=== PATIENT | male | born 1945 | race Caucasian/White ===

== ENCOUNTER → 2019-09-24 14:36 | Outpatient (BNVA) | payer MEDICARE, SELFPAY | PROVIDERS: Family Provider Family Medicine; PCP Family Medicine; Visit Provider Nurse Practitioner Family | DX: Z11.59 Encounter for screening for other viral diseases (principal) | CPT/HCPCS: 87635 ==

== ENCOUNTER → 2019-11-18 10:40 | Outpatient (BNVA) | payer OTHER, MEDICARE, SELFPAY | PROVIDERS: Absent Provider Urology; Family Provider Family Medicine; PCP Family Medicine; Visit Provider Urology | DX: N52.9 Male erectile dysfunction, unspecified (principal) | CPT/HCPCS: 81001 ==

== ENCOUNTER 2020-03-08 20:50 | Emergency (ER) | payer OTHER, MEDICARE, SELFPAY ==
[2020-03-08 21:08] VITALS: BP 151/99; PULSE 65; RESP 16; TEMP 36.8; O2SAT 98; BMI 24.6
[2020-03-08 21:08] LABS: Glucose Point of Care 209 mg/dL (70-110)
[2020-03-08 21:16] VITALS: BP 151/99; PULSE 74; RESP 17; O2SAT 95
--- NOTE | 2020-03-08 21:19 | CTR_ITS ---
PROCEDURE INFORMATION: Exam: CT Head Without Contrast Exam date and time: 03/08/2020 9:27 PM Age: 74 years old Clinical indication: Speech disturbance; Slurred speech; Additional info: Symptoms of acute stroke, left side facial droop, slurred speech TECHNIQUE: Imaging protocol: Computed tomography of the head without contrast. Radiation optimization: All CT scans at this facility use at least one of these dose optimization techniques: automated exposure control; mA and/or kV adjustment per patient size (includes targeted exams where dose is matched to clinical indication); or iterative reconstruction. Other technique: STROKE PROTOCOL was implemented. COMPARISON: CT head wo con* [id number] 10/02/2017 1:16 PM RADIATION DOSE METRICS: Total DLP (mGy-cm): 869.25 FINDINGS: Brain: Mild atrophy and mild white matter chronic microvascular changes are noted. No hemorrhage or CT evidence of acute infarction is seen. Cerebral ventricles: A 6 mm slightly dense lesion is again seen in the roof of the 3rd ventricle which is likely a colloid cyst. No hydrocephalus. Bones/joints: Unremarkable. No acute fracture. Paranasal sinuses: Visualized sinuses are unremarkable. No fluid levels. Mastoid air cells: Visualized mastoid air cells are well aerated. Soft tissues: Unremarkable. CT/CT head wo con* [id number] IMPRESSION: No acute intracranial abnormality. 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 ASSESSMENT: ASPECTS (Taylor Stroke Program Early CT Score) is 10. Radiation Dose CTDIVOL = (mGy): DLP = 869.25 (mGy-cm)
--- NOTE | 2020-03-08 21:19 | ECG_ITS ---
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 Measurements Intervals [place] Rate: 66 P: 82 AL: 185 QRS: 24 QRSD: 101 T: 52 QT: 439 QTc: 461 Interpretive Statements SINUS RHYTHM WITH OCCASIONAL VENTRICULAR PREMATURE COMPLEXES WITH OCCASIONAL SUPRAVENTRICULAR PREMATURE COMPLEXES INCOMPLETE RIGHT BUNDLE BRANCH BLOCK [90+ ms QRS DURATION, TERMINAL R IN V1/V2, 40+ ms S IN I/aVL/V4/V5/V6] Compared to ECG 12/13/2014 15:58:56 Ventricular premature complex(es) now present Incomplete right bundle-branch block now present Sinus bradycardia no longer present Electronically Signed On 03-09-2020 18:40:31 CATERING STAFF MEMBER by Cruz Fry M.D. [id number]
--- NOTE | 2020-03-08 21:19 | CTR_ITS ---
PROCEDURE INFORMATION: Exam: CT Angiography Head With Contrast Exam date and time: 03/08/2020 9:27 PM Age: 74 years old Clinical indication: Speech disturbance; Slurred speech; Additional info: Stroke-lie symptoms TECHNIQUE: Imaging protocol: Computed tomography angiography of the head with intravenous contrast. 3D rendering (Not supervised by radiologist): MIP and/or 3D reconstructed images were created by the technologist. Radiation optimization: All CT scans at this facility use at least one of these dose optimization techniques: automated exposure control; mA and/or kV adjustment per patient size (includes targeted exams where dose is matched to clinical indication); or iterative reconstruction. Contrast material: VISI; Contrast volume: 95 ml; Contrast route: INTRAVENOUS (IV); COMPARISON: CT head wo con* [id number] 03/08/2020 9:20 PM RADIATION DOSE METRICS: Total DLP (mGy-cm): 2383.82 FINDINGS: ANTERIOR CIRCULATION: Right internal carotid artery: Mild stenosis of the right carotid siphon is appreciated. Right middle cerebral artery: Unremarkable. No occlusion or significant stenosis. No aneurysm. Right anterior cerebral artery: Unremarkable. No occlusion or significant stenosis. No aneurysm. Left internal carotid artery: Unremarkable. Intracranial segment is patent with no significant stenosis. No aneurysm. Left middle cerebral artery: Unremarkable. No occlusion or significant stenosis. No aneurysm. Left anterior cerebral artery: Unremarkable. No occlusion or significant stenosis. No aneurysm. POSTERIOR CIRCULATION: Right vertebral artery: Unremarkable. No occlusion or significant stenosis. No aneurysm. Left vertebral artery: Unremarkable. No occlusion or significant stenosis. No aneurysm. Basilar artery: Unremarkable. No occlusion or significant stenosis. No aneurysm. Right posterior cerebral artery: Unremarkable. No occlusion or significant stenosis. No aneurysm. Left posterior cerebral artery: Unremarkable. No occlusion or significant stenosis. No aneurysm. IMPRESSION: Mild stenosis of the right carotid siphon. Otherwise, the intracranial arteries are patent. PROCEDURE INFORMATION: Exam: CT Angiography Neck With Contrast Exam date and time: 03/08/2020 9:27 PM Age: 74 years old Clinical indication: Speech disturbance; Slurred speech; Additional info: Stroke-lie symptoms TECHNIQUE: Imaging protocol: Computed tomography angiography of the neck with intravenous contrast. 3D rendering (Not supervised by radiologist): MIP and/or 3D reconstructed images were created by the technologist. Radiation optimization: All CT scans at this facility use at least one of these dose optimization techniques: automated exposure control; mA and/or kV adjustment per patient size (includes targeted exams where dose is matched to clinical indication); or iterative reconstruction. Contrast material: VISI; Contrast volume: 95 ml; Contrast route: INTRAVENOUS (IV); COMPARISON: CT head wo con* [id number] 03/08/2020 9:20 PM RADIATION DOSE METRICS: Total DLP (mGy-cm): 2383.82 FINDINGS: Right common carotid artery: Mild stenosis of the right carotid bulb is noted. Right internal carotid artery: No stenosis of the extracranial segment. No dissection or occlusion. Right external carotid artery: No occlusion or stenosis of the origin. Right vertebral artery: No stenosis. No dissection or occlusion. Left common carotid artery: No stenosis. No dissection or occlusion. Left internal carotid artery: No stenosis of the extracranial segment. No dissection or occlusion. Left external carotid artery: No occlusion or stenosis of the origin. Left vertebral artery: No stenosis. No dissection or occlusion. Bones/joints: No acute fracture. Soft tissues: Normal. No significant soft tissue swelling. CT/CT angio headneck* [id number] IMPRESSION: Mild stenosis of the right carotid bulb. REFERENCES: NASCET CRITERIA. The degree of internal carotid artery stenosis is based on NASCET criteria. Normal is no stenosis. Mild is less than 50% stenosis. Moderate is 50-69% stenosis. Severe is 70% to 99% stenosis. Total occlusion is no detectable patent lumen. Radiation Dose CTDIVOL = (mGy): DLP = 2383.82~2383.82 (mGy-cm)
[2020-03-08 21:31] LABS: Basophils # 0.1 10^3/uL (0.0-0.1); Eosinophils # 0.1 10^3/uL (0.0-0.8); Eosinophils % 1.6 %; Hematocrit 41.9 % (42.0-52.0); Hemoglobin 13.7 g/dL (11.7-16.6); Lymphocytes % 25.4 %; Mean Corpuscular HGB Conc 32.7 g/dL (30.0-36.0); Mean Corpuscular Hemoglobin 31.1 pg (28.0-34.0); Mean Platelet Volume 10.5 fL (7.4-10.4); Monocytes # 0.7 10^3/uL (0.2-0.9); Monocytes % 8.2 %; Neutrophils % 63.5 %; Nucleated Red Blood Cells % 0 %; Platelet Count 148 10^3/cmm (130-400); Red Blood Count 4.41 10^6/uL (4.1-5.3); Red Cell Distribution Width 12.5 % (12.1-15.1); White Blood Count 7.9 10^3/uL (4.0-10.0)
[2020-03-08 21:42] LABS: Partial Thromboplastin Time 30.1 SECONDS (23.9-36.7)
[2020-03-08 21:47] LABS: Alanine Aminotransferase 36 U/L (0-41); Albumin Level 4.1 g/dL (3.5-5.2); Alkaline Phosphatase 114 IU/L (40-130); Anion Gap 15.7 (5-19); Aspartate Amino Transferase 40 U/L (0-40); Blood Urea Nitrogen 31 mg/dL (8-23); Calcium 9.4 mg/dL (8.5-10.5); Carbon Dioxide 27 mmol/L (22-29); Chloride 100 mmol/L (98-107); Globulin 2.8 g/dL (1.3-4.6); Glucose 211 mg/dL (65-115); Osmolality Calculated 301 mOsm/kg (285-295); Potassium 3.7 mmol/L (3.5-5.1); Sodium 139 mmol/L (136-145); Total Bilirubin 0.5 mg/dL (0.15-1.2); Total Protein 6.9 g/dL (6.6-8.7)
--- NOTE | 2020-03-08 22:37 | ED_ITS ---
HPI - Neuro Symptoms/Deficit General: Chief Complaint: Neuro Symptoms/Deficit Stated Complaint: stroke Time Seen by Provider: 03/08/20 21:05 Source: patient and family (son) Mode of arrival: ambulatory Limitations: no limitations History of Present Illness: HPI Narrative: This patient is a pleasant 74-year-old male with no significant past medical history who presents to the em ergency department with complaints of slurred speech, left facial droop and clumsiness. The clumsiness was noted at 4 PM and later his noted a left facial droop. The patient also noted that he is speech became slurred sometime after 4 PM. Symptoms remain the same and he was convinced to come to the emergency department for evaluation as the patient himself did not want to come in here. No prior history of stroke, he did say he had been diagnosed with A. fib once several years ago but that spontaneously resolved and he is not on aspirin or anticoagulation. Onset (ago): hour(s) (5) Time: 21:00 Last Observed Normal: 16:00 Timing confirmed by: family member (son) Location: speech and left face History of same: No Severity: mild Quality: weak Relieving factors: none Exacerbating factors: none Context: sudden onset On Anticoagulants: No Associated symptoms: Deny chest pain, cough, diaphoresis, fevers/chills, headache(s), anorexia, malaise, nausea, seizures, short of breath, syncope, tingling, vertigo, vomiting or weakness Treatments Prior to Arrival: none Review of Systems General: Reports: 10 or more systems reviewed and unremarkable except in HPI and below Const: Denies: malaise or diaphoresis Eyes: Denies: change in vision or blurry vision ENMT: Denies: throat pain, enlarged tonsils, odynophagia, hoarseness, mouth pain or swelling of lips/tongue Card: Denies: chest pain or syncope Resp: Denies: dyspnea, productive cough or non-productive cough GI: Denies: nausea or vomiting : Denies: flank pain, dysuria, urinary frequency, urinary urgency or urinary hesitancy Musc: Denies: neck pain, back pain or extremity swelling Skin/Breast: Denies: rash, pruritus or erythema Neuro: Denies: headache(s) or vertigo Endo: Denies: polyuria, polydipsia or tired all the time PFSH ED PFSH: Medical History Afib Erectile dysfunction Hypertension Thoracic aortic aneurysm Family History Brother Cancer prostate Social History Smoking and tobacco status: former smoker Alcohol intake: current Alcohol intake frequency: few times a month Marital status: Current occupational status: retired NIH stroke score NIHSS: Level Of Consciousness - 1a: 0 Level Of Consciousness Questions - 1b: Both Correct Level Of Consciousness Commands - 1c: Both Correct Best Gaze - 2: Normal Visual Loo - 3: No Visual Loss Facial Palsy - 4: Minor Paralysis Motor Arm Right - 5: No Drift Motor Arm Left - 5: No Drift Mo tor Leg Right - 6: No Drift Motor Leg Left - 6: No Drift Limb Ataxia - 7: Absent Sensory - 8: Normal Best Language - 9: No Aphasia Dysarthia - 10: Mild/Moderate Dysarthia Extinction And Inattention - 11: 0 Score: Total Score: 2 Physical Exam Const: COMMON NORMALS: no acute distress, average body habitus, patient oriented x3, no limitations, healthy appearing, alert and well nourished HENMT: COMMON NORMALS: normocephalic, atraumatic and moist oral mucous membranes HEAD & SCALP: normocephalic and atraumatic Eye: COMMON NORMALS: Equal, round and reactive pupils present, EOMs intact bilaterally, conjunctivae normal and no scleral icterus CONJUNCTIVA: Yes conjunctivae normal PUPIL: Yes Equal, round and reactive pupils present Neck/C-Spine: COMMON NORMALS: no meningeal signs and no JVD Resp: COMMON NORMALS: normal respiratory effort, No retractions, No use of accessory muscles, clear to auscultation bilaterally and percussion normal AUSCULTATION: clear to auscultation bilaterally PERCUSSION: percussion normal Cardio: COMMON NORMALS: no JVD, regular rate, regular rhythm, S1 normal heart sound present, S2 normal heart sound present, No gallops present (Cardio), No clicks present (Cardio), No murmurs present (Cardio), No rub (Cardio) and Peripheral pulses 2+ throughout RATE: regular rate RHYTHM: regular rhythm HEART SOUNDS: S1 normal heart sound present and S2 normal heart sound present PERIPHERAL PULSES: Peripheral pulses 2+ throughout GI: COMMON NORMALS: Normal to inspection, nondistended, normoactive bowel sounds present, Soft to palpation, non-tender, No hepatosplenomegaly present, no masses and no bruits PALPATION: Yes Soft to palpation and Yes No hepatosplenomegaly present Extremity: COMMON NORMALS: normal to inspection, full ROM, capillary refill normal, no calf tenderness and no pedal edema Neuro: COMMON NORMALS: patient oriented x3 SENSORIUM/ORIENTATION: Yes alert MENINGEAL SIGNS: Yes no meningeal signs Skin: COMMON NORMALS: no rashes or lesions noted, no wounds, turgor normal, no jaundice, no petechiae and no mottling GENERAL SKIN EXAM: no rashes or lesions noted and turgor normal Course Reevaluation(s): Reevaluation #1: Discussed his lab and imaging findings with him as well as my examination findings with him. I believe he had his CVA which is mild and likely does not need TPA. In any case he arrived out of the window for TPA. Advised that he stay in the hospital overnight for an echocardiogram and further work-up of his CVA, however the patient insisted on being discharged home. His son was there in the room with him and also agreed with the patient discharging home. The son will stay with him overnight and watch him to make sure he does not deteriorate. I advised them to return for any concerns. He will be started on 81 mg dose of aspirin daily as well as 40 mg of atorvastatin daily. An outpatient echocardiogram will be ordered. He is to follow-up with his primary care provider tomorrow. Patient voiced understanding and is in agreement with the plan. Time: 22:37 Vital Signs: Vital signs: Vital Signs Temperature 98.2 F 03/08/20 21:08 Pulse Rate 57 L 03/08/20 22:52 Respiratory Rate 16 03/08/20 22:52 Blood Pressure 146/87 03/08/20 22:52 Pulse Oximetry 95 03/08/20 22:52 MDM - Neuro Symptoms/Deficit MDM Narrative: Medical decision making narrative: 74-year-old male who presented to the emergency department and has clinical features consistent with a CVA. The patient declined hospital admission, evaluation in the emergency department was unremarkable including a negative head CT and CTA of his head and neck. Since he refused to be admitted to the hospital he is discharged home with a prescription for aspirin and atorvastatin. Patient and his son counseled on signs of decompensation. He is scheduled to obtain an outpatient echocardiogram. He is to follow-up with his primary care provider within 3 days. Medical Records: Attestation: I reviewed the patient's medical records. Lab Data: Attestation: I reviewed the patient's lab results. Labs: Lab Results 03/08/20 03/08/20 03/08/20 Range/Units 21:05 21:07 21:07 WBC 7.9 (4.0-10.0) 10^3/ uL RBC 4.41 (4.1-5.3) 10^6/u L Hgb 13.7 (11.7-16.6) g/dL Hct 41.9 L (42.0-52.0) % MCV 95.0 H (80-94) fL MCH 31.1 (28.0-34.0) pg MCHC 32.7 (30.0-36.0) g/dL RDW 12.5 (12.1-15.1) % Plt Count 148 (130-400) 10^3/c mm MPV 10.5 H (7.4-10.4) fL Neut % (Auto) 63.5 % Lymph % (Auto) 25.4 % [place] % (Auto) 8.2 % Eos % (Auto) 1.6 % Baso % (Auto) 1.0 % Neut # (Auto) 5.00 (1.8-7.7) 10^3/u L Lymph # (Auto) 2.0 (0.8-4.8) 10^3/u L [place] # (Auto) 0.7 (0.2-0.9) 10^3/u L Eos # (Auto) 0.1 (0.0-0.8) 10^3/u L Baso # (Auto) 0.1 (0.0-0.1) 10^3/u L Nucleated RBC % (a uto) 0 % Nucleated RBCs # 0.0 /100WBC PT 13.50 (12.1-14.9) SECO NDS INR 1.00 (0.8-1.2) APTT 30.1 (23.9-36.7) SECO NDS Sodium (136-145) mmol/L Potassium (3.5-5.1) mmol/L Chloride (98-107) mmol/L Carbon Dioxide (22-29) mmol/L Anion Gap (5-19) BUN (8-23) mg/dL Creatinine (0.7-1.2) mg/dL GFR Calculation Glucose (65-115) mg/dL POC Glucose 209 H (70-110) mg/dL Calculated Osmolal ity (285-295) mOsm/k g Calcium (8.5-10.5) mg/dL Total Bilirubin (0.15-1.2) mg/dL AST (0-40) U/L ALT (0-41) U/L Alkaline Phosphata se (40-130) IU/L Total Protein (6.6-8.7) g/dL Albumin (3.5-5.2) g/dL Globulin (1.3-4.6) g/dL Urine Color (Yellow) Urine Appearance (CLEAR) Urine pH (5-7) Ur Specific Gravit y (1.005-1.030) Urine Protein (Negative) Urine Glucose (UA) (Normal) Urine Ketones (Negative) Urine Blood (Negative) Urine Nitrate (Negative) Urine Bilirubin (Negative) Urine Urobilinogen (Negative) mg/dL Ur Leukocyte Sunita ase (Negative) Urine Opiates Scre en (Negative) ng/mL Ur Barbiturates Sc reen (Negative) ng/mL Ur Phencyclidine S crn (Negative) ng/mL Ur Amphetamines Sc reen (Negative) ng/mL U Benzodiazepines Scrn (Negative) ng/mL Urine Cocaine Scre en (Negative) ng/mL U Marijuana (THC) Screen (Negative) ng/mL 03/08/20 03/08/20 03/08/20 Range/Units 21:07 21:58 21:58 WBC (4.0-10.0) 10^3/ uL RBC (4.1-5.3) 10^6/u L Hgb (11.7-16.6) g/dL Hct (42.0-52.0) % MCV (80-94) fL MCH (28.0-34.0) pg MCHC (30.0-36.0) g/dL RDW (12.1-15.1) % Plt Count (130-400) 10^3/c mm MPV (7.4-10.4) fL Neut % (Auto) % Lymph % (Auto) % [place] % (Auto) % Eos % (Auto) % Baso % (Auto) % Neut # (Auto) (1.8-7.7) 10^3/u L Lymph # (Auto) (0.8-4.8) 10^3/u L [place] # (Auto) (0.2-0.9) 10^3/u L Eos # (Auto) (0.0-0.8) 10^3/u L Baso # (Auto) (0.0-0.1) 10^3/u L Nucleated RBC % (a uto) % Nucleated RBCs # /100WBC PT (12.1-14.9) SECO NDS INR (0.8-1.2) APTT (23.9-36.7) SECO NDS Sodium 139 (136-145) mmol/L Potassium 3.7 (3.5-5.1) mmol/L Chloride 100 (98-107) mmol/L Carbon Dioxide 27 (22-29) mmol/L Anion Gap 15.7 (5-19) BUN 31 H (8-23) mg/dL Creatinine 1.3 H (0.7-1.2) mg/dL GFR Calculation Not Reportable Glucose 211 H (65-115) mg/dL POC Glucose (70-110) mg/dL Calculated Osmolal ity 301 H (285-295) mOsm/k g Calcium 9.4 (8.5-10.5) mg/dL Total Bilirubin 0.5 (0.15-1.2) mg/dL AST 40 (0-40) U/L ALT 36 (0-41) U/L Alkaline Phosphata se 114 (40-130) IU/L Total Protein 6.9 (6.6-8.7) g/dL Albumin 4.1 (3.5-5.2) g/dL Globulin 2.8 (1.3-4.6) g/dL Urine Color Yellow (Yellow) Urine Appearance Clear (CLEAR) Urine pH 5 (5-7) Ur Specific Gravit y 1.025 (1.005-1.030) Urine Protein Neg (Negative) Urine Glucose (UA) Norm (Normal) Urine Ketones Negative (Negative) Urine Blood Neg (Negative) Urine Nitrate Negative (Negative) Urine Bilirubin Neg (Negative) Urine Urobilinogen Norm (Negative) mg/dL Ur Leukocyte Sunita ase Negative (Negative) Urine Opiates Scre en Negative (Negative) ng/mL Ur Barbiturates Sc reen Negative (Negative) ng/mL Ur Phencyclidine S crn Negative (Negative) ng/mL Ur Amphetamines Sc reen Negative (Negative) ng/mL U Benzodiazepines Scrn Negative (Negative) ng/mL Urine Cocaine Scre en Negative (Negative) ng/mL U Marijuana (THC) Screen Positive H (Negative) ng/mL Imaging Data^: CT Head: Attestation: I personally reviewed and interpreted this imaging study as follows: Radiologist's impression: [address] [address] [address] Scan Report Signed Patient: Les Bowling #: [id number] : 5Acct#:[id number] Age/Sex: 74 / MADM Date: 03/08/20 Loc: ERRoom/Bed: Attending Dr: Ordering Provider/Ordering MD: Laisha Dorado MD, [facility] [place] Date of Service: 03/08/20 Procedure(s): CT head wo con* [id number] Accession Number(s): [id number] Report Number: [id number] PROCEDURE INFORMATION: Exam: CT Head Without Contrast Exam date and time: 03/08/2020 9:27 PM Age: 74 years old Clinical indication: Speech disturbance; Slurred speech; Additional info: Symptoms of acute stroke, left side facial droop, slurred speech TECHNIQUE: Imaging protocol: Computed tomography of the head without contrast. Radiation optimization: All CT scans at this facility use at least one of these dose optimization techniques: automated exposure control; mA and/or kV adjustment per patient size (includes targeted exams where dose is matched to clinical indication); or iterative reconstruction. Other technique: STROKE PROTOCOL was implemented. COMPARISON: CT head wo con* [id number] 10/02/2017 1:16 PM RADIATION DOSE METRICS: Total DLP (mGy-cm): 869.25 FINDINGS: Brain: Mild atrophy and mild white matter chronic microvascular changes are noted. No hemorrhage or CT evidence of acute infarction is seen. Cerebral ventricles: A 6 mm slightly dense lesion is again seen in the roof of the 3rd ventricle which is likely a colloid cyst. No hydrocephalus. Bones/joints: Unremarkable. No acute fracture. Paranasal sinuses: Visualized sinuses are unremarkable. No fluid levels. Mastoid air cells: Visualized mastoid air cells are well aerated. Soft tissues: Unremarkable. CT/CT head wo con* [id number] IMPRESSION: No acute intracranial abnormality. 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 ASSESSMENT: ASPECTS (Taylor Stroke Program Early CT Score) is 10. Radiation Dose CTDIVOL = (mGy): DLP = 869.25 (mGy-cm) Dictated By:Teo Domingo MD Signed By:Teo Domingo MDSigned Date/Time:03/08/202142 DD/ [address]: Attestation: I personally reviewed and interpreted this imaging study as follows: Radiologist's impression: [place] [address] CT Scan Report Signed Patient: Les Bowling #: [id number] : 5Acct#:[id number] Age/Sex: 74 / MADM Date: 03/08/20 Loc: ERRoom/Bed: Attending Dr: Ordering Provider/Ordering MD: Laisha Dorado MD, [facility] [place] Date of Service: 03/08/20 Procedure(s): CT angio headneck* [id number] Accession Number(s): [id number] Report Number: [id number] PROCEDURE INFORMATION: Exam: CT Angiography Head With Contrast Exam date and time: 03/08/2020 9:27 PM Age: 74 years old Clinical indication: Speech disturbance; Slurred speech; Additional info: Stroke-lie symptoms TECHNIQUE: Imaging protocol: Computed tomography angiography of the head with intravenous contrast. 3D rendering (Not supervised by radiologist): MIP and/or 3D reconstructed images were created by the technologist. Radiation optimization: All CT scans at this facility use at least one of these dose optimization techniques: automated exposure control; mA and/or kV adjustment per patient size (includes targeted exams where dose is matched to clinical indication); or iterative reconstruction. Contrast material: VISI; Contrast volume: 95 ml; Contrast route: INTRAVENOUS (IV); COMPARISON: CT head wo con* [id number] 03/08/2020 9:20 PM RADIATION DOSE METRICS: Total DLP (mGy-cm): 2383.82 FINDINGS: ANTERIOR CIRCULATION: Right internal carotid artery: Mild stenosis of the right carotid siphon is appreciated. Right middle cerebral artery: Unremarkable. No occlusion or significant stenosis. No aneurysm. Right anterior cerebral artery: Unremarkable. No occlusion or significant stenosis. No aneurysm. Left internal carotid artery: Unremarkable. Intracranial segment is patent with no significant stenosis. No aneurysm. Left middle cerebral artery: Unremarkable. No occlusion or significant stenosis. No aneurysm. Left anterior cerebral artery: Unremarkable. No occlusion or significant stenosis. No aneurysm. POSTERIOR CIRCULATION: Right vertebral artery: Unremarkable. No occlusion or significant stenosis. No aneurysm. Left vertebral artery: Unremarkable. No occlusion or significant stenosis. No aneurysm. Basilar artery: Unremarkable. No occlusion or significant stenosis. No aneurysm. Right posterior cerebral artery: Unremarkable. No occlusion or significant stenosis. No aneurysm. Left posterior cerebral artery: Unremarkable. No occlusion or significant stenosis. No aneurysm. IMPRESSION: Mild stenosis of the right carotid siphon. Otherwise, the intracranial arteries are patent. PROCEDURE INFORMATION: Exam: CT Angiography Neck With Contrast Exam date and time: 03/08/2020 9:27 PM Age: 74 years old Clinical indication: Speech disturbance; Slurred speech; Additional info: Stroke-lie symptoms TECHNIQUE: Imaging protocol: Computed tomography angiography of the neck with intravenous contrast. 3D rendering (Not supervised by radiologist): MIP and/or 3D reconstructed images were created by the technologist. Radiation optimization: All CT scans at this facility use at least one of these dose optimization techniques: automated exposure control; mA and/or kV adjustment per patient size (includes targeted exams where dose is matched to clinical indication); or iterative reconstruction. Contrast material: VISI; Contrast volume: 95 ml; Contrast route: INTRAVENOUS (IV); COMPARISON: CT head wo con* [id number] 03/08/2020 9:20 PM RADIATION DOSE METRICS: Total DLP (mGy-cm): 2383.82 FINDINGS: Right common carotid artery: Mild stenosis of the right carotid bulb is noted. Right internal carotid artery: No stenosis of the extracranial segment. No dissection or occlusion. Right external carotid artery: No occlusion or stenosis of the origin. Right vertebral artery: No stenosis. No dissection or occlusion. Left common carotid artery: No stenosis. No dissection or occlusion. Left internal carotid artery: No stenosis of the extracranial segment. No dissection or occlusion. Left external carotid artery: No occlusion or stenosis of the origin. Left vertebral artery: No stenosis. No dissection or occlusion. Bones/joints: No acute fracture. Soft tissues: Normal. No significant soft tissue swelling. CT/CT angio headneck* [id number] IMPRESSION: Mild stenosis of the right carotid bulb. REFERENCES: NASCET CRITERIA. The degree of internal carotid artery stenosis is based on NASCET criteria. Normal is no stenosis. Mild is less than 50% stenosis. Moderate is 50-69% stenosis. Severe is 70% to 99% stenosis. Total occlusion is no detectable patent lumen. Radiation Dose CTDIVOL = (mGy): DLP = 2383.82~2383.82 (mGy-cm) Dictated By:Teo Domingo MD Signed By:Teo Domingo MDSigned Date/Time:03/08/202150 DD/ 49 EKG Data^: EKG 1: Attestation: I personally reviewed and interpreted this EKG as follows: EKG interpretation date: 03/08/20 EKG interpretation time: 21:58 Prior EKG tracings: not available for review Interpretation: Sinus rhythm and occasional PVCs. Heart rate 66 bpm. Incomplete right bundle branch block. No ST changes. Discharge Plan Discharge Patient Disposition: Home Clinical Impression: Cerebrovascular accident Qualifiers: CVA mechanism: unspecified Qualified Code(s): I63.9 - Cerebral infarction, unspecified Condition: Stable Prescriptions: New aspirin 81 mg tablet,delayed release (DR/EC) 81 mg PO DAILY Qty: 30 RF: 0 Lipitor 40 mg tablet 40 mg PO DAILY Qty: 30 RF: 0 Continued 5-hydroxytryptophan (5-HTP) 100 mg capsule 100 mg PO DAILY RF: 0 5G Male PO RF: 0 sildenafil 100 mg tablet 100 mg PO DAILY PRN (Reason: sexual activity) Qty: 20 RF: 12 Discharge Orders: Discharge ED (Routine); Ordered 03/08/20 Ordered By: Laisha Dorado Referrals: Calderon Harrell MD [Primary Care Provider] - 1-3 days Discharge Diet: Usual diet Discharge Activity: Increase activity as tolerated Patient Instructions: Right Hemispheric Stroke (GEN), Self Care Measures After a Stroke (ED) Activity Restrictions/Additional Instructions: Return for any new or worsening symptoms. Follow-up with your primary care provider within [address] We did a CT scan of your head as well as a CT scan of the arteries to your neck and your head and there was no significant abnormalities. Your other tests were essentially unremarkable. I am starting you on 2 medications, 1 is a baby aspirin that you take every day and the second 1 is a cholesterol reducing medication that he also take every day, preferably at night. It is important that you get an outpatient ultrasound of your heart which I have ordered, you will be contacted by case management to schedule the outpatient ultrasound of your heart. Ensure that your son stays with you overnight tonight and check on you every few hours to make sure that nothing has changed. Like I said if you have any new symptoms or your symptoms get worse please return for evaluation. Coding Level of Care Code ED Podiatric Assistant for Lisa Lilly
[2020-03-08 22:52] VITALS: BP 146/87; PULSE 57; RESP 16; O2SAT 95
[2020-03-08 23:14] LABS: Add Urine Microscopic? NO
[2020-03-08 23:16] LABS: Bilirubin Urine Neg (Negative); Blood Urine Neg (Negative); Glucose Urine UA Norm (Normal); Ketones Urine Negative (Negative); Leukocyte Esterase Urine Negative (Negative); Nitrate Urine Negative (Negative); Protein Urine Neg (Negative); Specific Gravity, Urine 1.025 (1.005-1.030); Urine Appearance Clear (CLEAR); Urine Color Yellow (Yellow); Urobilinogen Urine Norm (Negative); pH Urine 5 (5-7)
[2020-03-08 23:24] LABS: Amphetamines Screen Urine Negative (Negative); Barbiturates Screen Urine Negative (Negative); Benzodiazepines Screen Urine Negative (Negative); Cocaine Screen Urine Negative (Negative); Opiate Screen Urine Negative (Negative); PCP Screen Urine Negative (Negative); THC Screen Urine Positive (Negative)
--- NOTE | 2020-03-09 14:42 | DCPLANNER ---
site operations manager had message to schedule a follow up appointment for patient for an outpatient echo. Patient has [employer] insurance, case reviewer can not schedule an outpatient test. site operations manager called heart care, spoke with Steff, a follow up appointment is scheduled for Tuesday, March 10, 2020 at 3:[address] Braden. site operations manager called patient and informed patient of the scheduled appointment.
--- NOTE | 2020-04-03 15:05 | DCPLANNER ---
Patient had a follow up appointment scheduled for 03.10.20 with heart care - appointment was cancelled.
== END 2020-03-08 22:53 | disposition home or self-care (01) ==
PROVIDERS: Emergency Provider Family Medicine; PCP Family Medicine
DX: I48.91 Unspecified atrial fibrillation (principal); I10 Essential (primary) hypertension; Z87.891 Personal history of nicotine dependence; Z79.899 Other long term (current) drug therapy
CPT/HCPCS: 12345; 36416; 70450; 70496; 70498; 80053; 80306; 81003; 82962; 85025; 85610; 85730; 93005; 99282; 99284; Q9967

== ENCOUNTER 2020-04-03 12:06 | Outpatient (CLI) | payer OTHER, MEDICARE, SELFPAY ==
--- NOTE | 2020-04-03 15:45 | USCV_ITS ---
Will Bowling Age: 74 Gender: M : 1945 Exam Date: 04/03/2020 12:21 Ordering Phys: Codey Vaca M.D ([email or web address]) Technologist: Edwige Mcclendon Exam Location: [facility] [place] Indication: AFIB BP: 154 / 90 HR: 135 Rhythm: Sinus Technical Quality: Adequate MEASUREMENTS (Male / Female) Normal Values 2D ECHO LV Diastolic Diameter PLAX 4.3 cm 4.2 - 5.9 / 3.9 - 5.3 cm LV Systolic Diameter PLAX 3.3 cm IVS Diastolic Thickness 1.4 cm 0.6 - 1.0 / 0.6 - 0.9 cm IVS Systolic Thickness 1.8 cm LVPW Diastolic Thickness 1.4 cm 0.6 - 1.0 / 0.6 - 0.9 cm LVPW Systolic Thickness 1.6 cm RV Chamber Size 3.5 cm LVOT Diameter 2.0 cm LV Ejection Fraction 2D Teich 47.4 % LV Ejection Fraction MOD 2C 43.4 % LV Ejection Fraction 2C AL 45.4 % LA Diameter 3.7 cm LA Width 3.9 cm LA Height 5.3 cm RA Width 5.0 cm RA Height 5.8 cm Aorta at Sinotubular Diameter 3.4 cm M-MODE LV Diastolic Diameter MM 4.7 cm 4.2 - 5.9 / 3.9 - 5.3 cm LV Systolic Diameter MM 3.7 cm LV Ejection Fraction MM Teich 44.3 % IVS Diastolic Thickness MM 1.5 cm 0.6 - 1.0 / 0.6 - 0.9 cm IVS Systolic Thickness MM 2.2 cm LVPW Diastolic Thickness MM 1.8 cm 0.6 - 1.0 / 0.6 - 0.9 cm LVPW Systolic Thickness MM 2.3 cm Aortic Annulus Diameter 3.5 cm LA Ao Ratio MM 0.9 MV E Point Septal Separation 0.3 cm DOPPLER AV Peak Velocity 89.0 cm/s LVOT Peak Velocity 65.0 cm/s AV Area Cont Eq vti 2.0 cm squared AV Area Cont Eq pk 2.3 cm squared MV Area PHT 9.6 cm squared Mitral E to A Ratio 1.5 MV E' Velocity 41.5 cm/s Mitral E to MV E' Ratio 6.0 Mitral E to LV E' Lateral Ratio 6.1 Mitral E to LV E' Septal Ratio 5.8 TR Peak Velocity 249.3 cm/s TR Peak Gradient 24.9 mmHg TV Peak E Velocity 82.0 cm/s Right Atrial Pressure 3.0 mmHg Pulmonary Artery Systolic Pressu 27.9 mmHg PV Peak Velocity 60.3 cm/s RV Acceleration Time 0.1 s RV Ejection Time 0.3 s RV AcT/ET 0.3 FINDINGS Left Ventricle Normal left ventricular size. LV systolic function is mildly reduced with EF of 40-45%. Mild global hypokinesis is seen. Diastolic function is indeterminate because of atrial fibrillation. Right Ventricle The right ventricle is normal in size and function. Right Atrium The right atrium is mildly dilated Left Atrium The left atrium is mildly dilated Mitral Valve Structurally normal mitral valve without significant stenosis or prolapse. There is mild mitral regurgitation. Aortic Valve Structurally normal aortic valve without significant sclerosis or stenosis. There is no aortic regurgitation. Tricuspid Valve Structurally normal tricuspid valve without significant stenosis. Trace tricuspid regurgitation. RVSP is 25-30mmHg Pulmonic Valve Structurally normal pulmonic valve without significant stenosis. There is no pulmonic regurgitation. Pericardium Normal pericardium without effusion. Aorta Normal ascending aorta dimension. CONCLUSIONS LV systolic function is mildly reduced with EF of 40-45% Diastolic function is indeterminate because of atrial fibrillation Biatrial enlargement Mild mitral regurgitation No pulmonary hypertension No comparison studies are available Codey Vaca MD (Electronically Signed) Final Date: 08 April 2020 10:54 S
== END 2020-04-03 12:07 | disposition home or self-care (01) ==
PROVIDERS: PCP Family Medicine; Visit Provider Internal Medicine
DX: I48.91 Unspecified atrial fibrillation (principal); I51.7 Cardiomegaly; I34.0 Nonrheumatic mitral (valve) insufficiency
CPT/HCPCS: 93306

== ENCOUNTER → 2020-06-16 08:52 | Outpatient (BNVA) | payer OTHER, SELFPAY | PROVIDERS: PCP Family Medicine; Visit Provider Urology | DX: N52.9 Male erectile dysfunction, unspecified (principal) | CPT/HCPCS: 81003 ==

== ENCOUNTER → 2021-06-22 13:27 | Outpatient (BNVA) | payer OTHER, SELFPAY | PROVIDERS: PCP Family Medicine; Visit Provider Internal Medicine Cardiovascular Disease | DX: I71.2 Thoracic aortic aneurysm, without rupture (principal); I10 Essential (primary) hypertension; I48.91 Unspecified atrial fibrillation; I65.29 Occlusion and stenosis of unspecified carotid artery | CPT/HCPCS: 99213 ==

== ENCOUNTER → 2022-01-05 14:01 | Outpatient (BNVA) | payer OTHER, SELFPAY | PROVIDERS: PCP Family Medicine; Visit Provider Internal Medicine | DX: I65.29 Occlusion and stenosis of unspecified carotid artery (principal); I10 Essential (primary) hypertension; I48.91 Unspecified atrial fibrillation; I71.20 Thoracic aortic aneurysm, without rupture, unspecified; Z86.73 Personal history of transient ischemic attack (TIA), and cerebral infarction without residual deficits | CPT/HCPCS: 99214 ==

== ENCOUNTER 2023-06-24 18:44 | Observation (INO) | payer OTHER, SELFPAY ==
[2023-06-24] VITALS (12 sets, daily range): BP systolic 128–193; BP diastolic 85–133; PULSE 60–110; RESP 13–30; TEMP 36.7–37.2; O2SAT 85–98; BMI 24.6
--- NOTE | 2023-06-24 18:53 | ECG_ITS ---
[facility] Test Date: 2023-06-24 Pat Name: Will Bowling Department: Room: Gender: Male [employer]: : 1945 Requested By: Cameron Morales Order Number: [id number] Yvrose MD: Codey Vaca M.D. Measurements Intervals [place] Rate: 73 P: 75 CO: 178 QRS: 20 QRSD: 102 T: 64 QT: 399 QTc: 442 Interpretive Statements SINUS RHYTHM WITH FREQUENT SUPRAVENTRICULAR PREMATURE COMPLEXES INCOMPLETE RIGHT BUNDLE BRANCH BLOCK [90+ ms QRS DURATION, TERMINAL R IN V1/V2, 40+ ms S IN I/aVL/V4/V5/V6] Compared to ECG 03/08/2020 21:57:44 Ventricular premature complex(es) no longer present Electronically Signed On 06-25-2023 12:03:50 CDT by Codey Vaca M.D. [id number]
--- NOTE | 2023-06-24 18:53 | CTR_ITS ---
PROCEDURE INFORMATION: Exam: CTA Head With Contrast, Arteriography Exam date and time: 06/24/2023 7:00 PM Age: 77 years old Clinical indication: Stroke-like symptoms; Altered mental status/memory loss; Left facial droop; Additional info: Disorientation TECHNIQUE: Imaging protocol: Computed tomographic angiography of the head with contrast. Exam focused on the arteries. 3D rendering (Not supervised by radiologist): MIP and/or 3D reconstructed images were created by the technologist. Radiation optimization: All CT scans at this facility use at least one of these dose optimization techniques: automated exposure control; mA and/or kV adjustment per patient size (includes targeted exams where dose is matched to clinical indication); or iterative reconstruction. Contrast material: OMNI 350; Contrast volume: 100 ml; Contrast route: INTRAVENOUS (IV); COMPARISON: CT head thrombolytic [id number] 06/24/2023 6:58 PM RADIATION DOSE METRICS: Total DLP (mGy-cm): 501.27 FINDINGS: ANTERIOR CIRCULATION: Right internal carotid artery: Intracranial segment is patent. Calcified and noncalcified plaques of the right petrous/cavernous segment of the right ICA with fnvb-px-xdvyzkjz stenosis. No aneurysm. Right middle cerebral artery: No occlusion or significant stenosis. No aneurysm. Right anterior cerebral artery: No occlusion or significant stenosis. No aneurysm. Left internal carotid artery: Intracranial segment is patent with no significant stenosis. No aneurysm. Left middle cerebral artery: No occlusion or significant stenosis. No aneurysm. Left anterior cerebral artery: No occlusion or significant stenosis. No aneurysm. POSTERIOR CIRCULATION: Right vertebral artery: No occlusion or significant stenosis. No aneurysm. Left vertebral artery: No occlusion or significant stenosis. No aneurysm. Basilar artery: No occlusion or significant stenosis. No aneurysm. Right posterior cerebral artery: No occlusion or significant stenosis. No aneurysm. Left posterior cerebral artery: No occlusion or significant stenosis. No aneurysm. Brain: No definite mass, mass effect, or midline shift. Cerebral ventricles: No ventriculomegaly. Bones/joints: Unremarkable. No acute fracture. Soft tissues: Unremarkable. PROCEDURE INFORMATION: Exam: CTA Neck With Contrast Exam date and time: 06/24/2023 7:00 PM Age: 77 years old Clinical indication: Stroke-like symptoms; Altered mental status/memory loss; Left facial droop; Additional info: Disorientation TECHNIQUE: Imaging protocol: Computed tomographic angiography of the neck with contrast. Exam focused on the cervical segments of the vasculature. 3D rendering (Not supervised by radiologist): MIP and/or 3D reconstructed images were created by the technologist. Radiation optimization: All CT scans at this facility use at least one of these dose optimization techniques: automated exposure control; mA and/or kV adjustment per patient size (includes targeted exams where dose is matched to clinical indication); or iterative reconstruction. Contrast material: OMNI 350; Contrast volume: 100 ml; Contrast route: INTRAVENOUS (IV); COMPARISON: CT angio headne* [id number] 03/08/2020 9:24 PM RADIATION DOSE METRICS: Total DLP (mGy-cm): 501.27 FINDINGS: Right common carotid artery: No stenosis. No dissection or occlusion. Right internal carotid artery: No stenosis of the extracranial segment. No dissection or occlusion. Right external carotid artery: No occlusion or stenosis of the origin. Left common carotid artery: No stenosis. No dissection or occlusion. Left internal carotid artery: No stenosis of the extracranial segment. No dissection or occlusion. Left external carotid artery: No occlusion or stenosis of the origin. Right vertebral artery: No stenosis. No dissection or occlusion. Left vertebral artery: No stenosis. No dissection or occlusion. Soft tissues: Normal. No significant soft tissue swelling. Bones/joints: No acute fracture. CT/CT angio [facility]* [id number] IMPRESSION: 1. No large vessel occlusion. 2. Calcified and noncalcified plaques of the right intracranial segment of the right ICA with wygl-cb-gjmibmyb stenosis. IMPRESSION: No stenosis or occlusion. REFERENCES: NASCET CRITERIA. The degree of stenosis in the cervical segment of the internal carotid artery is based on NASCET criteria. Normal is no stenosis. Mild is less than 50% stenosis. Moderate is 50-69% stenosis. Severe is 70% to 99% stenosis. Total occlusion is no detectable patent lumen.
--- NOTE | 2023-06-24 18:53 | CTR_ITS ---
PROCEDURE INFORMATION: Exam: CT Head Without Contrast Exam date and time: 06/24/2023 6:58 PM Age: 77 years old Clinical indication: Stroke-like symptoms; Altered mental status/memory loss; Left facial droop; Additional info: Sudden onset of confusion with left facial droop. Lkwt of 1700 hrs. TECHNIQUE: Imaging protocol: Computed tomography of the head without contrast. Radiation optimization: All CT scans at this facility use at least one of these dose optimization techniques: automated exposure control; mA and/or kV adjustment per patient size (includes targeted exams where dose is matched to clinical indication); or iterative reconstruction. Other technique: STROKE PROTOCOL was implemented. COMPARISON: CT angio headneck* [id number] 03/08/2020 9:24 PM RADIATION DOSE METRICS: Total DLP (mGy-cm): 1067.58 FINDINGS: Brain: No acute hemorrhage, mass effect or herniation. Bilateral ill-defined periventricular hypodensities consistent with moderate chronic microvascular white matter ischemic changes. Cerebral ventricles: Age-related diffuse cortical atrophic changes with compensatory ventricular dilatation. Paranasal sinuses: Visualized sinuses are unremarkable. No fluid levels. Mastoid air cells: Visualized mastoid air cells are well aerated. Bones: Unremarkable. No acute fracture. Soft tissues: Unremarkable. CT/CT head thrombolytic [id number] IMPRESSION: 1. No acute intracranial abnormality. 2. No acute hemorrhage. ASSESSMENT: ASPECTS ([place] Stroke Program Early CT Score) is 10.
[2023-06-24 19:04] LABS: Basophils # 0.1 10^3/uL (0.0-0.1); Basophils % 0.6 %; Eosinophils # 0.1 10^3/uL (0.0-0.8); Hematocrit 43.7 % (37-53); Lymphocytes # 1.3 10^3/uL (0.8-4.8); Lymphocytes % 15.3 %; Mean Corpuscular HGB Conc 33.2 g/dL (30-55); Mean Corpuscular Hemoglobin 31.9 pg (27-33); Mean Platelet Volume 10.2 fL (7.4-10.4); Monocytes # 0.5 10^3/uL (0.2-0.9); Monocytes % 5.8 %; Neutrophils # 6.62 10^3/uL (1.8-7.7); Nucleated Red Blood Cells % 0 %; Platelet Count 145 10^3/cmm (157-399); Red Blood Count 4.55 10^6/uL (3.85-5.65); Red Cell Distribution Width 12.8 % (12.1-15.1); White Blood Count 8.61 10^3/uL (3.29-11.43)
[2023-06-24] MEDS: iohexol 350 mg/mL 500 mL Btl (per mL) IV (19:06)
[2023-06-24 19:15] LABS: INR 0.99 (0.8-1.2)
[2023-06-24 19:16] LABS: Partial Thromboplastin Time 27.9 SECONDS (23.9-36.7)
[2023-06-24 19:18] LABS: Alanine Aminotransferase 40 U/L (0-41); Albumin Level 4.4 g/dL (3.5-5.2); Alkaline Phosphatase 107 U/L (40-130); Anion Gap 15.5 (5-19); Aspartate Amino Transferase 44 U/L (0-40); Blood Urea Nitrogen 29 mg/dL (8-23); Calcium 8.9 mg/dL (8.5-10.5); Carbon Dioxide 27 mmol/L (22-29); Chloride 107 mmol/L (98-107); Creatinine Clr Calc Pharmacy 52.1833; Globulin 3.1 g/dL (1.3-4.6); Glucose 119 mg/dL (65-115); Osmolality Calculated 307 mOsm/kg (285-295); Potassium 4.5 mmol/L (3.5-5.1); Sodium 145 mmol/L (136-145); Total Bilirubin 0.5 mg/dL (0.15-1.2); Total Protein 7.5 g/dL (6.6-8.7)
[2023-06-24] MEDS: sodium chloride 0.9% 1,000 ML 999 ML IV ×2 (19:22→21:02)
[2023-06-24 19:29] LABS: Creatine Phosphokinase 122 U/L (39-308)
[2023-06-24 19:36] LABS: Add Urine Microscopic? NO; Charge for UA Resulting for Rev
--- NOTE | 2023-06-24 19:37 | P.CONIM_ITS ---
Providers/Reason For Consult 2 Consulting Physician/Specialty*: Chauncey Irwin MD neurology and epilepsy Reason for Consult*: Code stroke emergency department room #11 Primary Care Provider: Calderon Harrell MD History of Present Illness History of Present Illness Will Bowling is a 77 year old male who is a with a history of atrial fibrillation on no anticoagulation secondary to patient refusal, thoracic aortic aneurysm, cerebral stroke 2 years ago manifested as difficulty speaking, hypertension on no antihypertensive medications, and hypothyroidism. The patient was at home and was witnessed by his son to experienced acute onset of profuse sweating associated with difficulty speaking around 5 PM on 06/24/2023. Patient was brought to the [facility] emergency room code stroke initiated at 6:52 PM on 06/24/2023. Noncontrast head CT was obtained and reported to be negative for acute findings. NIH score =1 (secondary to dysarthria). CT angiogram of the head and neck revealed Calcified and noncalcified plaques of the right intracranial segment of the right ICA with nmiz-gq-dlujewlf stenosis. No large vessel occlusion. CBC and comprehensive metabolic panel revealed serum glucose of 119. Mildly elevated SGOT of 44. The other labs were unrevealing. Drug screen results pending. Urinalysis results pending. 2D echocardiogram 04/15/2020 revealed decreased ejection fraction of 40 to 45% with reports of atrial fibrillation. 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 Since the patient is NIH score =1 and patient has reported history of thoracic aortic aneurysm, patient was not a candidate for thrombolytics and no thrombolytics were administered. Drug allergies: None Current medications: Garlic Gingko [place] 500 mg p.o. daily Mother worth Past medical history: CVA 2 years ago manifested as difficulty Atrial fibrillation Thoracic aortic aneurysm Hypertension Hypothyroid Right internal carotid artery stenosis reported mild to moderate in degree reported on CT angiogram of head and neck 06/24/2023 Habits: The patient admits to occasional alcohol use. He denies other drug use. Family history: Negative for strokes Review of Systems 2 General: Reports: 10 or more systems reviewed and unremarkable except in HPI and below Medications/Allergies Home Medications Medication Instructions Recorded Confirmed Last Taken Type hawthorn 500 mg capsule (hawthorn mg PO DAILY 06/16/20 01/05/22 Unknown History gibbons) garlic PO 01/05/22 01/05/22 Unknown History gingko PO 01/05/22 Unknown History mother worth PO 01/05/22 Unknown History Allergies Allergy/AdvReac Type Severity Reaction Status Date / Time No Known Allergies Allergy Verified 01/05/22 15:05 Current Medications Generic Name Dose Route Start Last Admin Trade Name Freq PRN Reason Stop Dose Admin Sodium Chloride 1,000 mls @ 999 mls/hr 06/24/23 19:15 06/24/23 19:22 Sodium Chloride 0.9% IV 06/24/23 21:15 999 mls/hr .Q1H1M SANA Administration PFSH Acute 2 PFSH: Medical History Afib Erectile dysfunction Hypertension Thoracic aortic aneurysm Family History Brother Cancer prostate Mother , IN HER 90'S No problems noted. Father No problems noted. Social History Smoking and tobacco/nicotine status: never used tobacco/nicotine Alcohol intake: current Alcohol intake frequency: few times a month Substance/Drug Use: never Marital status: Current occupational status: retired Vitals/I&O/Wt Last Vital Signs Temp 98.1 F 06/24/23 18:50 Pulse 93 06/24/23 19:30 Resp 18 06/24/23 19:30 BP 193/106 06/24/23 19:30 Weight last 48 hrs Weight 167 lb Physical Exam 2 Narrative: NIH score =1 (secondary to dysarthria) Blood pressure 204/129 with repeat blood pressure 193/106, heart rate 93 respirations 18 temperature 98.1 ?F The patient is alert and oriented x 3. Speech fluent. Head normocephalic. Neck supple. Cranial nerves II through XII intact. Pupils equal round and reactive to light and accommodation. Extraocular movements intact. Pupils 3 to 4 mm bilaterally. There were no nystagmus. Visual doran full via confrontation. Motor examination 5/5 bilaterally. There was no drift. There was no ataxia in the upper or lower extremities on dkserx-yyup-uomdwd or oxqa-tmxg-deew maneuver. Sensory examination was intact to touch. There was no extinction on double sensory stimulation. Plantar responses flexor bilaterally. There was no clonus. Throat clear. Lungs clear. Heart history of atrial fibrillation. Extremities were negative for cyanosis or edema. Data 06/24/23 18:54 06/24/23 18:54 A&P Assessment and plan (1) Stroke determined by clinical assessment: Impression: 1. Stroke manifested as dysarthria 06/24/2023 beginning at 5 PM on 06/24/2023. Since the patient NIH score =1 secondary to dysarthria, patient was not a candidate for thrombolytics and no thrombolytics were administered. Patient also reports history of thoracic aortic aneurysm diagnosed at the [facility]. 2. Atrial fibrillation, patient refused to start anticoagulation 3. Hypertension, patient on no antihypertensive medication 4. Thoracic aortic aneurysm 5. Hypothyroidism 6. History of CVA 2 years ago manifested as speech difficulty Plan: 1. Recommend CT angiogram of the chest to evaluate thoracic aneurysm 2. Recommend treatment of hypertension 3. Recommend starting patient on lipid-lowering agent per NIH stroke protocol 4. Recommend cardiac evaluation regarding history of atrial fibrillation 5. Recommend starting aspirin 325 mg p.o. every morning with food first dose now 6. Neurochecks per NIH stroke protocol 7. Recommend observation admission to cardiac telemetry floor since patient has history of atrial fibrillation 8. Recommend repeat 2D echocardiogram 9. Give patient stroke booklet/pamphlet Consult Attestations 2 Medical Necessity Statement: Patient evaluated by neurology for code stroke emergency department room #11/acute care Coding Level of Care Code 90573 Diagnoses Stroke determined by clinical assessment I63.9
--- NOTE | 2023-06-24 19:42 | XRR_ITS ---
PROCEDURE INFORMATION: Exam: XR Chest Exam date and time: 06/24/2023 7:43 PM Age: 77 years old Clinical indication: Other: Stroke alert; Patient HX: Patient arrived for possible stroke. History of thoracic aortic aneurysm. ; Additional info: AMS TECHNIQUE: Imaging protocol: Radiologic exam of the chest. Views: 1 view. COMPARISON: CT angio headneck* [id number] 06/24/2023 7:00 PM FINDINGS: Lungs: Curvilinear bilateral opacities which can be seen with emphysematous lung changes. Pleural spaces: Unremarkable. No pleural effusion. No pneumothorax. Heart/Mediastinum: Unremarkable. No cardiomegaly. Bones/joints: Unremarkable. XR/XR chest 1V portable [id number] IMPRESSION: 1. No acute findings. 2. Emphysematous lung changes.
[2023-06-24 19:47] LABS: Bilirubin Urine Neg (Negative); Blood Urine Neg (Negative); Glucose Urine UA Norm (Normal); Ketones Urine 1+ (Negative); Leukocyte Esterase Urine Negative (Negative); Nitrate Urine Negative (Negative); Protein Urine Neg (Negative); Specific Gravity, Urine 1.005 (1.005-1.030); Urine Appearance Clear (CLEAR); Urine Color Yellow (Yellow); Urobilinogen Urine Neg (Negative); pH Urine 7 (5-7)
[2023-06-24 19:49] LABS: Amphetamines Screen Urine Negative (Negative); Barbiturates Screen Urine Negative (Negative); Benzodiazepines Screen Urine Negative (Negative); Cocaine Screen Urine Negative (Negative); Opiate Screen Urine Negative (Negative); PCP Screen Urine Negative (Negative); THC Screen Urine Positive (Negative)
--- NOTE | 2023-06-24 19:58 | ED_ITS ---
HPI - Neuro Symptoms/Deficit 2 General: Chief Complaint: Neuro Symptoms/Deficit Stated Complaint: Stroke Symptoms Time Seen by Provider: 06/24/23 18:48 History of Present Illness: 77-year-old male who came in the house a round 5 PM. According to his son, at that time he seemed disoriented, and could not talk. Facial droop was noted. He was able to walk. His son notes that this happened a couple of years ago with similar symptoms although they did not seem to severe at the time. Symptoms are improved currently, but son notes his speech is still not like his normal speech. He has a history of atrial fibrillation, hypertension. Both are untreated. He does not take anticoagulants. He prefers to take herbal supplements. He also evidently has a history of thoracic aortic aneurysm. He is not complaining of chest pain. Associated symptoms: Deny chest pain, headache(s) or nausea Review of Systems 2 Const: Denies: fever(s) ENMT: Denies: throat pain Card: Denies: chest pain Resp: Denies: dyspnea GI: Denies: abdominal pain or nausea Neuro: Denies: headache(s), numbness in extremities or difficulty walking PFSH ED 2 PFSH: Medical History Thoracic aortic aneurysm Hypertension Afib Erectile dysfunction Surgical History H/O left knee surgery History of cataract surgery Family History Brother Cancer prostate Mother , IN HER 90'S No problems noted. Father No problems noted. Social History Smoking and tobacco/nicotine status: never used tobacco/nicotine Alcohol intake: current Alcohol intake frequency: few times a month Substance/Drug Use: never Marital status: Current occupational status: retired NIH stroke score 2 NIHSS: Level Of Consciousness - 1a: 0 Level Of Consciousness Questions - 1b: Both Correct Level Of Consciousness Commands - 1c: Both Correct Best Gaze - 2: Normal Visual Loo - 3: No Visual Loss Facial Palsy - 4: N ormal Motor Arm Right - 5: No Drift Motor Arm Left - 5: No Drift Motor Leg Right - 6: No Drift Motor Leg Left - 6: No Drift Limb Ataxia - 7: A bsent Sensory - 8: Normal Best Language - 9: No Aphasia Dysarthia - 10: Mild/Moderate Dysarthia Extinction And Inattention - 11: 0 Score: Total Score: 1 Physical Exam 2 Const: COMMON NORMALS: no acute distress GENERAL APPEARANCE: cooperative; not ill appearing and not frail appearing HENMT: COMMON NORMALS: normocephalic, atraumatic and Normal external nose present HEAD & SCALP: normocephalic and atraumatic FACE & SINUS: normal facial exam and face symmetric NOSE: Normal external nose present Eye: COMMON NORMALS: Equal, round and reactive pupils present and EOMs intact bilaterally PUPIL: Yes Equal, round and reactive pupils present Neck/C-Spine: GENERAL: Yes trachea midline Chest: CHEST: Yes Symmetrical chest wall rise Resp: COMMON NORMALS: normal respiratory effort, No retractions, No use of accessory muscles and clear to auscultation bilaterally AUSCULTATION: clear to auscultation bilaterally Cardio: COMMON NORMALS: regular rate RATE: regular rate RHYTHM: abnormal rhythm irregularly irregular GI: COMMON NORMALS: Normal to inspection, nondistended, normoactive bowel sounds present Extremity: COMMON NORMALS: no pedal edema Neuro: TI COMA SCALE: document GCS findings [place] coma scale eye opening: Spontaneous [place] coma scale verbal response: Orientated [place] coma scale motor response: Obey commands Ti coma scale total score: 15 S ENSORY EXAM: Yes extremities (intact) Psych: COMMON NORMALS: speech normal SPEECH: Yes normal speech Skin: COMMON NORMALS: no rashes or lesions noted GENERAL SKIN EXAM: no rashes or lesions noted Course 2 Vital Signs: Vital signs: Vital Signs Temperature 97.4 F L 06/25/23 11:00 Pulse Rate 80 06/25/23 14:00 Respiratory Rate 10 L 06/25/23 11:00 Blood Pressure 163/101 06/25/23 11:00 Pulse Oximetry 93 06/25/23 11:00 Oxygen Delivery Me thod Room Air 06/25/23 11:00 MDM - Neuro Symptoms/Deficit Medical Decision Making Patient was mildly disoriented on arrival. This seems to have improved/resolved. He may have some mild dysarthria. This is his only localizing stroke finding. Stroke alert was called on the patient's arrival, and neurology came to consult. He interviewed the patient in person and agrees with mild dysarthria being his only point on an NIH scale. He does not recommend tPA. The patient's blood pressure has been significantly elevated, up to over 200 systolic. Currently 176/112. Heart rate is in the 90s. Neurology recommends observation, echocardiogram given his history, and potentially CTA of his chest given his history of thoracic aneurysm. I also recommend at least an aspirin, full-strength, and statin. Laboratory is not terribly remarkable. CT of the head is negative for hemorrhage. CTA of the head and neck is negative for high-grade stenosis or occlusion Lab Data 06/25/23 04:14 06/25/23 04:[address] 06/24/23 18:53 IMPRESSION: 1. No acute intracranial abnormality. 2. No acute hemorrhage. ASSESSMENT: ASPECTS ([place] Stroke Program Early CT Score) is 10. Head/Neck CTA 06/24/23 18:53 IMPRESSION: 1. No large vessel occlusion. 2. Calcified and noncalcified plaques of the right intracranial segment of the right ICA with owxp-ir-ikkczpnr stenosis. IMPRESSION: No stenosis or occlusion. REFERENCES: NASCET CRITERIA. The degree of stenosis in the cervical segment of the internal carotid artery is based on NASCET criteria. Normal is no stenosis. Mild is less than 50% stenosis. Moderate is 50-69% stenosis. Severe is 70% to 99% stenosis. Total occlusion is no detectable patent lumen. Chest X-Ray 06/24/23 19:42 IMPRESSION: 1. No acute findings. 2. Emphysematous lung changes. Laboratory Results WBC 8.61 10^3/uL (3.29-11.43) 06/24/23 18:54 RBC 4.55 10^6/uL (3.85-5.65) 06/24/23 18:54 Hgb 14.50 g/dL (11.27-16.99) 06/24/23 18:54 Hct 43.7 % (37-53) 06/24/23 18:54 MCV 96.0 fl (82-101) 06/24/23 18:54 MCH 31.9 pg (27-33) 06/24/23 18:54 MCHC 33.2 g/dL (30-55) 06/24/23 18:54 RDW 12.8 % (12.1-15.1) 06/24/23 18:54 Plt Count 145 10^3/cmm (157-399) L 06/24/23 18:54 MPV 10.2 fL (7.4-10.4) 06/24/23 18:54 Neut % (Auto) 77.0 % 06/24/23 18:54 Lymph % (Auto) 15.3 % 06/24/23 18:54 [place] % (Auto) 5.8 % 06/24/23 18:54 Eos % (Auto) 1.0 % 06/24/23 18:54 Baso % (Auto) 0.6 % 06/24/23 18:54 Neut # (Auto) 6.62 10^3/uL (1.8-7.7) 06/24/23 18:54 Lymph # (Auto) 1.3 10^3/uL (0.8-4.8) 06/24/23 18:54 [place] # (Auto) 0.5 10^3/uL (0.2-0.9) 06/24/23 18:54 Eos # (Auto) 0.1 10^3/uL (0.0-0.8) 06/24/23 18:54 Baso # (Auto) 0.1 10^3/uL (0.0-0.1) 06/24/23 18:54 Nucleated RBC % (auto) 0 % 06/24/23 18:54 Nucleated RBCs # 0.0 /100WBC 06/24/23 18:54 PT 13.40 SECONDS (12.1-14.9) 06/24/23 18:54 INR 0.99 (0.8-1.2) 06/24/23 18:54 APTT 27.9 SECONDS (23.9-36.7) 06/24/23 18:54 Sodium 145 mmol/L (136-145) 06/24/23 18:54 Potassium 4.5 mmol/L (3.5-5.1) 06/24/23 18:54 Chloride 107 mmol/L (98-107) 06/24/23 18:54 Carbon Dioxide 27 mmol/L (22-29) 06/24/23 18:54 Anion Gap 15.5 (5-19) 06/24/23 18:54 BUN 29 mg/dL (8-23) H 06/24/23 18:54 Creatinine 1.2 mg/dL (0.7-1.2) 06/24/23 18:54 GFR Calculation Not Reportable 06/24/23 18:54 Glucose 119 mg/dL (65-115) H 06/24/23 18:54 Calculated Osmolality 307 mOsm/kg (285-295) H 06/24/23 18:54 Calcium 8.9 mg/dL (8.5-10.5) 06/24/23 18:54 Magnesium 2.3 mg/dL (1.7-2.3) 06/24/23 18:53 Total Bilirubin 0.5 mg/dL (0.15-1.2) 06/24/23 18:54 AST 44 U/L (0-40) H 06/24/23 18:54 ALT 40 U/L (0-41) 06/24/23 18:54 Alkaline Phosphatase 107 U/L (40-130) 06/24/23 18:54 Creatine Kinase 122 U/L (39-308) 06/24/23 18:54 Total Protein 7.5 g/dL (6.6-8.7) 06/24/23 18:54 Albumin 4.4 g/dL (3.5-5.2) 06/24/23 18:54 Globulin 3.1 g/dL (1.3-4.6) 06/24/23 18:54 TSH 6.39 uIU/mL (0.27-4.20) H 06/24/23 18:53 Urine Color Yellow (Yellow) 06/24/23 18:54 Urine Appearance Clear (CLEAR) 06/24/23 18:54 Urine pH 7 (5-7) 06/24/23 18:54 Ur Specific [place] 1.005 (1.005-1.030) 06/24/23 18:54 Urine Protein Neg (Negative) 06/24/23 18:54 Urine Glucose (UA) Norm (Normal) 06/24/23 18:54 Urine Ketones 1+ (Negative) H 06/24/23 18:54 Urine Blood Neg (Negative) 06/24/23 18:54 Urine Nitrate Negative (Negative) 06/24/23 18:54 Urine Bilirubin Neg (Negative) 06/24/23 18:54 Urine Urobilinogen Neg mg/dL (Negative) 06/24/23 18:54 Ur Leukocyte Esterase Negative (Negative) 06/24/23 18:54 Urine Opiates Screen Negative ng/mL (Negative) 06/24/23 18:54 Ur Barbiturates Screen Negative ng/mL (Negative) 06/24/23 18:54 Ur Phencyclidine Scrn Negative ng/mL (Negative) 06/24/23 18:54 Ur Amphetamines Screen Negative ng/mL (Negative) 06/24/23 18:54 U Benzodiazepines Scrn Negative ng/mL (Negative) 06/24/23 18:54 Urine Cocaine Screen Negative ng/mL (Negative) 06/24/23 18:54 U Marijuana (THC) Screen Positive ng/mL (Negative) H 06/24/23 18:54 Hepatitis A IgM Ab Non-reactive (Nonreactive) 06/24/23 18:54 Hep Bs Antigen Non-reactive (Nonreactive) 06/24/23 18:54 Hep B Core IgM Ab Non-reactive (Nonreactive) 06/24/23 18:54 Hepatitis C Antibody Non-reactive (Nonreactive) 06/24/23 18:54 All radiology interpretation(s) finalized by discharge Discharge Plan Discharge Patient Disposition: Admitted As Inpatient Admit Provider: Umair Salazar Clinical Impression: Stroke determined by clinical assessment Condition: Fair Coding Level of Care Code ED Route Sales Delivery Drivers Supervisor for Lisa Lilly
--- NOTE | 2023-06-24 21:14 | P.HP_ITS ---
Providers/Chief Complaint 2 Admitting Physician: Umair Salazar MD Primary Care Provider: Calderon Harrell MD Chief Complaint: Stroke Symptoms History of Present Illness Will Bowling is a 77 year old male presenting to the emergency department with complaints of difficulty with word finding, and a little bit of numbness in his right face and difficulty with his right hand as far as coordination. Son noticed this around 5 PM, when checking on father. Exact last well-known I could not determine. He denies any headache. He is not seeing any blood in his stool is not having black and tarry stools. He had an episode of a TIA in the past and has a history of A-fib. He had been refusing to take anticoagulants in the past, but is now amenable to this. He denies any chest pain, or shortness of breath. He recently got put on some T3 hormone, and was recently increased from 15 to 30 mg. This may be a Herbold. He was also placed on some testosterone gel. Review of Systems 2 General: Reports: 10 or more systems reviewed and unremarkable except in HPI and below Const: Denies: fever(s) or chills Card: Denies: chest pain Resp: Denies: dyspnea GI: Denies: abdominal pain, nausea, vomiting, hematochezia or melena Medications/Allergies Home Medications Medication Instructions Recorded Confirmed Last Taken Type hawthorn 500 mg capsule (hawthorn mg PO DAILY 06/16/20 01/05/22 Unknown History gibbons) garlic PO 01/05/22 01/05/22 Unknown History gingko PO 01/05/22 Unknown History mother worth PO 01/05/22 Unknown History Allergies Allergy/AdvReac Type Severity Reaction Status Date / Time No Known Allergies Allergy Verified 06/24/23 21:07 PFSH Acute 2 PFSH: Medical History Thoracic aortic aneurysm Hypertension Afib Erectile dysfunction Surgical History H/O left knee surgery History of cataract surgery Family History Brother Cancer prostate Mother , IN HER 90'S No problems noted. Father No problems noted. Social History Smoking and tobacco/nicotine status: never used tobacco/nicotine Alcohol intake: current Alcohol intake frequency: few times a month Substance/Drug Use: never Marital status: Current occupational status: retired Vitals/I&O/Wt Last Vital Signs Temp 98.1 F 06/24/23 18:50 Pulse 97 06/24/23 21:00 Resp 13 06/24/23 21:00 BP 176/133 06/24/23 21:00 Pulse Ox 85 L 06/24/23 19:45 06/24/23 06/24/23 06/24/23 06:59 14:59 22:59 Intake Total 1000 / 1000 Balance 1000 / 1000 Weight last 48 hrs Weight 75.75 kg Physical Exam 2 Narrative: General exam is a white male, with some word finding difficulty, in no apparent distress. HEENT: Atraumatic normocephalic. Cataract surgery/lens surgery noted Oropharynx clear Neck is supple no lymphadenopathy thyromegaly Cardiovascular irregular, irregular with accelerated rate Lungs clear to auscultation bilaterally Abdomen is soft nontender with positive bowel sounds. No obvious organomegaly exams deferred Extremities no sinus clubbing edema, cap refill brisk Skin no rash Neuro: Some word finding difficulty. Some clumsiness right hand. Subjective numbness right cheek but no obvious facial drooping Skin multiple AK's noted over face Data 06/24/23 18:54 06/24/23 18:54 Other Labs: PT and PTT are normal LFTs are normal with exception of AST of 44 Urinalysis negative Urine drug screen positive for marijuana TSH I have ordered Chest x-ray by my read no infiltrate Head neck CTA demonstrates no large vessel occlusion. Mild to moderate stenosis right ICA EKG which I reviewed demonstrates sinus rhythm, borderline left axis deviation, frequent premature beats. Incomplete right bundle. While I was in the room, telemetry strips were very consistent with A-fib with RVR with a rate of around 110. He has a prior history of A-fib, which she is seeing cardiology for which he had refused anticoagulation in the past. A&P Assessment and plan (1) CVA (cerebral vascular accident): Permissive hypertension up to 220/120 Hydration Initiate aspirin 81 mg daily Secondary to A-fib initiate Lovenox 40 mg subcu x 1, and transition to Eliquis 5 mg twice daily tomorrow Therapy consultations Neurologic checks Initiate statin CTA is already been completed Appreciate neurology consult Check echocardiogram (2) Afib: Initiate metoprolol 12.5 mg twice daily for rate control. Increase slowly, not lowering blood pressure significantly in this next 24 hours Initiate Eliquis 5 mg twice daily starting tomorrow, 1 injection of Lovenox tonight Echocardiogram Hold T3 recently initiated. Check TSH Check magnesium on blood in lab (3) Carotid stenosis: Aspirin and statin as above (4) Thoracic aortic aneurysm: He has no complaints related to this currently. Consider outpatient CTA (5) Hypertension: See findings under permissive hypertension under stroke (6) Hyperglycemia: Check hemoglobin A1c in the morning, along with lipid profile Plan Other medical problems as outlined in past medical history Full code Lovenox/Eliquis will suffice for DVT prophylaxis Attestations 2 Medical Necessity Statement*: Will need less than 2 midnight stay for evaluation and treatment of CVA Diagnoses CVA (cerebral vascular accident) I63.9 Afib I48.91 Carotid stenosis I65.29 Thoracic aortic aneurysm I71.2 Hypertension I10 Hyperglycemia R73.9 Time Spent (min) 54
--- NOTE | 2023-06-24 22:05 | ECG_ITS ---
[facility] Test Date: 2023-06-24 Pat Name: Will Bowling Department: Room: 112 Gender: Male Cotton Tier: : 1945 Requested By: Umair Barrios Order Number: [id number] Yvrose MD: Rad Zimmer M.D. Measurements Intervals Brave Rate: 95 P: 0 NE: 0 QRS: 17 QRSD: 93 T: 62 QT: 381 QTc: 481 Interpretive Statements ATRIAL FIBRILLATION NONSPECIFIC ST & T-WAVE ABNORMALITY ABNORMAL RHYTHM ECG Compared to ECG 06/24/2023 18:48:50 T-wave abnormality now present Sinus rhythm no longer present Incomplete right bundle-branch block no longer present Electronically Signed On 07-08-2023 12:42:35 CDT by Rad Zimmer M.D. [id number]
[2023-06-24 22:21] LABS: Magnesium 2.3 mg/dL (1.7-2.3); Thyroid Stimulating Hormone 6.39 uIU/mL (0.27-4.20)
[2023-06-24] MEDS: enoxaparin 40 mg/0.4 mL Syringe SUBCUT (22:44)
[2023-06-24] MEDS: aspirin 81 mg EC Tablet PO (22:45)
[2023-06-24] MEDS: metoprolol tartrate 25 mg Tablet 12.5 MG PO (22:45)
[2023-06-24] MEDS: metoprolol tartrate 1 mg/1 mL SDV 5 mL 2.5 MG IVP (22:48)
[2023-06-24] MEDS: atorvastatin 40 mg Tablet PO (22:49)
[2023-06-24] MEDS: sodium chloride 0.9% 1,000 ML 75 ML IV (22:49)
[2023-06-25] VITALS (9 sets, daily range): BP systolic 113–171; BP diastolic 75–118; PULSE 68–94; RESP 10–25; TEMP 36.3–36.7; O2SAT 93–97
[2023-06-25 00:36] LABS: Hepatitis A Antibody IgM Non-Reactive (Nonreactive); Hepatitis B Core IgM Non-Reactive (Nonreactive); Hepatitis B Surface Antigen Non-Reactive (Nonreactive); Hepatitis C Virus Antibody Non-Reactive (Nonreactive)
[2023-06-25 04:37] LABS: Basophils # 0.1 10^3/uL (0.0-0.1); Basophils % 0.7 %; Eosinophils % 0.3 %; Hematocrit 45.1 % (37-53); Lymphocytes # 1.2 10^3/uL (0.8-4.8); Lymphocytes % 12.2 %; Mean Corpuscular HGB Conc 33.5 g/dL (30-55); Mean Corpuscular Hemoglobin 31.6 pg (27-33); Mean Corpuscular Volume 94.4 fl (82-101); Mean Platelet Volume 10.1 fL (7.4-10.4); Monocytes # 0.7 10^3/uL (0.2-0.9); Monocytes % 7.1 %; Neutrophils % 79.4 %; Nucleated Red Blood Cells % 0 %; Platelet Count 153 10^3/cmm (157-399); Red Blood Count 4.78 10^6/uL (3.85-5.65); Red Cell Distribution Width 12.6 % (12.1-15.1); White Blood Count 10.08 10^3/uL (3.29-11.43)
[2023-06-25 04:57] LABS: Chol HDL Ratio 2.71 mg/dL (1.0-5.00); Cholesterol 206 mg/dL (0-200); HDL Cholesterol 76 mg/dL (60-100); LDL Cholesterol Calculated 121 mg/dL (50-129); LDL HDL Ratio 1.59 RATIO (0.00-3.22); Triglycerides 47 mg/dL (0-150)
[2023-06-25 05:01] LABS: Alanine Aminotransferase 38 U/L (0-41); Albumin Level 4.2 g/dL (3.5-5.2); Alkaline Phosphatase 100 U/L (40-130); Anion Gap 16.7 (5-19); Aspartate Amino Transferase 40 U/L (0-40); Blood Urea Nitrogen 19 mg/dL (8-23); Calcium 8.2 mg/dL (8.5-10.5); Carbon Dioxide 24 mmol/L (22-29); Chloride 105 mmol/L (98-107); Creatinine Clr Calc Pharmacy 68.1717; Estmated Average Glucose 105; Globulin 2.9 g/dL (1.3-4.6); Glucose 117 mg/dL (65-115); Hemoglobin A1C 5.3 % (4.0-6.0); Osmolality Calculated 297 mOsm/kg (285-295); Potassium 3.7 mmol/L (3.5-5.1); Sodium 142 mmol/L (136-145); Total Protein 7.1 g/dL (6.6-8.7)
[2023-06-25 06:28] LABS: Glucose Point of Care 108 mg/dL (70-110)
--- NOTE | 2023-06-25 10:14 | PC.PHAR ---
pts family is going to get med list of all 30 supplements the pt takes
[2023-06-25] MEDS: metoprolol tartrate 25 mg Tablet 12.5 MG PO ×2 (10:16→21:09)
[2023-06-25] MEDS: aspirin 81 mg EC Tablet PO (10:16)
[2023-06-25] MEDS: apixaban 5 mg Tablet PO ×2 (10:16→21:10)
[2023-06-25] MEDS: sodium chloride 0.9% 1,000 ML 75 ML IV (11:36)
--- NOTE | 2023-06-25 11:42 | P.PN_ITS ---
Subjective 2 Subjective: speech still somewhat garbled no other neuro deficits son at bedside echo pending pt agreeable to taking AC Vitals/I&O/Wt Last Vital Signs Temp 97.6 F 06/25/23 07:27 Pulse 94 06/25/23 07:27 Resp 25 H 06/25/23 07:27 BP 171/118 06/25/23 07:27 Pulse Ox 97 06/25/23 07:27 O2 Del Method Room Air 06/25/23 07:27 06/24/23 06/25/23 06/25/23 22:59 06:59 14:59 Intake Total 1000 / 1000 1318.75 / 1318.75 Output Total 1450 / 1450 Balance 1000 / 1000 -1450 / -450 1318.75 / 1318.75 Weight last 48 hrs Weight 72.076 kg Weight 74.389 kg Weight 75.75 kg Physical Exam 2 Narrative: General exam is a white male, with some word finding difficulty, mildly garbled speech, in no apparent distress. HEENT: Atraumatic normocephalic. Cataract surgery/lens surgery noted Cardiovascular irregular, irregular with accelerated rate Lungs clear to auscultation bilaterally Abdomen is soft nontender with positive bowel sounds. Extremities no edema, cap refill brisk Skin no rash Neuro: Some word finding difficulty. Some clumsiness right hand. Subjective numbness right cheek but no obvious facial drooping Skin multiple AK's noted over face Data 06/25/23 04:14 06/25/23 04:14 A&P Assessment and plan (1) CVA (cerebral vascular accident): Permissive hypertension up to 220/120 Hydration Initiate aspirin 81 mg daily Secondary to A-fib initiate Lovenox 40 mg subcu x 1, and transition to Eliquis 5 mg twice daily tomorrow Therapy consultations Neurologic checks Initiate statin CTA is already been completed Appreciate neurology consult Check echocardiogram (2) Afib: Initiate metoprolol 12.5 mg twice daily for rate control. Increase slowly, not lowering blood pressure significantly in this next 24 hours Initiate Eliquis 5 mg twice daily starting tomorrow, 1 injection of Lovenox tonight Echocardiogram Hold T3 recently initiated. Check TSH Check magnesium on blood in lab (3) Carotid stenosis: Aspirin and statin as above (4) Thoracic aortic aneurysm: He has no complaints related to this currently. Consider outpatient CTA (5) Hypertension: See findings under permissive hypertension under stroke start on amlodipine 5 mg daily starting tonight (6) Hyperglycemia: Check hemoglobin A1c in the morning, along with lipid profile Plan Other medical problems as outlined in past medical history Full code Lovecorneliusx/Joyamichelle will suffice for DVT prophylaxis Attestations 2 Medical Necessity Statement*: stroke workup Diagnoses CVA (cerebral vascular accident) I63.9 Afib I48.91 Carotid stenosis I65.29 Thoracic aortic aneurysm I71.2 Hypertension I10 Hyperglycemia R73.9
--- NOTE | 2023-06-25 11:45 | CTR_ITS ---
PROCEDURE INFORMATION: Exam: CTA Chest With Contrast Exam date and time: 06/25/2023 4:34 PM Age: 77 years old Clinical indication: Abnormal findings; Abnormal radiologic exam of lung or chest; Additional info: Thoracic aortic aneurysm TECHNIQUE: Imaging protocol: Computed tomographic angiography of the chest with contrast. Exam focused on the arteries. 3D rendering (Not supervised by radiologist): MIP and/or 3D reconstructed images were created by the technologist. Radiation optimization: All CT scans at this facility use at least one of these dose optimization techniques: automated exposure control; mA and/or kV adjustment per patient size (includes targeted exams where dose is matched to clinical indication); or iterative reconstruction. Contrast material: [id number]; Contrast volume: 100 ml; Contrast route: INTRAVENOUS (IV); COMPARISON: CR (CHEST, ) 06/24/2023 7:43 PM RADIATION DOSE METRICS: Total DLP (mGy-cm): 795.3 FINDINGS: Pulmonary arteries: Mild dilatation of the pulmonary arteries, suggestive of pulmonary hypertension. Aorta: Aortic arch calcifications. Ascending aortic aneurysm measuring 4.6 cm. Lungs: Unremarkable. No consolidation. No masses. Pleural spaces: Unremarkable. No pneumothorax. No pleural effusion. Heart: Unremarkable. No cardiomegaly. No pericardial effusion. Coronary arteries: Mild coronary calcifications. Lymph nodes: Unremarkable. No enlarged lymph nodes. Stomach and bowel: Diverticulosis of colon. Bones/joints: Mild curvature of the thoracic spine convex the right. Mild multilevel degenerative thoracic spine with anterior osteophytes. Moderate compression deformity of the L2 vertebral body. Mild chronic compression deformities of T8, T9 and T10 vertebral bodies. Soft tissues: Unremarkable. CT/CT angio chest [id number] IMPRESSION: 1. Clear lungs. 2. No pulmonary embolism. 3. Ascending aortic aneurysm but no rupture.
[2023-06-25 12:04] LABS: Glucose Point of Care 148 mg/dL (70-110)
--- NOTE | 2023-06-25 13:00 | PC.PHAR ---
pt states he takes care of his own medications-pt states the only prescription he takes is thyroid certified art therapist daily-pt states he takes alot of otc items medications entered are from the papers he brought in of otc meds and what he states he takes
[2023-06-25] MEDS: iohexol 350 mg/mL 500 mL Btl (per mL) IV (16:36)
[2023-06-25 17:06] LABS: Glucose Point of Care 88 mg/dL (70-110)
--- NOTE | 2023-06-25 17:06 | PC.OT ---
OT evaluation completed. OT services not indicated at this time.
[2023-06-25] MEDS: atorvastatin 40 mg Tablet PO (21:10)
[2023-06-25] MEDS: amlodipine 5 mg Tablet PO (21:10)
--- NOTE | 2023-06-25 21:58 | USCV_ITS ---
Will Bowling Age: 77 Gender: M : 1945 Exam Date: 06/25/2023 13:07 Ordering Phys: Umair Salazar MD Technologist: [place] [facility] [place]: chf BP: 163 / 101 HR: 109 Rhythm: Sinus Technical Quality: Adequate MEASUREMENTS (Male / Female) Normal Values 2D ECHO LV Diastolic Diameter PLAX 4.3 cm 4.2 - 5.9 / 3.9 - 5.3 cm IVS Diastolic Thickness 1.1 cm 0.6 - 1.0 / 0.6 - 0.9 cm IVS Systolic Thickness 1.5 cm LVPW Diastolic Thickness 1.3 cm 0.6 - 1.0 / 0.6 - 0.9 cm LVPW Systolic Thickness 1.4 cm LVOT Diameter 2.0 cm LV Ejection Fraction 2D Teich 34.1 % LV Ejection Fraction MOD 2C 50.9 % LV Ejection Fraction 2C AL 51.0 % LA Diameter 4.4 cm RA Systolic Volume 4C AL 103.2 ml RA Systolic Volume 4C MOD 101.5 ml LA Sys Volume AL 65.3 cm cubed LA Sys Volume Index AL 34.7 cm cubed/m squared Aorta at Sinotubular Diameter 3.4 cm IVC Diameter 2.6 cm M-MODE LA Ao Ratio MM 1.4 AV Cusp Separation MM 2.2 cm DOPPLER AV Peak Velocity 82.0 cm/s LVOT Peak Velocity 55.0 cm/s AV Area Cont Eq vti 3.0 cm squared AV Area Cont Eq pk 2.2 cm squared MV Peak Velocity 83.0 cm/s TV Peak Velocity 266.0 cm/s TR Peak Velocity 269.0 cm/s TR Peak Gradient 28.9 mmHg TV Peak E Velocity 71.0 cm/s Right Atrial Pressure 3.0 mmHg Pulmonary Artery Systolic Pressu 31.9 mmHg FINDINGS Left Ventricle Left ventricle is normal in size. LV systolic function is mildly reduced with EF of 40-45%. Mild global hypokinesis Right Ventricle Normal in size and function. Right Atrium Dilated Left Atrium Dilated Mitral Valve Structurally normal mitral valve. Trace mitral regurgitation. Aortic Valve Structurally normal aortic valve. No significant stenosis. Mild aortic regurgitation Tricuspid Valve Mild tricuspid regurgitation. Pulmonary artery systolic pressure is normal. Pulmonic Valve Mild pulmonic regurgitation. Pericardium Normal Aorta Normal in size IVC Appears to be normal CONCLUSIONS LV systolic function is mildly reduced with EF of 40-45%. Biatrial dilation. Trace mitral regurgitation. Mild aortic regurgitation. Mild tricuspid regurgitation Mild pulmonic regurgitation. Compared to prior echocardiogram from 2020, patient now has mild aortic regurgitation. Codey Vaca MD (Electronically Signed) Final Date: 26 Jun 2023 10:25 S
[2023-06-26 03:00] VITALS: BP 128/83; PULSE 77; RESP 16; TEMP 36.6
[2023-06-26 08:04] VITALS: BP 144/101; PULSE 80; RESP 22; TEMP 36.6
[2023-06-26] MEDS: apixaban 5 mg Tablet PO (08:41)
[2023-06-26] MEDS: amlodipine 5 mg Tablet PO (08:41)
[2023-06-26] MEDS: aspirin 81 mg EC Tablet PO (08:41)
[2023-06-26] MEDS: metoprolol tartrate 25 mg Tablet 12.5 MG PO (08:41)
--- NOTE | 2023-06-26 09:21 | PC.CHAP ---
Pastoral Care Encounter/Spiritual Assessment Type of Contact [] Declined azure developer visit [] Patient/Family/Request visit [] Outpatient visit [] Follow-up visit [] Physician referral [] Code/Alert [x] Routine visit [] Staff referral [] Actively dying [] Patient sleeping [] Family support [] [] Out of room [] Palliative care [] [x] Receiving care in room [] Pre-surgical visit [] Trauma [] Long length of stay [] ICU visit [] Other: Relational/Emotional Strength [] Patient feels connected with others/family/visitors/staff [] Distress [] Loneliness/isolation [] Abandonment Spirituality of Patient [] Person of Ashley [] Attends Lutheran of their Ashley [] Believes in Prayer [] Reads Bible or Yarsani materials [] There are Spiritual issues to be addressed Spiral Tube Winder Helper Interventions [x] Prayer [] Active listening [] Non-anxious presence [] Spiritual/emotional support [] Crisis/trauma care [] Spiritual counseling [] Bereavement support [] Provided bereavement packet [] Provided Bible/devotional materials [] Provided toy/stuffed animal, coloring book to patient or family member [] Provided Communion [] Anointing/[place] [] Salvation [] Completed spiritual assessment [] Other: Impact on Illness or Injury [] Angry [] Fearful [] Anxious [] Often cries [] Exhaustion [] Unable to work [] Unable to attend roman catholic [] Unable to walk/stand [] Unable to read [] Unable to drive [] Unable to eat/drink [] Unable to sleep [] Unable to be with family [] Patient intubated [] Other: Summary Time spent with patient
--- NOTE | 2023-06-26 10:53 | PM.DCS ---
Discharge Providers Date of Admission: 06/24/23 21:11 Date of Discharge: June 26, 2023 Attending Provider at Admission: Umair Salazar MD Attending Provider at Discharge: Matthew Spencer MD Primary Care Provider: Calderon Harrell MD Diagnoses at Discharge Discharge Diagnosis (1) CVA (cerebral vascular accident): Status: Acute (2) Afib: Status: Acute (3) Carotid stenosis: Status: Acute (4) Thoracic aortic aneurysm: Status: Acute (5) Hypertension: Status: Acute (6) Hyperglycemia: Status: Acute Reason for Visit Reason for Visit: Stroke Symptoms Hospital Course Hospital Course magdi Bowling is a 77 year old male who is a with a history of atrial fibrillation on no anticoagulation secondary to patient refusal, thoracic aortic aneurysm, cerebral stroke 2 years ago manifested as difficulty speaking, hypertension on no antihypertensive medications, and hypothyroidism. The patient was at home and was witnessed by his son to experienced acute onset of profuse sweating associated with difficulty speaking around 5 PM on 06/24/2023. Patient was brought to the [facility] emergency room code stroke initiated at 6:52 PM on 06/24/2023. Noncontrast head CT was obtained and reported to be negative for acute findings. NIH score =1 (secondary to dysarthria). CT angiogram of the head and neck revealed Calcified and noncalcified plaques of the right intracranial segment of the right ICA with [id number] stenosis. No large vessel occlusion. CBC and comprehensive metabolic panel revealed serum glucose of 119. Mildly elevated SGOT of 44. The other labs were unrevealing. Drug screen results pending. Urinalysis results pending. 2D echocardiogram 04/15/2020 revealed decreased ejection fraction of 40 to 45% with reports of atrial fibrillation. 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 Since the patient is NIH score =1 and patient has reported history of thoracic aortic aneurysm, patient was not a candidate for thrombolytics and no thrombolytics were administered. Patient did well, did not require any assistance to ambulate, did not require assisted placement, at the time of discharge we will refer him to vascular surgery for 4.6 cm ascending aortic aneurysm repair, patient is agreeable for anticoagulating agent, he will get aspirin along Eliquis as per neurorecommendations. I have asked patient to follow-up with vascular surgery and decide on intervention time because he will need to hold anticoagulating agents before his procedure. He is hemodynamically stable, He will need better blood pressure and heart rate control, ideally heart rate should stay below 80 and blood pressure 130/80 mmHg He would allow permissive hypertension after stroke at the time of discharge we will add and evidence of regimen Patient will not be able to get MRI head because he has a metal sharpnel in his head Physical Exam Narrative: Nonfocal neuroexam GCS 15 Pleasant and cooperative Able to ambulate on his own Hemodynamically stable Currently on room air Discharge Data Studies Completed and Pending Completed Studies During Hospitalization Category Date Time Status CT angio chest 27119 Urgent Cat Scan 06/25/23 11:[address] angio headneck* [id number] Stat Cat Scan 06/24/23 18:[address] head thrombolytic [id number] Stat Cat Scan 06/24/23 18:53 Completed XR chest 1V portable [id number] Stat Exams 06/24/23 19:42 Completed CV. echo complete* [id number] Routine Ultrasound 06/25/23 21:58 Completed Radiology Impressions Head CT 06/24/23 18:53 IMPRESSION: 1. No acute intracranial abnormality. 2. No acute hemorrhage. ASSESSMENT: ASPECTS ([place] Stroke Program Early CT Score) is 10. Head/Neck CTA 06/24/23 18:53 IMPRESSION: 1. No large vessel occlusion. 2. Calcified and noncalcified plaques of the right intracranial segment of the right ICA with [id number] stenosis. IMPRESSION: No stenosis or occlusion. REFERENCES: NASCET CRITERIA. The degree of stenosis in the cervical segment of the internal carotid artery is based on NASCET criteria. Normal is no stenosis. Mild is less than 50% stenosis. Moderate is 50-69% stenosis. Severe is 70% to 99% stenosis. Total occlusion is no detectable patent lumen. Chest X-Ray 06/24/23 19:42 IMPRESSION: 1. No acute findings. 2. Emphysematous lung changes. Chest CTA 06/25/23 11:45 IMPRESSION: 1. Clear lungs. 2. No pulmonary embolism. 3. Ascending aortic aneurysm but no rupture. Laboratory Results WBC 10.08 10^3/uL (3.29-11.43) 06/25/23 04:14 RBC 4.78 10^6/uL (3.85-5.65) 06/25/23 04:14 Hgb 15.10 g/dL (11.27-16.99) 06/25/23 04:14 Hct 45.1 % (37-53) 06/25/23 04:14 MCV 94.4 fl (82-101) 06/25/23 04:14 MCH 31.6 pg (27-33) 06/25/23 04:14 MCHC 33.5 g/dL (30-55) 06/25/23 04:14 RDW 12.6 % (12.1-15.1) 06/25/23 04:14 Plt Count 153 10^3/cmm (157-399) L 06/25/23 04:14 MPV 10.1 fL (7.4-10.4) 06/25/23 04:14 Neut % (Auto) 79.4 % 06/25/23 04:14 Lymph % (Auto) 12.2 % 06/25/23 04:14 [place] % (Auto) 7.1 % 06/25/23 04:14 Eos % (Auto) 0.3 % 06/25/23 04:14 Baso % (Auto) 0.7 % 06/25/23 04:14 Neut # (Auto) 8.00 10^3/uL (1.8-7.7) H 06/25/23 04:14 Lymph # (Auto) 1.2 10^3/uL (0.8-4.8) 06/25/23 04:14 [place] # (Auto) 0.7 10^3/uL (0.2-0.9) 06/25/23 04:14 Eos # (Auto) 0.0 10^3/uL (0.0-0.8) 06/25/23 04:14 Baso # (Auto) 0.1 10^3/uL (0.0-0.1) 06/25/23 04:14 Nucleated RBC % (auto) 0 % 06/25/23 04:14 Nucleated RBCs # 0.0 /100WBC 06/25/23 04:14 PT 13.40 SECONDS (12.1-14.9) 06/24/23 18:54 INR 0.99 (0.8-1.2) 06/24/23 18:54 APTT 27.9 SECONDS (23.9-36.7) 06/24/23 18:54 Sodium 142 mmol/L (136-145) 06/25/23 04:14 Potassium 3.7 mmol/L (3.5-5.1) 06/25/23 04:14 Chloride 105 mmol/L (98-107) 06/25/23 04:14 Carbon Dioxide 24 mmol/L (22-29) 06/25/23 04:14 Anion Gap 16.7 (5-19) 06/25/23 04:14 BUN 19 mg/dL (8-23) 06/25/23 04:14 Creatinine 0.9 mg/dL (0.7-1.2) 06/25/23 04:14 GFR Calculation Not Reportable 06/25/23 04:14 Glucose 117 mg/dL (65-115) H 06/25/23 04:14 POC Glucose 148 mg/dL (70-110) H 06/25/23 11:45 Estimat Average Glucose 105 06/25/23 04:14 Hemoglobin A1c 5.3 % (4.0-6.0) 06/25/23 04:14 Calculated Osmolality 297 mOsm/kg (285-295) H 06/25/23 04:14 Calcium 8.2 mg/dL (8.5-10.5) L 06/25/23 04:14 Magnesium 2.3 mg/dL (1.7-2.3) 06/24/23 18:53 Total Bilirubin 1.0 mg/dL (0.15-1.2) 06/25/23 04:14 AST 40 U/L (0-40) 06/25/23 04:14 ALT 38 U/L (0-41) 06/25/23 04:14 Alkaline Phosphatase 100 U/L (40-130) 06/25/23 04:14 Creatine Kinase 122 U/L (39-308) 06/24/23 18:54 Total Protein 7.1 g/dL (6.6-8.7) 06/25/23 04:14 Albumin 4.2 g/dL (3.5-5.2) 06/25/23 04:14 Globulin 2.9 g/dL (1.3-4.6) 06/25/23 04:14 Triglycerides 47 mg/dL (0-150) 06/25/23 04:14 Cholesterol 206 mg/dL (0-200) H 06/25/23 04:14 LDL Cholesterol, Calc 121 mg/dL (50-129) 06/25/23 04:14 HDL Cholesterol 76 mg/dL (60-100) 06/25/23 04:14 LDL/HDL Ratio 1.59 RATIO (0.00-3.22) 06/25/23 04:14 Cholesterol/HDL Ratio 2.71 mg/dL (1.0-5.00) 06/25/23 04:14 TSH 6.39 uIU/mL (0.27-4.20) H 06/24/23 18:53 Urine Color Yellow (Yellow) 06/24/23 18:54 Urine Appearance Clear (CLEAR) 06/24/23 18:54 Urine pH 7 (5-7) 06/24/23 18:54 Ur Specific [place] 1.005 (1.005-1.030) 06/24/23 18:54 Urine Protein Neg (Negative) 06/24/23 18:54 Urine Glucose (UA) Norm (Normal) 06/24/23 18:54 Urine Ketones 1+ (Negative) H 06/24/23 18:54 Urine Blood Neg (Negative) 06/24/23 18:54 Urine Nitrate Negative (Negative) 06/24/23 18:54 Urine Bilirubin Neg (Negative) 06/24/23 18:54 Urine Urobilinogen Neg mg/dL (Negative) 06/24/23 18:54 Ur Leukocyte Esterase Negative (Negative) 06/24/23 18:54 Urine Opiates Screen Negative ng/mL (Negative) 06/24/23 18:54 Ur Barbiturates Screen Negative ng/mL (Negative) 06/24/23 18:54 Ur Phencyclidine Scrn Negative ng/mL (Negative) 06/24/23 18:54 Ur Amphetamines Screen Negative ng/mL (Negative) 06/24/23 18:54 U Benzodiazepines Scrn Negative ng/mL (Negative) 06/24/23 18:54 Urine Cocaine Screen Negative ng/mL (Negative) 06/24/23 18:54 U Marijuana (THC) Screen Positive ng/mL (Negative) H 06/24/23 18:54 Hepatitis A IgM Ab Non-reactive (Nonreactive) 06/24/23 18:54 Hep Bs Antigen Non-reactive (Nonreactive) 06/24/23 18:54 Hep B Core IgM Ab Non-reactive (Nonreactive) 06/24/23 18:54 Hepatitis C Antibody Non-reactive (Nonreactive) 06/24/23 18:54 Vitals Last Vital Signs Temp 97.9 F 06/26/23 08:04 Pulse 80 06/26/23 08:04 Resp 22 H 06/26/23 08:04 BP 144/101 06/26/23 08:04 Pulse Ox 96 06/25/23 23:00 O2 Del Method Room Air 06/26/23 08:04 Discharge Plan Discharge Patient Disposition: Home Condition: Fair Prescriptions: New metoprolol tartrate 25 mg Tablet 50 mg PO BID@0900,2100 Qty: 60 0RF aspirin 81 mg Tablet,Delayed Release (Dr/Ec) 81 mg PO DAILY Qty: 90 0RF Eliquis 5 mg Tablet 5 mg PO BID@0900,2100 Qty: 120 1RF atorvastatin 40 mg Tablet 40 mg PO BEDTIME Qty: 90 0RF amlodipine 5 mg Tablet 5 mg PO DAILY Qty: 60 0RF lisinopril 10 mg tablet 10 mg PO DAILY Qty: 60 0RF 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 30 mg PO DAILY vitamin E 670 mg (1,000 unit) Capsule 1 cap PO DAILY Vitamin C 1,000 mg Tablet 3,000 mg PO DAILY zinc acetate 50 mg (zinc) Capsule 50 mg PO DAILY Fish Oil Concentrate 1,000 mg Capsule 3,000 mg PO DAILY melatonin 3 mg Tablet 3 mg PO BEDTIME folic acid 1 mg Tablet 1 mg PO DAILY CoQ-10 100 mg Capsule 100 mg PO DAILY Vitamin D3 125 mcg (5,000 unit) Tablet 125 mcg PO DAILY resveratrol 100 mg Capsule 100 mg PO DAILY turmeric 400 mg Capsule 400 mg PO DAILY alpha lipoic acid 600 mg Tablet 600 mg PO DAILY Visionmd 1 cap PO DAILY Discontinued [place]ettle [place] 425 mg Capsule 850 mg PO DAILY garlic 500 mg Capsule 500 mg PO DAILY astaxanthin 4 mg Capsule 4 mg PO DAILY magnesium hydroxide 1,200 mg Tablet,Chewable 1,200 mg PO DAILY fenugreek seed 610 mg Capsule 1,220 mg PO DAILY ashwagandha extract 120 mg Capsule 240 mg PO DAILY Cayenne Pepper 1 cap PO DAILY Ginkgo Extract Liquid 40 drp PO DAILY [place] Liquid 2.5 ml PO DAILY L-Glutathione 1 cap PO DAILY Methyl-Guard Plus 3 2 cap PO DAILY Motherwort Liquid 40 drp PO DAILY Discharge Orders: Discharge Order (Routine); Ordered 06/26/23 Ordered By: Matthew Spencer Referrals: Calderon Harrell MD [Primary Care Provider] - 06/30/23 10:15 am Johny Alcazar MD [Referring] - 1 week (Aortic aneurysm, 4.6 cm) Discharge Diet: Cardiac Discharge Activity: Increase activity as tolerated Patient Instructions: Opioid Safety Discharge Attestations Time Spent in Discharge Care*: greater than 30 min Quality Metrics Clinical Quality Measures [ Cerebrovascular Accident { Contraindication to Antithrombotic: None; antithrombotic prescribed; Contraindication to Anticoagulation: None; anticoagulation prescribed; Contraindication to Statin: None; Statin prescribed; Contraindication to antithrombotic day 2: Medical contraindication; Contraindication to tPA: Treatment not indicated; Reason stroke education not provided: Stroke education provided to patient; Rehab services assessed: Physical therapy, Occupational therapy, Speech therapy;}] Coding Level of Care Code Acute Code for g Fwd Diagnoses CVA (cerebral vascular accident) I63.9 Afib I48.91 Carotid stenosis I65.29 Thoracic aortic aneurysm I71.2 Hypertension I10 Hyperglycemia R73.9
[2023-06-26] MEDS: lisinopril 10 mg Tablet PO (11:59)
[2023-06-26] MEDS: metoprolol tartrate 25 mg Tablet PO (11:59)
[2023-06-26 12:00] VITALS: BP 145/102; PULSE 84; RESP 17; O2SAT 96
--- NOTE | 2023-06-26 12:24 | PC.NURSE ---
pharmacy called per pt, that his Rx sent were denied. Called [facility] pharmacy to verify, and Talked Keving the pharmacist. Informed him the pt's [employer] insurance card and free 30 day trial coupon of his eliquis. he said, the rest of the meds can get a discount from their end except the eliquis. pt informed about this process.
[2023-06-26 13:55] VITALS: BP 139/100
[2023-06-26 14:00] VITALS: PULSE 89
--- NOTE | 2023-06-26 15:05 | PC.NURSE ---
spoke with provider about patient blood pressure after medication administration instructions to DC at this time patient informed and instructed to get dressed
[2023-06-26 15:06] VITALS: BP 135/98; PULSE 63; RESP 20; O2SAT 98
--- NOTE | 2023-06-26 15:31 | PC.NURSE ---
Discharge Note Patient discharged to home via private accompanied by family. Discharge instructions reviewed with patient and cash posting representative. Mobile pharmacy medications and/or prescriptions provided. Belongings/home medications returned. patient alert oriented expressed understanding of all instructions family at bedside for Dc instructions
== END 2023-06-26 15:29 | disposition home or self-care (01) ==
LOC: ER 19:12 → CSU 21:12
PROVIDERS: Internal Medicine; Admitting Provider Internal Medicine; Emergency Provider Emergency Medicine; PCP Family Medicine; Visit Provider Internal Medicine
DX: I63.9 Cerebral infarction, unspecified (principal); I48.91 Unspecified atrial fibrillation; I65.29 Occlusion and stenosis of unspecified carotid artery; I10 Essential (primary) hypertension; I71.20 Thoracic aortic aneurysm, without rupture, unspecified; R73.9 Hyperglycemia, unspecified; Z91.148 Patient's other noncompliance with medication regimen for other reason; R29.701 NIHSS score 1
CPT/HCPCS: 36415; 36416; 70450; 70496; 70498; 71045; 71275; 80053; 80061; 80074; 80306; 81003; 82550; 82962; 83036; 83735; 84443; 85025; 85610; 85730; 92523; 92610; 93005; 93306; 96361; 96372; 96374; 97165; 99285; G0378; J1650; J3490; J7030; Q9967

== ENCOUNTER → 2023-07-20 09:21 | Outpatient (BNVA) | payer MEDICARE, SELFPAY | PROVIDERS: PCP Family Medicine; Visit Provider Nurse Practitioner Family | DX: D48.5 Neoplasm of uncertain behavior of skin (principal); D57.00 Hb-SS disease with crisis, unspecified; S60.022A Contusion of left index finger without damage to nail, initial encounter; X58.XXXA Exposure to other specified factors, initial encounter; L82.1 Other seborrheic keratosis; D22.5 Melanocytic nevi of trunk | CPT/HCPCS: 11102; 17000; 99203 ==

== ENCOUNTER → 2023-08-23 13:20 | Outpatient (BNVA) | payer MEDICARE, SELFPAY | PROVIDERS: PCP Family Medicine; Visit Provider Dermatology | DX: D03.4 Melanoma in situ of scalp and neck (principal); C44.519 Basal cell carcinoma of skin of other part of trunk | CPT/HCPCS: 11624; 12044; 17262 ==

== ENCOUNTER 2023-09-10 20:35 | Emergency (ER) | payer MEDICARE, SELFPAY ==
[2023-09-10 20:53] VITALS: BP 148/92; PULSE 92; RESP 17; TEMP 36.7; O2SAT 96; BMI 23.6
--- NOTE | 2023-09-10 21:41 | W.ED.EXTPRO ---
HPI - Extremity Problem General: Chief complaint: Extremity Problem,Nontraumatic Stated complaint: sudden lump on left leg beging to hurt Time Seen by Provider: 09/10/23 20:49 History of Present Illness: 77-year-old male patient comes in today with complaints of swelling to the left leg. Patient been working outside and then came in for dinner and then noticed that he had some swelling and tenderness to the left medial lower leg. Patient had been on Eliquis up until about 10 days ago. Patient is concerned for bleeding and a blood clot. Review of Systems General: Reports: 10 or more systems reviewed and unremarkable except in HPI and below PFSH ED PFSH: Medical History Thoracic aortic aneurysm Hypertension Afib Erectile dysfunction Surgical History H/O left knee surgery History of cataract surgery Family History Brother Cancer prostate Mother , IN HER 90'S No problems noted. Father No problems noted. Social History Smoking and tobacco/nicotine status: never used tobacco/nicotine Alcohol intake: current Alcohol intake frequency: few times a month Substance/Drug Use: never Marital status: Current occupational status: retired Physical Exam Const: COMMON NORMALS: alert HENMT: COMMON NORMALS: normocephalic HEAD & SCALP: normocephalic Neck/C-Spine: COMMON NORMALS: full ROM Resp: COMMON NORMALS: normal respiratory effort Cardio: COMMON NORMALS: regular rate and regular rhythm RATE: regular rate RHYTHM: regular rhythm GI: COMMON NORMALS: Soft to palpation and non-tender PALPATION: Yes Soft to palpation Extremity: LEFT LOWER EXTREMITY: Yes lower leg (Hematoma medial proximal lower leg) Left lower leg: Yes inspection, Yes palpation and Yes neurovascular exam Neuro: SENSORIUM/ORIENTATION: Yes alert Skin: COMMON NORMALS: turgor normal GENERAL SKIN EXAM: turgor normal Course Vital Signs: Vital signs: Vital Signs Temperature 98.1 F 09/10/23 20:53 Pulse Rate 92 09/10/23 20:53 Respiratory Rate 17 09/10/23 20:53 Blood Pressure 148/92 09/10/23 20:53 Pulse Oximetry 96 09/10/23 20:53 Oxygen Delivery Me thod Room Air 09/10/23 20:53 MDM - Extremity (Nontraumatic) Medical Decision Making Patient presents with swelling to the left lower leg. On exam patient has medial swelling without any signs of redness or infection. It appears the patient has a large hematoma that is approximately 3 cm and elevated about 1 cm. Differential diagnosis includes superficial thrombophlebitis, hematoma, venous malformation, abscess. The patient most likely had a varicosity that ruptured causing a hematoma. Patient was placed in the last 6 Band-Aids to help compress. Recommended elevation and ice packs. Patient reports understanding of care plan and need for follow-up or return to the ER. 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 mg tablet 30 mg PO DAILY vitamin E 670 mg (1,000 unit) Capsule 1 cap PO DAILY Vitamin C 1,000 mg Tablet 3,000 mg PO DAILY zinc acetate 50 mg (zinc) Capsule 50 mg PO DAILY omega-3 fatty acids 1,000 mg Capsule 3,000 mg PO DAILY melatonin 3 mg Tablet 3 mg PO BEDTIME folic acid 1 mg Tablet 1 mg PO DAILY CoQ-10 100 mg Capsule 100 mg PO DAILY Vitamin D3 125 mcg (5,000 unit) Tablet 125 mcg PO DAILY resveratrol 100 mg Capsule 100 mg PO DAILY turmeric 400 mg Capsule 400 mg PO DAILY alpha lipoic acid 600 mg Tablet 600 mg PO DAILY Visionmd 1 cap PO DAILY atorvastatin 40 mg Tablet 40 mg PO BEDTIME Qty: 90 0RF aspirin 81 mg Tablet,Delayed Release (Dr/Ec) 81 mg PO DAILY Qty: 90 0RF metoprolol tartrate 25 mg Tablet 50 mg PO BID@0900,2100 Qty: 60 0RF Eliquis 5 mg Tablet 5 mg PO BID@0900,2100 Qty: 120 1RF lisinopril 10 mg tablet 10 mg PO DAILY Qty: 60 0RF amlodipine 5 mg Tablet 5 mg PO DAILY Qty: 60 0RF Discharge Orders: Discharge ED (Routine); Ordered 09/10/23 Ordered By: Tevin Bill Referrals: Calderon Harrell MD [Primary Care Provider] - Patient Instructions: Hematoma (ED) Activity Restrictions/Additional Instructions: Wear elastic bandage to the area of the hematoma for the next 5 days. Wrap it to keep it tight but not too tight to cut off the circulation to the lower part of the leg. Ice and elevate the leg is much as possible otherwise. Monitor the leg for increasing redness and swelling to the lower part of the leg distally such as the foot and ankles. Follow-up for this abnormal and increasing swelling. Thank you for choosing [facility] for your healthcare needs today. Please realize that you were seen in the emergency department and that we are providing you with an emergency medical screening exam and this may not be a complete and all exclusive of all testing and/or medical workup we may need to determine your element or severity of your illness. It is very important that you follow-up as instructed with your primary care provider or specialist for the additional evaluation and to discuss your medical treatment plan. You may return to the emergency department should you have concerns or if your condition changes or worsens in any way. 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
[2023-09-10 21:59] VITALS: BP 141/97; PULSE 89; RESP 16; TEMP 36.7; O2SAT 97
== END 2023-09-10 22:00 | disposition home or self-care (01) ==
PROVIDERS: Emergency Provider Nurse Practitioner Family; PCP Family Medicine
DX: S80.12XA Contusion of left lower leg, initial encounter (principal); I10 Essential (primary) hypertension; Z79.82 Long term (current) use of aspirin; Z79.01 Long term (current) use of anticoagulants; X58.XXXA Exposure to other specified factors, initial encounter
CPT/HCPCS: 99282

== ENCOUNTER 2023-12-22 12:32 | Emergency (ER) | payer MEDICARE, SELFPAY ==
[2023-12-22 12:46] VITALS: BP 160/98; PULSE 65; RESP 17; TEMP 35.9; O2SAT 100; BMI 23.6
--- NOTE | 2023-12-22 13:24 | XR_ITS ---
WS: [id number] Portable AP upright chest, 12/22/2023 Clinical Data: chest pain Comparison: Portable chest, 06/24/2023 Findings: No nodules, masses or effusions are seen. The heart is normal. The pulmonary vascularity is not increased. No pneumonia or pneumothorax is seen. The aortic arch and descending thoracic aorta s how calcification and tortuosity. There is a dextroscoliosis of the thoracic spine. XR/XR chest 1V portable [id number] Impression: Atherosclerosis.
--- NOTE | 2023-12-22 13:24 | ECG_ITS ---
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 Measurements Intervals [place] Rate: 63 P: 0 MT: 0 QRS: 42 QRSD: 139 T: 71 QT: 444 QTc: 456 Interpretive Statements ATRIAL FLUTTER INTRAVENTRICULAR CONDUCTION DELAY Compared to ECG 06/24/2023 22:14:58 Intraventricular conduction delay now present Electronically Signed On 12-23-2023 13:45:33 CDT by Rad Zimmer M.D. [email or web address]
--- NOTE | 2023-12-22 13:34 | PC.PHAR ---
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
[2023-12-22 13:37] LABS: Basophils # 0.1 10^3/uL (0.0-0.1); Basophils % 1.3 %; Eosinophils # 0.3 10^3/uL (0.0-0.8); Eosinophils % 5.6 %; Hematocrit 39.5 % (37-53); Lymphocytes # 1.3 10^3/uL (0.8-4.8); Lymphocytes % 27.3 %; Mean Corpuscular HGB Conc 32.4 g/dL (30-55); Mean Corpuscular Hemoglobin 31.4 pg (27-33); Mean Corpuscular Volume 97.1 fl (82-101); Mean Platelet Volume 10.1 fL (7.4-10.4); Monocytes # 0.4 10^3/uL (0.2-0.9); Monocytes % 9.2 %; Neutrophils # 2.62 10^3/uL (1.8-7.7); Neutrophils % 56.4 %; Nucleated Red Blood Cells % 0 %; Platelet Count 145 10^3/cmm (157-399); Red Blood Count 4.07 10^6/uL (3.85-5.65); Red Cell Distribution Width 12.9 % (12.1-15.1); White Blood Count 4.65 10^3/uL (3.29-11.43)
[2023-12-22 13:50] LABS: Troponin(5th) Baseline 18 ng/L (0-15)
[2023-12-22 13:59] VITALS: BP 145/90; PULSE 47; RESP 15; O2SAT 96
[2023-12-22] MEDS: nitroglycerin 0.4 mg sublingual Tablet SUBLINGUAL (14:06)
--- NOTE | 2023-12-22 14:09 | ED_ITS ---
HPI - Chest Pain 2 General: Chief Complaint: Chest Pain Stated Complaint: chest pain Time Seen by Provider: 12/22/23 13:12 History of Present Illness: This patient is a 78-year-old white male who presents to the emergency department with chest pain. He states he woke up with the pain at 7:30 AM this morning. Describes it as a very mild constant pain. He cannot really specify more than that. He is not having any associated shortness of breath, nausea or vomiting. No diaphoresis. He did take his anticoagulant medications including Eliquis and aspirin this morning. He is also on lisinopril and metoprolol. He does have a history of atrial fibrillation and a thoracic aortic aneurysm. He has also had a CVA and hypertension. Related Data Home Medications Medication Instructions Recorded Confirmed alpha lipoic acid 600 mg tablet 600 mg PO DAILY 06/25/23 12/22/23 ascorbic acid (vitamin C) 1,000 mg 3,000 mg PO DAILY 06/25/23 12/22/23 tablet (Vitamin C) cholecalciferol (vitamin D3) 125 125 mcg PO DAILY 06/25/23 12/22/23 mcg (5,000 unit) tablet (Vitamin D3) coenzyme Q10 100 mg capsule 100 mg PO DAILY 06/25/23 12/22/23 (CoQ-10) folic acid 1 mg tablet 1 mg PO DAILY 06/25/23 12/22/23 melatonin 3 mg tablet 3 mg PO BEDTIME 06/25/23 12/22/23 omega-3 fatty acids 1,000 mg 3,000 mg PO DAILY 06/25/23 12/22/23 capsule resveratrol 100 mg capsule 100 mg PO DAILY 06/25/23 12/22/23 thyroid (pork) 30 mg tablet (L[employer]NER 30 mg PO DAILY 06/25/23 12/22/23 Thyroid) turmeric 400 mg capsule 400 mg PO DAILY 06/25/23 12/22/23 vitamin E 670 mg (1,000 unit) 1 cap PO DAILY 06/25/23 12/22/23 capsule zinc acetate 50 mg (zinc) capsule 50 mg PO DAILY 06/25/23 12/22/23 Previous Rx's Medication Instructions Recorded aspirin 81 mg tablet,delayed 81 mg PO DAILY #90 tabs 06/26/23 release atorvastatin 40 mg tablet 40 mg PO BEDTIME #90 tabs 05/06/24 lisinopril 10 mg tablet 10 mg PO DAILY #60 tabs 06/26/23 metoprolol tartrate 25 mg tablet 50 mg (2 x 25 mg) PO BID@0900,2100 06/26/23 #60 tabs nitroglycerin 0.4 mg sublingual 0.4 mg sublingual Q5M PRN chest 12/22/23 tablet pain #30 tabs Allergies Allergy/AdvReac Type Severity Reaction Status Date / Time No Known Allergies Allergy Verified 10/06/23 09:12 Review of Systems 2 General: Reports: 10 or more systems reviewed and unremarkable except in HPI and below Card: Reports: chest pain PFSH ED 2 PFSH: Medical History CVA (cerebral vascular accident) Stroke determined by clinical assessment Carotid stenosis Thoracic aortic aneurysm Hypertension Afib Erectile dysfunction Surgical History H/O left knee surgery History of cataract surgery Family History Brother Cancer prostate Mother , IN HER 90'S No problems noted. Father No problems noted. Social History Smoking and tobacco/nicotine status: former use of tobacco/nicotine Alcohol intake: current Alcohol intake frequency: few times a month Substance/Drug Use: never Marital status: Current occupational status: retired Physical Exam 2 Const: COMMON NORMALS: no acute distress, patient oriented x3 and no limitations GENERAL APPEARANCE: cooperative and comfortable HENMT: COMMON NORMALS: normocephalic, atraumatic, Normal nasal mucous membranes and turbinates present, moist oral mucous membranes and oropharynx normal HEAD & SCALP: normal to inspection, normocephalic and atraumatic F CORTEZ & SINUS: normal facial exam NOSE: Normal nasal mucous membranes and turbinates present Eye: COMMON NORMALS: Equal, round and reactive pupils present, EOMs intact bilaterally and conjunctivae normal GENERAL EYE: appearance normal, both eyes and all related structures CONJUNCTIVA: Yes conjunctivae normal PUPIL: Yes Equal, round and reactive pupils present Neck/C-Spine: COMMON NORMALS: supple Chest: COMMONS NORMALS: normal inspection of the chest Resp: COMMON NORMALS: normal respiratory effort and clear to auscultation bilaterally AUSCULTATION: clear to auscultation bilaterally Cardio: RATE: bradycardic RHYTHM: abnormal rhythm irregularly irregular GI: COMMON NORMALS: Normal to inspection, nondistended, normoactive bowel sounds present, Soft to palpation and non-tender AUSCULTATION: Yes normoactive bowel sounds PALPATION: Yes Soft to palpation : COMMON NORMALS: Yes no CVA tenderness BLADDER/KIDNEY EXAM: Yes no CVA tenderness Back/Pelvis: COMMON NORMALS: no CVA tenderness and thoracic and lumbar spine normal to inspection Extremity: COMMON NORMALS: normal to inspection Neuro: COMMON NORMALS: patient oriented x3 and CN's II-XII intact bilaterally Psych: COMMON NORMALS: mental status grossly normal, Normal thought process present and cooperative THOUGHT PROCESS: Normal thought process present Skin: COMMON NORMALS: no rashes or lesions noted, turgor normal and no jaundice GENERAL SKIN EXAM: no rashes or lesions noted and turgor normal Course 2 Vital Signs: Vital signs: Vital Signs Temperature 96.6 F L 12/22/23 12:46 Pulse Rate 46 L 12/22/23 16:26 Respiratory Rate 13 12/22/23 16:26 Blood Pressure 153/84 12/22/23 16:26 Pulse Oximetry 100 12/22/23 16:26 Oxygen Delivery Me thod Room Air 12/22/23 16:26 MDM - Chest Pain Medical Decision Making Patient was given 1 sublingual nitroglycerin tablet but he does not think that made any difference. He states the pain just eventually resolved on its own throughout his ER stay. CBC was normal. BMP normal. BNP was 1587. Troponin was 18 with a 2-hour level of 15. His EKG showed atrial flutter with a ventricular rate in the 50s. His chest x-ray was normal. His heart rate did drop down into the upper 30s and 40s occasionally during his ER stay. He is asymptomatic now. I recommended he cut his metoprolol dose in half. Recommended he follow-up with his primary care physician and/or lubrication worker next week for recheck. I did prescribe nitroglycerin to be used as needed. If he has further episodes of chest pain which do not resolve with nitroglycerin I recommended he return to the emergency department immediately. Lab Data 12/22/23 13:10 12/22/23 13:10 Radiology Impressions Chest X-Ray 12/22/23 13: Impression: Atherosclerosis. Laboratory Results WBC 4.65 10^3/uL (3.29-11.43) 12/22/23 13:10 RBC 4.07 10^6/uL (3.85-5.65) 12/22/23 13:10 Hgb 12.80 g/dL (11.27-16.99) 12/22/23 13:10 Hct 39.5 % (37-53) 12/22/23 13:10 MCV 97.1 fl (82-101) 12/22/23 13:10 MCH 31.4 pg (27-33) 12/22/23 13:10 MCHC 32.4 g/dL (30-55) 12/22/23 13:10 RDW 12.9 % (12.1-15.1) 12/22/23 13:10 Plt Count 145 10^3/cmm (157-399) L 12/22/23 13:10 MPV 10.1 fL (7.4-10.4) 12/22/23 13:10 Neut % (Auto) 56.4 % 12/22/23 13:10 Lymph % (Auto) 27.3 % 12/22/23 13:10 [place] % (Auto) 9.2 % 12/22/23 13:10 Eos % (Auto) 5.6 % 12/22/23 13:10 Baso % (Auto) 1.3 % 12/22/23 13:10 Neut # (Auto) 2.62 10^3/uL (1.8-7.7) 12/22/23 13:10 Lymph # (Auto) 1.3 10^3/uL (0.8-4.8) 12/22/23 13:10 [place] # (Auto) 0.4 10^3/uL (0.2-0.9) 12/22/23 13:10 Eos # (Auto) 0.3 10^3/uL (0.0-0.8) 12/22/23 13:10 Baso # (Auto) 0.1 10^3/uL (0.0-0.1) 12/22/23 13:10 Nucleated RBC % (auto) 0 % 12/22/23 13:10 Nucleated RBCs # 0.0 /100WBC 12/22/23 13:10 Sodium 141 mmol/L (136-145) 12/22/23 13:10 Potassium 4.1 mmol/L (3.5-5.1) 12/22/23 13:10 Chloride 103 mmol/L (98-107) 12/22/23 13:10 Carbon Dioxide 28 mmol/L (22-29) 12/22/23 13:10 Anion Gap 14.1 (5-19) 12/22/23 13:10 BUN 21 mg/dL (8-23) 12/22/23 13:10 Creatinine 1.1 mg/dL (0.7-1.2) 12/22/23 13:10 GFR Calculation Not Reportable 12/22/23 13:10 Glucose 91 mg/dL (65-115) 12/22/23 13:10 Calculated Osmolality 295 mOsm/kg (285-295) 12/22/23 13:10 Calcium 8.7 mg/dL (8.5-10.5) 12/22/23 13:10 Troponin T Baseline 18 ng/L (0-15) H 12/22/23 13:10 Troponin T 120 Minute 15.14 ng/L (0-15) H 12/22/23 15:37 Delta Troponin T -2.86 ABS# (0-10) L 12/22/23 15:37 NT-Pro-B Natriuret Pep 1587 pg/mL (0-450) H 12/22/23 13:10 All radiology interpretation(s) finalized by discharge Discharge Plan Discharge Patient Disposition: Home Clinical Impression: Bradycardia Chest pain Qualifiers: Chest pain type: unspecified Qualified Code(s): R07.9 - Chest pain, unspecified Condition: Stable Prescriptions: New nitroglycerin 0.4 mg tablet, sublingual 0.4 mg sublingual Q5M PRN (Reason: chest pain) Qty: 30 0RF Rx Instructions: do not exceed 3 doses per episode No Action thyroid (pork) [L[employer]NER Thyroid] 30 mg tablet 30 mg PO DAILY vitamin E 670 mg (1,000 unit) Capsule 1 cap PO DAILY ascorbic acid (vitamin C) [Vitamin C] 1,000 mg Tablet 3,000 mg PO DAILY zinc acetate 50 mg (zinc) Capsule 50 mg PO DAILY omega-3 fatty acids 1,000 mg Capsule 3,000 mg PO DAILY melatonin 3 mg Tablet 3 mg PO BEDTIME folic acid 1 mg Tablet 1 mg PO DAILY coenzyme Q10 [CoQ-10] 100 mg Capsule 100 mg PO DAILY cholecalciferol (vitamin D3) [Vitamin D3] 125 mcg (5,000 unit) Tablet 125 mcg PO DAILY resveratrol 100 mg Capsule 100 mg PO DAILY turmeric 400 mg Capsule 400 mg PO DAILY alpha lipoic acid 600 mg Tablet 600 mg PO DAILY atorvastatin 40 mg Tablet 40 mg PO BEDTIME Qty: 90 0RF aspirin 81 mg Tablet,Delayed Release (Dr/Ec) 81 mg PO DAILY Qty: 90 0RF metoprolol tartrate 25 mg Tablet 50 mg PO BID@0900,2100 Qty: 60 0RF lisinopril 10 mg tablet 10 mg PO DAILY Qty: 60 0RF Discharge Orders: Discharge ED (Routine); Ordered 12/22/23 Ordered By: Jose M Sommer Referrals: Calderon Harrell MD [Primary Care Provider] - Activity Restrictions/Additional Instructions: If you are taking the metoprolol cut your dose in half. Follow-up with your primary care provider next week for recheck. Use nitroglycerin as needed for chest pain. If the pain does not resolve return to the emergency department immediately. 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
[2023-12-22 14:19] LABS: Anion Gap 14.1 (5-19); Blood Urea Nitrogen 21 mg/dL (8-23); Calcium 8.7 mg/dL (8.5-10.5); Carbon Dioxide 28 mmol/L (22-29); Chloride 103 mmol/L (98-107); Creatinine Clr Calc Pharmacy 55.0309; Glucose 91 mg/dL (65-115); NT Pro B Type Natriuretic Pept 1587 pg/mL (0-450); Osmolality Calculated 295 mOsm/kg (285-295); Potassium 4.1 mmol/L (3.5-5.1); Sodium 141 mmol/L (136-145)
--- NOTE | 2023-12-22 14:33 | PC.PHAR ---
I cant get ahold of patients home health aid from [facility], called several times and left multiple messages, i called [facility] which is his pharmacy listed they were able to confirm all meds, however eliquis 5mg and atorvastatin 40mg both were filled last on 06/26/23 for 30 days, so i took them off his profile as i cannot confirm that they are current
[2023-12-22 15:14] VITALS: BP 151/87; PULSE 46; RESP 15; O2SAT 100
--- NOTE | 2023-12-22 15:40 | ECG_ITS ---
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 Measurements Intervals [place] Rate: 43 P: 97 WI: 164 QRS: 39 QRSD: 126 T: 49 QT: 507 QTc: 429 Interpretive Statements Atrial flutter with slow ventricular rate POSSIBLE RIGHT VENTRICULAR CONDUCTION DELAY Compared to ECG 12/22/2023 12:31:55 Ventricular rate is slow Electronically Signed On 12-23-2023 13:51:13 CDT by Rad Zimmer M.D. [email or web address]
[2023-12-22 16:26] VITALS: BP 153/84; PULSE 46; RESP 13; O2SAT 100
[2023-12-22 16:39] LABS: Troponin 5 2HR 15.14 ng/L (0-15)
[2023-12-22 16:40] LABS: Troponin 5 2HR Delta -2.86 ABS# (0-10)
[2023-12-22 17:22] VITALS: BP 172/102; PULSE 63; RESP 15; O2SAT 100
== END 2023-12-22 17:26 | disposition home or self-care (01) ==
PROVIDERS: Emergency Provider Emergency Medicine; PCP Family Medicine
DX: R00.1 Bradycardia, unspecified (principal); R07.9 Chest pain, unspecified; Z79.82 Long term (current) use of aspirin; Z87.891 Personal history of nicotine dependence; I10 Essential (primary) hypertension
CPT/HCPCS: 36415; 71045; 80048; 83880; 84484; 85025; 93005; 99285

== ENCOUNTER 2024-01-05 12:00 | Outpatient (CLI) | payer MEDICARE, SELFPAY ==
--- NOTE | 2024-01-05 12:58 | CTR_ITS ---
PROCEDURE INFORMATION: Exam: CTA Chest With Contrast Exam date and time: 01/05/2024 1:35 PM Age: 78 years old Clinical indication: Condition or disease; Other: Aneurysm of ascending aorta TECHNIQUE: Imaging protocol: Computed tomographic angiography of the chest with contrast. Exam focused on the arteries. 3D rendering (Not supervised by radiologist): MIP and/or 3D reconstructed images were created by the technologist. Radiation optimization: All CT scans at this facility use at least one of these dose optimization techniques: automated exposure control; mA and/or kV adjustment per patient size (includes targeted exams where dose is matched to clinical indication); or iterative reconstruction. Contrast material: OMNI 350; Contrast volume: 100 ml; Contrast route: INTRAVENOUS (IV); COMPARISON: CT angio chest [id number] 06/25/2023 4:34 PM RADIATION DOSE METRICS: Total DLP (mGy-cm): 564.33 FINDINGS: Pulmonary arteries: Normal. No pulmonary emboli. Aorta: stable 4.4 cm aneurysm of the ascending thoracic aorta. No evidence of dissection or leakage. Mild atherosclerotic calcifications of the thoracic aorta. Lungs: Unremarkable. No consolidation. No masses. Pleural spaces: Unremarkable. No pneumothorax. No pleural effusion. Heart: Unremarkable. No cardiomegaly. No pericardial effusion. Lymph nodes: Unremarkable. No enlarged lymph nodes. Bones/joints: Unremarkable. No acute fracture. Soft tissues: Unremarkable. CT/CT angio chest [id number] IMPRESSION: Stable ascending thoracic aortic aneurysm.
--- NOTE | 2024-01-05 12:58 | USCV_ITS ---
Will Bowling Age: 78 Gender: M : 1945 Exam Date: 01/05/2024 13:20 Ordering Phys: Calderon Harrell MD Technologist: KATRINA Exam Location: [facility] [place] Indication: a fib BP: 144 / 90 HR: 104 Rhythm: Atrial fibrillation Technical Quality: Adequate MEASUREMENTS (Male / Female) Normal Values 2D ECHO LV Diastolic Diameter PLAX 4.1 cm 4.2 - 5.9 / 3.9 - 5.3 cm IVS Diastolic Thickness 1.0 cm 0.6 - 1.0 / 0.6 - 0.9 cm IVS Systolic Thickness 1.5 cm LVPW Diastolic Thickness 1.9 cm 0.6 - 1.0 / 0.6 - 0.9 cm LVPW Systolic Thickness 2.0 cm LVOT Diameter 2.0 cm LV Ejection Fraction 2D Teich 59.4 % LV Ejection Fraction MOD 4C 48.7 % LV Ejection Fraction MOD 2C 52.2 % LV Ejection Fraction 2C AL 51.4 % LA Diameter 4.0 cm RA Systolic Volume 4C AL 55.4 ml RA Systolic Volume 4C MOD 54.2 ml LA Sys Volume AL 55.5 cm cubed LA Sys Volume Index AL 29.5 cm cubed/m squared Aorta at Sinotubular Diameter 3.2 cm IVC Diameter 1.6 cm M-MODE LA Ao Ratio MM 1.0 AV Cusp Separation MM 1.6 cm DOPPLER AV Peak Velocity 244.7 cm/s LVOT Peak Velocity 78.0 cm/s AV Area Cont Eq vti 2.3 cm squared AV Area Cont Eq pk 1.0 cm squared MV Peak Velocity 84.0 cm/s MV Area PHT 2.9 cm squared Mitral E to A Ratio 69.0 TR Peak Velocity 214.0 cm/s TR Peak Gradient 18.3 mmHg TR Mean Velocity 183.0 cm/s TR Mean Gradient 14.2 mmHg TR Velocity Time Integral 62.7 cm TV Peak E Velocity 48.0 cm/s Right Atrial Pressure 3.0 mmHg Pulmonary Artery Systolic Pressu 21.3 mmHg PV Peak Velocity 101.0 cm/s RV Ejection Time 0.3 s FINDINGS Left Ventricle Left ventricle is normal in size. LV systolic function is mildly reduced with EF of 45-50%. Mild global hypokinesis. Grade 1 diastolic dysfunction. Right Ventricle Mildly hypokinetic Right Atrium Dilated Left Atrium Normal in size Mitral Valve Structurally normal mitral valve. Mild mitral regurgitation. Aortic Valve Structurally normal aortic valve. No significant stenosis. Mild aortic regurgitation. Tricuspid Valve Mild tricuspid regurgitation. Pulmonary artery systolic pressure is normal Pulmonic Valve Mild pulmonic regurgitation. Pericardium Normal Aorta Normal in size IVC Appears to be normal CONCLUSIONS LV systolic function is mildly reduced with EF of 45-50% Grade 1 diastolic dysfunction Mildly hypokinetic RV Mild mitral regurgitation Mild aortic regurgitation Mild tricuspid regurgitation Mild pulmonic regurgitation Compared to prior echocardiogram from 06/2023, no significant changes are seen Codey Vaca MD (Electronically Signed) Final Date: 14 January 2024 12:55 S
[2024-01-05] MEDS: iohexol 350 mg/mL 500 mL Btl (per mL) IV (13:48)
== END 2024-01-05 12:54 | disposition home or self-care (01) ==
PROVIDERS: PCP Family Medicine; Visit Provider Family Medicine
DX: I71.21 Aneurysm of the ascending aorta, without rupture (principal); I50.30 Unspecified diastolic (congestive) heart failure
CPT/HCPCS: 71275; 93306

== ENCOUNTER → 2024-01-08 08:35 | Outpatient (BNVA) | payer MEDICARE, SELFPAY | PROVIDERS: PCP Family Medicine; Visit Provider Nurse Practitioner Family | DX: L91.0 Hypertrophic scar (principal); D18.01 Hemangioma of skin and subcutaneous tissue; Z86.006 Personal history of melanoma in-situ; Z85.828 Personal history of other malignant neoplasm of skin; D48.5 Neoplasm of uncertain behavior of skin; L57.0 Actinic keratosis | CPT/HCPCS: 11102; 17000; 99213 ==

== ENCOUNTER → 2024-05-07 13:10 | Outpatient (BNVA) | payer MEDICARE, SELFPAY | PROVIDERS: PCP Family Medicine; Visit Provider Nurse Practitioner Family | DX: L57.0 Actinic keratosis (principal); X32.XXXA Exposure to sunlight, initial encounter; D18.01 Hemangioma of skin and subcutaneous tissue; Z86.006 Personal history of melanoma in-situ; Z08 Encounter for follow-up examination after completed treatment for malignant neoplasm; Z85.828 Personal history of other malignant neoplasm of skin; D48.5 Neoplasm of uncertain behavior of skin | CPT/HCPCS: 11102; 17000; 99214 ==

== ENCOUNTER 2024-08-03 21:46 | Inpatient (IN) | payer MEDICARE, SELFPAY ==
--- NOTE | 2024-08-03 21:55 | CTR_ITS ---
PROCEDURE INFORMATION: Exam: CT Head Without Contrast Exam date and time: 08/03/2024 9:56 PM Age: 78 years old Clinical indication: Stroke-like symptoms; Left facial droop; Lt upper extremity and lt lower extremity weakness; Additional info: Symptoms of acute stroke TECHNIQUE: Imaging protocol: Computed tomography of the head without contrast. Radiation optimization: All CT scans at this facility use at least one of these dose optimization techniques: automated exposure control; mA and/or kV adjustment per patient size (includes targeted exams where dose is matched to clinical indication); or iterative reconstruction. Other technique: STROKE PROTOCOL was implemented. COMPARISON: CT angio headneck* [id number] 06/24/2023 7:00 PM, head CT without IV contrast dated 06/24/2023. RADIATION DOSE METRICS: Total DLP (mGy-cm): 1069.08 FINDINGS: Brain: New subacute 1.7 cm ischemic infarct in the left insular cortex. Chronic microvascular ischemic changes in bilateral periventricular white matter. There is no evidence of acute intracranial hemorrhage, acute intra-axial or extra-axial fluid collection, mass effect, or midline shift. Cerebral ventricles: No ventriculomegaly. Paranasal sinuses: Partially visualized sinuses are unremarkable. No fluid levels. Mastoid air cells: Visualized mastoid air cells are well aerated. Orbital cavities: Previous bilateral cataract surgery. Bones: Unremarkable. No acute fracture. Soft tissues: Stable old round 3 mm foreign metallic body in the left temporal fossa soft tissues (extracranial). Vasculature: Atherosclerotic calcifications in the intracranial segments of bilateral internal carotid arteries. CT/CT head thrombolytic [id number] IMPRESSION: 1. New subacute 1.7 cm ischemic infarct in the left insular cortex. 2. Chronic microvascular ischemic changes in bilateral periventricular white matter. 3. No acute intracranial hemorrhage. 4. Stable old round 3 mm foreign metallic body in the left temporal fossa soft tissues (extracranial). ASSESSMENT: ASPECTS ([place] Stroke Program Early CT Score) is 9.
--- NOTE | 2024-08-03 21:58 | CTR_ITS ---
PROCEDURE INFORMATION: Exam: CTA Head With Contrast, Arteriography Exam date and time: 08/03/2024 10:05 PM Age: 78 years old Clinical indication: Stroke-like symptoms; Left facial droop; Lt upper extremity and lt lower extremity weakness TECHNIQUE: Imaging protocol: Computed tomographic angiography of the head with contrast. Exam focused on the arteries. 3D rendering (Not supervised by radiologist): MIP and/or 3D reconstructed images were created by the technologist. Radiation optimization: All CT scans at this facility use at least one of these dose optimization techniques: automated exposure control; mA and/or kV adjustment per patient size (includes targeted exams where dose is matched to clinical indication); or iterative reconstruction. Contrast material: OMNI 350; Contrast volume: 100 ml; Contrast route: INTRAVENOUS (IV); COMPARISON: CT angio headneck* [id number] 06/24/2023 7:00 PM RADIATION DOSE METRICS: Total DLP (mGy-cm): 460.3 FINDINGS: ANTERIOR CIRCULATION: Right internal carotid artery: Intracranial segment is patent with no significant stenosis. No aneurysm. Right middle cerebral artery: No occlusion or significant stenosis. No aneurysm. Right anterior cerebral artery: No occlusion or significant stenosis. No aneurysm. Left internal carotid artery: Intracranial segment is patent with no significant stenosis. No aneurysm. Left middle cerebral artery: No occlusion or significant stenosis. No aneurysm. Left anterior cerebral artery: No occlusion or significant stenosis. No aneurysm. POSTERIOR CIRCULATION: Right vertebral artery: No occlusion or significant stenosis. No aneurysm. Left vertebral artery: No occlusion or significant stenosis. No aneurysm. Basilar artery: No occlusion or significant stenosis. No aneurysm. Right posterior cerebral artery: No occlusion or significant stenosis. No aneurysm. Left posterior cerebral artery: No occlusion or significant stenosis. No aneurysm. Brain: New subacute 1.7 cm ischemic infarct in the left insular cortex. Chronic microvascular ischemic changes in bilateral periventricular white matter. There is no evidence of acute intracranial hemorrhage, acute intra-axial or extra-axial fluid collection, mass effect, or midline shift. Intracranial venous sinuses are patent. Cerebral ventricles: No ventriculomegaly. Orbital cavities: Previous bilateral cataract surgery. Bones/joints: Unremarkable. No acute fracture. Soft tissues: Stable old round 3 mm foreign metallic body in the left temporal fossa soft tissues (extracranial). PROCEDURE INFORMATION: Exam: CTA Neck With Contrast Exam date and time: 08/03/2024 10:05 PM Age: 78 years old Clinical indication: Stroke-like symptoms; Left facial droop; Lt upper extremity and lt lower extremity weakness TECHNIQUE: Imaging protocol: Computed tomographic angiography of the neck with contrast. Exam focused on the cervical segments of the vasculature. 3D rendering (Not supervised by radiologist): MIP and/or 3D reconstructed images were created by the technologist. Radiation optimization: All CT scans at this facility use at least one of these dose optimization techniques: automated exposure control; mA and/or kV adjustment per patient size (includes targeted exams where dose is matched to clinical indication); or iterative reconstruction. Contrast material: OMNI 350; Contrast volume: 100 ml; Contrast route: INTRAVENOUS (IV); COMPARISON: CT angio headneck* [id number] 06/24/2023 7:00 PM RADIATION DOSE METRICS: Total DLP (mGy-cm): 460.3 FINDINGS: Right common carotid artery: No stenosis. No dissection or occlusion. Right internal carotid artery: No stenosis of the extracranial segment. No dissection or occlusion. Right external carotid artery: No occlusion or stenosis of the origin. Left common carotid artery: No stenosis. No dissection or occlusion. Left internal carotid artery: No stenosis of the extracranial segment. No dissection or occlusion. Left external carotid artery: No occlusion or stenosis of the origin. Right vertebral artery: No stenosis. No dissection or occlusion. Left vertebral artery: No stenosis. No dissection or occlusion. Soft tissues: Normal. No significant soft tissue swelling. Bones/joints: No acute cervical spine fracture. Multilevel degenerative changes in the cervical spine, resulting in multilevel foraminal stenosis. Lungs: A 4 mm benign calcified granuloma in the left lung upper lobe. Mild centrilobular emphysema. CT/CT angio headneck* [id number] IMPRESSION: 1. New subacute 1.7 cm ischemic infarct in the left insular cortex. 2. Chronic microvascular ischemic changes in bilateral periventricular white matter. 3. No acute intracranial hemorrhage. 4. Stable old round 3 mm foreign metallic body in the left temporal fossa soft tissues (extracranial). 5. No major intracranial artery aneurysm, stenosis or occlusion. 6. Intracranial venous sinuses are patent. IMPRESSION: 1. No major neck artery laceration, dissection, stenosis, aneurysm, pseudoaneurysm or occlusion. 2. Mild centrilobular emphysema. The presence of pulmonary emphysema on CT is an independent risk for lung cancer. In the absence of a history or active diagnosis of lung cancer, it is recommended that this patient with emphysema be evaluated for enrollment in a low dose CT lung cancer screening program. REFERENCES: NASCET CRITERIA. The degree of stenosis in the cervical segment of the internal carotid artery is based on NASCET criteria. Normal is no stenosis. Mild is less than 50% stenosis. Moderate is 50-69% stenosis. Severe is 70% to 99% stenosis. Total occlusion is no detectable patent lumen.
[2024-08-03] MEDS: iohexol 350 mg/mL 500 mL Btl (per mL) IV (22:12)
--- NOTE | 2024-08-03 22:17 | ECG_ITS ---
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 Measurements Intervals Delta Rate: 98 P: 0 CA: 0 QRS: 30 QRSD: 106 T: 62 QT: 293 QTc: 374 Interpretive Statements ATRIAL FIBRILLATION WITH ABERRANT CONDUCTION OR VENTRICULAR PREMATURE COMPLEXES INCOMPLETE RIGHT BUNDLE BRANCH BLOCK [90+ ms QRS DURATION, TERMINAL R IN V1/V2, 40+ ms S IN I/aVL/V4/V5/V6] NONSPECIFIC ST & T-WAVE ABNORMALITY ABNORMAL RHYTHM ECG Compared to ECG 12/22/2023 15:40:06 Ventricular premature complex(es) now present Aberrant conduction of supraventricular beat(s) now present Incomplete right bundle-branch block now present T-wave abnormality now present Atrial flutter no longer present Electronically Signed On 08-04-2024 21:36:20 CDT by Cruz Fry M.D. [email or web address]
--- NOTE | 2024-08-03 22:19 | W.ED.NEUROSD ---
HPI - Neuro Symptoms/Deficit General: Chief Complaint: Neuro Symptoms/Deficit Stated Complaint: Possible Stroke Time Seen by Provider: 08/03/24 21:53 History of Present Illness: 78-year-old male patient with a history of atrial fibrillation. He evidently had an episode of stroke versus TIA last year. He presents with a last known well time of roughly 8 PM, when his son saw him out working in the yard. His son went on a walk, and found him around 9-9 20. He had fallen in the yard. He had urinated himself. He had left-sided facial droop, with left arm weakness according to his son. His son had to lift him up, and take him in the house. His son notes that his mental status was significantly altered at the time. Some symptoms have improved. He is still confused. He is more alert. His left-sided weakness seems to have resolved. His left-sided facial weakness is not. He is not having trouble speaking. He has no vision deficit. Related Data Home Medications ?Medication ?Instructions ?Recorded ?Confirmed alpha lipoic acid 600 mg tablet 600 mg PO DAILY 06/25/23 07/22/24 ascorbic acid (vitamin C) 1,000 mg 3,000 mg PO DAILY 06/25/23 07/22/24 tablet (Vitamin C) cholecalciferol (vitamin D3) 125 125 mcg PO DAILY 06/25/23 07/22/24 mcg (5,000 unit) tablet (Vitamin D3) coenzyme Q10 100 mg capsule 100 mg PO DAILY 06/25/23 07/22/24 (CoQ-10) folic acid 1 mg tablet 1 mg PO DAILY 06/25/23 07/22/24 melatonin 3 mg tablet 3 mg PO BEDTIME 06/25/23 07/22/24 omega-3 fatty acids 1,000 mg 3,000 mg PO DAILY 06/25/23 07/22/24 capsule resveratrol 100 mg capsule 100 mg PO DAILY 06/25/23 07/22/24 thyroid (pork) 30 mg tablet ([employer] 30 mg PO DAILY 06/25/23 07/22/24 Thyroid) turmeric 400 mg capsule 400 mg PO DAILY 06/25/23 07/22/24 vitamin E 670 mg (1,000 unit) 1 cap PO DAILY 06/25/23 07/22/24 capsule zinc acetate 50 mg (zinc) capsule 50 mg PO DAILY 06/25/23 07/22/24 Previous Rx's ?Medication ?Instructions ?Recorded aspirin 81 mg tablet,delayed 81 mg PO DAILY #90 tabs 06/26/23 release Allergies Allergy/AdvReac Type Severity Reaction Status Date / Time No Known Allergies Allergy Verified 07/22/24 15:30 [facility] PFSH: Medical History CVA (cerebral vascular accident) Stroke determined by clinical assessment Carotid stenosis Thoracic aortic aneurysm Hypertension Afib Erectile dysfunction Surgical History H/O left knee surgery History of cataract surgery Family History Brother Cancer prostate Mother , IN HER 90'S No problems noted. Father No problems noted. Social History Smoking and tobacco/nicotine status: former use of tobacco/nicotine Alcohol intake: current Alcohol intake frequency: few times a month Substance/Drug Use: never Marital status: Current occupational status: retired NIH stroke score NIHSS: Level Of Consciousness - 1a: 0 Level Of Consciousness Questions - 1b: One Correct Level Of Consciousness Commands - 1c: Both Correct Best Gaze - 2: Normal Visual Loo - 3: No Visual Loss Facial Palsy - 4: Minor Paralysis Motor Arm Right - 5: No Drift Motor Arm Left - 5: No Drift Motor Leg Right - 6: No Drift Motor Leg Left - 6: No Drift Limb Ataxia - 7: Absent Sensory - 8: Normal Best Language - 9: No Aphasia Dysarthia - 10: Normal Extinction And Inattention - 11: 0 Score: Total Score: 2 Physical Exam Const: GENERAL APPEARANCE: cooperative, lethargic, ill appearing (Mildly) and frail appearing NUTRITIONAL APPEARANCE: thin ORIENTATION/CONSCIOUSNESS: Yes lethargic HENMT: COMMON NORMALS: normocephalic, atraumatic and Normal external nose present HEAD & SCALP: normocephalic and atraumatic FACE & SINUS: normal facial exam and face symmetric NOSE: Normal external nose present Eye: COMMON NORMALS: Equal, round and reactive pupils present and EOMs intact bilaterally PUPIL: Yes Equal, round and reactive pupils present Neck/C-Spine: GENERAL: Yes trachea midline Chest: CHEST: Yes Symmetrical chest wall rise Resp: COMMON NORMALS: normal respiratory effort, No retractions, No use of accessory muscles and clear to auscultation bilaterally AUSCULTATION: clear to auscultation bilaterally Cardio: COMMON NORMALS: regular rate and regular rhythm RATE: regular rate RHYTHM: regular rhythm GI: COMMON NORMALS: Normal to inspection, nondistended, normoactive bowel sounds present Extremity: NARRATIVE EXTREMITY EXAM: Left forearm dorsal abrasion. Neuro: TI COMA SCALE: document GCS findings [place] coma scale eye opening: Spontaneous [place] coma scale verbal response: Orientated Ti coma scale motor response: Obey commands [place] coma scale total score: 15 SENSORIUM/ORIENTATION: Yes lethargic SENSORY EXAM: Yes extremities (intact) Psych: COMMON NORMALS: speech normal SPEECH: Yes normal speech Skin: COMMON NORMALS: no rashes or lesions noted GENERAL SKIN EXAM: no rashes or lesions noted Course Vital Signs: Vital signs: Vital Signs Temperature 98.3 F 08/03/24 22:27 Pulse Rate 109 H 08/04/24 01:34 Respiratory Rate 18 08/04/24 01:34 Blood Pressure 175/98 08/04/24 01:34 Pulse Oximetry 98 08/04/24 01:34 Oxygen Delivery Me thod Room Air 08/04/24 00:14 MDM - Neuro Symptoms/Deficit Medical Decision Making His current NIH score is 2. This is for level of consciousness, and left-sided facial weakness. He has no other localizing symptoms. Head CT was performed along with CTA. Results are pending. With a score of 2, he would not be a candidate for thrombolytics at this time. Patient's BUN is elevated. Mild thrombocytopenia of 136. Other laboratory is not remarkable. Head CT shows subacute 1.7 cm infarct in the left insular cortex. I discussed this with radiology. This does not match his symptoms of left-sided weakness at all. No CT evidence for correlating lesion either by CT or CTA. Prior weakness is improved. He does still have a facial droop. He seems less confused. Urinalysis is negative. He is in atrial fibrillation on EKG, with a rate around 100. Blood pressures have been mildly elevated. He will be observed. Spoke with hospitalist. We will anticoagulate given history of atrial fibrillation, placed him on aspirin and atorvastatin as well. The patient has a mild elevation in liver enzymes without hyperbilirubinemia. Hepatitis panel, Tylenol level, and alcohol level are all negative. Will admit. Hospitalist will see the patient in the ER. Lab Data 08/03/24 22:35 08/03/24 22:[address] 08/03/24 21:55 IMPRESSION: 1. New subacute 1.7 cm ischemic infarct in the left insular cortex. 2. Chronic microvascular ischemic changes in bilateral periventricular white matter. 3. No acute intracranial hemorrhage. 4. Stable old round 3 mm foreign metallic body in the left temporal fossa soft tissues (extracranial). ASSESSMENT: ASPECTS ([place] Stroke Program Early CT Score) is 9. ADDENDUM: 08/03/24 9006 THIS REPORT CONTAINS FINDINGS THAT MAY BE CRITICAL TO PATIENT CARE. The findings and recommendations were verbally communicated via telephone conference with CAMERON Mckeon by Dr. Castillo on 08/03/2024 at 10:30 PM CDT. The findings were acknowledged and understood. Head/Neck CTA 08/03/24 21:58 IMPRESSION: 1. New subacute 1.7 cm ischemic infarct in the left insular cortex. 2. Chronic microvascular ischemic changes in bilateral periventricular white matter. 3. No acute intracranial hemorrhage. 4. Stable old round 3 mm foreign metallic body in the left temporal fossa soft tissues (extracranial). 5. No major intracranial artery aneurysm, stenosis or occlusion. 6. Intracranial venous sinuses are patent. IMPRESSION: 1. No major neck artery laceration, dissection, stenosis, aneurysm, pseudoaneurysm or occlusion. 2. Mild centrilobular emphysema. The presence of pulmonary emphysema on CT is an independent risk for lung cancer. In the absence of a history or active diagnosis of lung cancer, it is recommended that this patient with emphysema be evaluated for enrollment in a low dose CT lung cancer screening program. REFERENCES: NASCET CRITERIA. The degree of stenosis in the cervical segment of the internal carotid artery is based on NASCET criteria. Normal is no stenosis. Mild is less than 50% stenosis. Moderate is 50-69% stenosis. Severe is 70% to 99% stenosis. Total occlusion is no detectable patent lumen. ADDENDUM: 08/03/24 1603 The patient's physician, CAMERON Mckeon was informed by phone by Dr. Castillo about the findings and recommendations on 08/03/2024 at 10:42 PM CDT. The ordering physician verbalized understanding. Laboratory Results WBC 8.87 10^3/uL (3.29-11.43) 08/03/24 22:35 RBC 4.02 10^6/uL (3.85-5.65) 08/03/24: Hgb 12.70 g/dL (11.27-16.99) 08/03/24: Hct 37.8 % (37-53) 08/03/24: MCV 94.0 fl (82-101) 08/03/24: MCH 31.6 pg (27-33) 08/03/24: MCHC 33.6 g/dL (30-55) 08/03/24: RDW 13.2 % (12.1-15.1) 08/03/24: Plt Count 136 10^3/cmm (157-399) L 08/03/24: MPV 10.1 fL (7.4-10.4) 08/03/24: Neut % (Auto) 87.3 % 08/03/24: Lymph % (Auto) 5.7 % 08/03/24: Stone % (Auto) 6.0 % 08/03/24: Eos % (Auto) 0.1 % 08/03/24: Baso % (Auto) 0.7 % 08/03/24: Neut # (Auto) 7.74 10^3/uL (1.8-7.7) H 08/03/24:35 Lymph # (Auto) 0.5 10^3/uL (0.8-4.8) L 08/03/24: Stone # (Auto) 0.5 10^3/uL (0.2-0.9) 08/03/24:35 Eos # (Auto) 0.0 10^3/uL (0.0-0.8) 08/03/24: Baso # (Auto) 0.1 10^3/uL (0.0-0.1) 06/14/25 22:35 Nucleated RBC % (auto) 0 % 08/03/24 22:35 Nucleated RBCs # 0.0 /100WBC 08/03/24 22:35 PT 13.60 SECONDS (12.1-14.9) 08/03/24 22:35 INR 0.97 (0.8-1.2) 08/03/24 22:35 APTT 27.5 SECONDS (23.9-36.7) 08/03/24 22:35 Sodium 140 mmol/L (136-145) 08/03/24 22:35 Potassium 3.5 mmol/L (3.5-5.1) 08/03/24 22:35 Chloride 106 mmol/L (98-107) 08/03/24 22:35 Carbon Dioxide 23 mmol/L (22-29) 08/03/24 22:35 Anion Gap 14.5 (5-19) 08/03/24 22:35 BUN 31 mg/dL (8-23) H 08/03/24 22:35 Creatinine 1.0 mg/dL (0.7-1.2) 08/03/24 22:35 GFR Calculation Not Reportable 08/03/24 22:35 Glucose 140 mg/dL (65-115) H 08/03/24 22:35 POC Glucose 136 mg/dL (70-110) H 08/03/24 22:28 Calculated Osmolality 299 mOsm/kg (285-295) H 08/03/24 22:35 Calcium 9.0 mg/dL (8.5-10.5) 08/03/24 22:35 Total Bilirubin 0.6 mg/dL (0.15-1.2) 08/03/24 22:35 AST 66 U/L (0-40) H 08/03/24 22:35 ALT 71 U/L (0-41) H 08/03/24 22:35 Alkaline Phosphatase 131 U/L (40-130) H 08/03/24 22:35 Total Protein 7.0 g/dL (6.6-8.7) 08/03/24 22:35 Albumin 4.1 g/dL (3.5-5.2) 08/03/24 22:35 Globulin 2.9 g/dL (1.3-4.6) 08/03/24 22:35 Urine Color Yellow (Yellow) 08/03/24 23:05 Urine Appearance Clear (CLEAR) 08/03/24 23:05 Urine pH 8.0 (5-7) A 08/03/24 23:05 Ur Specific [place] 1.023 (1.005-1.030) 08/03/24 23:05 Urine Protein Negative (Negative) 08/03/24 23:05 Urine Glucose (UA) Negative (Normal) 08/03/24 23:05 Urine Ketones Negative (Negative) 08/03/24 23:05 Urine Blood 1+ (Negative) A 08/03/24 23:05 Urine Nitrate Negative (Negative) 08/03/24 23:05 Urine Bilirubin Negative (Negative) 08/03/24 23:05 Urine Urobilinogen 0.2 mg/dL (Negative) 08/03/24 23:05 Ur Leukocyte Esterase Negative (Negative) 08/03/24 23:05 Urine RBC 0-2 /hpf (0-2) 08/03/24 23:05 Urine WBC 0-5 /hpf (0-5) 08/03/24 23:05 Ur Squamous Epith Cells 0-5 /hpf (0-5) 08/03/24 23:05 Amorphous Sediment Not Reportable 08/03/24 23:05 Urine Bacteria None seen /hpf (NONE) 08/03/24 23:05 Hyaline Casts 0-4 /lpf H 08/03/24 23:05 Acetaminophen < 5.0 ug/mL (10-30) L 08/03/24 22:35 Ethyl Alcohol < 10 mg/dL (0-10) 08/03/24 22:35 Hepatitis A IgM Ab Non-reactive (Nonreactive) 08/03/24 22:35 Hep Bs Antigen Non-reactive (Nonreactive) 08/03/24 22:35 Hep B Core IgM Ab Non-reactive (Nonreactive) 08/03/24 22:35 Hepatitis C Antibody Non-reactive (Nonreactive) 08/03/24 22:35 All radiology interpretation(s) finalized by discharge Discharge Plan Discharge Patient Disposition: Admitted As Inpatient Admit Provider: Fran Gonzáles Clinical Impression: Cerebrovascular accident Condition: Stable Coding Level of Care Code ED [place] [employer]er for Lisa Lilly
[2024-08-03 22:27] VITALS: BP 163/94; PULSE 70; RESP 18; TEMP 36.8; O2SAT 95
[2024-08-03 22:42] LABS: Glucose Point of Care 136 mg/dL (70-110)
[2024-08-03 22:43] LABS: Basophils # 0.1 10^3/uL (0.0-0.1); Basophils % 0.7 %; Eosinophils % 0.1 %; Hematocrit 37.8 % (37-53); Lymphocytes # 0.5 10^3/uL (0.8-4.8); Lymphocytes % 5.7 %; Mean Corpuscular HGB Conc 33.6 g/dL (30-55); Mean Corpuscular Hemoglobin 31.6 pg (27-33); Mean Platelet Volume 10.1 fL (7.4-10.4); Monocytes # 0.5 10^3/uL (0.2-0.9); Neutrophils # 7.74 10^3/uL (1.8-7.7); Neutrophils % 87.3 %; Nucleated Red Blood Cells % 0 %; Platelet Count 136 10^3/cmm (157-399); Red Blood Count 4.02 10^6/uL (3.85-5.65); Red Cell Distribution Width 13.2 % (12.1-15.1); White Blood Count 8.87 10^3/uL (3.29-11.43)
[2024-08-03 22:53] LABS: INR 0.97 (0.8-1.2)
[2024-08-03 22:54] LABS: Partial Thromboplastin Time 27.5 SECONDS (23.9-36.7)
[2024-08-03 22:57] LABS: Alanine Aminotransferase 71 U/L (0-41); Albumin Level 4.1 g/dL (3.5-5.2); Alkaline Phosphatase 131 U/L (40-130); Anion Gap 14.5 (5-19); Aspartate Amino Transferase 66 U/L (0-40); Blood Urea Nitrogen 31 mg/dL (8-23); Carbon Dioxide 23 mmol/L (22-29); Chloride 106 mmol/L (98-107); Globulin 2.9 g/dL (1.3-4.6); Glucose 140 mg/dL (65-115); Osmolality Calculated 299 mOsm/kg (285-295); Potassium 3.5 mmol/L (3.5-5.1); Sodium 140 mmol/L (136-145); Total Bilirubin 0.6 mg/dL (0.15-1.2)
[2024-08-03 23:05] VITALS: BP 160/95; PULSE 75; RESP 16; O2SAT 95
[2024-08-03 23:13] LABS: Bilirubin Urine Negative (Negative); Blood Urine 1+ (Negative); Glucose Urine UA Negative (Normal); Ketones Urine Negative (Negative); Leukocyte Esterase Urine Negative (Negative); Nitrate Urine Negative (Negative); Protein Urine Negative (Negative); Specific Gravity, Urine 1.023 (1.005-1.030); Urine Appearance Clear (CLEAR); Urine Color Yellow (Yellow); Urobilinogen Urine 0.2 mg/dL (Negative)
[2024-08-03 23:15] LABS: Add Urine Microscopic? YES; Bacteria Urine None Seen /hpf; Hyaline Casts Urine 0-4 /lpf; RBC Urine 0-2 /hpf (0-2); Squamous Epithelial Cell Urine 0-5 /hpf (0-5); WBC Urine 0-5 /hpf (0-5)
[2024-08-03 23:41] LABS: Acetaminophen < 5.0 ug/mL (10-30); Alcohol Level < 10 mg/dL (0-10)
[2024-08-03 23:54] LABS: Hepatitis A Antibody IgM Non-Reactive (Nonreactive); Hepatitis B Core IgM Non-Reactive (Nonreactive); Hepatitis B Surface Antigen Non-Reactive (Nonreactive); Hepatitis C Virus Antibody Non-Reactive (Nonreactive)
[2024-08-04] VITALS (10 sets, daily range): BP systolic 132–189; BP diastolic 87–120; PULSE 87–109; RESP 18–19; TEMP 36.3–36.7; O2SAT 90–98; BMI 21.5
[2024-08-04] MEDS: sodium chloride 0.9% 1,000 ML 999 ML IV (00:11)
[2024-08-04 02:06] LABS: Amphetamines Screen Urine Negative (Negative); Barbiturates Screen Urine Negative (Negative); Benzodiazepines Screen Urine Negative (Negative); Cocaine Screen Urine Negative (Negative); Opiate Screen Urine Negative (Negative); PCP Screen Urine Negative (Negative); THC Screen Urine Negative (Negative)
[2024-08-04] MEDS: enoxaparin 80 mg/0.8 mL Syringe 70 MG SUBCUT (02:26)
--- NOTE | 2024-08-04 03:21 | PM.HP ---
Providers/Chief Complaint Admitting Physician: Fran Gonzáles MD Primary Care Provider: Calderon Harrell MD Chief Complaint: Possible Stroke Fell History of Present Illness Will Bowling is a 78 year old male with history of atrial fibrillation had a stroke a year ago and was started on apixaban but he stopped it due to adverse opinion of pharmaceuticals and cost of medication. Patient tells me that he actually was sent [place]. [facility] $700 a month however for apixaban. He states that about a month ago he went to see a Estevan Telles MD associated clinic in [place] and when he was seen he was noted to be in A-fib and referred for admission at a local hospital where he had cardioversion following transesophageal echo. He states he was placed on Eliquis and took it for about 3 weeks but stopped it [place] [facility] Patient has been taking nattokinase or which is supposed to have some clot dissolving properties. Today the patient had been found down by his son at 9 PM patient had to be lifted up by his son and was noted to have left facial droop and left arm and leg weakness. This had largely resolved by the time patient was seen in the hospital and due to stroke scale of only 2 he was not given thrombolytics. I discussed anticoagulation with the patient and he is agreeable. I discussed risks and benefits of blood thinner and risk of bleeding or hemorrhage Review of Systems Narrative: General no fevers chills weight gain weight loss Cardiovascular no chest pain or palpitations he does have atrial fibrillation Respiratory no shortness of breath cough wheezing GI no nausea vomiting diarrhea constipation positive for nocturia 1 time a night and some hesitancy no dysuria Neuro had a history of stroke 1 year ago no seizures Psych denies depression or anxiety Malignancy no history of cancer he is being worked up for thrombocytopenia and had abdominal ultrasound recently for Dr. Garza. Heme patient reports significant bruising on his leg from a fall once but has not had a DVT diagnosed Medications/Allergies Home Medications ?Medication ?Instructions ?Recorded ?Confirmed ?Last Taken ?Type alpha lipoic acid 600 mg tablet 600 mg PO DAILY 06/25/23 07/22/24 Unknown History ascorbic acid (vitamin C) 1,000 mg 3,000 mg PO DAILY 06/25/23 07/22/24 Unknown History tablet (Vitamin C) cholecalciferol (vitamin D3) 125 125 mcg PO DAILY 06/25/23 07/22/24 Unknown History mcg (5,000 unit) tablet (Vitamin D3) coenzyme Q10 100 mg capsule 100 mg PO DAILY 06/25/23 07/22/24 Unknown History (CoQ-10) folic acid 1 mg tablet 1 mg PO DAILY 06/25/23 07/22/24 Unknown History melatonin 3 mg tablet 3 mg PO BEDTIME 06/25/23 07/22/24 Unknown History omega-3 fatty acids 1,000 mg 3,000 mg PO DAILY 06/25/23 07/22/24 Unknown History capsule resveratrol 100 mg capsule 100 mg PO DAILY 06/25/23 07/22/24 Unknown History thyroid (pork) 30 mg tablet ([employer] 30 mg PO DAILY 06/25/23 07/22/24 Unknown History Thyroid) turmeric 400 mg capsule 400 mg PO DAILY 06/25/23 07/22/24 Unknown History vitamin E 670 mg (1,000 unit) 1 cap PO DAILY 06/25/23 07/22/24 Unknown History capsule zinc acetate 50 mg (zinc) capsule 50 mg PO DAILY 06/25/23 07/22/24 Unknown History aspirin 81 mg tablet,delayed 81 mg PO DAILY #90 tabs 06/26/23 07/22/24 Unknown Rx release Allergies Allergy/AdvReac Type Severity Reaction Status Date / Time No Known Allergies Allergy Verified 07/22/24 15:30 PFSH Acute PFSH: Medical History (Updated 08/04/24 @ 03:34 by Fran Gonzáles MD) Afib CVA (cerebral vascular accident) Stroke determined by clinical assessment Carotid stenosis Thoracic aortic aneurysm Hypertension Erectile dysfunction Surgical History H/O left knee surgery History of cataract surgery Family History Brother Cancer prostate Mother , IN HER 90'S No problems noted. Father No problems noted. 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 He smoked weed in [place] but not now tobacco was quit 1971 he wants full CODE STATUS Marital status: Current occupational status: retired Previous occupational history: Retired from [place] and also was a pipeline welder Vitals/I&O/Wt Last Vital Signs Temp 98.3 F 08/03/24 22:27 Pulse 109 H 08/04/24 01:34 Resp 18 08/04/24 01:34 BP 175/98 08/04/24 01:34 Pulse Ox 98 08/04/24 01:34 O2 Del Method Room Air 08/04/24 00:14 08/03/24 08/03/24 08/04/24 14:59 22:59 06:59 Intake Total 0 / 0 1000 / 1000 Balance 0 / 0 1000 / 1000 Weight last 48 hrs Weight 66.27 kg Physical Exam Narrative: General well-developed well-nourished male in no acute cardiopulmonary stress CV irregular rate and rhythm Lungs clear to auscultation bilaterally Abdomen positive bowel sounds soft nontender Calves no tenderness cords pretrip edema Neuro he has left facial droop there is dysarthria handgrips 5/5 right 5 - left biceps and triceps 5 - left 5/5 right. Leg lifts and ankle flexion extension 5/5 right and 5 - to 5/5 on the left Mentation he is alert and oriented x 3 pleasant Data 08/03/24 22:35 08/03/24 22:35 A&P Assessment and plan (1) Cerebrovascular accident: Patient has had TIA stroke symptoms multiple times starting 2020 there is report of carotid stenosis 2023 but not on today's CTA. Will proceed with MRI of the brain stroke protocol and also carotid Dopplers. Speech therapy and diet modification to follow (2) Thrombocytopenia: Mild with some LFT elevation and being worked up by Dr. Garza (3) Obstructive sleep apnea hypopnea, moderate: Patient does not have body habitus typical of obstructive sleep apnea but if he does not fact have sleep apnea he should be treated as it would potentially stabilize his A-fib. Patient with known biatrial enlargement and mildly hypokinetic RV. (4) Afib: Restart Eliquis and patient states this was [facility] the [facility]. He is agreeable to taking it at this time. Obtain recent records from [facility] where he had a cardioversion PDMP PDMP Reviewed: Not Reviewed Attestations Medical Necessity Statement*: Patient is admitted to the hospital with additional physical therapy and stroke workup expected to span greater than 2 midnights Coding Level of Care Code Acute Code for Chg Fwd Diagnoses Cerebrovascular accident I63.9 Thrombocytopenia D69.6 Obstructive sleep apnea hypopnea, moderate G47.33 Afib I48.91 Time Spent (min) 75
--- NOTE | 2024-08-04 03:34 | PC.NURSE ---
1535 Pt has jacket and 1 pair of shoes at bedside. Pt brought wallet with debt cards and higginbotham. there are 5 100 dollar , 4 1 dollar bills, 8 20 dollar bills , 1 50 dollar bill. Pt signed form to have wallet and contents locked in a locker. Pt given the obrien to the locker. Patient placed the obrien inside a small pocket in his cell phone case. Higginbotham counted by Capri in front of patient.
--- NOTE | 2024-08-04 03:35 | MRR_ITS ---
PROCEDURE INFORMATION: Exam: MR Head Without Contrast Exam date and time: 08/04/2024 8:26 AM Age: 78 years old Clinical indication: Altered mental status/memory loss and speech disturbance; Dysphasia; Additional info: Stroke with left-sided weakness and dysarthria facial droop, has a-fib TECHNIQUE: Imaging protocol: Magnetic resonance imaging of the head without contrast. COMPARISON: CT angio headneck* [id number] 08/03/2024 10:05 PM FINDINGS: Brain: There is hemorrhagic infarct in the right frontal operculum. Cerebral ventricles: Normal. No ventriculomegaly. Bones: The examination is limited by notable susceptibility artifact related to a metallic foreign body in the left infratemporal fossa, obscuring evaluation of the left frontal and anterior temporal lobes. Paranasal sinuses: Normal as visualized. No acute sinusitis. Mastoid air cells: Normal as visualized. No mastoid effusion. Orbital cavities: The patient is post cataract surgery. Soft tissues: Unremarkable. MR/MR head wo con* [id number] IMPRESSION: Hemorrhagic acute infarct in the right frontal operculum in the branch distribution of the right middle cerebral artery.
[2024-08-04] MEDS: atorvastatin 40 mg Tablet 80 MG PO (03:48)
[2024-08-04] MEDS: famotidine 20 mg/2 mL INJ IVP (03:48)
[2024-08-04] MEDS: aspirin 81 mg Chew Tablet 324 MG PO (03:48)
[2024-08-04] MEDS: sodium chlor 0.45% +KCl 20 mEq 20 MEQ/1,000 ML BAG 125 MEQ IV (03:49)
[2024-08-04] MEDS: metoprolol tartrate 1 mg/1 mL SDV 5 mL 5 MG IVP (04:03)
--- NOTE | 2024-08-04 04:37 | PC.NURSE ---
Pt recieved PO medication order from phys, nurse clarified with phys if he still wanted oral meds given despite a failed bedside swallow test. Phys stated to try the chewble aspirn first, if he did okay attempt the atorvastatin. Nurse attempted and pt did okay with the chewable aspirin so proceeded to give the lipitor, each pill broke in half. Pt choked on this medication began coughing, he was able to clear his airway after about 2 mins. Did not attempt to give medication again. Pt made NPO and phys notified.
[2024-08-04] MEDS: hyDRALAzine 20 mg/mL INJ 1 mL 10 MG IVP (04:49)
--- NOTE | 2024-08-04 08:13 | PC.SLP ---
Speech eval attempted-patient leaving for MRI
--- NOTE | 2024-08-04 09:55 | P.MISC_ITS ---
Miscellaneous Note Purpose of Documentation: Dr. Finley
--- NOTE | 2024-08-04 09:55 | PM.MISC ---
Miscellaneous Note Purpose of Documentation: Dr. Finley
--- NOTE | 2024-08-04 13:50 | P.TS_ITS ---
Transfer Summary Providers Date of Admission: 08/04/24 01:01 Date of Discharge/Transfer: 08/04/24 Attending Provider at Admission: Fran Gonzáles MD Attending Provider at Transfer: Elsi Mccloud MD Primary Care Provider: Calderon Harrell MD Transfer Plans: Anticipated date of transfer: 08/04/24 . Receiving Facility: [facility] . Receiving Provider: Dr. Finley neurology . Diagnoses at Discharge Discharge Diagnosis (1) Cerebrovascular accident: Status: Acute (2) Thrombocytopenia: Status: Acute (3) Obstructive sleep apnea hypopnea, moderate: Status: Acute (4) Afib: Status: Acute (5) Hemorrhagic stroke: Status: Acute Reason for Visit Reason for Visit Possible Stroke Fell Hospital Course Hospital Course 78 year old male with history of atrial fibrillation had a stroke a year ago and was started on apixaban but he stopped it due to adverse opinion of pharmaceuticals and cost of medication, however has been taking nattokinase at home believing in its clot dissolving properties. He was admitted to the hospital overnight for a stroke. Patient was last known well to be at around 8 PM on August 03, 2024. He had gone out to work in his yard, his son went on a walk and found him to be confused, dysarthric and with a left facial droop at around 9 PM. He also had some left arm weakness at the time when he was first found. By the time he presented to the hospital his left-sided weakness had resolved. He was alert and awake. He continued to have left-sided facial droop and dysarthria. NIH stroke scale was estimated at 2. He underwent a head CT which showed a subacute 1.7 cm ischemic infarct in the left insular cortex. There were some chronic microvascular ischemic changes. CTA of the head and neck showed similar findings. The area of findings on the CT did not correlate with patient's current symptoms. He was not considered to be a tPA candidate. An MRI of the brain was performed this morning which showed a hemorrhagic acute infarct in the right frontal operculum and branch distribution of the right middle cerebral artery. These findings were communicated with me by Moriah jordan this morning at 9:20 AM. Radiological impression was that of possible hemorrhagic transformation of an acute stroke. With these findings telestroke service at [facility] was consulted. Patient had received apixaban 10 mg last night and a full dose Lovenox this morning. Both of these medications were discontinued. Additionally after discussion with Dr. Whelan from telestroke service, aspirin 162 mg was also discontinued. Given now the findings of hemorrhage, patient will be best followed at a dedicated stroke center with availability of in person neurology, neuroradiology and possibly neurosurgical teams. He is being transferred to [facility] for further management. At the time of discharge, patient continues to have a left facial droop, mild dysarthria. His left upper and lower extremity weakness is currently improved. Formal PT/OT evaluation has not been attempted yet due to nonavailability of the services on Monday. Physical Exam Narrative: General: No acute distress, AO x3 HEENT: PERRLA, pupils bilaterally equal and reactive, pallors not present Chest: Normal vesicular breath sounds, no added sounds, equal good air entry bilaterally CVS: S1-S2 regular, no murmurs, no tachycardia, no gallops, no rubs Abdomen: Soft, nontender, no organomegaly, bowel sounds present Neuro: left facial droop, dysarthria+ (Patient is currently alert, keenly resp onsive, answers questions with regards to month and age, follows commands to squeeze hands blink eyes, no abnormal extraocular movements noted, denies any visual loss, 2 points for partial paralysis of the face, no drift of the left arm, no drift right arm, no drift bilateral lower extremities, 1+ dysarthria related to the facial droop., No inattention denies sensory loss has not walked today to assess for limb ataxia, however transferred from bed to bedside commode today) TS Data Studies Completed and Pending Completed Studies During Hospitalization Category Date Time Status CT head thrombolytic 11551 Stat Cat Scan 08/03/24 21:55 Completed CTA head neck [CT angio headneck* [id number]] Stat Cat Scan 08/03/24 21:58 Completed MR head wo con* [id number] Routine MRI 08/04/24 03:35 Completed Laboratory Last Values WBC 8.87 10^3/uL (3.29-11.43) 08/03/24 22:35 RBC 4.02 10^6/uL (3.85-5.65) 08/03/24 22:35 Hgb 12.70 g/dL (11.27-16.99) 08/03/24 22:35 Hct 37.8 % (37-53) 08/03/24: MCV 94.0 fl (82-101) 08/03/24 22: MCH 31.6 pg (27-33) 08/03/24: MCHC 33.6 g/dL (30-55) 08/03/24: RDW 13.2 % (12.1-15.1) 08/03/24: Plt Count 136 10^3/cmm (157-399) L 08/03/24 22: MPV 10.1 fL (7.4-10.4) 08/03/24 22:35 Neut % (Auto) 87.3 % 08/03/24 22: Lymph % (Auto) 5.7 % 08/03/24:35 [place] % (Auto) 6.0 % 08/03/24: Eos % (Auto) 0.1 % 08/03/24: Baso % (Auto) 0.7 % 08/03/24: Neut # (Auto) 7.74 10^3/uL (1.8-7.7) H 08/03/24:35 Lymph # (Auto) 0.5 10^3/uL (0.8-4.8) L 08/03/24 22:35 [place] # (Auto) 0.5 10^3/uL (0.2-0.9) 08/03/24 22:35 Eos # (Auto) 0.0 10^3/uL (0.0-0.8) 08/03/24: Baso # (Auto) 0.1 10^3/uL (0.0-0.1) 08/03/24: Nucleated RBC % (auto) 0 % 08/03/24: Nucleated RBCs # 0.0 /100WBC 08/03/24: PT 13.60 SECONDS (12.1-14.9) 08/03/24: INR 0.97 (0.8-1.2) 08/03/24: APTT 27.5 SECONDS (23.9-36.7) 08/03/24 22: Sodium 140 mmol/L (136-145) 06/14/25 22:35 Potassium 3.5 mmol/L (3.5-5.1) 08/03/24 22:35 Chloride 106 mmol/L (98-107) 08/03/24 22:35 Carbon Dioxide 23 mmol/L (22-29) 08/03/24 22:35 Anion Gap 14.5 (5-19) 08/03/24 22:35 BUN 31 mg/dL (8-23) H 08/03/24 22:35 Creatinine 1.0 mg/dL (0.7-1.2) 08/03/24 22:35 GFR Calculation Not Reportable 08/03/24 22:35 Glucose 140 mg/dL (65-115) H 08/03/24 22:35 POC Glucose 136 mg/dL (70-110) H 08/03/24 22:28 Calculated Osmolality 299 mOsm/kg (285-295) H 08/03/24 22:35 Calcium 9.0 mg/dL (8.5-10.5) 08/03/24 22:35 Total Bilirubin 0.6 mg/dL (0.15-1.2) 08/03/24 22:35 AST 66 U/L (0-40) H 08/03/24 22:35 ALT 71 U/L (0-41) H 08/03/24 22:35 Alkaline Phosphatase 131 U/L (40-130) H 08/03/24 22:35 Total Protein 7.0 g/dL (6.6-8.7) 08/03/24 22:35 Albumin 4.1 g/dL (3.5-5.2) 08/03/24 22:35 Globulin 2.9 g/dL (1.3-4.6) 08/03/24 22:35 Urine Color Yellow (Yellow) 08/03/24 23:05 Urine Appearance Clear (CLEAR) 08/03/24 23:05 Urine pH 8.0 (5-7) A 08/03/24 23:05 Ur Specific [place] 1.023 (1.005-1.030) 08/03/24 23:05 Urine Protein Negative (Negative) 08/03/24 23:05 Urine Glucose (UA) Negative (Normal) 08/03/24 23:05 Urine Ketones Negative (Negative) 08/03/24 23:05 Urine Blood 1+ (Negative) A 08/03/24 23:05 Urine Nitrate Negative (Negative) 08/03/24 23:05 Urine Bilirubin Negative (Negative) 08/03/24 23:05 Urine Urobilinogen 0.2 mg/dL (Negative) 08/03/24 23:05 Ur Leukocyte Esterase Negative (Negative) 08/03/24 23:05 Urine RBC 0-2 /hpf (0-2) 08/03/24 23:05 Urine WBC 0-5 /hpf (0-5) 08/03/24 23:05 Ur Squamous Epith Cells 0-5 /hpf (0-5) 08/03/24 23:05 Amorphous Sediment Not Reportable 08/03/24 23:05 Urine Bacteria None seen /hpf (NONE) 08/03/24 23:05 Hyaline Casts 0-4 /lpf H 08/03/24 23:05 Urine Opiates Screen Negative ng/mL (Negative) 08/04/24 01:50 Acetaminophen < 5.0 ug/mL (10-30) L 08/03/24 22:35 Ur Barbiturates Screen Negative ng/mL (Negative) 08/04/24 01:50 Ur Phencyclidine Scrn Negative ng/mL (Negative) 08/04/24 01:50 Ur Amphetamines Screen Negative ng/mL (Negative) 08/04/24 01:50 U Benzodiazepines Scrn Negative ng/mL (Negative) 08/04/24 01:50 Urine Cocaine Screen Negative ng/mL (Negative) 08/04/24 01:50 U Marijuana (THC) Screen Negative ng/mL (Negative) 08/04/24 01:50 Ethyl Alcohol < 10 mg/dL (0-10) 08/03/24 22:35 Hepatitis A IgM Ab Non-reactive (Nonreactive) 08/03/24 22:35 Hep Bs Antigen Non-reactive (Nonreactive) 08/03/24 22:35 Hep B Core IgM Ab Non-reactive (Nonreactive) 08/03/24 22:35 Hepatitis C Antibody Non-reactive (Nonreactive) 08/03/24 22:[address] 08/03/24 21:55 IMPRESSION: 1. New subacute 1.7 cm ischemic infarct in the left insular cortex. 2. Chronic microvascular ischemic changes in bilateral periventricular white matter. 3. No acute intracranial hemorrhage. 4. Stable old round 3 mm foreign metallic body in the left temporal fossa soft tissues (extracranial). ASSESSMENT: ASPECTS ([place] Stroke Program Early CT Score) is 9. ADDENDUM: 08/03/24 2232 THIS REPORT CONTAINS FINDINGS THAT MAY BE CRITICAL TO PATIENT CARE. The findings and recommendations were verbally communicated via telephone conference with KATHY Mckeon by Dr. Castillo on 08/03/2024 at 10:30 PM CDT. The findings were acknowledged and understood. Head/Neck CTA 08/03/24 21:58 IMPRESSION: 1. New subacute 1.7 cm ischemic infarct in the left insular cortex. 2. Chronic microvascular ischemic changes in bilateral periventricular white matter. 3. No acute intracranial hemorrhage. 4. Stable old round 3 mm foreign metallic body in the left temporal fossa soft tissues (extracranial). 5. No major intracranial artery aneurysm, stenosis or occlusion. 6. Intracranial venous sinuses are patent. IMPRESSION: 1. No major neck artery laceration, dissection, stenosis, aneurysm, pseudoaneurysm or occlusion. 2. Mild centrilobular emphysema. The presence of pulmonary emphysema on CT is an independent risk for lung cancer. In the absence of a history or active diagnosis of lung cancer, it is recommended that this patient with emphysema be evaluated for enrollment in a low dose CT lung cancer screening program. REFERENCES: NASCET CRITERIA. The degree of stenosis in the cervical segment of the internal carotid artery is based on NASCET criteria. Normal is no stenosis. Mild is less than 50% stenosis. Moderate is 50-69% stenosis. Severe is 70% to 99% stenosis. Total occlusion is no detectable patent lumen. ADDENDUM: 08/03/24 1974 The patient's physician, KATHY Mckeon was informed by phone by Dr. Castillo about the findings and recommendations on 08/03/2024 at 10:42 PM CDT. The ordering physician verbalized understanding. Head MRI 08/04/24 03:35 IMPRESSION: Hemorrhagic acute infarct in the right frontal operculum in the branch distribution of the right middle cerebral artery. ADDENDUM: 08/04/24 0909 THIS REPORT CONTAINS FINDINGS THAT MAY BE CRITICAL TO PATIENT CARE. The findings were verbally communicated via telephone conference with Dr Kachuria at 9:19 AM CDT on 08/04/2024. The findings were acknowledged and understood. Recent Clincial Data Last Vital Signs Temp 98.1 F 08/04/24 11:27 Pulse 108 H 08/04/24 12:07 Resp 19 H 08/04/24 12:07 BP 170/96 08/04/24 12:07 Pulse Ox 90 08/04/24 12:07 O2 Del Method Room Air 08/04/24 11:27 Vital Signs Temp Pulse Resp BP Pulse Ox O2 Del Method 08/04/24 12:07 108 H 19 H 170/96 90 08/04/24 11:27 98.1 F 108 H 19 H 170/96 90 Room Air 08/04/24 07:39 97.3 F L 96 19 H 132/87 90 Room Air 08/04/24 06:00 87 08/04/24 04:44 175/114 08/04/24 04:41 175/114 08/04/24 04:00 98.1 F 87 19 H 189/120 97 Room Air 08/04/24 02:21 Room Air 08/04/24 02:00 97.6 F 95 18 177/105 94 Room Air Intake & Output/Weight 08/02/24 08/03/24 08/04/24 08/05/24 06:59 06:59 06:59 06:59 Intake Total 1000 / 1000 Output Total 1450 / 1450 Balance -450 / -450 Weight 66.27 kg Vitals Last Vital Signs Temp 97.8 08/04/24 07:39 Pulse 96 08/04/24 07:39 Resp 19 H 08/04/24 07:39 BP 132/87 08/04/24 07:39 Pulse Ox 90 08/04/24 07:39 O2 Del Method Room Air 08/04/24 07:39 TS Medications Medications Discontinued Medications Acetaminophen (Acetaminophen 325 Mg Tablet) 650 mg PO Q6H PRN PRN Reason: Mild/Mod Pain Or Temp >/= 101 Apixaban (Apixaban 5 Mg Tablet) 10 mg PO ONCE ONE Stop: 08/04/24 00:36 Last Admin: 08/04/24 01:56 Dose: Not Given Aspirin (Aspirin 325 Mg Tablet) 325 mg PO ONCE ONE Stop: 08/04/24 00:36 Last Admin: 08/04/24 01:56 Dose: Not Given Aspirin (Aspirin 81 Mg Chew Tablet) 324 mg PO NOW ONE Stop: 08/04/24 03:19 Last Admin: 08/04/24 03:48 Dose: 324 mg Aspirin (Aspirin 81 Mg Ec Tablet) 162 mg PO DAILY [facility] Atorvastatin Calcium (Atorvastatin 40 Mg Tablet) 80 mg PO ONCE ONE Stop: 08/04/24 00:36 Last Admin: 08/04/24 01:56 Dose: Not Given Atorvastatin Calcium (Atorvastatin 40 Mg Tablet) 80 mg PO BEDTIME [facility] Last Admin: 08/04/24 03:48 Dose: 80 mg Enoxaparin Sodium (Enoxaparin 80 Mg/0.8 Ml Syringe) 70 mg SUBCUT Q12H [facility] Last Admin: 08/04/24 02:26 Dose: 70 mg Famotidine (Famotidine 20 Mg/2 Ml Inj) 20 mg IVP Q12H [facility] Last Admin: 08/04/24 03:48 Dose: 20 mg Hydralazine HCl (Hydralazine 20 Mg/Ml Inj 1 Ml) 10 mg IVP Q4H PRN PRN Reason: HYPERTENSION Last Admin: 08/04/24 04:49 Dose: 10 mg Sodium Chloride (Sodium Chloride 0.9%) 1,000 mls @ 999 mls/hr IV .Q1H1M ONE Stop: 08/04/24 00:46 Last Infusion: 08/04/24 01:48 Dose: Infused Potassium Chloride/Sodium Chloride (Sodium Chlor 0.45% +Kcl 20 Meq) 20 meq in 1,000 mls @ 125 mls/hr IV .Q8H [facility] Last Admin: 08/04/24 03:49 Dose: 125 mls/hr Iohexol (Iohexol 350 Mg/Ml 500 Ml Btl (Per Ml)) 0 ml IV ONCE ONE Stop: 08/03/24 22:13 Last Admin: 08/03/24 22:12 Dose: 100 ml Metoprolol Tartrate (Metoprolol Tartrate 1 Mg/1 Ml Sdv 5 Ml) 5 mg IVP Q4H [facility] Last Admin: 08/04/24 07:34 Dose: Not Given Ondansetron HCl (Ondansetron 2 Mg/Ml Sdv 2 Ml) 4 mg IVP Q8H PRN PRN Reason: vomiting, or N/V if npo Allergies No Known Allergies Allergy (Verified 08/04/24 04:13) Home Medications alpha lipoic acid 600 mg tablet 600 mg PO DAILY 06/25/23 [History Confirmed 08/04/24] ascorbic acid (vitamin C) 1,000 mg tablet (Vitamin C) 3,000 mg PO DAILY 06/25/23 [History Confirmed 08/04/24] cholecalciferol (vitamin D3) 125 mcg (5,000 unit) tablet (Vitamin D3) 125 mcg PO DAILY 06/25/23 [History Confirmed 08/04/24] coenzyme Q10 100 mg capsule (CoQ-10) 100 mg PO DAILY 06/25/23 [History Confirmed 08/04/24] folic acid 1 mg tablet 1 mg PO DAILY 06/25/23 [History Confirmed 08/04/24] melatonin 3 mg tablet 3 mg PO BEDTIME 06/25/23 [History Confirmed 08/04/24] omega-3 fatty acids 1,000 mg capsule 3,000 mg PO DAILY 06/25/23 [History Confirmed 08/04/24] resveratrol 100 mg capsule 100 mg PO DAILY 06/25/23 [History Confirmed 08/04/24] thyroid (pork) 30 mg tablet ([employer] Thyroid) 30 mg PO DAILY 06/25/23 [History Confirmed 08/04/24] turmeric 400 mg capsule 400 mg PO DAILY 06/25/23 [History Confirmed 08/04/24] vitamin E 670 mg (1,000 unit) capsule 1 cap PO DAILY 06/25/23 [History Confirmed 08/04/24] zinc acetate 50 mg (zinc) capsule 50 mg PO DAILY 06/25/23 [History Confirmed 08/04/24] aspirin 81 mg tablet,delayed release (Adult Low Dose Aspirin) 81 mg PO DAILY 08/04/24 [History Confirmed 08/04/24] Discharge Plan Discharge Patient Disposition: Home Condition: Stable Prescriptions: No Action thyroid (pork) [[employer] Thyroid] 30 mg tablet 30 mg PO DAILY vitamin E 670 mg (1,000 unit) Capsule 1 cap PO DAILY ascorbic acid (vitamin C) [Vitamin C] 1,000 mg Tablet 3,000 mg PO DAILY zinc acetate 50 mg (zinc) Capsule 50 mg PO DAILY omega-3 fatty acids 1,000 mg Capsule 3,000 mg PO DAILY melatonin 3 mg Tablet 3 mg PO BEDTIME folic acid 1 mg Tablet 1 mg PO DAILY coenzyme Q10 [CoQ-10] 100 mg Capsule 100 mg PO DAILY cholecalciferol (vitamin D3) [Vitamin D3] 125 mcg (5,000 unit) Tablet 125 mcg PO DAILY resveratrol 100 mg Capsule 100 mg PO DAILY turmeric 400 mg Capsule 400 mg PO DAILY alpha lipoic acid 600 mg Tablet 600 mg PO DAILY aspirin [Adult Low Dose Aspirin] 81 mg tablet,delayed release (DR/EC) 81 mg PO DAILY Discharge Orders: Transfer Out of Facility (Order); Ordered 08/04/24 Ordered By: Elsi Mccloud Referrals: Calderon Harrell MD [Primary Care Provider, [facility]] Patient Instructions: Opioid Safety Transfer Attestations Time Spent in Transfer Care: greater than 30 min Quality Metrics Clinical Quality Measures [ Cerebrovascular Accident { Contraindication to Antithrombotic: Medical contraindication; Contraindication to Anticoagulation: Medical contraindication; Contraindication to Statin: None; Statin prescribed;}] Coding Level of Care Code Acute Code for [facility] Fw Diagnoses Cerebrovascular accident I63.9 Thrombocytopenia D69.6 Obstructive sleep apnea hypopnea, moderate G47.33 Afib I48.91 Hemorrhagic stroke I61.9
== END 2024-08-04 12:05 | disposition short-term general hospital (02) | DRG 66 ==
LOC: ER 08-04 00:55 → MEDSURG 08-04 01:02
PROVIDERS: Admitting Provider Internal Medicine; Emergency Provider Emergency Medicine; PCP Family Medicine; Visit Provider Student in an Organized Health Care Education/Training Program
DX: I61.2 Nontraumatic intracerebral hemorrhage in hemisphere, unspecified (principal); R47.1 Dysarthria and anarthria; R29.810 Facial weakness; R29.702 NIHSS score 2; D69.6 Thrombocytopenia, unspecified; G47.33 Obstructive sleep apnea (adult) (pediatric); I48.91 Unspecified atrial fibrillation; T50.996A Underdosing of other drugs, medicaments and biological substances, initial encounter; W01.0XXA Fall on same level from slipping, tripping and stumbling without subsequent striking against object, initial encounter; I71.60 Thoracoabdominal aortic aneurysm, without rupture, unspecified; I10 Essential (primary) hypertension; N52.9 Male erectile dysfunction, unspecified; Z79.01 Long term (current) use of anticoagulants; Z86.73 Personal history of transient ischemic attack (TIA), and cerebral infarction without residual deficits; Z91.120 Patient's intentional underdosing of medication regimen due to financial hardship; Z87.891 Personal history of nicotine dependence
CPT/HCPCS: 36415; 36416; 70450; 70496; 70498; 70551; 80053; 80074; 80306; 80307; 81001; 82962; 85025; 85610; 85730; 93005; 96372; J0360; J1650; J3480; J3490; J7030; J9999

== ENCOUNTER 2024-08-13 10:45 | Oncology outpatient (recurring) (ONCR) | payer MEDICARE, SELFPAY ==
[2024-07-22 16:25] LABS: Basophils # 0.1 10^3/uL (0.0-0.1); Basophils % 1.8 %; Eosinophils # 0.1 10^3/uL (0.0-0.8); Eosinophils % 2.4 %; Hematocrit 37.2 % (37-53); Lymphocytes # 1.5 10^3/uL (0.8-4.8); Lymphocytes % 28.7 %; Mean Corpuscular HGB Conc 32.5 g/dL (30-55); Mean Corpuscular Hemoglobin 31.1 pg (27-33); Mean Corpuscular Volume 95.6 fl (82-101); Mean Platelet Volume 10.4 fL (7.4-10.4); Monocytes # 0.4 10^3/uL (0.2-0.9); Monocytes % 8.5 %; Neutrophils # 2.95 10^3/uL (1.8-7.7); Neutrophils % 58.4 %; Nucleated Red Blood Cells % 0 %; Platelet Count 131 10^3/cmm (157-399); Red Blood Count 3.89 10^6/uL (3.85-5.65); Red Cell Distribution Width 12.9 % (12.1-15.1); White Blood Count 5.05 10^3/uL (3.29-11.43)
[2024-07-22 17:09] LABS: Alanine Aminotransferase 25 U/L (0-41); Albumin Level 3.9 g/dL (3.5-5.2); Alkaline Phosphatase 94 U/L (40-130); Anion Gap 16.1 (5-19); Aspartate Amino Transferase 26 U/L (0-40); Blood Urea Nitrogen 32 mg/dL (8-23); Calcium 9.1 mg/dL (8.5-10.5); Carbon Dioxide 24 mmol/L (22-29); Chloride 107 mmol/L (98-107); Ferritin 172 ng/mL (30-400); Globulin 2.6 g/dL (1.3-4.6); Glucose 125 mg/dL (65-115); Iron 83 ug/dL (59-158); Osmolality Calculated 304 mOsm/kg (285-295); Percent Saturation 32.1 % (20-50); Potassium 4.1 mmol/L (3.5-5.1); Sodium 143 mmol/L (136-145); Thyroid Stimulating Hormone 3.93 uIU/mL (0.27-4.20); Total Bilirubin 0.6 mg/dL (0.15-1.2); Total Iron Binding Capacity 258 mcg/dl; Total Protein 6.5 g/dL (6.6-8.7); Unsaturated Iron Binding 175 ug/dL (112-347); Vitamin B12 718 pg/mL (232-1245)
[2024-07-22 17:19] LABS: Folate Level > 20.0 ng/mL (4.5-32.2)
[2024-07-22 21:39] LABS: Hepatitis A Antibody IgM Non-Reactive (Nonreactive); Hepatitis B Core AB, Total Non-Reactive (Nonreactive); Hepatitis B Surface AB < 3.5 (11.5-1000); Hepatitis B Surface Antigen Non-Reactive (Nonreactive); Hepatitis C Virus Antibody Non-Reactive (Nonreactive)
[2024-07-23 03:53] LABS: PROTEIN, TOTAL 6.6 g/dL (6.1-8.1)
[2024-07-23 17:49] LABS: ALPHA 1 GLOBULIN 0.3 g/dL (0.2-0.3); ALPHA 2 GLOBULIN 0.6 g/dL (0.5-0.9); BETA 1 GLOBULIN 0.4 g/dL (0.4-0.6); BETA 2 GLOBULIN 0.5 g/dL (0.2-0.5); GAMMA GLOBULIN 0.9 g/dL (0.8-1.7)
[2024-07-25 04:51] LABS: Immunofixation Serum Normal pattern.
--- NOTE | 2024-08-02 09:15 | US_ITS ---
WS: [id number] Abdomen ultrasound, 08/02/2024 Clinical Data: thrombocytopenia Comparison: None. Findings: The pancreas shows no cyst, pseudocyst or evidence of pancreatitis. The liver shows no cysts, masses or dilated intrahepatic ducts. The liver shows normal echotexture and measures 15.2 cm. The portal vein measures 0.9 cm and shows hepatopetal flow. The gallbladder has no stones or sludge. The wall measures 0.2 cm with no pericholecystic fluid. The common bile duct is 0.3 cm and no intraductal abnormalities are noted. The right kidney is 8.1 cm. No cysts, masses or hydronephrosis is seen. The left kidney is 9.3 cm. No cysts, masses or hydronephrosis is seen. The abdominal aorta is not dilated and the inferior vena cava has normal flow. The veins appear prominent. No vascular abnormalities are seen. The spleen measures 10.5 cm and there are no intrasplenic masses or capsular abnormalities. The bladder was scanned and there are no bladder wall abnormalities or thickening. The prostate was enlarged with a greatest dimension of 4.9 cm. US/US abdomen complete* [id number] Impression: 1. Prominent venous flow. 2. Prostate enlargement.
[2024-08-13 11:12] LABS: Basophils # 0.1 10^3/uL (0.0-0.1); Basophils % 0.9 %; Eosinophils # 0.1 10^3/uL (0.0-0.8); Eosinophils % 1.8 %; Hematocrit 38.7 % (37-53); Lymphocytes # 1.3 10^3/uL (0.8-4.8); Lymphocytes % 23.2 %; Mean Corpuscular HGB Conc 33.6 g/dL (30-55); Mean Corpuscular Hemoglobin 31.5 pg (27-33); Mean Corpuscular Volume 93.7 fl (82-101); Mean Platelet Volume 10.1 fL (7.4-10.4); Monocytes # 0.5 10^3/uL (0.2-0.9); Monocytes % 8.9 %; Neutrophils # 3.59 10^3/uL (1.8-7.7); Nucleated Red Blood Cells % 0 %; Platelet Count 154 10^3/cmm (157-399); Red Blood Count 4.13 10^6/uL (3.85-5.65); Red Cell Distribution Width 12.9 % (12.1-15.1); White Blood Count 5.52 10^3/uL (3.29-11.43)
[2024-08-13 11:29] LABS: Alanine Aminotransferase 23 U/L (0-41); Albumin Level 3.9 g/dL (3.5-5.2); Alkaline Phosphatase 87 U/L (40-130); Anion Gap 14.3 (5-19); Aspartate Amino Transferase 28 U/L (0-40); Blood Urea Nitrogen 27 mg/dL (8-23); Calcium 9.1 mg/dL (8.5-10.5); Carbon Dioxide 27 mmol/L (22-29); Chloride 99 mmol/L (98-107); Creatinine Clr Calc Pharmacy 52.9348; Globulin 2.7 g/dL (1.3-4.6); Glucose 96 mg/dL (65-115); Lactate Dehydrogenase 254 U/L (135-225); Osmolality Calculated 287 mOsm/kg (285-295); Potassium 4.3 mmol/L (3.5-5.1); Sodium 136 mmol/L (136-145); Total Bilirubin 0.9 mg/dL (0.15-1.2); Total Protein 6.6 g/dL (6.6-8.7)
== END 2024-08-19 23:59 | disposition home or self-care (01) ==
PROVIDERS: Internal Medicine; PCP Family Medicine; Visit Provider Internal Medicine Medical Oncology
DX: Z53.9 Procedure and treatment not carried out, unspecified reason; D69.6 Thrombocytopenia, unspecified; Z87.891 Personal history of nicotine dependence; Z86.73 Personal history of transient ischemic attack (TIA), and cerebral infarction without residual deficits
CPT/HCPCS: 36415; 76700; 80053; 82607; 82728; 82746; 83540; 83550; 83615; 84155; 84165; 84443; 85025; 86334; 86705; 86706; 86709; 86803; 87340; 99205; 99213

== ENCOUNTER 2024-08-18 09:46 | Emergency (ER) | payer MEDICARE, SELFPAY ==
--- OUTSIDE RECORDS SUMMARY | 2024-03-30 09:33 | XMS_ITS | Continuity of Care Document ---
Author Organization [facility]. If a dditional information is needed, contact Health Information Management at [phone] [address] [place] [address] Phone Care Team Providers Care Risk Prevention Engineer Name Role Phone Unavailable Unavailable Unavailable Unavailable Unavailable Unavailable Unavailable Unavailable Unavailable Unavailable Unavailable Unavailable Unavailable Unavailable Unavailable Unavailable Unavailable Unavailable Unavailable Unavailable Unavailable Unavailable Unavailable Unavailable Unavailable Unavailable Unavailable Unavailable Unavailable Unavailable Unavailable Unavailable Unavailable Unavailable Unavailable Unavailable Unavailable Unavailable Unavailable Unavailable Unavailable Unavailable Note Silvia Loya MD-- [address] [place] [address])Hospitalist Discharge SummaryREPORT#:[id number] REPORT STATUS: SignedDATE:03/30/24 TIME: 1226PATIENT: MARK DEE UNIT #: [id number]#: [id number] ROOM/BED: [place] [id number]-ZIEM: 44 AGE: 78 SEX: M ATTEND: Malou Luo MDADM AUTHOR: Vincenzo Vega MD* ALL edits or amendments must be made on the electronic/computer document *General InformationDate of admission:Observation Start Date: 03/27/24Date of admission: 03/28/24Discharge date: 03/30/24Discharge diagnosis:Afib RVRHospital course:78-year-old male with PMH of paroxysmal AFib, hypertension, hypothyroidismpresented to emergency department as a transfer from [facility]. he had an appointment with a new doctor for a generalized checkup and wasfound to be in AFib with a rapid ventricular rate. He did report having ahistory of AFib, although it had been many years. Not on a thinner. He wasstarted on a diltiazem drip and transferred to this facility for a higher levelof care and telemetry services.Echo revealed normal left ventricular systolic function with a left ventricularejection fraction of 60-65%, biatrial enlargement, trace aortic insufficiency,mild mitral regurgitation, mild tricuspid regurgitation with a pulmonary arterypressure estimated at 25 mm of mercury.Patient now s/p ezra guided cardioversion. Initial rhythm post cardioversionwas sinus pause followed by escape rhythm followed by sinus bradycardia andeventual atrial rhythm with intermittent junctional beats. Hemodynamicallystable at present. per Cardiology, DC diltiazemContinue anticoagulation Eliquis for at least 1 month.Discharged to home.Consultants: cardiologyPt. condition on discharge: improved, stableFree Text DxA P NotesFree text DxA P notes:AFib with RVR* Admit to PCU* Continuous telemetry* Diltiazem drip, titrate per protocol* Consult cardiology, recs greatly appreciated. Status post cardioversion today* Daily labs, trend WBCs, monitor* Replace electrolytes as needed* Echocardiogram* Lipids, A1c, TSH* Encourage incentive spirometryChronic medical conditions:HypothyroidismResumed home medsVTE ppx: SCDs, heparin SQCode status: Full codeDispo: Pending clinical courseThis note was composed using Fusion-io fluency dictation software and every effortwas made to correct any grammatical and/or spelling errors though some may stillpersist.Med RecMed RecDischarge meds:Continue taking these medications:METOPROLOL TARTRATE (LOPRESSOR) 25 MG TAB 25 MILLIGRAM ORAL TWICE A DAY Comments: TAKE 1 TABLET BY MOUTH TWICE DAILY; 90 Days #180 EA - SIG Obtained FromDrFirstlisinopriL (ZESTRIL) 10 MG TAB 10 MILLIGRAM ORAL DAILY AT 0900 Comments: TAKE 1 TABLET BY MOUTH EVERY DAY; 90 Days #90 EA - SIG Obtained FromDrFirstTHYROID,PORCINE (ARMOUR THYROID) 30 MG TAB 30 MILLIGRAM ORAL DAILY AT 0900 Comments: TAKE 1 TABLET BY MOUTH EVERY DAY; 90 Days #90 EA - SIG Obtained FromDrFirstamLODIPine (NORVASC) 5 MG TAB 5 MILLIGRAM ORAL DAILY AT 0900 Comments: TAKE 1 TABLET BY MOUTH DAILY; 60 Days #60 EA - SIG Obtained From DrFirstASPIRIN EC (BRYANT EC) 81 MG TAB.EC 81 MILLIGRAM ORAL DAILY AT 0900 Comments: TAKE 1 TABLET BY MOUTH DAILY; 90 Days #90 EA - SIG Obtained From DrFirstATORVASTATIN (LIPITOR) 40 MG TAB 40 MILLIGRAM ORAL AT BEDTIME Comments: TAKE 1 TABLET BY MOUTH AT BEDTIME; 90 Days #90 EA - SIG Obtained FromFirstAPIXABAN (ELIQUIS STARTER PACK) 5 MG TAB 5 MILLIGRAM ORAL TWICE A DAY Qty = 60 Instructions: Starter pack qty = 74 tablets/pack Comments: 30 Days #60 EA - SIG Obtained From FirstObjectiveVS/I OLast Documented: Result Date Time Temp 98.1 03/30 1106 Pulse Ox 99 03/30 040 B/P 153/74 03/30 0401 B/P Mean 106 03/30 0401 Pulse 46 03/30 0401 Resp 18 03/30 0400 O2 Delivery Room air 03/29 139488 hour I O ending at 0700: 03/29 1900 03/30 0700 Intake Total 1220.00 Output Total 450 400 Balance 770.00 -400 Intake, IV 500.00 Intake, Oral 720 Number Voids 1 Output, 0 Estimated Blood Loss Output, Urine 450 400 Patient 149 lb Weight Weight Bed scale Measurement MethodResultsFindings/Data:Laboratory Tests: 03/30 0244 Chemistry Sodium (135 - 146 MMOL/L) 140 Potassium (3.6 - 5.2 MMOL/L) 4.2 Chloride (100 - 108 MMOL/L) 105 Carbon Dioxide (21 - 32 MMOL/L) 27 Anion Gap (12 - 21) 12 BUN (6 - 22 MG/DL) 32 H Creatinine (0.5 - 1.3 MG/DL) 1.8 H GFR Calculation (>60) 37.8 L Random Glucose (70 - 99 MG/DL) 118 H Calcium (8.5 - 10.1 MG/DL) 8.5 Corrected Calcium (8.5 - 10.1 MG/DL) 9.5 Magnesium (1.6 - 2.3 MG/DL) 1.9 Total Bilirubin (0.0 - 1.0 MG/DL) 0.3 AST (10 - 45 UNITS/L) 27 ALT (12 - 78 UNITS/L) 25 Total Alk Phosphatase (45 - 132 UNITS/L) 76 Total Protein (6.5 - 8.2 GM/DL) 5.7 L Albumin (3.5 - 4.8 GM/DL) 2.8 L Hematology WBC (4.1 - 11.1 x10 3/uL) 5.9 RBC (4.10 - 5.80 x10 6/uL) 3.49 L Hgb (13.5 - 16.5 g/dl) 10.9 L Hct (38.4 - 50.8 %) 33.1 L MCV (81.8 - 97.9 fl) 94.8 MCH (28.3 - 33.7 pg) 31.2 MCHC (31.9 - 36.1 g/dL) 32.9 RDW (11.9 - 15.1 %) 12.2 Plt Count (126 - 335 x10 3/uL) 112 L MPV (9.4 - 12.4 fl) 10.5 Immature Gran % (Auto) (0.0 - 1.5 %) 0 Neut % (Auto) (%) 58 Lymph % (Auto) (%) 26 [place] % (Auto) (%) 12 Eos % (Auto) (%) 3 Baso % (Auto) (%) 1 Immature Gran # (Auto) (0.0 - 0.2 x10 3/uL) 0.0 Absolute Neuts (auto) (2.3 - 7.8 x10 3/uL) 3.5 Absolute Lymphs (auto) (0.8 - 4.0 x10 3/uL) 1.6 Absolute Monos (auto) (0.3 - 1.2 x10 3/uL) 0.7 Absolute Eos (auto) (0.0 - 0.5 x10 3/uL) 0.2 Absolute Basos (auto) (0.0 - 0.1 x10 3/uL) 0.0Laboratory Tests Test Result Date Time Chemistry Sodium (135 - 146 MMOL/L) 140 02/ 0244 Potassium (3.6 - 5.2 MMOL/L) 4.2 / 0244 Chloride (100 - 108 MMOL/L) 105 02/ 0244 Carbon Dioxide (21 - 32 MMOL/L) 27 02/ 0244 Anion Gap (12 - 21) 12 03/30 0244 BUN (6 - 22 MG/DL) 32 H 03/30 0244 Creatinine (0.5 - 1.3 MG/DL) 1.8 H 03/30 0244 GFR Calculation (>60) 37.8 L 02/08 0244 Random Glucose (70 - 99 MG/DL) 118 H 03/30 0244 Estimat Average Glucose (68 - 114 MG/DL) 103 03/28 0326 Glycated Hemoglobin (4.0 - 5.6 %) 5.2 03/28 0326 Calcium (8.5 - 10.1 MG/DL) 8.5 03/304 Corrected Calcium (8.5 - 10.1 MG/DL) 9.5 03/304 Magnesium (1.6 - 2.3 MG/DL) 1.9 03/30 0244 Total Bilirubin (0.0 - 1.0 MG/DL) 0.3 03/304 AST (10 - 45 UNITS/L) 27 03/30 243 ALT (12 - 78 UNITS/L) 25 03/30 243 Total Alk Phosphatase (45 - 132 UNITS/L) 76 03/30 243 Total Protein (6.5 - 8.2 GM/DL) 5.7 L 03/30 243 Albumin (3.5 - 4.8 GM/DL) 2.8 L 03/30 243 Triglycerides (0 - 149 MG/DL) 34 03/28 0326 Cholesterol (0 - 199 MG/DL) 166 02325 LDL Cholesterol (0 - 129 MG/DL) 83 02 0326 HDL Cholesterol (40 - 60 MG/DL) 76 H 03/28 325 Free T4 (0.90 - 1.94 ng/dL) 0.99 03/28 326 TSH 3rd Generation (0.40 - 4.00 uIU/mL) 9.61 H 03/28 326 Hematology WBC (4.1 - 11.1 x10 3/uL) 5.9 03/30 243 RBC (4.10 - 5.80 x10 6/uL) 3.49 L 03/30 243 Hgb (13.5 - 16.5 g/dl) 10.9 L 03/30 243 Hct (38.4 - 50.8 %) 33.1 L 03/30 243 MCV (81.8 - 97.9 fl) 94.8 03/30 243 MCH (28.3 - 33.7 pg) 31.2 03/30 243 MCHC (31.9 - 36.1 g/dL) 32.9 03/30 243 RDW (11.9 - 15.1 %) 12.2 03/30 243 Plt Count (126 - 335 x10 3/uL) 112 L 03/30 243 MPV (9.4 - 12.4 fl) 10.5 03/30 243 Immature Gran % (Auto) (0.0 - 1.5 %) 0 03/30 243 Neut % (Auto) (%) 58 03/30 243 Lymph % (Auto) (%) 26 03/30 243 [place] % (Auto) (%) 12 03/30 243 Eos % (Auto) (%) 3 03/30 243 Baso % (Auto) (%) 1 03/30 243 Immature Gran # (Auto) (0.0 - 0.2 x10 3/uL) 0.0 03/30 243 Absolute Neuts (auto) (2.3 - 7.8 x10 3/uL) 3.5 03/30 243 Absolute Lymphs (auto) (0.8 - 4.0 x10 3/uL) 1.6 03/30 243 Absolute Monos (auto) (0.3 - 1.2 x10 3/uL) 0.7 03/30 243 Absolute Eos (auto) (0.0 - 0.5 x10 3/uL) 0.2 03/30 243 Absolute Basos (auto) (0.0 - 0.1 x10 3/uL) 0.0 03/30 243Free Text Obj NotesFree Text Obj Notes:General appearance: alert, awake, no acute distress, conversationalHead/Eyes: atraumatic, normocephalicENT: moist mucosal membranes, normal dentitionNeck: full range of motion, suppleCardiovascular: Atrial fibrillation on monitor, Irregular rate and rhythm, nomurmur, normal s1, b6Cnnszupcgde: clear to auscultation bilateral, symmetric expansion, no distressAbdomen: non-tender, normal bowel sounds, soft, no distentionExtremities: moves all, no edemaMusculoskeletal: normal inspection, painless range of motion, no CVA tendernessNeuro/ABRASIVE GRADER: alert, oriented X 3, normal speechSkin: dry, no rash, no erythemaPsychiatry: normal affect, normal moodDischarge InstructionsPCPDischarge to: Home/Self CareAdditional Discharge Routines: PCP Follow-UpDiet: CardiacFollow-up AppointmentsPCP follow-up: PCP: Moses Chavez MD PCP follow up timeframe: In 1-2 weeksQuality: DischargeAdvanced Care Plan 65 or OlderDiscussed with: patientCurrent MedicationsCurrent medication review:I attest that the foregoing medication list in the medical record is true,accurate, and complete to the best of my knowledge.BMI Screening > 25 or < 18.5BMI status/follow-up: nml BMI,no school counsellor neededTobacco Use/CounselingTobacco use/counseling: non tobacco user, no counseling neededHTN Screening/Follow-upB/P assess/follow-up: pre-existing hx of HTN at 1830RPT #: [id number] OF REPORT Fabien Gomez DO- [address] [place], [place] [address]Hospitalist Progress NoteREPORT#:[id number] REPORT STATUS: SignedDATE:03/29/24 TIME: 1325PATIENT: MARK DEE UNIT #: [id number]#: [id number] [address]: [address]47-QMAA: 44 AGE: 78 SEX: M ATTEND: Malou Luo [facility] AUTHOR: Patricia Conn DO* ALL edits or amendments must be made on the electronic/computer document *SubjectiveChief complaint:AFib with RVRHPI:Today patient was seen and examined at bedside. No chest pain no shortness abreath no new or worsening symptoms.Review of SystemsAll systems rev neg: except as notedFree Text ROS NotesFree Text ROS Notes:12-point system reviewed and negative except as noted in the HPI.ObjectiveGeneralVS/I O:Vital Signs: Date Time Temp Pulse Resp B/P B/P Pulse O2 O2 Flow FiO2 Mean Ox Delivery Rate 03/29 1246 44 17 148/70 101 92 03/29 1231 37 30 152/73 105 100 03/29 1215 40 24 128/73 96 100 02/07 1200 36.4 41 20 133/75 98 100 02/07 1145 36.4 52 15 148/87 100 Room air 02/07 1130 36.4 53 13 140/81 100 Room air 02/07 1115 48 17 132/70 100 Room air 02/07 1107 36.0 50 16 122/70 100 Room air 02/07 1106 36.1 63 20 158/81 96 02/07 0930 63 18 153/89 115 99 02/07 0900 64 13 144/87 111 98 02/07 0830 64 19 138/90 108 99 02/07 0800 36.5 63 21 151/91 114 98 02/07 0730 63 14 148/93 115 96 02/07 0700 63 15 119/70 89 97 02/07 0630 60 14 140/83 106 96 02/07 0600 60 15 154/93 119 96 02/07 0530 61 18 140/92 113 97 02/07 0501 62 24 142/83 105 95 02/07 0430 60 14 131/79 99 96 02/07 0425 36.5 02/07 0400 60 16 135/85 105 95 02/07 0330 62 16 119/63 86 96 02/07 0300 63 17 114/77 92 96 02/07 0230 62 19 131/80 100 99 02/07 0200 61 25 131/76 98 96 02/07 0130 60 16 131/77 99 97 02/07 0100 63 17 122/78 95 97 02/07 0030 61 12 130/78 99 97 02/07 0000 36.7 02/07 0000 60 16 121/75 93 97 02/06 2330 62 30 127/81 99 97 02/06 2300 61 16 127/72 93 97 02/06 2230 62 16 117/60 82 96 02/06 2200 61 16 136/71 95 95 02/06 2130 62 18 114/66 85 96 02/06 2100 64 18 121/74 93 97 02/06 2030 68 18 102/58 75 97 02/06 2000 36.7 02/06 2000 63 17 123/77 94 96 02/06 1930 67 17 137/73 99 96 02/06 1915 84 18 96 02/06 1901 83 131/81 96 93 02/06 1900 74 02/06 1900 90 92 02/06 1830 66 18 120/74 93 97 03/28 1800 36.6 03/28 1800 74 18 132/76 98 96 03/28 1745 109 26 89 03/28 1730 73 26 147/84 107 89 03/28 1700 65 24 130/95 109 97 02 1630 65 15 136/88 107 98 03/28 1600 65 17 127/79 98 9724 hour I O ending at 0700: 03/29 0700 03/28 1900 Intake Total 23.40 522.00 Output Total 900 600 Balance -876.60 - 78.00 Intake, IV 23.40 22.00 Intake, Oral 500 Output, Urine 900 600 Patient 66.6 kg Weight Weight Bed scale Measurement MethodPATIENT WEIGHT:Weight (lb): 146Weight (oz): 13.25Weight (kg): 66.600Medications:Active Meds + DC'd Last 24 HrsEphedrine Sulfate (ePHEDrine sulfate) 0 .STK-MED ONE .ROUTE (DC)Glycopyrrolate (Glycopyrrolate) 0 .STK-MED ONE .ROUTE (DC)Propofol (DIPRIVAN) 0 .STK-MED ONE .ROUTE (DC)Lisinopril (PRINIVIL) 10 MG DAILY POLidocaine HCl (LIDOCAINE HCL) 0 .STK-MED ONE .ROUTE (DC)Propofol (DIPRIVAN) 0 .STK-MED ONE .ROUTE (DC)Atorvastatin Calcium (LIPITOR) 40 MG BEDTIME POThyroid (THYROID) 30 MG DAILY POPantoprazole Sodium (PROTONIX) 40 MG AC BK POMupirocin (BACTROBAN) 1 APPLIC BID NASALAcetaminophen (TYLENOL) 650 MG Q4HR PRN PRN POCalcium Carbonate (CHEWABLE ANTACID) 1,000 MG Q6HR PRN PRN PO (CKD)Diltiazem HCl (carDIZEM INJ) 125 MG ASDIR IV Sodium Chloride (SODIUM CHLORIDE) 100 MLDocusate Sodium (COLACE) 100 MG BID PRN PRN POHeparin Sodium (Porcine) (Heparin Sodium) 5,000 UNIT Q8H SUBQMelatonin (MELATONIN) 3 MG BEDTIME PRN PRN POOndansetron HCl (ZOFRAN 4 MG/2 ML VIAL) 4 MG Q4HR PRN PRN IVResultsFindings/Data:Laboratory Tests 02/07 0304 Chemistry Sodium (135 - 146 MMOL/L) 141 Potassium (3.6 - 5.2 MMOL/L) 3.8 Chloride (100 - 108 MMOL/L) 106 Carbon Dioxide (21 - 32 MMOL/L) 26 Anion Gap (12 - 21) 13 BUN (6 - 22 MG/DL) 29 H Creatinine (0.5 - 1.3 MG/DL) 1.3 GFR Calculation (>60) 55.9 L Random Glucose (70 - 99 MG/DL) 82 Calcium (8.5 - 10.1 MG/DL) 8.6 Corrected Calcium (8.5 - 10.1 MG/DL) 9.4 Magnesium (1.6 - 2.3 MG/DL) 1.9 Total Bilirubin (0.0 - 1.0 MG/DL) 0.6 AST (10 - 45 UNITS/L) 19 ALT (12 - 78 UNITS/L) 21 Total Alk Phosphatase (45 - 132 UNITS/L) 80 Total Protein (6.5 - 8.2 GM/DL) 6.1 L Albumin (3.5 - 4.8 GM/DL) 3.0 LLaboratory Tests 03/29 303 Hematology WBC (4.1 - 11.1 x10 3/uL) 5.4 RBC (4.10 - 5.80 x10 6/uL) 4.07 L Hgb (13.5 - 16.5 g/dl) 12.7 L Hct (38.4 - 50.8 %) 38.0 L MCV (81.8 - 97.9 fl) 93.4 MCH (28.3 - 33.7 pg) 31.2 MCHC (31.9 - 36.1 g/dL) 33.4 RDW (11.9 - 15.1 %) 11.9 Plt Count (126 - 335 x10 3/uL) 129 MPV (9.4 - 12.4 fl) 10.5 Immature Gran % (Auto) (0.0 - 1.5 %) 0 Neut % (Auto) (%) 54 Lymph % (Auto) (%) 30 [place] % (Auto) (%) 11 Eos % (Auto) (%) 4 Baso % (Auto) (%) 1 Immature Gran # (Auto) (0.0 - 0.2 x10 3/uL) 0.0 Absolute Neuts (auto) (2.3 - 7.8 x10 3/uL) 2.9 Absolute Lymphs (auto) (0.8 - 4.0 x10 3/uL) 1.6 Absolute Monos (auto) (0.3 - 1.2 x10 3/uL) 0.6 Absolute Eos (auto) (0.0 - 0.5 x10 3/uL) 0.2 Absolute Basos (auto) (0.0 - 0.1 x10 3/uL) 0.0Free Text Obj NotesFree Text Obj Notes:General appearance: alert, awake, no acute distress, conversationalHead/Eyes: atraumatic, normocephalicENT: moist mucosal membranes, normal dentitionNeck: full range of motion, suppleCardiovascular: Atrial fibrillation on monitor, Irregular rate and rhythm, nomurmur, normal s1, n9Zemnzxcaujp: clear to auscultation bilateral, symmetric expansion, no distressAbdomen: non-tender, normal bowel sounds, soft, no distentionExtremities: moves all, no edemaMusculoskeletal: normal inspection, painless range of motion, no CVA tendernessNeuro/ABRASIVE GRADER: alert, oriented X 3, normal speechSkin: dry, no rash, no erythemaPsychiatry: normal affect, normal moodDiagnosis, Assessment PlanConsultants: cardiologyFree Text DxA P NotesFree text DxA P notes:AFib with RVR* Admit to PCU* Continuous telemetry* Diltiazem drip, titrate per protocol* Consult cardiology, recs greatly appreciated. Status post cardioversion today* Daily labs, trend WBCs, monitor* Replace electrolytes as needed* Echocardiogram* Lipids, A1c, TSH* Encourage incentive spirometryChronic medical conditions:HypothyroidismResumed home medsVTE ppx: SCDs, heparin SQCode status: Full codeDispo: Pending clinical courseThis note was composed using MMAzooo fluency dictation software and every effortwas made to correct any grammatical and/or spelling errors though some may stillpersist.Quality: Gen Med Crit CareVTE ProphylaxisVTE prophylaxis initiated: yesCurrent MedicationsCurrent medication review:I attest that the foregoing medication list in the medical record is true,accurate, and complete to the best of my knowledge.Advanced Care Plan 65 or OlderDiscussed with: patientDiscussion included: code statusBMI Screening > 25 or < 18.5BMI status/follow-up: nml BMI,no school counsellor neededTobacco Use/CounselingTobacco use/counseling: non tobacco user, no counseling neededHTN Screening/Follow-upB/P assess/follow-up: pre-existing hx of HTN at 1327RPT #: [id number] OF REPORT Asher Hand MD-7-Mar-2024 [facility] ([facility])Cardioversion Procedure NoteREPORT#:[id number] REPORT STATUS: SignedDATE:03/29/24 TIME: 1108PATIENT: MARK DEE UNIT #: [id number]#: [id number] [address]-DSSL: [address] AGE: 78 SEX: M ATTEND: Malou Luo [facility] AUTHOR: Codi Sterling MD* ALL edits or amendments must be made on the electronic/computer document *ProcedureCardioversion ProcedureIndication: atrial flutterInformed consent: YesPlan for sedation: Provided by anesthesiaMod. sedation provided by me: noObserver name:Name of independent trained observer:ASA classification: IIIMallampati Class: IIIAirway assessment: adequateFocused physical exam:Physical exam;General-thin male in no acute distressCardiovascular-irregularly irregularChest-clear to auscultationAbdomen-soft, normoactive bowel soundsExtremities-no clubbing, cyanosis, edemaPost-procedure diagnosis:Atrial flutter status post cardioversion, initial rhythm sinus pause, followedby sinus bradycardia, followed by atrial rhythm with junctional beats.Procedure performed:After informed consent was obtained, the patient received sedation via theanesthesia department. A EZRA was performed initially, it revealed normal leftventricular systolic function with a left ventricular ejection fraction range of60%, there was biatrial enlargement, pogy-kz-nsqiwowk MR, oqtf-ze-impvgeqw TR,trivial aortic insufficiency. The left atrium and left atrial appendage werescanned and found to be free of thrombus. After completion of the EZRA thepatient underwent a synchronized direct current cardioversion. Received asingle 200 joule shock with termination of atrial flutter. The initial rhythmwas sinus pause with escape beats followed by sinus bradycardia followed by anatrial rhythm with junctional beats. Anticipate sikhism of sinus rhythmonce patient wakes up and IV diltiazem wears off.Performed by:Fannie Lawrence OMS- IIIAssistant(s): Eli Herbert OMS-IIIFindings:Ezra cardioversion with termination of atrial flutter. At the end of theprocedure the patient was in an atrial rhythm with junctional beats. Anticipaterestoration of sinus rhythm as patient wakes up and IV diltiazem wears off.Estimated blood loss in ml's: noneSpecimens removed/altered: noneComplications: none at 111PT #: [id number] OF REPORT Asher Hand MD-7-Mar-2024 [facility])Cardiology Progress NoteREPORT#:[id number] REPORT STATUS: SignedDATE:03/29/24 TIME: 956PATIENT: MARK DEE UNIT #: [id number]#: [id number] ROOM/BED: [id number]-HWNI: 44 AGE: 78 SEX: M ATTEND: Malou Luo [facility] AUTHOR: Codi Sterling MD* ALL edits or amendments must be made on the electronic/computer document *SubjectiveChief complaint:AFibPatient reports:No: abdominal pain, chest pain, confused, cough, dizziness, fatigue, fever,headache, nausea, palpitations, shortness of breath, swelling.Comments:Anxious to go homeObjectiveGeneralVS/I O:24 hour I O ending at 0700: 07 0700 03/28 1900 Intake Total 23.40 522.00 Output Total 900 600 Balance -876.60 -78.00 Intake, IV 23.40 22.00 Intake, Oral 500 Output, Urine 900 600 Patient 66.6 kg Weight Weight Bed scale Measurement MethodVital Signs: Date Time Temp Pulse Resp B/P B/P Pulse O2 O2 Flow FiO2 Mean Ox Delivery Rate 02/07 0700 63 15 119/70 89 97 02/07 0630 60 14 140/83 106 96 02/07 0600 60 15 154/93 119 96 02/07 0530 61 18 140/92 113 97 02/07 0501 62 24 142/83 105 95 02/07 0430 60 14 131/79 99 96 02/07 0425 36.5 02/07 0400 60 16 135/85 105 95 02/07 0330 62 16 119/63 86 96 02/07 0300 63 17 114/77 92 96 02/07 0230 62 19 131/80 100 99 02/07 0200 61 25 131/76 98 96 02/07 0130 60 16 131/77 99 97 02/07 0100 63 17 122/78 95 97 02/07 0030 61 12 130/78 99 97 02/07 0000 36.7 02/07 0000 60 16 121/75 93 97 02/06 2330 62 30 127/81 99 97 02/06 2300 61 16 127/72 93 97 02/06 2230 62 16 117/60 82 96 02/06 2200 61 16 136/71 95 95 02/06 2130 62 18 114/66 85 96 02/06 2100 64 18 121/74 93 97 02/06 2030 68 18 102/58 75 97 02/06 2000 36.7 02/06 1999 63 17 123/77 94 96 02/06 1930 67 17 137/73 99 96 02/06 1915 84 18 96 02/06 1901 83 131/81 96 93 02/06 1900 74 02/06 1900 90 92 02/06 1830 66 18 120/74 93 97 02/06 1800 36.6 02/06 1800 74 18 132/76 98 96 02/06 1745 109 26 89 02/06 1730 73 26 147/84 107 89 02/06 1700 65 24 130/95 109 97 02/06 1630 65 15 136/88 107 98 02/06 1600 65 17 127/79 98 97 02/06 1200 36.6 02/06 1200 107 22 132/84 103 93 02/06 1130 106 11 139/103 117 97 02/06 1107 114 24 147/77 106 98 02/06 1101 121 31 164/105 129 97 03/28 1030 82 10 125/91 104 97 03/28 1000 82 14 122/75 94 95PATIENT WEIGHT:Weight (lb): 146Weight (oz): 13.25Weight (kg): 66.600Medications:Active Meds + DC'd Last 24 HrsPropofol (DIPRIVAN) 0 .STK-MED ONE .ROUTE (DC)Lisinopril (PRINIVIL) 10 MG DAILY POLidocaine HCl (LIDOCAINE HCL) 0 .STK-MED ONE .ROUTE (DC)Propofol (DIPRIVAN) 0 .STK-MED ONE .ROUTE (DC)Atorvastatin Calcium (LIPITOR) 40 MG BEDTIME POThyroid (THYROID) 30 MG DAILY POPantoprazole Sodium (PROTONIX) 40 MG AC BK POMupirocin (BACTROBAN) 1 APPLIC BID NASALAcetaminophen (TYLENOL) 650 MG Q4HR PRN PRN POCalcium Carbonate (CHEWABLE ANTACID) 1,000 MG Q6HR PRN PRN PO (CKD)Diltiazem HCl (carDIZEM INJ) 125 MG ASDIR IV Sodium Chloride (SODIUM CHLORIDE) 100 MLDocusate Sodium (COLACE) 100 MG BID PRN PRN POHeparin Sodium (Porcine) (Heparin Sodium) 5,000 UNIT Q8H SUBQMelatonin (MELATONIN) 3 MG BEDTIME PRN PRN POOndansetron HCl (ZOFRAN 4 MG/2 ML VIAL) 4 MG Q4HR PRN PRN IVPhysical ExamGeneral appearance: alert, awake, orientedHead/Eyes: EOMI, PERRLANeck: no bruit/NL carotids, no JVDCardiovascular: CV assessment: irregular rhythm, Soft systolic murmur, PMI laterallydisplacedRespiratory: decreased breath sounds, no distressAbdomen: soft, non-tender, normal bowel sounds, no distention, no guardingLower extremity: LE assessment: no clubbing, no cyanosis, no edemaNeuro/ABRASIVE GRADER: alert, oriented X 3Psychiatry: normal affectDiagnosis, Assessment PlanFree Text DxA P NotesFree Text DxA P Notes:Impression;Atrial flutter with rapid rate of unknown durationHypertensionPlan;Echo revealed normal left ventricular systolic function with a left ventricularejection fraction of 60-65%, biatrial enlargement, trace aortic insufficiency,mild mitral regurgitation, mild tricuspid regurgitation with a pulmonary arterypressure estimated at 25 mm of mercury.Patient now status post ezra guided cardioversion. 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 at 1107RPT #: [id number] OF REPORT Fabien Gomez DO- [facility]ist Progress NoteREPORT#:[id number] REPORT STATUS: SignedDATE:03/28/24 TIME: 1646PATIENT: MARK DEE UNIT #: [id number]#: [id number] [address]-HTPD: 44 AGE: 78 SEX: M ATTEND: Malou Luo [facility] AUTHOR: Patricia Conn DO* ALL edits or amendments must be made on the electronic/computer document *SubjectiveChief complaint:AFib with RVRHPI:Today patient was seen and examined at bedside. No chest pain no shortness abreath no new or worsening symptoms.Review of SystemsFree Text ROS NotesFree Text ROS Notes:12-point system reviewed and negative except as noted in the HPI.ObjectiveGeneralVS/I O:Vital Signs: Date Time Temp Pulse Resp B/P B/P Pulse O2 O2 Flow FiO2 Mean Ox Delivery Rate 03/28 1200 36.6 02/ 1200 107 22 132/84 103 93 02/ 1130 106 11 139/103 117 97 03/28 1107 114 24 147/77 106 98 02/ 1101 121 31 164/105 129 97 02/ 1030 82 10 125/91 104 97 02/ 1000 82 14 122/75 94 95 02/ 0930 83 15 139/94 112 97 02/ 0900 87 16 133/92 108 94 02/ 0830 36.6 02/ 0830 117 19 141/99 113 97 02/06 0800 83 16 151/92 116 97 02/06 0730 109 31 165/94 122 98 02/06 0716 104 25 146/100 116 99 02/06 0701 111 35 116/89 99 97 02/06 0515 63 17 146/92 112 97 02/06 0500 61 16 152/91 115 97 02/06 0445 61 14 140/87 108 96 02/06 0430 61 14 146/93 115 96 02/06 0415 61 15 140/87 108 96 02/06 0400 37.1 61 15 139/83 106 96 02/06 0345 61 12 144/85 110 95 02/06 0330 64 24 137/89 109 98 02/06 0315 62 16 131/80 100 97 02/06 0300 61 27 136/84 104 96 02/06 0245 61 21 140/85 108 96 02/06 0230 62 17 130/77 98 96 02/06 0215 62 21 139/85 106 95 02/06 0200 64 17 130/79 98 97 02/06 0146 64 19 126/81 96 97 02/06 0130 63 14 109/56 75 02/06 0115 62 13 103/55 77 02/06 0103 62 9 116/72 89 97 02/06 0030 36.6 17 02/06 0000 41 125/70 93 97 02/05 2300 62 14 120/73 92 97 02/05 2200 64 8 143/94 114 95 02/05 2100 64 42 157/94 120 96 02/05 2000 36.5 62 20 156/99 122 97 02/05 1916 63 28 175/115 137 98 02/05 1846 85 23 168/105 131 90 02/05 1714 36.7 116 20 192/129 98 Room air 02/05 1712 192/129 153 02/05 0622 363 3553 hour I O ending at 0700: 02/06 0700 02/05 1900 Intake Total 634.80 Output Total 1300 Balance -665.20 Intake, IV 34.80 Intake, Oral 600 Output, Urine 1300 Patient 67.4 kg 71.364 kg Weight Weight Bed scale Stated/Reported Measurement MethodPATIENT WEIGHT:Weight (lb): 148Weight (oz): 9.47Weight (kg): 67.400Medications:Active Meds + DC'd Last 24 HrsPantoprazole Sodium (PROTONIX) 40 MG AC BK POMupirocin (BACTROBAN) 1 APPLIC BID NASALAcetaminophen (TYLENOL) 650 MG Q4HR PRN PRN POCalcium Carbonate (CHEWABLE ANTACID) 1,000 MG Q6HR PRN PRN PO (CKD)Diltiazem HCl (carDIZEM INJ) 125 MG ASDIR IV Sodium Chloride (SODIUM CHLORIDE) 100 MLDocusate Sodium (COLACE) 100 MG BID PRN PRN POHeparin Sodium (Porcine) (Heparin Sodium) 5,000 UNIT Q8H SUBQMelatonin (MELATONIN) 3 MG BEDTIME PRN PRN POOndansetron HCl (ZOFRAN 4 MG/2 ML VIAL) 4 MG Q4HR PRN PRN IVFree Text Obj NotesFree Text Obj Notes:General appearance: alert, awake, no acute distress, conversationalHead/Eyes: atraumatic, normocephalicENT: moist mucosal membranes, normal dentitionNeck: full range of motion, suppleCardiovascular: Atrial fibrillation on monitor, Irregular rate and rhythm, nomurmur, normal s1, [id number]: clear to auscultation bilateral, symmetric expansion, no distressAbdomen: non-tender, normal bowel sounds, soft, no distentionExtremities: moves all, no edemaMusculoskeletal: normal inspection, painless range of motion, no CVA tendernessNeuro/ABRASIVE GRADER: alert, oriented X 3, normal speechSkin: dry, no rash, no erythemaPsychiatry: normal affect, normal moodDiagnosis, Assessment PlanConsultants: cardiologyFree Text DxA P NotesFree text DxA P notes:AFib with RVR* Admit to PCU* Continuous telemetry* Diltiazem drip, titrate per protocol* Consult cardiology, recs greatly appreciated. Planning cardioversion tomorrow* Daily labs, trend WBCs, monitor* Replace electrolytes as needed* Echocardiogram* Lipids, A1c, TSH* Encourage incentive spirometryChronic medical conditions:Hypothyroidism- ? Unclear if on meds, results pendingResumed home medsVTE ppx: SCDs, heparin SQCode status: Full codeDispo: Pending clinical courseThis note was composed using Fusion-io fluency dictation software and every effortwas made to correct any grammatical and/or spelling errors though some may stillpersist.Quality: Gen Med Crit CareVTE ProphylaxisVTE prophylaxis initiated: yesCurrent MedicationsCurrent medication review:I attest that the foregoing medication list in the medical record is true,accurate, and complete to the best of my knowledge.Advanced Care Plan 65 or OlderDiscussed with: patientDiscussion included: code statusBMI Screening > 25 or < 18.5BMI status/follow-up: nml BMI,no school counsellor neededTobacco Use/CounselingTobacco use/counseling: non tobacco user, no counseling neededHTN Screening/Follow-upB/P assess/follow-up: pre-existing hx of HTN at 1652RPT #: [id number] OF REPORT MANAGEMENT [id number] [address] CASE MANAGEMENT REPORT -- CONFIDENTIAL DATAENCOUNTER DATAPATIENT NAME: MARK DEE DOB: [birth year] AGE: 78 Admit Date: 03/27/24Attending Ph: Malou Luo MD --[facility] SUPPORT SERVICES ----- ---HCM Support Services User Loo: Date Entered: 03/28/2024Service Type: *Case ManagementCase Worker: Naomi Riggs Date: 03/28/2024Payer: [employer] [facility] PPOComments:--- 03/28/2024 01:52 PM by Safia Riggs ---Pt is not considered a high readmit risk to [facility]. Pt is a/o x 4 Demographicsand insurance reviewed. PCP is Dr. Calderon Harrell and pt has Medicare and Humanafor insurance. Pt lives at home w/his Son and is INDP w/ADLs - uses noassistive devices for mobility. Pt admitted to [facility] for A-Fib, Cardiologyconsulted, pending recs. Pt to DC home once medically stable. At this time, noCM interventions anticipated, but MEDICAL RECEPTIONIST MEDICAL ASSISTANT will follow pt s progress and follow upif there is any indication pt will need any resources or services upon DC. ---HC M DISCHARGE PLANNING ----- ---HCM Discharge Planning Comments: ----- ----HCM DISCHARGE PLANNING EVALUATION ----- -----Case Workers: Anuradha Riggsiving Status: FamilySetting: Home-residenceADL Limits: None or n/aDME: NoneHCM Discharge Planning User Loo:Community Services Prior to Admission: None or NACurrent Mental Status/Cognition: Alert and OrientedPATIENT NAME: MARK DEE obtained from: PatientDischarge Barriers, select all that apply: None or NANone or NAReadmission (unplanned) in the last 30 days: NoPatient goals and preferences after discharge: DC homeBased on information gathered, is it likely that the patient's care needs canbe met in the environment from which he/she entered the hospital?: NotApplicableProposed Discharge Plan, select one: HomeHome Services needed: None or Zach a caregiver is needed, is there a caregiver available, willing and capableto provide care?: Not NeededCommunity services needed: NoneNew DME required at discharge: None or Zach new DME is required, is patient able to obtain DME?: Not ApplicableHome Modifications required: None or Zach home modifications are required, is patient able to obtain them?: NotApplicablePatient concerns about obtaining medications on day of discharge?: NoneTransportation needs at discharge: familyDischarge Plan Discussed with: PatientHave you discussed with the patient how his/her care needs may change overtime?: Not ApplicablePatient/patient service representative agrees with discharge plan: YesDiscussed expected insurance coverage and/or out of pocket expenses: NotApplicableDate / Time: 03/28/2024 1:54 PMEvaluated by: Safia Riggs ===== =======Updated by: KeelySafia () - 03/28/2024 12:57 PM ==PAT IENT NAME: MARK DEE GAUTAM SUGGS PharmD- [facility] ([facility])Pharmacy Prog.Note-Med RecREPORT#:[id number] REPORT STATUS: SignedDATE:03/28/24 TIME: 1257PATIENT: MARK DEE UNIT #: [id number]#: [id number] ROOM/BED: [place] [id number]: 44 AGE: 78 SEX: M ATTEND: Malou Luo MDADM AUTHOR: ES FLOREZ PharmD* ALL edits or amendments must be made on the electronic/computer document *Pharmacy Med History ReviewPrimary Care ProviderPCP: PCP: Moses Chavez Med History ReviewSource of information: reviewed med claims dataMed Rec report: yesAdmission Med Rec:Scheduled MedicationsamLODIPine (NORVASC) 5 MG PO DAILY (Reported)APIXABAN (ELIQUIS STARTER PACK) 5 MG PO BID (Reported)ASPIRIN EC (BRYANT EC) 81 MG PO DAILY (Reported)ATORVASTATIN (LIPITOR) 40 MG PO BEDTIME (Reported)lisinopriL (ZESTRIL) 10 MG PO DAILY (Reported)METOPROLOL TARTRATE (LOPRESSOR) 25 MG PO BID (Reported)THYROID,PORCINE (ARMOUR THYROID) 30 MG PO DAILY (Reported)Allergies:Coded Allergies:No Known Allergies (03/27/24)Med Rec actions: Med Rec actions: home med list reviewedComments:Based on information I was able to find in the medication claims database andthe Health Information Exchange, I was able to find prescribers that the patienthas visited in the past year including primary child care centre manager Dr. Moses Ramirez [facility], primary child care centre manager Dr. Calderon Harrell MD [facility], and hospitalist Dr. Matthew Spencer MD of [facility]. When interviewed, patient communicated that Dr. Moses Chavez is hisPCP.According to [facility], the patient's documented homemedication list includes the following:* Amlodipine 5mg tablet - take one tablet by mouth once daily* Apixaban 5mg tablet - take one tablet by mouth twice daily* Aspiring 81mg tablet - take one tablet by mouth once daily* Atorvastatin 40mg tablet - take one tablet by mouth once daily at bedtime* Fish oil 1000mg capsule - take one capsule by mouth twice daily* Lisinopril 10mg tablet - take one tablet by mouth once daily* Metoprolol tartrate 25mg tablet - take one tablet by mouth twice daily* Caldwell thyroid 30mg tablet - take one tablet by mouth once dailyHowever, the patient communicated that he has not taken prescription medicationfor months. The patient has only been taking supplements. I contacted one of thesupplement stores that the patient mentioned, [place], [place]. When I called the store, the employee communicated thatpatient mostly purchased vitamins, minerals, glandular extract, and herbaldigestive. They were aware that patient was prescribed Eliquis and a thyroidsupplement, but were unaware of other meds and were not aware if patient decidedto continue or stop his prescription meds. Please call [phone] with questions regarding the medication reconciliation forthis patient. Thank you! at 2003RPT #: [id number] OF REPORT Asher Hand MD-6-Mar-2024 [facility] ([facility])Cardiology ConsultationREPORT#:[id number] REPORT STATUS: SignedDATE:03/28/24 TIME: 0704PATIENT: MARK DEE UNIT #: [id number]#: [id number] ROOM/BED: [id number]: 44 AGE: 78 SEX: M ATTEND: Malou Luo [facility] AUTHOR: Codi Sterling MD* ALL edits or amendments must be made on the electronic/computer document *History of Present IllnessHPIRequesting Clinician: aMlou Luo MDReason for consult:AFibChief complaint:AFibHPI:78-year-old male with PMH of paroxysmal AFib/flutter, hypertension,hypothyroidism presented to emergency department as a transfer from [facility] with atrial fibrillation/flutter. Patient reported for ascheduled office visit and was incidentally noted to be in atrial fibrillation/flutter with rapid rate, duration of his atrial arrhythmia was unknown. [facility] for [facility] andmanagement of his atrial fibrillation. Patient reports that he is reluctant totake any medications. He desires to go home. Uncertain if he wishes to proceedwith EZRA guided cardioversion. No current complaints of chest pain, shortnessbreath nor edema. Duration of his atrial arrhythmia unknown, currently inatrial flutter with variable AV conduction. Intermittently on IV diltiazem forrate control.History - Adult longitudinalAdditional medical history:Paroxysmal AFib/flutter, tobacco abuse, HTN, hypothyroidismAdditional surgical history:deniesAdditional family history:NoncontributoryAlcohol use: Denies EtOH useDrug use: MarijuanaSmoking status for patients 13 years old or older: Former SmokerHome medications:Home Medications:No Known Home MedicationsAllergies:Coded Allergies:No Known Allergies (03/27/24)Review of SystemsConstitutional:fatigue. Denies: chills, fever, generalized weakness, lethargy, malaise, recentwt loss.Skin:bruising. Denies: abrasion, contusion, diaphoresis, ecchymosis, itching,laceration, rash, swelling.Allergy/Immun:Denies: allergic reaction, anaphylaxis, hives, itching, rhinorrhea, sneezing.Eyes:Denies: redness, discharge, visual loss/blurred, itching, diplopia, eye pain,photophobia, swelling.ENT:Denies: ear drainage, ear ringing, earache, hearing loss, mouth pain, nasalcongestion, nose bleeding, sinus problem, sore throat, throat pain, throatswelling, tongue pain, tongue swelling, toothache, voice change.Respiratory:Denies: ALICEA (dyspnea on exertion), hemoptysis, non productive cough, paroxnocturnal dyspnea, pleurisy, pleuritic pain, pneumonia, productive cough (sputum), SOB, wheezing.Cardiovascular:Denies: chest pain, dyspnea on exertion, edema, orthopnea, palpitations, paroxnoctural dyspnea, unstable angina.GI:Denies: abdominal pain, anorexia, constipation, diarrhea, dysphagia, GERD,hematemesis, hematochezia, hiatal hernia, melena, nausea, rectal pain, vomiting.:Denies: dysuria, flank pain, frequency, hematuria, nocturia, penile discharge,penile lesion, testicular pain, testicular swelling, urgency, urinary retention.Musculoskeletal:arthritis. Denies: extremity pain, extremity swelling, joint pain, jointswelling, lumbar pain, myalgias, neck pain, thoracic pain.Heme:bruising. Denies: adenopathy, bleeding, petechiae.Endocrine:Denies: cold intolerance, heat intolerance, polydipsia, polyphagia, polyuria,weight gain, weight loss.Neuro:Denies: bladder dysfunction, bowel dysfunction, change in LOC, confusion,dizziness, focal weakness, gait problem, headache, lightheaded, numbness,seizure, slurred speech, spinning sensation, syncope, unable to speak, visionchange, weakness.Psych:Denies: agitation, anxiety, auditory hallucination, change in mental status,confusion, delusional, depression, homicidal ideation, hostile, insomnia, stress, suicidal ideation, visual hallucination.All systems rev neg: except as markedObjectiveGeneralVS/I O:Vital Signs: Date Time Temp Pulse Resp B/P B/P Pulse O2 O2 Flow FiO2 Mean Ox Delivery Rate 03/28 0515 63 17 146/92 112 97 03/28 0500 61 16 152/91 115 97 03/28 0445 61 14 140/87 108 96 03/28 0430 61 14 146/93 115 96 03/28 0415 61 15 140/87 108 96 03/28 0400 37.1 61 15 139/83 106 96 02/06 0345 61 12 144/85 110 95 02/06 0330 64 24 137/89 109 98 02/06 0315 62 16 131/80 100 97 02/06 0300 61 27 136/84 104 96 02/06 0245 61 21 140/85 108 96 02/06 0230 62 17 130/77 98 96 02/06 0215 62 21 139/85 106 95 02/06 0200 64 17 130/79 98 97 02/06 0146 64 19 126/81 96 97 02/06 0130 63 14 109/56 75 02/06 0115 62 13 103/55 77 02/06 0103 62 9 116/72 89 97 02/06 0030 36.6 17 02/06 0000 41 125/70 93 97 02/05 2300 62 14 120/73 92 97 02/05 2200 64 8 143/94 114 95 02/05 2100 64 42 157/94 120 96 02/05 2000 36.5 62 20 156/99 122 97 02/ 1916 63 28 175/115 137 98 02/05 1846 85 23 168/105 131 90 02/ 1714 36.7 116 20 192/129 98 Room air 03/27 1712 192/129 153 / 7964 973 3849 hour I O ending at 0700: 03/28 0700 02/ 1900 Intake Total 634.80 Output Total 1300 Balance -665.20 Intake, IV 34.80 Intake, Oral 600 Output, Urine 1300 Patient 67.4 kg 71.364 kg Weight Weight Bed scale Stated/Reported Measurement MethodPATIENT WEIGHT:Weight (lb): 148Weight (oz): 9.47Weight (kg): 67.400Medications:Active Meds + DC'd Last 24 HrsPantoprazole Sodium (PROTONIX) 40 MG AC BK POMupirocin (BACTROBAN) 1 APPLIC BID NASALAcetaminophen (TYLENOL) 650 MG Q4HR PRN PRN POCalcium Carbonate (CHEWABLE ANTACID) 1,000 MG Q6HR PRN PRN PO (CKD)Diltiazem HCl (carDIZEM INJ) 125 MG ASDIR IV Sodium Chloride (SODIUM CHLORIDE) 100 MLDocusate Sodium (COLACE) 100 MG BID PRN PRN POHeparin Sodium (Porcine) (Heparin Sodium) 5,000 UNIT Q8H SUBQMelatonin (MELATONIN) 3 MG BEDTIME PRN PRN POOndansetron HCl (ZOFRAN 4 MG/2 ML VIAL) 4 MG Q4HR PRN PRN IVPhysical ExamGeneral appearance: alert, awake, orientedHead/Eyes: EOMI, PERRLANeck: no bruit/NL carotids, no JVDCardiovascular: CV assessment: irregular rhythm, Soft systolic murmur, PMI laterallydisplacedRespiratory: decreased breath sounds, no distressAbdomen: soft, non-tender, normal bowel sounds, no distention, no guardingLower extremity: LE assessment: no clubbing, no cyanosis, no edemaNeuro/ABRASIVE GRADER: alert, oriented X 3Psychiatry: normal affectResultsFindings/Data:Laboratory Tests 03/28 03/28 0327 0326 Chemistry Sodium (135 - 146 MMOL/L) 140 Potassium (3.6 - 5.2 MMOL/L) 3.5 L Chloride (100 - 108 MMOL/L) 105 Carbon Dioxide (21 - 32 MMOL/L) 29 Anion Gap (12 - 21) 10 L BUN (6 - 22 MG/DL) 18 Creatinine (0.5 - 1.3 MG/DL) 1.1 GFR Calculation (>60) 68.3 Random Glucose (70 - 99 MG/DL) 77 Calcium (8.5 - 10.1 MG/DL) 8.5 Corrected Calcium (8.5 - 10.1 MG/DL) 9.3 Magnesium (1.6 - 2.3 MG/DL) 1.9 Total Bilirubin (0.0 - 1.0 MG/DL) 0.8 AST (10 - 45 UNITS/L) 18 ALT (12 - 78 UNITS/L) 22 Total Alk Phosphatase (45 - 132 UNITS/L) 73 Total Protein (6.5 - 8.2 GM/DL) 6.1 L Albumin (3.5 - 4.8 GM/DL) 3.0 L Triglycerides (0 - 149 MG/DL) 34 Cholesterol (0 - 199 MG/DL) 166 LDL Cholesterol (0 - 129 MG/DL) 83 HDL Cholesterol (40 - 60 MG/DL) 76 H TSH 3rd Generation (0.40 - 4.00 uIU/mL) 9.61 HLaboratory Tests 03/28 0326 Hematology WBC (4.1 - 11.1 x10 3/uL) 5.4 RBC (4.10 - 5.80 x10 6/uL) 3.80 L Hgb (13.5 - 16.5 g/dl) 12.0 L Hct (38.4 - 50.8 %) 35.7 L MCV (81.8 - 97.9 fl) 93.9 MCH (28.3 - 33.7 pg) 31.6 MCHC (31.9 - 36.1 g/dL) 33.6 RDW (11.9 - 15.1 %) 12.0 Plt Count (126 - 335 x10 3/uL) 122 L MPV (9.4 - 12.4 fl) 10.2 Immature Gran % (Auto) (0.0 - 1.5 %) 0 Neut % (Auto) (%) 56 Lymph % (Auto) (%) 28 [place] % (Auto) (%) 12 Eos % (Auto) (%) 3 Baso % (Auto) (%) 1 Immature Gran # (Auto) (0.0 - 0.2 x10 3/uL) 0.0 Absolute Neuts (auto) (2.3 - 7.8 x10 3/uL) 3.0 Absolute Lymphs (auto) (0.8 - 4.0 x10 3/uL) 1.5 Absolute Monos (auto) (0.3 - 1.2 x10 3/uL) 0.6 Absolute Eos (auto) (0.0 - 0.5 x10 3/uL) 0.2 Absolute Basos (auto) (0.0 - 0.1 x10 3/uL) 0.1Laboratory Tests 03/28 0326 Chemistry Magnesium (1.6 - 2.3 MG/DL) 1.9EKG Interpretation: right atrial flutterTelemetry Interpretation:Personally reviewed and reveals atrial flutter with variable AV conductionDiagnosis, Assessment PlanFree Text DxA P NotesFree Text DxA P Notes:Impression;Atrial flutter with rapid rate of unknown durationHypertensionPlan;Patient currently in atrial flutter of unknown duration. Intermittentlyassociated with rapid rate.I would recommend proceeding with EZRA guided cardioversion with a at least 1month of anticoagulation. Ideally should be on anticoagulation long-term.For now continue IV diltiazem as required.Patient uncertain if he wishes to take any medications.If he is willing we will proceed with EZRA guided cardioversion tomorrow. Hewould need to commit to at least 1 month of anticoagulation to allowcardioversion.Echocardiogram has been ordered, we will review when ableWe will follow at 0818RPT #: [id number] OF REPORT Pedro Rogers NP-5-2024 [facility] ([facility])History Physical - AdultREPORT#:[id number] REPORT STATUS: SignedDATE:03/27/24 TIME: 185ATIENT: MARK DEE UNIT #: [id number]#: [id number] [id number]: [address] AGE: 78 SEX: M ATTEND: Malou Luo [facility] AUTHOR: Love Walker NP* ALL edits or amendments must be made on the electronic/computer document *LOVE WALKER 03/27/24 1854:History of Present IllnessHPIChief complaint:AFib with RVRPCP:PCP: No Primary or Family PhysicianHPI:78-year-old male with PMH of paroxysmal AFib, hypertension, hypothyroidismpresented to emergency department as a transfer from [facility]. Patient reports he has been feeling well, no acute complaints and today he hadan appointment with a new doctor for a generalized checkup. While beingexamined he was found to be in AFib with a rapid ventricular rate. He doesreport having a history of AFib, although it has been many years. Not on athinner. He was started on a diltiazem drip and transferred to this facilityfor a higher level of care and telemetry services. Currently he is in nodistress. Patient denies chest pain, shortness of breath, fever, chills, nauseaor vomiting.Hx Obtained From Patient, Prior medical recordsHistoryPast Medical Surgical HxAdditional medical history:Paroxysmal AFib, tobacco abuse, HTN, hypothyroidismFamily HistoryAdditional family history:NoncontributorySocial HistoryAlcohol use: Denies EtOH useDrug use: MarijuanaSmoking status for patients 13 years old or older: Former SmokerMedication/Allergy-Vaccine HxMedications:Home Medications:No Known Home MedicationsAllergies:Coded Allergies:No Known Allergies (03/27/24)Review of SystemsFree Text ROS NotesFree Text ROS Notes:12-point system reviewed and negative except as noted in the HPI.OBJECTIVEVS/I O:Vital Signs Date Temp Pulse Resp B/P B/P Mean Pulse Ox FiO2 03/27-03/28 36.5-36.7 41-116 8-42 120-192/70-129 92-153 90- 98Last Documented: Result Date Time Temp 36.6 03/28 0030 Resp 17 03/28 0030 Pulse Ox 97 02/ 0000 B/P 125/70 02/ 0000 B/P Mean 93 02/ 0000 Pulse 41 02/ 0000 O2 Delivery Room air 03/27 [id number] hour I O ending at 0700: 03/28 0700 03/27 1900 Intake Total 600 Output Total 650 Balance -50 Intake, Oral 600 Output, Urine 650 Patient 67.4 kg 71.364 kg Weight Weight Bed scale Stated/Reported Measurement MethodPatient Weight and BMIWeight (kg): 67.400 BMI: 21.9Medications:Active Meds + DC'd Last 24 HrsPantoprazole Sodium (PROTONIX) 40 MG AC BK POMupirocin (BACTROBAN) 1 APPLIC BID NASALAcetaminophen (TYLENOL) 650 MG Q4HR PRN PRN POCalcium Carbonate (CHEWABLE ANTACID) 1,000 MG Q6HR PRN PRN PO (CKD)Diltiazem HCl (carDIZEM INJ) 125 MG ASDIR IV Sodium Chloride (SODIUM CHLORIDE) 100 MLDocusate Sodium (COLACE) 100 MG BID PRN PRN POHeparin Sodium (Porcine) (Heparin Sodium) 5,000 UNIT Q8H SUBQMelatonin (MELATONIN) 3 MG BEDTIME PRN PRN POOndansetron HCl (ZOFRAN 4 MG/2 ML VIAL) 4 MG Q4HR PRN PRN IVResultsFindings/Data:Laboratory Tests: 03/28 03/28 0327 0326 Chemistry Sodium (135 - 146 MMOL/L) 140 Potassium (3.6 - 5.2 MMOL/L) 3.5 L Chloride (100 - 108 MMOL/L) 105 Carbon Dioxide (21 - 32 MMOL/L) 29 Anion Gap (12 - 21) 10 L BUN (6 - 22 MG/DL) 18 Creatinine (0.5 - 1.3 MG/DL) 1.1 GFR Calculation (>60) 68.3 Random Glucose (70 - 99 MG/DL) 77 Calcium (8.5 - 10.1 MG/DL) 8.5 Corrected Calcium (8.5 - 10.1 MG/DL) 9.3 Magnesium (1.6 - 2.3 MG/DL) 1.9 Total Bilirubin (0.0 - 1.0 MG/DL) 0.8 AST (10 - 45 UNITS/L) 18 ALT (12 - 78 UNITS/L) 22 Total Alk Phosphatase (45 - 132 UNITS/L) 73 Total Protein (6.5 - 8.2 GM/DL) 6.1 L Albumin (3.5 - 4.8 GM/DL) 3.0 L Triglycerides (0 - 149 MG/DL) 34 Cholesterol (0 - 199 MG/DL) 166 LDL Cholesterol (0 - 129 MG/DL) 83 HDL Cholesterol (40 - 60 MG/DL) 76 H TSH 3rd Generation (0.40 - 4.00 uIU/mL) 9.61 HLaboratory Tests03/28/24 0326:[Embedded Image Not Available]Free Text PE NotesFree Text PE Notes:General appearance: alert, awake, no acute distress, conversationalHead/Eyes: atraumatic, normocephalicENT: moist mucosal membranes, normal dentitionNeck: full range of motion, suppleCardiovascular: Atrial fibrillation on monitor, Irregular rate and rhythm, nomurmur, normal s1, a6Qmlbefxofux: clear to auscultation bilateral, symmetric expansion, no distressAbdomen: non-tender, normal bowel sounds, soft, no distentionExtremities: moves all, no edemaMusculoskeletal: normal inspection, painless range of motion, no CVA tendernessNeuro/ABRASIVE GRADER: alert, oriented X 3, normal speechSkin: dry, no rash, no erythemaPsychiatry: normal affect, normal moodDiagnosis, Assessment PlanFree Text A P:AFib with RVR* Admit to PCU* Continuous telemetry* Diltiazem drip, titrate per protocol* Consult cardiology, recs greatly appreciated* Daily labs, trend WBCs, monitor* Replace electrolytes as needed* Echocardiogram in a.m., none on file* Lipids, A1c, TSH pending* Encourage incentive spirometryChronic medical conditions:Hypothyroidism- ? Unclear if on meds, TSH pending*May resume appropriate home medications pending completion of medicationreconciliation and review*VTE ppx: SCDs, heparin SQCode status: Full codeDispo: Pending clinical courseThis note was composed using Fusion-io fluency dictation software and every effortwas made to correct any grammatical and/or spelling errors though some may stillpersist.Consultants: cardiologyPlan discussed with: patientTime spent: Time spent on patient care (minutes): 45 >50% spent on counseling/coordination of care: yesResuscitation discussion: Discussed with: patientCode status: full codeQuality: Gen Med Crit CareVTE ProphylaxisVTE prophylaxis initiated: yesCurrent MedicationsCurrent medication review:I attest that the foregoing medication list in the medical record is true,accurate, and complete to the best of my knowledge.Advanced Care Plan 65 or OlderDiscussed with: patientDiscussion included: code statusBMI Screening > 25 or < 18.5Patient's BMI:Current BMI: 23.2BMI status/follow-up: nml BMI,no school counsellor neededTobacco Use/CounselingTobacco use/counseling: non tobacco user, no counseling neededHTN Screening/Follow- upLast documented vitals:Last Documented: Result Date Time Pulse Ox 98 03/27 171 B/P 192/129 03/27 171 O2 Delivery Room air 03/27 1713 Temp 36.7 03/27 171 Pulse 116 03/27 1714 Resp 20 03/27 171 B/P Mean 153 03/27 1712B/P assess/follow-up: pre-existing hx of HTNBlood pressure ranges/guide:Screening for Hypertension and follow up measure #317Blood pressure parameters Normal B/P SBP </= 119 DBP </= 79 Pre-hypertensive SBP 120-139 DBP 80-89 Hypertensive SBP >/= 140 DBP >/= 90AttestationsAttestation needed: supervising physician at 0441 at 1250RPT #: [id number] OF REPORT London Rogers DO--Mar [facility] ([facility])EMERGENCY PROVIDER REPORTREPORT#:[id number] REPORT STATUS: SignedDATE:03/27/24 TIME: 1741PATIENT: MARK DEE UNIT #: [id number]#: [id number] ROOM/BED: [place] [id number]-CVGD: 44 AGE: 78 SEX: M PCP PHYS: No Primary or Family PhysicianSERVICE AUTHOR: Isaiah Callahan SRV REP SRV TM: 1741* ALL edits or amendments must be made on the electronic/computer document *HPI-General IllnessFree Text HPI NotesFree Text HPI Vwdyq03-vyvw-dun [facility]. 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 Hedenied any chest pain or shortness of air was seen in the ER treated withdiltiazem and started on a drip with improved heart rateArrives in stable condition heart rate irregular AFib at 107. and blood pressure1 80s over 1 teensGeneralInitial Greet Date/Time 03/27/248PresentationChief Complaint __ (Transfer from [facility])Review of SystemsROS StatementsAll systems rev neg except as marked.Past Medical History - AdultStated Complaint [facility] HospitalergiesCoded Allergies:No Known Allergies (03/27/24)Home MedicationsReported MedicationsNo Known Home MedicationsCalculated Suicide Risk (nurs) No riskSmoking status for patients 13 years old or older: Current some day smokerPhysical ExamVital SignsVital SignsFirst Documented: Result Date Time Pulse 108 03/27 1710 Resp 34 03/27 1710 B/P 192/129 03/27 171 B/P Mean 153 03/27 171 Pulse Ox 98 03/27 1713 O2 Delivery Room air 02/05 1714 Temp 36.7 03/27 1714Last Documented: Result Date Time Pulse Ox 98 03/27 1714 B/P 192/129 03/27 1714 O2 Delivery Room air 03/27 1714 Temp 36.7 03/27 171 Pulse 116 03/27 1714 Resp 20 03/27 1714 B/P Mean 153 03/27 1712Review of Vital Signs ReviewedFree Text PE NotesFree Text PE NotesGen: Alert and oriented, no apparent distressHead- AT/NC,Eyes: EOMI, PERRLENT- within normal limitsCV: Rapid rate and irregular rhythm, without murmurPulmonary: Clear to auscultation bilaterally. No wheezes, rales or rhonchiAbdomen: soft, nontender, nondistended. No rebound or guardingMsSk /Extremities: NVI. No edema. Functional range of motion all extremitiesSkin: Warm, dry, no rashNeuro: Intact without focal neurologic deficit. Normal SpeechPsych: Appropriate mood and affect presentRe-Evaluation MDMFree Text MDM NotesFree Text MDM NotesReviewed [facility].Patient currently on a diltiazem drip 5 mg an hourPatient with normal CBC, white count 5.8, hemoglobin 13, hematocrit 38 andplatelets 128Normal chemistry and creatinine 1.0BNP of 2059, troponin [id number]- called and spoke to Love who accepts admit to Dr LuoPatient Discharge DepartureVital Signs/ConditionVital SignsFirst Documented: Result Date Time Pulse 108 03/27 1710 Resp 34 03/27 1710 B/P 192/129 03/27 1712 B/P Mean 153 03/27 1712 Pulse Ox 98 03/27 1714 O2 Delivery Room air 03/27 1714 Temp 36.7 03/27 1714Last Documented: Result Date Time Pulse Ox 98 03/27 1714 B/P 192/129 03/27 1714 O2 Delivery Room air 03/27 1714 Temp 36.7 03/27 171 Pulse 116 03/27 1714 Resp 20 03/27 1714 B/P Mean 153 / 1712All vital signs available at the time of this entry have been reviewed.Condition StableClinical ImpressionClinical ImpressionPrimary Impression: Atrial fibrillation with RVRDisposition DecisionHospitalize Request Date 03/27/24 )( Accepts Hospitalization YesDischarge/Care PlanCounseled Regarding Diagnosis, Need for admission(Auto) PrescriptionsCurrent Visit ScriptsNo Known Home MedicationsReferralsProvider Referral: No Primary or Family PhysicianDeparture FormsAdditional Information/NoticeUniversity [facility]als [facility] One at 2336RPT #: [id number] OF REPORT Problems I10(I10) Onset:28-Mar-2024 Comments:Onset Date: 20240328 I48.3(I48.3) Onset:28-Mar-2024 Comments:Onset Date: 20240328 Atrial fibrillation with rap id ventricular response Onset:27-Mar-2024 London Rogers DO Comments:Onset Date: 20240328 Mental Status Cognitive function finding 27-Mar-2024 Allergies and Adverse Reactions No Known Allergies(Allergy) Onset: 27-Mar-2024 Medications CLARIFY ORDER_J.CLARIFY;[id number] Administration Instructions:The patient is on an ACEI, hasa SCr >= 1.5 mg/dL, and theSCr has risen >= 0.5 mg/dL inthe last 7 days. Evaluate forpossible YEISON and considerdiscontinuing the ACEI. Quantity:0 Valerio Mercado MD Start:3-Val-7102Hfu:27-Apr-2024 Status:Discontinued Comments:[id number] Administration Instructions:The patient is on an ACEI, hasa SCr >= 1.5 mg/dL, and theSCr has risen >= 0.5 mg/dL inthe last 7 days. Evaluate forpossible YEISON and considerdiscontinuing the ACEI. 1 ML ePHEDrine sulfate 50 MG /ML Injection;Provider Administration Instructions:Sound Alike/Look Alike Drug Quantity:1 aFbien Gomez DO Start:29-Mar-2024 Status:Discontinued Comments:Provider Administration Instructions:Sound Alike/Look Alike Drug 2 ML glycopyrrolate 0.2 MG/M L Injection Quantity:1 Fabien Tracya DO Start:29-Mar-2024 Status:Discontinued 20 ML propofol 10 MG/ML Inje ction [Diprivan] Quantity:1 Fabien Gomez DO Start:29-Mar-2024 Status:Discontinued lisinopril 10 MG Oral Tablet ;10 MILLIGRAM DAILY Quantity:1 Fabien Gomez DO Start:9-Vms-3597Peu:26-Apr-2024 Status:Discontinued Comments:[id number] 5 ML lidocaine hydrochloride 20 MG/ML Injection Quantity:1 Fabien Gomez Start:29-Mar-2024 Status:Discontinued 20 ML propofol 10 MG/ML Inje ction [Diprivan] Quantity:1 Fabien Gomez Start:29-Mar-2024 Status:Discontinued ATORVASTATIN CALCIUM 40 MG T ABLET;40 MILLIGRAM BEDTIME Quantity:1 Fabien Gomez Start:5-Gnp-2748Ovj:25-Apr-2024 Status:Discontinued Comments:[id number] thyroid (MCFP) 30 MG Oral Tab let [Caldwell Thyroid];30 MILLIGRAM DAILY Quantity:1 Fabien Gomez DO Start:6-Lfs-7711Pvc:25-Apr-2024 Status:Discontinued Comments:[id number] pantoprazole 40 MG Delayed R elease Oral Tablet;40 MILLIGRAM AC BK Quantity:1 Pedro Rogers NP Start:1-Yqo-9572Gof:25-Apr-2024 Status:Discontinued Comments:[id number] Administration Instructions:FORMULARY SUB FOR PRILOSEC,NEXIUM,ACIPHEX,PREVACIDIN D.IN.STRSSUP metoprolol tartrate 25 MG Or al Tablet;25 MILLIGRAM PO BID Start:28-Mar-2024 Comments:25 MG PO BID lisinopril 10 MG Oral Tablet ;10 MILLIGRAM PO DAILY Start:28-Mar-2024 Comments:10 MG PO DAILY thyroid (MCFP) 30 MG Oral Tab let;30 MILLIGRAM PO DAILY Start:28-Mar-2024 Comments:30 MG PO DAILY amLODIPine 5 MG Oral Tablet; 5 MILLIGRAM PO DAILY Start:28-Mar-2024 Comments:5 MG PO DAILY aspirin 81 MG Delayed Releas e Oral Tablet;81 MILLIGRAM PO DAILY Start:28-Mar-2024 Comments:81 MG PO DAILY Eliquis Starter Pack;5 ROSALVA GRAM PO BID Start:28-Mar-2024 Comments:5 MG PO BID atorvastatin 40 MG Oral Tabl et;40 MILLIGRAM PO BEDTIME Start:28-Mar-2024 Comments:40 MG PO BEDTIME mupirocin 0.02 MG/MG Topical Ointment;1 APPLIC BID Quantity:1 Pedro Rogers AIRCRAFT MAINTENANCE TECHNICIAN Start:7-Aoz-8717Cpl:01-Apr-2024 Status:Discontinued Comments:[id number] Administration Instructions:1 APPL PER NOSTRIL BID FOR 5 DAYS (0R 10 TOTAL DOSES)When given nasally, apply inside the nose. Thenclose nares by pressing and releasing sides of noserepetitively for about 1 min. This spreads ointment. sodium chloride 9 MG/ML Inje ctable Solution;[id number] Administration Instructions:FINAL CONC: 1 MG/ML (TOTAL VOLUME = 125 mL)ADMINISTER VIA INFUSION PUMP Pedro Rogers AIRCRAFT MAINTENANCE TECHNICIAN Start:1-Uda-8841Anh:24-Apr-2024 Status:Discontinued Comments:[id number] Administration Instructions:FINAL CONC: 1 MG/ML (TOTAL VOLUME = 125 mL)ADMINISTER VIA INFUSION PUMP calcium carbonate 500 MG Gabriela wable Tablet;1000 MILLIGRAM Q6HR PRN Quantity:2 Pedro Rogers AIRCRAFT MAINTENANCE TECHNICIAN Start:9-Dqf-0607Tzw:24-Apr-2024 Status:Discontinued Comments:[id number] acetaminophen 325 MG Oral Ta blet [Tylenol];650 MILLIGRAM Q4HR PRN Quantity:2 Pedro Rogers AIRCRAFT MAINTENANCE TECHNICIAN Start:3-Bbf-1796Iez:24-Apr-2024 Status:Discontinued Comments:[id number] Administration Instructions:1st choice for MILD pain OR Temp > 100.5 F/38.1 CMAXIMUM OF 4000 MG PER DAY docusate sodium 100 MG Oral Capsule;100 MILLIGRAM BID PRN Quantity:1 Pedro Rogers AIRCRAFT MAINTENANCE TECHNICIAN Start:8-Iif-4556Csp:24-Apr-2024 Status:Discontinued Comments:[id number] 1 ML heparin sodium, porcine 5000 UNT/ML Injection;5000 UNIT Q8H Quantity:1 Pedro Rogers AIRCRAFT MAINTENANCE TECHNICIAN Start:8-Fbh-3751Acc:24-Apr-2024 Status:Discontinued Comments:Provider Administration Instructions:DO NOT USE WITH ENOXAPARIN melatonin 3 MG Oral Tablet;3 MILLIGRAM BEDTIME PRN Quantity:1 Pedro Rogers AIRCRAFT MAINTENANCE TECHNICIAN Start:9-Dks-9381Eck:24-Apr-2024 Status:Discontinued Comments:[id number] ondansetron 2 MG/ML Injectab le Solution;4 MILLIGRAM Q4HR PRN Quantity:1 Pedro Mcbrideta Sue AIRCRAFT MAINTENANCE TECHNICIAN Start:6-Ozg-1493Rve:24-Apr-2024 Status:Discontinued Comments:[id number] Procedures Buddhist of Cardiac Rhythm, Single Da te:29-Mar-2024 Ultrasonography of Heart with Aorta, Tra nsesophageal Date:29-Mar-2024 Social History Smoking Status Occasional tobacco smoker Recorded: 27-Mar-2024 Results CBC AUTO DIFF/MAN IF INDICATED Ordered On:30-Mar-2024 03:44 BASOPHIL %1% BASOS ABSOLUTE0.010*3/uL(Normal) Range:010*3/uL-0.110*3/uL EOSINOPHIL %3% EOSINOPHILS ABSOLUTE0.210*3/uL(Normal) Range:010*3/uL-0.510*3/uL HCT33.1%(Low) Range:38.4%-50.8 % SALAHIPBIS74.9g/dL(Low) Range:13 .5g/dL-16.5g/dL IMMATURE GRAN #0.010*3/uL(Normal) Range:010*3/uL-0.210*3/uL IMMATURE GRAN %0%(Normal) Range: 0%-1.5% Comments:Immature granulocytes (promyelocytes, myelocytes, andmetamyelocytes) >1.5% indicates that a left shift ispresent. Bands are included in the automated neutrophilcount and not in the IG fraction. LYMPHOCYTE %26% LYMPHOCYTE ABSOLUTE1.610*3/uL(Normal) Range:0.810*3/uL-410*3/uL MEAN CELL HGB31.2pg(Normal) Rang e:28.3pg-33.7pg MEAN CELL HGB WQFVHDINZQRH09.9g/dL(Normal ) Range:31.9g/dL-36.1g/dL MEAN CELL HWWMDQ68.8fL(Normal) Range:81.8fL-97.9fL MONOS ABSOLUTE0.710*3/uL(Normal) Range:0.310*3/uL-1.210*3/uL MONOCYTE %12% MEAN PLATELET GTBFNI36.5fL(Normal) Range:9.4fL-12.4fL NEUTROPHILS ABSOLUTE3.510*3/uL(Normal) Range:2.310*3/uL-7.810*3/uL NEUTROPHIL %58% RFETIYXD54572*3/uL(Low) Range:12 610*3/uL-01126*3/uL RED BLOOD CELL3.4910*6/uL(Low) Range:4.110*6/uL-5.810*6/uL RDW12.2%(Normal) Range:11.9%-15. 1% WHITE BLOOD CELL5.910*3/uL(Normal) Range:4.110*3/uL-11.110*3/uL METABOLIC COMPREHENSIVE PANEL Ordered On:30-Mar-2024 04:18 ALBUMIN2.8g/dL(Low) Range:3.5g/ dL-4.8g/dL ALKALINE PHOSPHATASE YMAYX13F/L(Normal) Range:45U/L-132U/L SGPT/ALT25U/L(Normal) Range:12U/ L-78U/L SGOT/AST27U/L(Normal) Range:10U/ L-45U/L BILIRUBIN TOTAL0.3mg/dL(Normal) Range:0mg/dL-1mg/dL BLOOD UREA IQTPLHVO86gq/dL(High) Range:6mg/dL-22mg/dL CALCIUM8.5mg/dL(Normal) Range:8. 5mg/dL-10.1mg/dL CORRECTED CALCIUM9.5mg/dL(Normal) Range:8.5mg/dL-10.1mg/dL Comments:CALCIUM CORRECTED FOR ALBUMIN RNVRENJE354csie/L(Normal) Range: 100mmol/L-108mmol/L CARBON BHYDVJA86nsav/L(Normal) Range:21mmol/L-32mmol/L CREATININE1.8mg/dL(High) Range:0 .5mg/dL-1.3mg/dL ANION GAP12(Normal) Range:12-21 GLOMERULAR FILTRATIO N RATE37.8(Abnormal) Range:60-0 Comments:The Glomerular Filtration Rate is a calculated parameterbased on serum Creatinine levels, patient age, and sex. GFRvalues less than 60 mL/min/1.73 square meters are indicativeof Chronic Kidney Disease. Values less than 15 mL/min/1.73square meters indicate Kidney failure.The calculation for GFR is based on the CKD-EPI(2020)calculation. This formula is race indifferent and is therecommended formula for GFR by the National KidneyFoundation for adults. GLUCOSE KLHPQS995ic/dL(High) Range:70mg/dL-99mg/dL POTASSIUM4.2mmol/L(Normal) Range :3.6mmol/L-5.2mmol/L FFCMSX184esns/L(Normal) Range:13 5mmol/L-146mmol/L TOTAL PROTEIN5.7g/dL(Low) Range: 6.5g/dL-8.2g/dL MAGNESIUM Ordered On:30-Mar-2024 04:18 MAGNESIUM1.9mg/dL(Normal) Range :1.6mg/dL-2.3mg/dL METABOLIC COMPREHENSIVE PANEL Ordered On:29-Mar-2024 04:26 ALBUMIN3.0g/dL(Low) Range:3.5g/ dL-4.8g/dL ALKALINE PHOSPHATASE SRIVR33L/L(Normal) Range:45U/L-132U/L SGPT/ALT21U/L(Normal) Range:12U/ L-78U/L SGOT/AST19U/L(Normal) Range:10U/ L-45U/L BILIRUBIN TOTAL0.6mg/dL(Normal) Range:0mg/dL-1mg/dL BLOOD UREA WNESHSQS67sp/dL(High) Range:6mg/dL-22mg/dL CALCIUM8.6mg/dL(Normal) Range:8. 5mg/dL-10.1mg/dL CORRECTED CALCIUM9.4mg/dL(Normal) Range:8.5mg/dL-10.1mg/dL Comments:CALCIUM CORRECTED FOR ALBUMIN ZYEARHGT707xooa/L(Normal) Range: 100mmol/L-108mmol/L CARBON EUZVJFR09yzqv/L(Normal) Range:21mmol/L-32mmol/L CREATININE1.3mg/dL(Normal) Range :0.5mg/dL-1.3mg/dL ANION GAP13(Normal) Range:12-21 GLOMERULAR FILTRATIO N RATE55.9(Abnormal) Range:60-0 Comments:The Glomerular Filtration Rate is a calculated parameterbased on serum Creatinine levels, patient age, and sex. GFRvalues less than 60 mL/min/1.73 square meters are indicativeof Chronic Kidney Disease. Values less than 15 mL/min/1.73square meters indicate Kidney failure.The calculation for GFR is based on the CKD-EPI(2020)calculation. This formula is race indifferent and is therecommended formula for GFR by the National KidneyFoundation for adults. GLUCOSE ZXSUMD10ab/dL(Normal) Range:70mg/dL-99mg/dL POTASSIUM3.8mmol/L(Normal) Range :3.6mmol/L-5.2mmol/L GYAKJC374ttwx/L(Normal) Range:13 5mmol/L-146mmol/L TOTAL PROTEIN6.1g/dL(Low) Range: 6.5g/dL-8.2g/dL MAGNESIUM Ordered On:29-Mar-2024 04:26 MAGNESIUM1.9mg/dL(Normal) Range :1.6mg/dL-2.3mg/dL CBC AUTO DIFF/MAN IF INDICATED Ordered On:29-Mar-2024 05:18 BASOPHIL %1% BASOS ABSOLUTE0.010*3/uL(Normal) Range:010*3/uL-0.110*3/uL EOSINOPHIL %4% EOSINOPHILS ABSOLUTE0.210*3/uL(Normal) Range:010*3/uL-0.510*3/uL HCT38.0%(Low) Range:38.4%-50.8 % OZHYPNVXZR04.7g/dL(Low) Range:13 .5g/dL-16.5g/dL IMMATURE GRAN #0.010*3/uL(Normal) Range:010*3/uL-0.210*3/uL IMMATURE GRAN %0%(Normal) Range: 0%-1.5% Comments:Immature granulocytes (promyelocytes, myelocytes, andmetamyelocytes) >1.5% indicates that a left shift ispresent. Bands are included in the automated neutrophilcount and not in the IG fraction. LYMPHOCYTE %30% LYMPHOCYTE ABSOLUTE1.610*3/uL(Normal) Range:0.810*3/uL-410*3/uL MEAN CELL HGB31.2pg(Normal) Rang e:28.3pg-33.7pg MEAN CELL HGB UPWMTSEVDEGI20.4g/dL(Normal ) Range:31.9g/dL-36.1g/dL MEAN CELL SOODFW96.4fL(Normal) Range:81.8fL-97.9fL MONOS ABSOLUTE0.610*3/uL(Normal) Range:0.310*3/uL-1.210*3/uL MONOCYTE %11% MEAN PLATELET IGECOS30.5fL(Normal) Range:9.4fL-12.4fL NEUTROPHILS ABSOLUTE2.910*3/uL(Normal) Range:2.310*3/uL-7.810*3/uL NEUTROPHIL %54% SPDPJJOH02327*3/uL(Normal) Range :68618*3/uL-55233*3/uL RED BLOOD CELL4.0710*6/uL(Low) Range:4.110*6/uL-5.810*6/uL RDW11.9%(Normal) Range:11.9%-15. 1% WHITE BLOOD CELL5.410*3/uL(Normal) Range:4.110*3/uL-11.110*3/uL MRSA Surveillance Screen Ordered On:28-Mar-2024 02:28 MRSA SURVEILLANCE SCREENSpecialResults:MRSANG MRSA ChromAgar Screen Negative THYROID CASCADE Ordered On:28-Mar-2024 Comments:A dd on test: Y 03-Apr-2024 11:45 THYROID STIMULATING HORMONE9.61{uIU/mL}(High) Range:0.4{uIU/mL}-4{uIU/mL} T4 FREE Ordered On:28-Mar-2024 Comments:A dd on test: Y 03-Apr-2024 11:45 T4 FREE0.99ng/dL Range:0.9ng/d L-1.94ng/dL AB THYROID PEROXIDASE Ordered On:28-Mar-2024 Comm ents:Add on test: Y 03-Apr-2024 11:45 AB THYROID PEROXIDASE<10.0 Ran ge:0-35 Comments:Reported in International Units/ML T4 FREE Ordered On:28-Mar-2024 Comments:A dd on test: Y 03-Apr-2024 11:44 T4 FREE0.99ng/dL(Normal) Range :0.9ng/dL-1.94ng/dL AB THYROID PEROXIDASE Ordered On:28-Mar-2024 Comm ents:Add on test: Y 03-Apr-2024 11:44 AB THYROID PEROXIDASE<10.0(Normal) Range:0-35 Comments:Reported in International Units/ML METABOLIC COMPREHENSIVE PANEL Ordered On:28-Mar-2024 04:13 ALBUMIN3.0g/dL(Low) Range:3.5g/ dL-4.8g/dL ALKALINE PHOSPHATASE VRIBM64P/L(Normal) Range:45U/L-132U/L SGPT/ALT22U/L(Normal) Range:12U/ L-78U/L SGOT/AST18U/L(Normal) Range:10U/ L-45U/L BILIRUBIN TOTAL0.8mg/dL(Normal) Range:0mg/dL-1mg/dL BLOOD UREA FJWJTXLN51tg/dL(Normal) Range:6mg/dL-22mg/dL CALCIUM8.5mg/dL(Normal) Range:8. 5mg/dL-10.1mg/dL CORRECTED CALCIUM9.3mg/dL(Normal) Range:8.5mg/dL-10.1mg/dL Comments:CALCIUM CORRECTED FOR ALBUMIN KEHBBHZG469fpel/L(Normal) Range: 100mmol/L-108mmol/L CARBON YPUEIMB51kwqu/L(Normal) Range:21mmol/L-32mmol/L CREATININE1.1mg/dL(Normal) Range :0.5mg/dL-1.3mg/dL ANION GAP10(Low) Range:12-21 GLOMERULAR FILTRATIO N RATE68.3 Range:60-0 Comments:The Glomerular Filtration Rate is a calculated parameterbased on serum Creatinine levels, patient age, and sex. GFRvalues less than 60 mL/min/1.73 square meters are indicativeof Chronic Kidney Disease. Values less than 15 mL/min/1.73square meters indicate Kidney failure.The calculation for GFR is based on the CKD-EPI(2020)calculation. This formula is race indifferent and is therecommended formula for GFR by the National KidneyFoundation for adults. GLUCOSE ZAJPEO79lk/dL(Normal) Range:70mg/dL-99mg/dL POTASSIUM3.5mmol/L(Low) Range:3. 6mmol/L-5.2mmol/L ZXYOHR742ditf/L(Normal) Range:13 5mmol/L-146mmol/L TOTAL PROTEIN6.1g/dL(Low) Range: 6.5g/dL-8.2g/dL LIPID PROFILE Ordered On:28-Mar-2024 04:13 GUQWEWXYTQF672vi/dL(Normal) Ran ge:0mg/dL-199mg/dL HDL ESQSJWLWORK32st/dL(High) Range:40mg/dL-60mg/dL LIPOPROTEIN PYJ25ya/dL(Normal) Range:0mg/dL-129mg/dL OPTVBZLVEUKAG42ji/dL (Normal ) Range:0mg/dL-149mg/dL MAGNESIUM Ordered On:28-Mar-2024 04:13 MAGNESIUM1.9mg/dL(Normal) Range :1.6mg/dL-2.3mg/dL CBC AUTO DIFF/MAN IF INDICATED Ordered On:28-Mar-2024 05:56 BASOPHIL %1% BASOS ABSOLUTE0.110*3/uL(Normal) Range:010*3/uL-0.110*3/uL EOSINOPHIL %3% EOSINOPHILS ABSOLUTE0.210*3/uL(Normal) Range:010*3/uL-0.510*3/uL HCT35.7%(Low) Range:38.4%-50.8 % DXZNNHIJFT66.0g/dL(Low) Range:13 .5g/dL-16.5g/dL IMMATURE GRAN #0.010*3/uL(Normal) Range:010*3/uL-0.210*3/uL IMMATURE GRAN %0%(Normal) Range: 0%-1.5% Comments:Immature granulocytes (promyelocytes, myelocytes, andmetamyelocytes) >1.5% indicates that a left shift ispresent. Bands are included in the automated neutrophilcount and not in the IG fraction. LYMPHOCYTE %28% LYMPHOCYTE ABSOLUTE1.510*3/uL(Normal) Range:0.810*3/uL-410*3/uL MEAN CELL HGB31.6pg(Normal) Rang e:28.3pg-33.7pg MEAN CELL HGB BSQXGJICBCHV01.6g/dL(Normal ) Range:31.9g/dL-36.1g/dL MEAN CELL EECEAO48.9fL(Normal) Range:81.8fL-97.9fL MONOS ABSOLUTE0.610*3/uL(Normal) Range:0.310*3/uL-1.210*3/uL MONOCYTE %12% MEAN PLATELET JPHMMH51.2fL(Normal) Range:9.4fL-12.4fL NEUTROPHILS ABSOLUTE3.010*3/uL(Normal) Range:2.310*3/uL-7.810*3/uL NEUTROPHIL %56% LCTWISDH14710*3/uL(Low) Range:12 610*3/uL-79802*3/uL RED BLOOD CELL3.8010*6/uL(Low) Range:4.110*6/uL-5.810*6/uL RDW12.0%(Normal) Range:11.9%-15. 1% WHITE BLOOD CELL5.410*3/uL(Normal) Range:4.110*3/uL-11.110*3/uL GLYCO(A1C) WITH EAG Ordered On:28-Mar-2024 10:16 ESTIMATED AVERAGE KGSFGPM396ra/dL(Normal) Range:68mg/dL-114mg/dL Comments:HbA1c assay is certified to [employer].eAG represents the calculation of estimated average glucoseas recommended by [employer] 2008: 31: 1473. GLYCOSYLATED HEMOGLO BIN (HA1C)5.2%(Normal) Range:4%-5.6% Comments:Please note: Diagnosis HbA1c(%) ++++++++++++++++++++++++++++++ ++++++++++++++++++ Diabetic >=6.5 Prediabetes 5.7-6.4 Normal <5.7 GLYCO(A1C) WITH EAG Ordered On:28-Mar-2024 10:16 ESTIMATED AVERAGE PVNPMKD094jx/dL Range:68mg/dL-114mg/dL Comments:HbA1c assay is certified to [facility].eAG represents the calculation of estimated average glucoseas recommended by [employer] 2008: 31: 1473. GLYCOSYLATED HEMOGLO BIN (HA1C)5.2% Range:4%-5.6% Comments:Please note: Diagnosis HbA1c(%) ++++++++++++++++++++++++++++++ ++++++++++++++++++ Diabetic >=6.5 Prediabetes 5.7-6.4 Normal <5.7 Vital Signs 30-Mar-2024 12:01 Pulse46 Comments:46 Respiratory Rate31 Comments:31 O2 SAT99% Comments:99 BP Irmapjpn721qp[Hg] Comments:16 3 BP Pvzsirlps26ha[Hg] Comments:79 30-Mar-2024 11:06 Wwyvhemmqyw63.1f Comments:98.1 30-Mar-2024 08:16 Rgayexxblzk87.5f Comments:98.5 30-Mar-2024 08:00 Pulse52 Comments:52 Respiratory Rate26 Comments:26 O2 PWT728% Comments:100 BP Trwplavj792fb[Hg] Comments:15 6 BP Heceubpty83tp[Hg] Comments:85 30-Mar-2024 04:01 Pulse46 Comments:46 O2 SAT99% Comments:99 BP Gvaqxpxt665hg[Hg] Comments:15 3 BP Lmgijkfpy44an[Hg] Comments:74 30-Mar-2024 04:00 Pulse42 Comments:42 Respiratory Rate18 Comments:18 30-Mar-2024 04:00 Ofgunkykecy44.2f Comments:98.2 Oadydn76.7kg Comments:67.700 30-Mar-2024 04:00 AQW21os/m2 Comments:22.0 30-Mar-2024 00:15 O2 BGR908% Comments:100 30-Mar-2024 00:01 Pulse40 Comments:40 Respiratory Rate21 Comments:21 O2 SAT95% Comments:95 BP Strsdwkm884gx[Hg] Comments:11 1 BP Rqnckndya60he[Hg] Comments:59 8 Ybycsojpntb73.1f Comments:98.1 29-Mar-2024 20:00 Pulse39 Comments:39 Respiratory Rate17 Comments:17 O2 ZGE150% Comments:100 BP Axzpipca936uj[Hg] Comments:14 9 BP Ehbhqryta77ee[Hg] Comments:70 29-Mar-2024 20:00 Svfuqbovxnj39.2f Comments:98.2 29-Mar-2024 19:30 Pulse40 Comments:40 Respiratory Rate18 Comments:18 O2 URY609% Comments:100 BP Xmeoychg886hf[Hg] Comments:13 3 BP Fxtxifizw93dh[Hg] Comments:69 29-Mar-2024 19:15 Pulse38 Comments:38 Respiratory Rate16 Comments:16 O2 ZCC526% Comments:100 BP Kgnaxqhg729lc[Hg] Comments:14 6 BP Lkkqhoafo51hj[Hg] Comments:65 29-Mar-2024 19:00 Pulse40 Comments:40 Respiratory Rate19 Comments:19 O2 SAT99% Comments:99 BP Rjwktptd048qa[Hg] Comments:14 7 BP Jaanrjnye77ym[Hg] Comments:71 29-Mar-2024 19:00 Pulse38 Comments:38 29-Mar-2024 16:45 Pulse41 Comments:41 Respiratory Rate15 Comments:15 O2 PRX881% Comments:100 BP Qrovcxst643lw[Hg] Comments:12 3 BP Hgokerjiv87rh[Hg] Comments:72 29-Mar-2024 16:30 Pulse64 Comments:64 Respiratory Rate20 Comments:20 BP Xkvzztuh205ga[Hg] Comments:13 1 BP Tmhehbzyk82tu[Hg] Comments:80 29-Mar-2024 16:15 Pulse38 Comments:38 Respiratory Rate10 Comments:10 O2 MIO319% Comments:100 BP Ghndbzgj863ep[Hg] Comments:11 9 BP Sqwwvszge28ax[Hg] Comments:71 29-Mar-2024 16:00 Pulse45 Comments:45 Respiratory Rate28 Comments:28 O2 RAR704% Comments:100 BP Bioyikrl752wc[Hg] Comments:11 4 BP Atveuciwf77fi[Hg] Comments:65 Xufiwkojqrf35.6f Comments:97.6 29-Mar-2024 15:45 Pulse42 Comments:42 Respiratory Rate20 Comments:20 O2 SAT88% Comments:88 BP Fnmipokh324te[Hg] Comments:10 9 BP Pxkqevodq19bp[Hg] Comments:59 29-Mar-2024 15:30 Pulse46 Comments:46 Respiratory Rate22 Comments:22 O2 RVJ463% Comments:100 BP Vznrzeff854wv[Hg] Comments:13 4 BP Gawwvxbbg88ew[Hg] Comments:74 29-Mar-2024 15:15 Pulse38 Comments:38 Respiratory Rate15 Comments:15 O2 SAT99% Comments:99 BP Lurppqpi453um[Hg] Comments:14 3 BP Otwcxuvaa24cl[Hg] Comments:72 29-Mar-2024 15:00 Pulse38 Comments:38 Respiratory Rate14 Comments:14 O2 NYP541% Comments:100 BP Itfstvgw289vq[Hg] Comments:14 9 BP Iodpkmbpk77ug[Hg] Comments:83 29-Mar-2024 14:46 Pulse42 Comments:42 Respiratory Rate24 Comments:24 O2 SBG762% Comments:100 BP Ayvagtry314qm[Hg] Comments:15 6 BP Xckkomnql12kw[Hg] Comments:72 29-Mar-2024 14:16 Pulse42 Comments:42 Respiratory Rate20 Comments:20 O2 JXX635% Comments:100 BP Yaojgune019ey[Hg] Comments:13 9 BP Btpxzkkuv82hg[Hg] Comments:74 29-Mar-2024 14:01 Pulse48 Comments:48 Respiratory Rate23 Comments:23 O2 EGH537% Comments:100 BP Pmpnnkxu925cu[Hg] Comments:16 2 BP Kdajdomxo07or[Hg] Comments:85 29-Mar-2024 13:45 Pulse39 Comments:39 Respiratory Rate17 Comments:17 O2 DGB330% Comments:100 BP Orokrinc108wl[Hg] Comments:16 2 BP Orbbcrqpp86lc[Hg] Comments:90 29-Mar-2024 13:30 Pulse39 Comments:39 Respiratory Rate17 Comments:17 O2 XNV266% Comments:100 BP Odhjjyta790jx[Hg] Comments:14 0 BP Rpxrhbnzb28eq[Hg] Comments:82 29-Mar-2024 13:15 Pulse36 Comments:36 Respiratory Rate18 Comments:18 O2 YEL585% Comments:100 BP Qxoqriqa229vu[Hg] Comments:15 3 BP Wownfvkfp03ag[Hg] Comments:76 29-Mar-2024 13:00 Pulse38 Comments:38 Respiratory Rate20 Comments:20 O2 QLW187% Comments:100 BP Lijqqhjd889qa[Hg] Comments:12 3 BP Zyfujvasi26lc[Hg] Comments:61 29-Mar-2024 12:46 Pulse44 Comments:44 Respiratory Rate17 Comments:17 O2 SAT92% Comments:92 BP Cxsogwdf332ws[Hg] Comments:14 8 BP Qisufbheh26sz[Hg] Comments:70 29-Mar-2024 12:31 Pulse37 Comments:37 Respiratory Rate30 Comments:30 O2 SCV970% Comments:100 BP Ucjeabwq336dn[Hg] Comments:15 2 BP Exasgpshm32wn[Hg] Comments:73 29-Mar-2024 12:15 Pulse40 Comments:40 Respiratory Rate24 Comments:24 O2 TAO123% Comments:100 BP Zoafrehu517ra[Hg] Comments:12 8 BP Mgmnnmigr16hx[Hg] Comments:73 29-Mar-2024 12:00 Ydjvcoapzqu63.5f Comments:97.5 Pulse41 Comments:41 Respiratory Rate20 Comments:20 O2 CDR774% Comments:100 BP Crybftmr090on[Hg] Comments:13 3 BP Jntjheuxt66sr[Hg] Comments:75 29-Mar-2024 11:06 Pulse63 Comments:63 Respiratory Rate20 Comments:20 Rljnhcmndyv75.1c Comments:36.1 O2 SAT96% Comments:96 BP Eildmukl185ky[Hg] Comments:15 8 BP Nihgwugrl44ou[Hg] Comments:81 29-Mar-2024 09:30 Pulse63 Comments:63 Respiratory Rate18 Comments:18 O2 SAT99% Comments:99 BP Uhgqyubd342qp[Hg] Comments:15 3 BP Hqitycifd98ij[Hg] Comments:89 29-Mar-2024 09:00 Pulse64 Comments:64 Respiratory Rate13 Comments:13 O2 SAT98% Comments:98 BP Huejwxyy446gj[Hg] Comments:14 4 BP Bnddtjhtt61jo[Hg] Comments:87 29-Mar-2024 08:30 Pulse64 Comments:64 Respiratory Rate19 Comments:19 O2 SAT99% Comments:99 BP Jbedpmhz976hg[Hg] Comments:13 8 BP Owicxhdry96mm[Hg] Comments:90 29-Mar-2024 08:00 Pulse63 Comments:63 Respiratory Rate21 Comments:21 O2 SAT98% Comments:98 BP Wkghllmb218uh[Hg] Comments:15 1 BP Njbvbrkmr44eq[Hg] Comments:91 Snfvzgxboxk46.7f Comments:97.7 29-Mar-2024 07:30 Pulse63 Comments:63 Respiratory Rate14 Comments:14 O2 SAT96% Comments:96 BP Sxldygao450ok[Hg] Comments:14 8 BP Roodolcis19yc[Hg] Comments:93 29-Mar-2024 07:00 Pulse63 Comments:63 Respiratory Rate15 Comments:15 O2 SAT97% Comments:97 BP Sesqellw779al[Hg] Comments:11 9 BP Epbkzeemw89do[Hg] Comments:70 29-Mar-2024 06:30 Pulse60 Comments:60 Respiratory Rate14 Comments:14 O2 SAT96% Comments:96 BP Bdexvypv362pw[Hg] Comments:14 0 BP Ktnjmrtzl47rt[Hg] Comments:83 29-Mar-2024 06:00 Pulse60 Comments:60 Respiratory Rate15 Comments:15 O2 SAT96% Comments:96 BP Prvvuxch851xh[Hg] Comments:15 4 BP Vpncdhyvr05kr[Hg] Comments:93 29-Mar-2024 05:30 Pulse61 Comments:61 Respiratory Rate18 Comments:18 O2 SAT97% Comments:97 BP Jzwsimwf761vg[Hg] Comments:14 0 BP Eejgljqtd99xb[Hg] Comments:92 29-Mar-2024 05:01 Pulse62 Comments:62 Respiratory Rate24 Comments:24 O2 SAT95% Comments:95 BP Xhgnswqn054oy[Hg] Comments:14 2 BP Ukmnfrszb26ok[Hg] Comments:83 29-Mar-2024 04:30 Pulse60 Comments:60 Respiratory Rate14 Comments:14 O2 SAT96% Comments:96 BP Fmlvlzog993la[Hg] Comments:13 1 BP Vngiyhqww22qy[Hg] Comments:79 29-Mar-2024 04:25 Nkcyialrdtj75.7f Comments:97.7 Hgjtre83.6kg Comments:66.600 29-Mar-2024 04:00 Pulse60 Comments:60 Respiratory Rate16 Comments:16 O2 SAT95% Comments:95 BP Xeyzhmyf467ik[Hg] Comments:13 5 BP Fmfuvihlx06so[Hg] Comments:85 29-Mar-2024 03:30 Pulse62 Comments:62 Respiratory Rate16 Comments:16 O2 SAT96% Comments:96 BP Xznstpsb303pc[Hg] Comments:11 9 BP Wnhktevgf88zd[Hg] Comments:63 29-Mar-2024 03:00 Pulse63 Comments:63 Respiratory Rate17 Comments:17 O2 SAT96% Comments:96 BP Llekbfha581hg[Hg] Comments:11 4 BP Zlipluiwk03ea[Hg] Comments:77 29-Mar-2024 02:30 Pulse62 Comments:62 Respiratory Rate19 Comments:19 O2 SAT99% Comments:99 BP Exqaovuo486tr[Hg] Comments:13 1 BP Cgchlvnfo56ye[Hg] Comments:80 29-Mar-2024 02:00 Pulse61 Comments:61 Respiratory Rate25 Comments:25 O2 SAT96% Comments:96 BP Mzroyewf893qh[Hg] Comments:13 1 BP Hjkesdocg72sa[Hg] Comments:76 29-Mar-2024 01:30 Pulse60 Comments:60 Respiratory Rate16 Comments:16 O2 SAT97% Comments:97 BP Ddaysngf293xn[Hg] Comments:13 1 BP Gjqetghgq67ou[Hg] Comments:77 29-Mar-2024 01:00 Pulse63 Comments:63 Respiratory Rate17 Comments:17 O2 SAT97% Comments:97 BP Rmswgdjv921mk[Hg] Comments:12 2 BP Wtewbunfo47uc[Hg] Comments:78 29-Mar-2024 00:30 Pulse61 Comments:61 Respiratory Rate12 Comments:12 O2 SAT97% Comments:97 BP Tcfjgdfk129dy[Hg] Comments:13 0 BP Hdkyylavn34xt[Hg] Comments:78 29-Mar-2024 Cennursiyex06p Comments:98.0 29-Mar-2024 Pulse60 Comments:60 Respiratory Rate16 Comments:16 O2 SAT97% Comments:97 BP Xpynceks078wv[Hg] Comments:12 1 BP Vpkzoqpwh55qi[Hg] Comments:75 28-Mar-2024 23:30 Pulse62 Comments:62 Respiratory Rate30 Comments:30 O2 SAT97% Comments:97 BP Hjfczboh143jf[Hg] Comments:12 7 BP Bhkhhzrdd58ve[Hg] Comments:81 28-Mar-2024 23:00 Pulse61 Comments:61 Respiratory Rate16 Comments:16 O2 SAT97% Comments:97 BP Ydigzkjh797bm[Hg] Comments:12 7 BP Ffqfwyxih93uh[Hg] Comments:72 28-Mar-2024 22:30 Pulse62 Comments:62 Respiratory Rate16 Comments:16 O2 SAT96% Comments:96 BP Csmuebjy497an[Hg] Comments:11 7 BP Agzwlfrkv36sn[Hg] Comments:60 28-Mar-2024 22:00 Pulse61 Comments:61 Respiratory Rate16 Comments:16 O2 SAT95% Comments:95 BP Itkukxap007zm[Hg] Comments:13 6 BP Dayhzlbna84yh[Hg] Comments:71 28-Mar-2024 21:30 Pulse62 Comments:62 Respiratory Rate18 Comments:18 O2 SAT96% Comments:96 BP Xnwpfutp231we[Hg] Comments:11 4 BP Vygkanxvb00pj[Hg] Comments:66 28-Mar-2024 21:00 Pulse64 Comments:64 Respiratory Rate18 Comments:18 O2 SAT97% Comments:97 BP Houdrwdh954ag[Hg] Comments:12 1 BP Jrlzoalwa10gn[Hg] Comments:74 28-Mar-2024 20:30 Pulse68 Comments:68 Respiratory Rate18 Comments:18 O2 SAT97% Comments:97 BP Gymdgrrx443ay[Hg] Comments:10 2 BP Fcdegdqhp04cf[Hg] Comments:58 28-Mar-2024 20:00 Pulse63 Comments:63 Respiratory Rate17 Comments:17 O2 SAT96% Comments:96 BP Hbbmgwdt209sq[Hg] Comments:12 3 BP Ycjgypyho52jo[Hg] Comments:77 28-Mar-2024 20:00 Zzyhvkeqeog22h Comments:98.0 28-Mar-2024 19:30 Pulse67 Comments:67 Respiratory Rate17 Comments:17 O2 SAT96% Comments:96 BP Vzoyglwl194ip[Hg] Comments:13 7 BP Ruubbhxgl63hj[Hg] Comments:73 28-Mar-2024 19:15 Pulse84 Comments:84 Respiratory Rate18 Comments:18 O2 SAT96% Comments:96 28-Mar-2024 19:01 Pulse83 Comments:83 O2 SAT93% Comments:93 BP Mwzkoeqr942wh[Hg] Comments:13 1 BP Cdzdmpttj12ip[Hg] Comments:81 28-Mar-2024 19:00 Pulse90 Comments:90 O2 SAT92% Comments:92 28-Mar-2024 19:00 Pulse74 Comments:74 28-Mar-2024 18:30 Pulse66 Comments:66 Respiratory Rate18 Comments:18 O2 SAT97% Comments:97 BP Namlawaa418cf[Hg] Comments:12 0 BP Fwpnvzuwk06fb[Hg] Comments:74 28-Mar-2024 18:00 Pulse74 Comments:74 Respiratory Rate18 Comments:18 O2 SAT96% Comments:96 BP Fyrwfzmy414lz[Hg] Comments:13 2 BP Gujlximay47mr[Hg] Comments:76 28-Mar-2024 18:00 Uxathopaetl07.8f Comments:97.8 28-Mar-2024 17:45 Uvyht978 Comments:109 Respiratory Rate26 Comments:26 O2 SAT89% Comments:89 28-Mar-2024 17:30 Pulse73 Comments:73 Respiratory Rate26 Comments:26 O2 SAT89% Comments:89 BP Yiifkrsl895qd[Hg] Comments:14 7 BP Lzikvzeps50xq[Hg] Comments:84 28-Mar-2024 17:00 Pulse65 Comments:65 Respiratory Rate24 Comments:24 O2 SAT97% Comments:97 BP Cdsdepnd169pr[Hg] Comments:13 0 BP Avdryfjdj06lp[Hg] Comments:95 28-Mar-2024 16:30 Pulse65 Comments:65 Respiratory Rate15 Comments:15 O2 SAT98% Comments:98 BP Vzpjmlhh372gq[Hg] Comments:13 6 BP Mobbusyqj92rh[Hg] Comments:88 28-Mar-2024 16:00 Pulse65 Comments:65 Respiratory Rate17 Comments:17 O2 SAT97% Comments:97 BP Witztonq471uo[Hg] Comments:12 7 BP Tvkogttnn38xa[Hg] Comments:79 28-Mar-2024 12:00 Cmdofxjkboe77.8f Comments:97.8 28-Mar-2024 12:00 Uglpp709 Comments:107 Respiratory Rate22 Comments:22 O2 SAT93% Comments:93 BP Awvihphz851ab[Hg] Comments:13 2 BP Yvgxmgwis18sr[Hg] Comments:84 28-Mar-2024 11:30 Qqnvi158 Comments:106 Respiratory Rate11 Comments:11 O2 SAT97% Comments:97 BP Bbzfjsbo621bd[Hg] Comments:13 9 BP Sxhkcjqti538ig[Hg] Comments:1 03 28-Mar-2024 11:07 Jefhn619 Comments:114 Respiratory Rate24 Comments:24 O2 SAT98% Comments:98 BP Qowllmaa938qv[Hg] Comments:14 7 BP Lzwjrgdjj96ki[Hg] Comments:77 28-Mar-2024 11:01 Ovvmf605 Comments:121 Respiratory Rate31 Comments:31 O2 SAT97% Comments:97 BP Srlbkmwz854hx[Hg] Comments:16 4 BP Wptebpnct390cy[Hg] Comments:1 05 28-Mar-2024 10:30 Pulse82 Comments:82 Respiratory Rate10 Comments:10 O2 SAT97% Comments:97 BP Hhjxvbim734ns[Hg] Comments:12 5 BP Bocoozoli89ti[Hg] Comments:91 28-Mar-2024 10:00 Pulse82 Comments:82 Respiratory Rate14 Comments:14 O2 SAT95% Comments:95 BP Qjodurpn616tm[Hg] Comments:12 2 BP Liijfjtih28sr[Hg] Comments:75 28-Mar-2024 09:30 Pulse83 Comments:83 Respiratory Rate15 Comments:15 O2 SAT97% Comments:97 BP Dzkcapax864gn[Hg] Comments:13 9 BP Kpgewwuup78jx[Hg] Comments:94 28-Mar-2024 09:00 Pulse87 Comments:87 Respiratory Rate16 Comments:16 O2 SAT94% Comments:94 BP Caiwmpxl689ox[Hg] Comments:13 3 BP Gdvfkyfec70zb[Hg] Comments:92 28-Mar-2024 08:30 Nowrjxkhrhs16.9f Comments:97.9 28-Mar-2024 08:30 Keeia746 Comments:117 Respiratory Rate19 Comments:19 O2 SAT97% Comments:97 BP Dffqnbzt612nn[Hg] Comments:14 1 BP Ajlzwnngo59pc[Hg] Comments:99 28-Mar-2024 08:00 Pulse83 Comments:83 Respiratory Rate16 Comments:16 O2 SAT97% Comments:97 BP Vnitnjor814jp[Hg] Comments:15 1 BP Pzgnfxvhy34fj[Hg] Comments:92 28-Mar-2024 07:30 Akyur352 Comments:109 Respiratory Rate31 Comments:31 O2 SAT98% Comments:98 BP Kabripzo324jw[Hg] Comments:16 5 BP Isuponitt49vr[Hg] Comments:94 28-Mar-2024 07:16 Ppnly154 Comments:104 Respiratory Rate25 Comments:25 O2 SAT99% Comments:99 BP Luvmgrew423tx[Hg] Comments:14 6 BP Qqyzxownn407ph[Hg] Comments:1 00 28-Mar-2024 07:01 Vjuqb705 Comments:111 Respiratory Rate35 Comments:35 O2 SAT97% Comments:97 BP Ijkzumpm682pb[Hg] Comments:11 6 BP Ujddmsvav70eh[Hg] Comments:89 28-Mar-2024 05:15 Pulse63 Comments:63 Respiratory Rate17 Comments:17 O2 SAT97% Comments:97 BP Vdvcaarw623hn[Hg] Comments:14 6 BP Kzzcvkzzu40gg[Hg] Comments:92 28-Mar-2024 05:00 Pulse61 Comments:61 Respiratory Rate16 Comments:16 O2 SAT97% Comments:97 BP Dgahkiak341hs[Hg] Comments:15 2 BP Bvypmhyhu24dy[Hg] Comments:91 28-Mar-2024 04:45 Pulse61 Comments:61 Respiratory Rate14 Comments:14 O2 SAT96% Comments:96 BP Wfvmrvab692vp[Hg] Comments:14 0 BP Uowbjdlae27nw[Hg] Comments:87 28-Mar-2024 04:30 Pulse61 Comments:61 Respiratory Rate14 Comments:14 O2 SAT96% Comments:96 BP Xavywxyd946hh[Hg] Comments:14 6 BP Onnlcnoyi02er[Hg] Comments:93 28-Mar-2024 04:15 Pulse61 Comments:61 Respiratory Rate15 Comments:15 O2 SAT96% Comments:96 BP Phlgtysg316hf[Hg] Comments:14 0 BP Qgvpgzymh57wa[Hg] Comments:87 28-Mar-2024 04:00 Pulse61 Comments:61 Respiratory Rate15 Comments:15 O2 SAT96% Comments:96 BP Yzkaqfqa311ss[Hg] Comments:13 9 BP Gjqxtfwgb49kq[Hg] Comments:83 Stxfzomreou80.8f Comments:98.8 28-Mar-2024 03:45 Pulse61 Comments:61 Respiratory Rate12 Comments:12 O2 SAT95% Comments:95 BP Dyytzssb184jz[Hg] Comments:14 4 BP Lyzpaimdg82mz[Hg] Comments:85 28-Mar-2024 03:30 Pulse64 Comments:64 Respiratory Rate24 Comments:24 O2 SAT98% Comments:98 BP Bfatkskm713ms[Hg] Comments:13 7 BP Zlwtskexu21ld[Hg] Comments:89 28-Mar-2024 03:15 Pulse62 Comments:62 Respiratory Rate16 Comments:16 O2 SAT97% Comments:97 BP Docexxkm163zw[Hg] Comments:13 1 BP Ezyqqtsgh40wx[Hg] Comments:80 28-Mar-2024 03:00 Pulse61 Comments:61 Respiratory Rate27 Comments:27 O2 SAT96% Comments:96 BP Nipkbjmt595tn[Hg] Comments:13 6 BP Pldoniqug07td[Hg] Comments:84 28-Mar-2024 02:45 Pulse61 Comments:61 Respiratory Rate21 Comments:21 O2 SAT96% Comments:96 BP Woblquqv569ft[Hg] Comments:14 0 BP Tunifqqsh93xp[Hg] Comments:85 28-Mar-2024 02:30 Pulse62 Comments:62 Respiratory Rate17 Comments:17 O2 SAT96% Comments:96 BP Ruyvsfkq605om[Hg] Comments:13 0 BP Dmweoudeq89wy[Hg] Comments:77 28-Mar-2024 02:15 Pulse62 Comments:62 Respiratory Rate21 Comments:21 O2 SAT95% Comments:95 BP Dxzqgvgq194ka[Hg] Comments:13 9 BP Clrroymje97lp[Hg] Comments:85 28-Mar-2024 02:00 Pulse64 Comments:64 Respiratory Rate17 Comments:17 O2 SAT97% Comments:97 BP Pgujjlhf482qc[Hg] Comments:13 0 BP Piuklevjt81mk[Hg] Comments:79 28-Mar-2024 01:46 Pulse64 Comments:64 Respiratory Rate19 Comments:19 O2 SAT97% Comments:97 BP Xpdpzlis276zz[Hg] Comments:12 6 BP Qlkaeqolo69dh[Hg] Comments:81 28-Mar-2024 01:30 Pulse63 Comments:63 Respiratory Rate14 Comments:14 BP Fsumwweg896hc[Hg] Comments:10 9 BP Wvymoxbet78fy[Hg] Comments:56 28-Mar-2024 01:15 Pulse62 Comments:62 Respiratory Rate13 Comments:13 BP Nieiboiv199hg[Hg] Comments:10 3 BP Dvqcxntrq46ht[Hg] Comments:55 28-Mar-2024 01:03 Pulse62 Comments:62 Respiratory Rate9 Comments:9 O2 SAT97% Comments:97 BP Anxflwse818du[Hg] Comments:11 6 BP Dgngxjgpn26ds[Hg] Comments:72 28-Mar-2024 00:30 Respiratory Rate17 Comments:17 Ppwsfkiyejw68.8f Comments:97.8 28-Mar-2024 Pulse41 Comments:41 O2 SAT97% Comments:97 BP Gdcznstb496ie[Hg] Comments:12 5 BP Mxwcviphp67fs[Hg] Comments:70 27-Mar-2024 23:00 Pulse62 Comments:62 Respiratory Rate14 Comments:14 O2 SAT97% Comments:97 BP Xmppygpz223sr[Hg] Comments:12 0 BP Wpmepgsjf62nf[Hg] Comments:73 27-Mar-2024 22:00 Pulse64 Comments:64 Respiratory Rate8 Comments:8 O2 SAT95% Comments:95 BP Egetuwuu236ey[Hg] Comments:14 3 BP Akoffqqdr33we[Hg] Comments:94 27-Mar-2024 21:00 Pulse64 Comments:64 Respiratory Rate42 Comments:42 O2 SAT96% Comments:96 BP Qrlurwuq511zj[Hg] Comments:15 7 BP Nxhokfkev92ak[Hg] Comments:94 27-Mar-2024 20:00 Pulse62 Comments:62 Respiratory Rate20 Comments:20 O2 SAT97% Comments:97 BP Fghylstw492ku[Hg] Comments:15 6 BP Qtskbboqo53kx[Hg] Comments:99 Njfqopdxeep40.7f Comments:97.7 27-Mar-2024 20:00 Ouyohg39.4kg Comments:67.400 27-Mar-2024 19:16 Pulse63 Comments:63 Respiratory Rate28 Comments:28 O2 SAT98% Comments:98 BP Rgyksoba520ta[Hg] Comments:17 5 BP Irdgjnwwh154tt[Hg] Comments:1 15 27-Mar-2024 18:46 Pulse85 Comments:85 Respiratory Rate23 Comments:23 O2 SAT90% Comments:90 BP Wesuxyfc367yn[Hg] Comments:16 8 BP Gkuvypnie538pf[Hg] Comments:1 05 27-Mar-2024 17:14 Mfbakrlhjek84k Comments:98.0 Ideeb728 Comments:116 Respiratory Rate20 Comments:20 O2 SAT98% Comments:98 BP Mdntgqsx571xx[Hg] Comments:19 2 BP Dgzfcmyjz943or[Hg] Comments:1 29 Height5.75[ft_us] Comments:5 Iilhhk99.364kg Comments:71.364 27-Mar-2024 17:12 BP Zcbwvjzq165kg[Hg] Comments:19 2 BP Rcpiccusl588cj[Hg] Comments:1 29 27-Mar-2024 17:10 Jbnma751 Comments:108 Respiratory Rate34 Comments:34 Encounters Inpatient encounter Encounter Reason:atrial fib w RVR Encounter Diagnosis:310,Paroxysmal atrial fibrillation,Hypertensive heart disease without heart failure,Hypothyroidism, unspecified,Nicotine dependence, unspecified, uncomplicated,Unspecified atrial flutter,penitentiary (current) use of anticoagulants,Disorder of kidney and ureter, unspecified,Nonrheumatic mitral (valve) insufficiency,Paroxysmal atrial fibrillation 28-Mar-2024 14:[id number] 14:33 [facility] Discharge Disposition:Discharged to home or self care (routine discharge) Asher Hand MD-30-Mar-2024 [facility] ([facility])Cardiology Progress NoteREPORT#:[id number] REPORT STATUS: SignedDATE:03/30/24 TIME: 1239PATIENT: MARK DEE UNIT #: [id number]#: [id number] ROOM/BED: [place] [id number]-BIYC: 44 AGE: 78 SEX: M ATTEND: Malou Luo MDADM AUTHOR: Codi Sterling MD* ALL edits or amendments must be made on the electronic/computer document *SubjectiveChief complaint:AFibPatient reports:No: abdominal pain, chest pain, confused, cough, dizziness, fatigue, fever,headache, nausea, palpitations, shortness of breath, swelling.Comments:Anxious to go homeObjectiveGeneralVS/I O:24 hour I O ending at 0700: 03/30 0700 03/29 1900 Intake Total 1220.00 Output Total 400 450 Balance - 400 770.00 Intake, IV 500.00 Intake, Oral 720 Number Voids 1 Output, 0 Estimated Blood Loss Output, Urine 400 450 Patient 67.7 kg Weight Weight Bed scale Measurement MethodVital Signs: Date Time Temp Pulse Resp B/P B/P Pulse O2 O2 Flow FiO2 Mean Ox Delivery Rate 03/30 1106 36.7 03/30 0816 36.9 03/30 0401 46 153/74 106 99 03/30 0400 42 18 03/30 0400 36.8 03/30 0015 100 02/ 0001 40 21 111/59 80 95 02/08 0000 36.7 03/29 2000 36.8 021999 39 17 149/70 100 100 02/07 1930 40 18 133/69 95 100 02/07 1915 38 16 146/65 94 100 02/07 1900 38 02/ 1900 40 19 147/71 102 99 02/07 1645 41 15 123/72 93 100 02/07 1630 64 20 131/80 97 02/07 1615 38 10 119/71 91 100 02/07 1600 36.4 45 28 114/65 84 100 02/07 1545 42 20 109/59 78 88 02/07 1530 46 22 134/74 97 100 02/07 1515 38 15 143/72 101 99 02/07 1500 38 14 149/83 110 100 02/07 1446 42 24 156/72 104 100 02/07 1416 42 20 139/74 99 100 02/07 1401 48 23 162/85 117 100 02/07 1345 39 17 162/90 119 100 02/07 1330 39 17 140/82 105 100 02/07 1315 36 18 153/76 104 100 02/07 1300 38 20 123/61 84 100 02/07 1246 44 17 148/70 101 92PATIENT WEIGHT:Weight (lb): 149Weight (oz): 4.05Weight (kg): 67.700Medications:Active Meds + DC'd Last 24 HrsLisinopril (PRINIVIL) 10 MG DAILY POAtorvastatin Calcium (LIPITOR) 40 MG BEDTIME POThyroid (THYROID) 30 MG DAILY POPantoprazole Sodium (PROTONIX) 40 MG AC BK POMupirocin (BACTROBAN) 1 APPLIC BID NASALAcetaminophen (TYLENOL) 650 MG Q4HR PRN PRN POCalcium Carbonate (CHEWABLE ANTACID) 1,000 MG Q6HR PRN PRN PO (CKD)Diltiazem HCl (carDIZEM INJ) 125 MG ASDIR IV Sodium Chloride (SODIUM CHLORIDE) 100 MLDocusate Sodium (COLACE) 100 MG BID PRN PRN POHeparin Sodium (Porcine) (Heparin Sodium) 5,000 UNIT Q8H SUBQMelatonin (MELATONIN) 3 MG BEDTIME PRN PRN POOndansetron HCl (ZOFRAN 4 MG/2 ML VIAL) 4 MG Q4HR PRN PRN IVPhysical ExamGeneral appearance: alert, awake, orientedHead/Eyes: EOMI, PERRLANeck: no bruit/NL carotids, no JVDCardiovascular: CV assessment: irregular rhythm, Soft systolic murmur, PMI laterallydisplacedRespiratory: decreased breath sounds, no distressAbdomen: soft, non-tender, normal bowel sounds, no distention, no guardingLower extremity: LE assessment: no clubbing, no cyanosis, no edemaNeuro/ABRASIVE GRADER: alert, oriented X 3Psychiatry: normal affectResultsFindings/Data:Laboratory Tests 03/30 243 Chemistry Sodium (135 - 146 MMOL/L) 140 Potassium (3.6 - 5.2 MMOL/L) 4.2 Chloride (100 - 108 MMOL/L) 105 Carbon Dioxide (21 - 32 MMOL/L) 27 Anion Gap (12 - 21) 12 BUN (6 - 22 MG/DL) 32 H Creatinine (0.5 - 1.3 MG/DL) 1.8 H GFR Calculation (>60) 37.8 L Random Glucose (70 - 99 MG/DL) 118 H Calcium (8.5 - 10.1 MG/DL) 8.5 Corrected Calcium (8.5 - 10.1 MG/DL) 9.5 Magnesium (1.6 - 2.3 MG/DL) 1.9 Total Bilirubin (0.0 - 1.0 MG/DL) 0.3 AST (10 - 45 UNITS/L) 27 ALT (12 - 78 UNITS/L) 25 Total Alk Phosphatase (45 - 132 UNITS/L) 76 Total Protein (6.5 - 8.2 GM/DL) 5.7 L Albumin (3.5 - 4.8 GM/DL) 2.8 LLaboratory Tests 03/30 243 Hematology WBC (4.1 - 11.1 x10 3/uL) 5.9 RBC (4.10 - 5.80 x10 6/uL) 3.49 L Hgb (13.5 - 16.5 g/dl) 10.9 L Hct (38.4 - 50.8 %) 33.1 L MCV (81.8 - 97.9 fl) 94.8 MCH (28.3 - 33.7 pg) 31.2 MCHC (31.9 - 36.1 g/dL) 32.9 RDW (11.9 - 15.1 %) 12.2 Plt Count (126 - 335 x10 3/uL) 112 L MPV (9.4 - 12.4 fl) 10.5 Immature Gran % (Auto) (0.0 - 1.5 %) 0 Neut % (Auto) (%) 58 Lymph % (Auto) (%) 26 [place] % (Auto) (%) 12 Eos % (Auto) (%) 3 Baso % (Auto) (%) 1 Immature Gran # (Auto) (0.0 - 0.2 x10 3/uL) 0.0 Absolute Neuts (auto) (2.3 - 7.8 x10 3/uL) 3.5 Absolute Lymphs (auto) (0.8 - 4.0 x10 3/uL) 1.6 Absolute Monos (auto) (0.3 - 1.2 x10 3/uL) 0.7 Absolute Eos (auto) (0.0 - 0.5 x10 3/uL) 0.2 Absolute Basos (auto) (0.0 - 0.1 x10 3/uL) 0.0Laboratory Tests 02/08 0244 Chemistry Magnesium (1.6 - 2.3 MG/DL) 1.9Telemetry Interpretation:Personally reviewed reveals a junctional rhythm competing with sinus bradycardiaat rest or while sleeping. When moving around he is in sinus rhythm or sinusbradycardia.Diagnosis, Assessment PlanFree Text DxA P NotesFree Text DxA P Notes:Impression;Atrial flutter with rapid rate of unknown durationHypertensionPlan;Status post cardioversionTelemetry reviewed and reveals a junctional rhythm competing with sinusbradycardia at rest. Asymptomatic. With activities he has return of sinusrhythm. Discussed with the electrophysiology service. Would avoid AV nodalagents, pacemaker would be indicated for symptomatic arrhythmias or return ofatrial arrhythmias requiring AV mallory agents. 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 ER warnings given. at 1424RPT #: [id number] OF REPORT Ambulatory 28-Mar-2024 12:22 [facility] Plan of Treatment Future Tests Future scheduled test information is unavailable Pending Tests Test Name Ordered Date Scheduled Date AB THYROID PEROXIDASE March 28, 2024 3:27am Future Visits Future appointment information is unavailable Referrals to Other Providers Referral information is unavailable Future Procedures Future procedure information is unavailable Future Medications Future medication information is unavailable Patient Instructions Patient instructions are unavailable Goals Acute Goals Standard of Practice will be met Standard of Practice will be met See Health Plan of Care See Health Plan of Care See Health Plan of Care See Health Plan of Care Assessments Diagnosis Onset Date Resolution Status Admit Date Atrial fibrillation with RVR March 27, 2024 Active March 27, 2024 5:02pm
--- OUTSIDE RECORDS SUMMARY | 2024-08-18 09:06 | XMS_ITS ---
Author Organization [place] [facility] [place] [facility], 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 Role Phone JOSE TARAS A Unavailable Unavailable TARAS GARCIA A Unavailable Unavailable Valerio ODELL, Malou Mercado Unavailable Unavai labfani REFERRED, SELF Unavailable Unavailable Physician, No Primary or Family Unavailable Unavailable Malou Luo MD Unavailable NeemavaIsaiah Clemente DO Unavailable Unavaila asim Luo MD, Malou Mercado Unavailable Unavai lable Physician, No Primary or Family Unavailable Unavailable Encounters Encounter Date Encounter Type Encounter Diagnosis Care [facility] Start: 03-30-2024 [id number] End: 03-30-2024 14:05-0500 Patient encounter procedure TARAS Hand [facility]CTOR [facility] Start: 03-29-2024 12:00-0500 End: 03-29-2024 00:15-0500 Patient encounter procedure TARAS Yazan [facility] Start: 03-28-2024 14:12-0500 End: 03-30-2024 14:33-0500 Evaluation and management of inpatient Unspecified atrial fibrillation Malou Luo MD [facility] Start: 03-28-2024 12:00-0500 Patient encounter procedure TARAS Mercado MD, MD [facility] Start: 03-27-2024 17:52-0500 Evaluation and management of inpatient Unspecified atrial fibrillation Malou Mercado MD, MD [facility] Start: 03-27-2024 17:14-0500 Patient encounter procedure Unspecified atrial fibrillation Isaiah Callahan DO [facility] Start: 03-27-2024 17:02-0500 Emergency department patient visit Isaiah Callahan [facility] Payers Date Payer Normalized Payer [employer] HMO Me dicare supplemental policy (as second payer) 7 02-20-2022 [employer] PPO MEDICARE Medicare sup plemental policy (as second payer) [id number] 03-23-1994 MEDICARE A B MEDICARE [id number] Problems Active Problems Problem Classification Problem Date Last Recorded Documented Date Chronic Condition Indicator Provider Cardiac dysrhythmias (13 sources) Unspecified atrial fibrillation; Translations: [Paroxysmal atrial fibrillation] 03-27-2024 Kobi Luo MD Heart valve disorders (3 sources) Nonrheumatic mitral (valve) insufficiency 04-03-2024 Kobi Luo MD Hypertension with complications and secondary hypertension (5 sources) Hypertensive heart disease without heart failure 04-02-2024 Kobi Luo MD Substance-related disorders (5 sources) Nicotine dependence, unspecified, uncomplicated 04-02-2024 Kobi Luo MD Thyroid disorders (5 sources) Hypothyroidism, unspecified 04-02-2024 Kobi Luo MD 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 (5 sources) 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 04-02-2024 Not applicable Malou Luo MD Past or Other Problems Problem Classification Problem Date Last Recorded Documented Date Chronic Condition Indicator Provider Other diseases of kidney and ureters (4 sources) Disorder of kidney and ureter, unspecified 04-03-2024 Episodic Malou Luo MD Procedures Date Procedure Procedure Detail Performing Clinician Start: 03-29-2024 Zoroastrian of Cardi ac Rhythm, Single complete Malou Luo MD Start: 03-29-2024 Ultrasonography of H eart with Aorta, Transesophageal berkley Luo MD Results Test Name Value Interpretation Reference Range Facility Date Time Result Note CBC AUTO DIFF/MAN IF INDICAT EDon 03-30-2024 WBC (Bld) [#/Vol] 5.9 Normal 4.1-11.1 x10 3/uL [facility] 025 02:44-0 500 RBC (Bld) [#/Vol] 3.49 Low 4.10-5.80 x10 6/uL [facility] 025 02:44-0 500 Hemoglobin (Bld) [Mass/Vol] 10.9 g/dL Low 13.5-16.5 g/dl [facility] 02:44-0 500 Hematocrit Calc (Bld) [Volume fraction] 33.1 % Low 38.4-50.8 % [facility] 02:44-0 500 MCV (RBC) [Entitic mean vol] 94.8 fL Normal 81.8-97.9 fl [facility] 02:44-0 500 MCH (RBC) [Entitic mass] 31.2 pg Normal 28.3-33.7 pg [facility] 02:44-0 500 MCHC (RBC) [Entitic Mass/Vol] 32.9 g/dL Normal 31.9-36.1 g/dL [facility] 02:44-0 500 Erythrocyte (RBC) [DistWidth] 12.2 % Normal 11.9-15.1 % [facility] 02:44-0 500 Platelets (Bld) [#/Vol] 112 Low 126-335 x10 3/uL [facility] 02:44-0 500 Platelet (Bld) [Entitic mean vol] 10.5 fL Normal 9.4-12.4 fl [facility] 02:44-0 500 Neutrophils/Leuk ocytes (Bld) 58 % % [facility] 02:44-0 500 Neutrophils (Bld) [#/Vol] 3.5 Normal 2.3-7.8 x10 3/uL [facility] 02:44-0 500 Lymphocytes/Leuk ocytes (Bld) 26 % % [facility] 02:44-0 500 Lymphocytes (Bld) [#/Vol] 1.6 Normal 0.8-4.0 x10 3/uL [facility] 02:44-0 500 Monocytes/Leukoc ytes (Bld) 12 % % [facility] 02:44-0 500 Monocytes (Bld) [#/Vol] 0.7 Normal 0.3-1.2 x10 3/uL [facility] 025 02:44-0 500 Eosinophils/Leuk ocytes (Bld) 3 % % [facility] 025 02:44-0 500 Eosinophils (Bld) [#/Vol] 0.2 Normal 0.0-0.5 x10 3/uL [facility] 025 02:44-0 500 Basophils/Leukoc ytes (Bld) 1 % % [facility] 025 02:44-0 500 Basophils (Bld) [#/Vol] 0.0 Normal 0.0-0.1 x10 3/uL [facility] 025 02:44-0 500 IMMATURE GRAN % 0 Normal 0.0-1.5 % [facility] 02:44-0 500 Immature granulocytes (promyelocytes, myelocytes, and~metamyelocyt es) >1.5% indicates that a left shift is~present. Bands are included in the automated neutrophil~count and not in the IG fraction. IMMATURE GRAN # 0.0 Normal 0.0-0.2 x10 3/uL [facility] 025 02:44-0 500 MAGNESIUMon 03-30-2024 Magnesium [Mass/volume] in Serum or Plasma 1.9 mg/dL Normal 1.6-2.3 MG/DL [facility] 02:44-0 500 METABOLIC COMPREHENSIVE PANE Wade 03-30-2024 Sodium [Moles/Vol] 140 mmol/L Normal 135-146 MMOL/L [facility] 025 02:44-0 500 Potassium [Moles/Vol] 4.2 mmol/L Normal 3.6-5.2 MMOL/L [facility] 025 02:44-0 500 Chloride [Moles/Vol] 105 mmol/L Normal 100-108 MMOL/L [facility] 02:44-0 500 CO2 [Moles/Vol] 27 mmol/L Normal 21-32 MMOL/L [facility] 025 02:44-0 500 ANION GAP 12 Normal 12-21 [facility] 025 02:44-0 500 Glucose [Mass/Vol] 118 mg/dL High 70-99 MG/DL [facility] 025 02:44-0 500 Urea nitrogen [Mass/Vol] 32 mg/dL High 6-22 MG/DL [facility] 02:44-0 500 Creatinine [Mass/Vol] 1.8 mg/dL High 0.5-1.3 MG/DL [facility] 025 02:44-0 500 GFR Creatinine-based formula (MDRD)/1.73 sq M (S/P/Bld) [Vol rate/Area] 37.8 mL/min/{ 1.73_m2} Abnormal >60 [facility] 02:44-0 500 The Glomerular Filtration Rate is a calculated parameter~based on serum Creatinine levels, patient age, and sex. GFR~values less than 60 mL/min/1.73 square meters are indicative~of Chronic Kidney Disease. Values less than 15 mL/min/1.73~squa re meters indicate Kidney failure.~The calculation for GFR is based on the CKD-EPI(2020)~ca lculation. This formula is race indifferent and is the~recommended formula for GFR by the National Kidney~Foundatio n for adults. Protein [Mass/Vol] 5.7 g/dL Low 6.5-8.2 GM/DL [facility] 02:44-0 500 Albumin [Mass/Vol] 2.8 g/dL Low 3.5-4.8 GM/DL [facility] 02:44-0 500 Calcium [Mass/Vol] 8.5 mg/dL Normal 8.5-10.1 MG/DL [facility] 02:44-0 500 CORRECTED CALCIUM 9.5 Normal 8.5-10.1 MG/DL [facility] 02:44-0 500 CALCIUM CORRECTED FOR ALBUMIN BILIRUBIN TOTAL 0.3 Normal 0.0-1.0 MG/DL [facility] 02:44-0 500 AST [Catalytic activity/Vol] 27 Normal 10-45 UNITS/L [facility] 02:44-0 500 ALT [Catalytic activity/Vol] 25 Normal 12-78 UNITS/L [facility] 02:44-0 500 ALP [Catalytic activity/Vol] 76 Normal 45-132 UNITS/L [facility] 02:44-0 500 CBC AUTO DIFF/MAN IF INDICAT EDon 03-29-2024 WBC (Bld) [#/Vol] 5.4 Normal 4.1-11.1 x10 3/uL [facility] 03:04-0 500 RBC (Bld) [#/Vol] 4.07 Low 4.10-5.80 x10 6/uL [facility] 03:04-0 500 Hemoglobin (Bld) [Mass/Vol] 12.7 g/dL Low 13.5-16.5 g/dl [facility] 03:04-0 500 Hematocrit Calc (Bld) [Volume fraction] 38.0 % Low 38.4-50.8 % [facility] 03:04-0 500 MCV (RBC) [Entitic mean vol] 93.4 fL Normal 81.8-97.9 fl [facility] 03:04-0 500 MCH (RBC) [Entitic mass] 31.2 pg Normal 28.3-33.7 pg [facility] 03:04-0 500 MCHC (RBC) [Entitic Mass/Vol] 33.4 g/dL Normal 31.9-36.1 g/dL [facility] 03:04-0 500 Erythrocyte (RBC) [DistWidth] 11.9 % Normal 11.9-15.1 % [facility] 03:04-0 500 Platelets (Bld) [#/Vol] 129 Normal 126-335 x10 3/uL [facility] 03:04-0 500 Platelet (Bld) [Entitic mean vol] 10.5 fL Normal 9.4-12.4 fl [facility] 03:04-0 500 Neutrophils/Leuk ocytes (Bld) 54 % % [facility] 03:04-0 500 Neutrophils (Bld) [#/Vol] 2.9 Normal 2.3-7.8 x10 3/uL [facility] 03:04-0 500 Lymphocytes/Leuk ocytes (Bld) 30 % % [facility] 03:04-0 500 Lymphocytes (Bld) [#/Vol] 1.6 Normal 0.8-4.0 x10 3/uL [facility] 03:04-0 500 Monocytes/Leukoc ytes (Bld) 11 % % [facility] 03:04-0 500 Monocytes (Bld) [#/Vol] 0.6 Normal 0.3-1.2 x10 3/uL [facility] 03:04-0 500 Eosinophils/Leuk ocytes (Bld) 4 % % [facility] 03:04-0 500 Eosinophils (Bld) [#/Vol] 0.2 Normal 0.0-0.5 x10 3/uL [facility] 03:04-0 500 Basophils/Leukoc ytes (Bld) 1 % % [facility] 03:04-0 500 Basophils (Bld) [#/Vol] 0.0 Normal 0.0-0.1 x10 3/uL [facility] 03:04-0 500 IMMATURE GRAN % 0 Normal 0.0-1.5 % [facility] 03:04-0 500 Immature granulocytes (promyelocytes, myelocytes, and~metamyelocyt es) >1.5% indicates that a left shift is~present. Bands are included in the automated neutrophil~count and not in the IG fraction. IMMATURE GRAN # 0.0 Normal 0.0-0.2 x10 3/uL [facility] 02-07-2 025 03:04-0 500 MAGNESIUMon 03-29-2024 Magnesium [Mass/volume] in Serum or Plasma 1.9 mg/dL Normal 1.6-2.3 MG/DL [facility] 025 03:04-0 500 METABOLIC COMPREHENSIVE PANE Wade 03-29-2024 Sodium [Moles/Vol] 141 mmol/L Normal 135-146 MMOL/L [facility] 025 03:04-0 500 Potassium [Moles/Vol] 3.8 mmol/L Normal 3.6-5.2 MMOL/L [facility] 025 03:04-0 500 Chloride [Moles/Vol] 106 mmol/L Normal 100-108 MMOL/L [facility] 025 03:04-0 500 CO2 [Moles/Vol] 26 mmol/L Normal 21-32 MMOL/L [facility] 025 03:04-0 500 ANION GAP 13 Normal 12-21 [facility] 025 03:04-0 500 Glucose [Mass/Vol] 82 mg/dL Normal 70-99 MG/DL [facility] 025 03:04-0 500 Urea nitrogen [Mass/Vol] 29 mg/dL High 6-22 MG/DL [facility] 025 03:04-0 500 Creatinine [Mass/Vol] 1.3 mg/dL Normal 0.5-1.3 MG/DL [facility] 025 03:04-0 500 GFR Creatinine-based formula (MDRD)/1.73 sq M (S/P/Bld) [Vol rate/Area] 55.9 mL/min/{ 1.73_m2} Abnormal >60 [facility] 025 03:04-0 500 The Glomerular Filtration Rate is a calculated parameter~based on serum Creatinine levels, patient age, and sex. GFR~values less than 60 mL/min/1.73 square meters are indicative~of Chronic Kidney Disease. Values less than 15 mL/min/1.73~squa re meters indicate Kidney failure.~The calculation for GFR is based on the CKD-EPI(2020)~ca lculation. This formula is race indifferent and is the~recommended formula for GFR by the National Kidney~Foundatio n for adults. Protein [Mass/Vol] 6.1 g/dL Low 6.5-8.2 GM/DL [facility] 03:04-0 500 Albumin [Mass/Vol] 3.0 g/dL Low 3.5-4.8 GM/DL [facility] 03:04-0 500 Calcium [Mass/Vol] 8.6 mg/dL Normal 8.5-10.1 MG/DL [facility] 03:04-0 500 CORRECTED CALCIUM 9.4 Normal 8.5-10.1 MG/DL [facility] 03:04-0 500 CALCIUM CORRECTED FOR ALBUMIN BILIRUBIN TOTAL 0.6 Normal 0.0-1.0 MG/DL [facility] 03:04-0 500 AST [Catalytic activity/Vol] 19 Normal 10-45 UNITS/L [facility] 03:04-0 500 ALT [Catalytic activity/Vol] 21 Normal 12-78 UNITS/L [facility] 025 03:04-0 500 ALP [Catalytic activity/Vol] 80 Normal 45-132 UNITS/L [facility] 03:04-0 500 AB THYROID PEROXIDASEon AB THYROID PEROXIDASE 0-35 [facility] 025 03:27-0 500 AB THYROID PEROXIDASE <10.0 0-35 [facility] 025 03:27-0 500 Reported in International Units/ML CBC AUTO DIFF/MAN IF INDICAT EDon 03-28-2024 WBC (Bld) [#/Vol] 5.4 Normal 4.1-11.1 x10 3/uL [facility] 03:26-0 500 RBC (Bld) [#/Vol] 3.80 Low 4.10-5.80 x10 6/uL [facility] 03:26-0 500 Hemoglobin (Bld) [Mass/Vol] 12.0 g/dL Low 13.5-16.5 g/dl [facility] 03:26-0 500 Hematocrit Calc (Bld) [Volume fraction] 35.7 % Low 38.4-50.8 % [facility] 03:26-0 500 MCV (RBC) [Entitic mean vol] 93.9 fL Normal 81.8-97.9 fl [facility] 03:26-0 500 MCH (RBC) [Entitic mass] 31.6 pg Normal 28.3-33.7 pg [facility] 03:26-0 500 MCHC (RBC) [Entitic Mass/Vol] 33.6 g/dL Normal 31.9-36.1 g/dL [facility] 03:26-0 500 Erythrocyte (RBC) [DistWidth] 12.0 % Normal 11.9-15.1 % [facility] 03:26-0 500 Platelets (Bld) [#/Vol] 122 Low 126-335 x10 3/uL [facility] 03:26-0 500 Platelet (Bld) [Entitic mean vol] 10.2 fL Normal 9.4-12.4 fl [facility] 03:26-0 500 Neutrophils/Leuk ocytes (Bld) 56 % % [facility] 03:26-0 500 Neutrophils (Bld) [#/Vol] 3.0 Normal 2.3-7.8 x10 3/uL [facility] 03:26-0 500 Lymphocytes/Leuk ocytes (Bld) 28 % % [facility] 03:26-0 500 Lymphocytes (Bld) [#/Vol] 1.5 Normal 0.8-4.0 x10 3/uL [facility] 03:26-0 500 Monocytes/Leukoc ytes (Bld) 12 % % [facility] 03:26-0 500 Monocytes (Bld) [#/Vol] 0.6 Normal 0.3-1.2 x10 3/uL [facility] 025 03:26-0 500 Eosinophils/Leuk ocytes (Bld) 3 % % [facility] 03:26-0 500 Eosinophils (Bld) [#/Vol] 0.2 Normal 0.0-0.5 x10 3/uL [facility] 025 03:26-0 500 Basophils/Leukoc ytes (Bld) 1 % % [facility] 03:26-0 500 Basophils (Bld) [#/Vol] 0.1 Normal 0.0-0.1 x10 3/uL [facility] 03:26-0 500 IMMATURE GRAN % 0 Normal 0.0-1.5 % [facility] 03:26-0 500 Immature granulocytes (promyelocytes, myelocytes, and~metamyelocyt es) >1.5% indicates that a left shift is~present. Bands are included in the automated neutrophil~count and not in the IG fraction. IMMATURE GRAN # 0.0 Normal 0.0-0.2 x10 3/uL [facility] 03:26-0 500 GLYCO(A1C) WITH EAGon 2024 GLYCOSYLATED HEMOGLOBIN (HA1C) 5.2 4.0-5.6 % [facility] 03:26-0 500 Please note:~ Diagnosis HbA1c(%)~ ++++++++++++++++ ++++++++++++++++ ++++++++++++++++ ~ Diabetic >=6.5~ Prediabetes 5.7-6.4~ Normal <5.7 ESTIMATED AVERAGE GLUCOSE 103 68-114 MG/DL [facility] 03:26-0 500 HbA1c assay is certified to [employer].~ ~eAG represents the calculation of estimated average glucose~as recommended by [employer] 2008: 31: 1473. LIPID PROFILEon 03-28-2024 Triglyceride [Mass/Vol] 34 mg/dL Normal 0-149 MG/DL [facility] 03:26-0 500 Cholesterol [Mass/volume] in Serum or Plasma 166 mg/dL Normal 0-199 MG/DL [facility] 025 03:26-0 500 Cholesterol in HDL [Mass/Vol] 76 mg/dL High 40-60 MG/DL [facility] 025 03:26-0 500 Cholesterol in LDL [Mass/Vol] 83 mg/dL Normal 0-129 MG/DL [facility] 025 03:26-0 500 MAGNESIUMon 03-28-2024 Magnesium [Mass/volume] in Serum or Plasma 1.9 mg/dL Normal 1.6-2.3 MG/DL [facility] 025 03:26-0 500 METABOLIC COMPREHENSIVE PANE Wade 03-28-2024 Sodium [Moles/Vol] 140 mmol/L Normal 135-146 MMOL/L [facility] 025 03:26-0 500 Potassium [Moles/Vol] 3.5 mmol/L Low 3.6-5.2 MMOL/L [facility] 025 03:26-0 500 Chloride [Moles/Vol] 105 mmol/L Normal 100-108 MMOL/L [facility] 025 03:26-0 500 CO2 [Moles/Vol] 29 mmol/L Normal 21-32 MMOL/L [facility] 025 03:26-0 500 ANION GAP 10 Low 12-21 [facility] 025 03:26-0 500 Glucose [Mass/Vol] 77 mg/dL Normal 70-99 MG/DL [facility] 025 03:26-0 500 Urea nitrogen [Mass/Vol] 18 mg/dL Normal 6-22 MG/DL [facility] 025 03:26-0 500 Creatinine [Mass/Vol] 1.1 mg/dL Normal 0.5-1.3 MG/DL [facility] 025 03:26-0 500 GFR Creatinine-based formula (MDRD)/1.73 sq M (S/P/Bld) [Vol rate/Area] 68.3 mL/min/{ 1.73_m2} >60 [facility] 03:26-0 500 The Glomerular Filtration Rate is a calculated parameter~based on serum Creatinine levels, patient age, and sex. GFR~values less than 60 mL/min/1.73 square meters are indicative~of Chronic Kidney Disease. Values less than 15 mL/min/1.73~squa re meters indicate Kidney failure.~The calculation for GFR is based on the CKD-EPI(2020)~ca lculation. This formula is race indifferent and is the~recommended formula for GFR by the National Kidney~Foundatio n for adults. Protein [Mass/Vol] 6.1 g/dL Low 6.5-8.2 GM/DL [facility] 03:26-0 500 Albumin [Mass/Vol] 3.0 g/dL Low 3.5-4.8 GM/DL [facility] 03:26-0 500 Calcium [Mass/Vol] 8.5 mg/dL Normal 8.5-10.1 MG/DL [facility] 03:26-0 500 CORRECTED CALCIUM 9.3 Normal 8.5-10.1 MG/DL [facility] 03:26-0 500 CALCIUM CORRECTED FOR ALBUMIN BILIRUBIN TOTAL 0.8 Normal 0.0-1.0 MG/DL [facility] 025 03:26-0 500 AST [Catalytic activity/Vol] 18 Normal 10-45 UNITS/L [facility] 03:26-0 500 ALT [Catalytic activity/Vol] 22 Normal 12-78 UNITS/L [facility] 03:26-0 500 ALP [Catalytic activity/Vol] 73 Normal 45-132 UNITS/L [facility] 03:26-0 500 T4 FREEon 03-28-2024 Thyroxine (T4) free [Mass/volume] in Serum or Plasma 0.90-1.94 NG/DL [facility] 03:27-0 500 Thyroxine (T4) free [Mass/volume] in Serum or Plasma 0.99 ng/dL 0.90-1.94 ng/dL [facility] 02-06-2 025 03:27-0 500 THYROID CASCADEon 03-28-2024 TSH Qn 9.61 High 0.40-4.00 uIU/mL [facility] 025 03:27-0 500 Clinical Notes 03-27-2024 to 04-02-2024 Note Date & Type Note Facility 04-02-2024 360 - QUERY RESPONSE DOCUMENT [facility] [address] [place] [address] PATIENT NAME: MARK DEE LOCATION: [facility] MEDICAL RECORD#: [id number] DATE OF : 43 [address] DATE OF ADMIT: 03/28/24 REPORT STATUS: Signed REPORT NUMBER: [id number] ATTEND PHYSICIAN: Malou Luo MD PRIMARY CARE PHYSICIAN: No Primary or Family Physician REFERRING PHYISICIAN: SELF REFERRED 360 - QUERY RESPONSE DOCUMENT Provider Query QUERY TEXT: Condition Renal 360MD Query related questions should be directed to: Hemalatha Riggins RN, MSN [email or web address] Based on your clinical judgment, please clarify the condition(s) that represent(s) the clinical indicators listed below. The patient's Clinical Indicators include: Lab 03/28 - BUN 18, Creatinine 1.1, GFR 68.3 03/29 - BUN 29, Creatinine 1.3, GFR 55.9 03/30 - BUN 32, Creatinine 1.8, GFR 37.8 Cardiology Consultation 03/28/2024 fatigue Atrial flutter with rapid rate of unknown duration Hypertension EMAR 03/29/2024 Lisinopril 10 mg PO daily Options provided: -- Acute renal failure/Acute kidney injury -- Acute renal failure with tubular necrosis -- Acute renal insufficiency -- Chronic kidney disease, Please specify stage (i.e., stage 1, 2, 3, 3a, 3b, 4, or 5). -- End stage renal disease -- Other - I will add my own diagnosis -- Disagree - Not applicable / Not valid -- Disagree - Clinically unable to determine / Unknown -- Assign to another provider QUERY RESPONSE: The patient has acute renal insufficiency. Query created by: Alexandria Riggins on 03/30/2024 5:04 PM at 1302 PATIENT NAME: MARK DEE [facility] 03-30-[address] [address] PT NAME: MARK DEE LOCATION: [facility] ROOM/BED: [address] : 44 EKG EKG DATE/TIME: 03/29/24 1119 Test Reason : POST CARDIOVERSION Blood Pressure : */* mmHG Vent. Rate : 51 BPM Atrial Rate : 41 BPM P-R Int : * ms QRS Dur : 92 ms QT Int : 474 ms P-R-T Axes : * 4 23 degrees QTcB Int : 436 ms Junctional rhythm with PAC Nonspecific T wave abnormality Abnormal ECG Confirmed by Taras Garcia ([id number]) on 03/30/2024 1:50:47 PM Referred By: SELF REFERRED Confirmed By: Taras Garcia at 1350 PATIENT NAME: MARK DEE [facility] 03-30-[address] [address] PT NAME: MARK DEE LOCATION: [facility] ROOM/BED: [address] : 43 EKG EKG DATE/TIME: 03/29/24 1226 Test Reason : Blood Pressure : */* mmHG Vent. Rate : 40 BPM Atrial Rate : * BPM P-R Int : * ms QRS Dur : 98 ms QT Int : 494 ms P-R-T Axes : * 5 -31 degrees QTcB Int : 402 ms Junctional bradycardia with retrograde conduction Nonspecific ST abnormality Abnormal ECG Confirmed by Taras Garcia ([id number]) on 03/30/2024 1:50:09 PM Referred By: SELF REFERRED Confirmed By: Taras Garcia at 1350 PATIENT NAME: MARK DEE [facility] 03-30-2024 Cardiology Progre ss Note [facility] Cardiology Progress Note REPORT#:[id number] REPORT STATUS: Draft DATE:03/30/24 TIME: 1239 PATIENT: MARK DEE UNIT #: [id number] ROOM/BED: [address] : 44 AGE: 78 SEX: M ATTEND: Mlaou Luo MD ADM AUTHOR: Taras Garcia MD * ALL edits or amendments must be made on the electronic/computer document * Subjective Chief complaint: AFib Objective General VS/I O: 24 hour I O ending at 0700: 03/30 0700 02 1900 Intake Total 1220.00 Output Total 400 450 Balance -400 770.00 Intake, IV 500.00 Intake, Oral 720 Number Voids 1 Output, 0 Estimated Blood Loss Output, Urine 400 450 Patient 67.7 kg Weight Weight Bed scale Measurement Method Vital Signs: Date Time Temp Pulse Resp B/P B/P Pulse O2 O2 Flow FiO2 Mean Ox Delivery Rate 03/30 1106 36.7 02/ 0816 36.9 02/08 0401 46 153/74 106 99 02/ 0400 42 18 02/08 0400 36.8 02/08 0015 100 02/08 0001 40 21 111/59 80 95 02/08 0000 36.7 02/ 2000 36.8 02/1999 39 17 149/70 100 100 02/07 1930 40 18 133/69 95 100 02/07 1915 38 16 146/65 94 100 02/07 1900 38 02/07 1900 40 19 147/71 102 99 02/07 [...] 02/07 1416 42 20 139/74 99 100 03/29 1401 48 23 162/85 117 100 03/29 1345 39 17 162/90 119 100 03/29 1330 39 17 140/82 105 100 03/29 1315 36 18 153/76 104 100 03/29 1300 38 20 123/61 84 100 03/29 1246 44 17 148/70 101 92 PATIENT WEIGHT: Weight (lb): 149 Weight (oz): 4.05 Weight (kg): 67.700 Medications: Active Meds + DC'd Last 24 Hrs Lisinopril (PRINIVIL) 10 MG DAILY PO Atorvastatin Calcium (LIPITOR) 40 MG BEDTIME PO Thyroid (THYROID) 30 MG DAILY PO Pantoprazole Sodium (PROTONIX) 40 MG AC BK PO Mupirocin (BACTROBAN) 1 APPLIC BID NASAL Acetaminophen (TYLENOL) 650 MG Q4HR PRN PRN PO Calcium Carbonate (CHEWABLE ANTACID) 1,000 MG Q6HR PRN PRN PO (CKD) Diltiazem HCl (carDIZEM INJ) 125 MG ASDIR IV Sodium Chloride (SODIUM CHLORIDE) 100 ML Docusate Sodium (COLACE) 100 MG BID PRN PRN PO Heparin Sodium (Porcine) (Heparin Sodium) 5,000 UNIT Q8H SUBQ Melatonin (MELATONIN) 3 MG BEDTIME PRN PRN PO Ondansetron HCl (ZOFRAN 4 MG/2 ML VIAL) 4 MG Q4HR PRN PRN IV Physical Exam Head/Eyes: EOMI, PERRLA Neck: no bruit/NL carotids, no JVD Cardiovascular: CV assessment: irregular rhythm, Soft systolic murmur, PMI laterally displaced Respiratory: decreased breath sounds, no distress Abdomen: soft, non-tender, normal bowel sounds, no distention, no guarding Lower extremity: LE assessment: no clubbing, no cyanosis, no edema Neuro/NURSING HOME DIRECTOR: alert, oriented X 3 Psychiatry: normal affect Results Findings/Data: Laboratory Tests 03/30 0244 Chemistry Sodium (135 - 146 [...] Albumin (3.5 - 4.8 GM/DL) 2.8 L Laboratory Tests 03/30 0244 Hematology WBC (4.1 - 11.1 x10 3/uL) [...] (%) 58 Lymph % (Auto) (%) 26 [place] % (Auto) (%) 12 Eos % (Auto) [...] (auto) (0.0 - 0.1 x10 3/uL) 0.0 Laboratory Tests 03/30 0244 Chemistry Magnesium (1.6 - 2.3 MG/DL) 1.9 Diagnosis, Assessment Plan Free Text DxA P Notes Free Text DxA P Notes: Impression; Atrial flutter with rapid rate of unknown duration Hypertension Plan; Echo revealed normal left ventricular systolic function with a left ventricular ejection fraction of 60-65%, biatrial enlargement, trace aortic insufficiency, mild mitral regurgitation, mild tricuspid regurgitation with a pulmonary artery pressure estimated at 25 mm of mercury. Status post DC cardioversion Continue anticoagulation for at least 1 month. He will follow up with his primary adapted physical education aide. RPT #: [id number] END OF REPORT [facility] 03-30-2024 Cardiology Progre ss Note [facility] ([facility]) Cardiology Progress Note REPORT#:[id number] REPORT STATUS: Draft DATE:03/30/24 TIME: 1239 PATIENT: MARK DEE UNIT #: [id number] ROOM/BED: [place] [id number]-A : 44 AGE: 78 SEX: M ATTEND: Malou Luo MD ADM AUTHOR: Taras Garcia MD * ALL edits or amendments must be made on the electronic/computer document * Subjective Chief complaint: AFib Patient reports: No: abdominal pain, chest pain, confused, cough, dizziness, fatigue, fever, headache, nausea, palpitations, shortness of breath, swelling. Comments: Anxious to go home Objective General VS/I O: 24 hour I O ending at 0700: 03/30 0700 03/29 1900 Intake Total 1220.00 Output Total 400 450 Balance -400 770.00 Intake, IV 500.00 Intake, Oral 720 Number Voids 1 Output, 0 Estimated Blood Loss Output, Urine 400 450 Patient 67.7 kg Weight Weight Bed scale Measurement Method Vital Signs: Date Time Temp Pulse Resp B/P B/P Pulse O2 O2 Flow FiO2 Mean Ox Delivery Rate 03/30 1106 36.7 03/30 0716 36.9 03/301 46 153/74 106 99 03/30 040 42 18 02/08 0400 36.8 02/08 0015 100 02/08 0001 40 21 111/59 80 95 02/08 0000 36.7 02/1999 36.8 02/1999 39 17 149/70 100 100 02/07 1930 40 18 133/69 95 100 02/07 1915 38 16 146/65 94 100 02/07 1900 38 02/07 1900 40 19 147/71 102 99 02/07 [...] 100 02/07 1246 44 17 148/70 101 92 PATIENT WEIGHT: Weight (lb): 149 Weight (oz): 4.05 Weight (kg): 67.700 Medications: Active Meds + DC'd Last 24 Hrs Lisinopril (PRINIVIL) 10 MG DAILY PO Atorvastatin Calcium (LIPITOR) 40 MG BEDTIME PO Thyroid (THYROID) 30 MG DAILY PO Pantoprazole Sodium (PROTONIX) 40 MG AC BK PO Mupirocin (BACTROBAN) 1 APPLIC BID NASAL Acetaminophen (TYLENOL) 650 MG Q4HR PRN PRN PO Calcium Carbonate (CHEWABLE ANTACID) 1,000 MG Q6HR PRN PRN PO (CKD) Diltiazem HCl (carDIZEM INJ) 125 MG ASDIR IV Sodium Chloride (SODIUM CHLORIDE) 100 ML Docusate Sodium (COLACE) 100 MG BID PRN PRN PO Heparin Sodium (Porcine) (Heparin Sodium) 5,000 UNIT Q8H SUBQ Melatonin (MELATONIN) 3 MG BEDTIME PRN PRN PO Ondansetron HCl (ZOFRAN 4 MG/2 ML VIAL) 4 MG Q4HR PRN PRN IV Physical Exam General appearance: alert, awake, oriented Head/Eyes: EOMI, PERRLA Neck: no bruit/NL carotids, no JVD Cardiovascular: CV assessment: irregular rhythm, Soft systolic murmur, PMI laterally displaced Respiratory: decreased breath sounds, no distress Abdomen: soft, non-tender, normal bowel sounds, no distention, no guarding Lower extremity: LE assessment: no clubbing, no cyanosis, no edema Neuro/NURSING HOME DIRECTOR: alert, oriented X 3 Psychiatry: normal affect Results Findings/Data: Laboratory Tests 03/30 243 Chemistry Sodium (135 - [...] Albumin (3.5 - 4.8 GM/DL) 2.8 L Laboratory Tests 03/30 243 Hematology WBC (4.1 - [...] (%) 58 Lymph % (Auto) (%) 26 [place] % (Auto) (%) 12 Eos % (Auto) [...] (auto) (0.0 - 0.1 x10 3/uL) 0.0 Laboratory Tests 03/30 0244 Chemistry Magnesium (1.6 - 2.3 MG/DL) 1.9 Telemetry Interpretation: Personally reviewed reveals a junctional rhythm competing with sinus bradycardia at rest or while sleeping. When moving around he is in sinus rhythm or sinus bradycardia. Diagnosis, Assessment Plan Free Text DxA P Notes Free Text DxA P Notes: Impression; Atrial flutter with rapid rate of unknown duration Hypertension Plan; Status post cardioversion Telemetry reviewed and reveals a junctional rhythm competing with sinus bradycardia at rest. Asymptomatic. With activities he has return of sinus rhythm. Discussed with the electrophysiology service. Would avoid AV mallory agents, pacemaker would be indicated for symptomatic arrhythmias or return of atrial arrhythmias requiring AV mallory agents. Patient wishes to follow with his primary adapted physical education aide. Echo revealed normal left ventricular systolic function with a left ventricular ejection fraction of 60-65%, biatrial enlargement, trace aortic insufficiency, mild mitral regurgitation, mild tricuspid regurgitation with a pulmonary artery pressure estimated at 25 mm of mercury. Creatinine 1.8, would discontinue lisinopril Continue anticoagulation for at least 1 month. He will follow up with his primary adapted physical education aide. RPT #: [id number] END OF REPORT [facility] 02-08-2025 Cardiology Progre ss Note [facility] ([facility]) Cardiology Progress Note REPORT#:[id number] REPORT STATUS: Signed DATE:03/30/24 TIME: 1239 PATIENT: MARK DEE UNIT #: [id number] ROOM/BED: [facility]-A : 44 AGE: 78 SEX: M ATTEND: Malou Luo MD ADM AUTHOR: Taras Garcia MD * ALL edits or amendments must be made on the electronic/computer document * Subjective Chief complaint: AFib Patient reports: No: abdominal pain, chest pain, confused, cough, dizziness, fatigue, fever, headache, nausea, palpitations, shortness of breath, swelling. Comments: Anxious to go home Objective General VS/I O: 24 hour I O ending at 0700: 03/30 0700 03/29 1900 Intake Total 1220.00 Output Total 400 450 Balance -400 770.00 Intake, IV 500.00 Intake, Oral 720 Number Voids 1 Output, 0 Estimated Blood Loss Output, Urine 400 450 Patient 67.7 kg Weight Weight Bed scale Measurement Method Vital Signs: Date Time Temp Pulse Resp B/P B/P Pulse O2 O2 Flow FiO2 Mean Ox Delivery Rate 03/30 1106 36.7 02/ 0816 36.9 02/08 0401 46 153/74 106 99 02/ 0400 42 18 02/ 0400 36.8 02/ 0015 100 02/ 0001 40 21 111/59 80 95 02/08 0000 36.7 02/ 2000 36.8 02/1999 39 17 149/70 100 100 02/07 1930 [...] 02/07 1446 42 24 156/72 104 100 03/29 1416 42 20 139/74 99 100 03/29 1401 48 23 162/85 117 100 03/29 1345 39 17 162/90 119 100 03/29 1330 39 17 140/82 105 100 03/29 1315 36 18 153/76 104 100 03/29 1300 38 20 123/61 84 100 03/29 1246 44 17 148/70 101 92 PATIENT WEIGHT: Weight (lb): 149 Weight (oz): 4.05 Weight (kg): 67.700 Medications: Active Meds + DC'd Last 24 Hrs Lisinopril (PRINIVIL) 10 MG DAILY PO Atorvastatin Calcium (LIPITOR) 40 MG BEDTIME PO Thyroid (THYROID) 30 MG DAILY PO Pantoprazole Sodium (PROTONIX) 40 MG AC BK PO Mupirocin (BACTROBAN) 1 APPLIC BID NASAL Acetaminophen (TYLENOL) 650 MG Q4HR PRN PRN PO Calcium Carbonate (CHEWABLE ANTACID) 1,000 MG Q6HR PRN PRN PO (CKD) Diltiazem HCl (carDIZEM INJ) 125 MG ASDIR IV Sodium Chloride (SODIUM CHLORIDE) 100 ML Docusate Sodium (COLACE) 100 MG BID PRN PRN PO Heparin Sodium (Porcine) (Heparin Sodium) 5,000 UNIT Q8H SUBQ Melatonin (MELATONIN) 3 MG BEDTIME PRN PRN PO Ondansetron HCl (ZOFRAN 4 MG/2 ML VIAL) 4 MG Q4HR PRN PRN IV Physical Exam General appearance: alert, awake, oriented Head/Eyes: EOMI, PERRLA Neck: no bruit/NL carotids, no JVD Cardiovascular: CV assessment: irregular rhythm, Soft systolic murmur, PMI laterally displaced Respiratory: decreased breath sounds, no distress Abdomen: soft, non-tender, normal bowel sounds, no distention, no guarding Lower extremity: LE assessment: no clubbing, no cyanosis, no edema Neuro/NURSING HOME DIRECTOR: alert, oriented X 3 Psychiatry: normal affect Results Findings/Data: Laboratory Tests 03/30 243 Chemistry Sodium (135 - [...] Albumin (3.5 - 4.8 GM/DL) 2.8 L Laboratory Tests 03/30 0244 Hematology WBC (4.1 - 11.1 x10 3/uL) [...] (%) 58 Lymph % (Auto) (%) 26 [place] % (Auto) (%) 12 Eos % (Auto) [...] (auto) (0.0 - 0.1 x10 3/uL) 0.0 Laboratory Tests 03/30 0244 Chemistry Magnesium (1.6 - 2.3 MG/DL) 1.9 Telemetry Interpretation: Personally reviewed reveals a junctional rhythm competing with sinus bradycardia at rest or while sleeping. When moving around he is in sinus rhythm or sinus bradycardia. Diagnosis, Assessment Plan Free Text DxA P Notes Free Text DxA P Notes: Impression; Atrial flutter with rapid rate of unknown duration Hypertension Plan; Status post cardioversion Telemetry reviewed and reveals a junctional rhythm competing with sinus bradycardia at rest. Asymptomatic. With activities he has return of sinus rhythm. Discussed with the electrophysiology service. Would avoid AV mallory agents, pacemaker would be indicated for symptomatic arrhythmias or return of atrial arrhythmias requiring AV mallory agents. Patient wishes to follow with his primary adapted physical education aide. Echo revealed normal left ventricular systolic function with a left ventricular ejection fraction of 60-65%, biatrial enlargement, trace aortic insufficiency, mild mitral regurgitation, mild tricuspid regurgitation with a pulmonary artery pressure estimated at 25 mm of mercury. Creatinine 1.8, would discontinue lisinopril, can use Norvasc for hypertension Continue anticoagulation for at least 1 month. He wishes to follow up with his primary adapted physical education aide. ER warnings given. at 1424 RPT #: [id number] END OF REPORT [facility] 03-30-2024 Hospitalist Discharge Summary [facility] ([facility]) Hospitalist Discharge Summary REPORT#:[id number] REPORT STATUS: Signed DATE:03/30/24 TIME: 1226 PATIENT: MARK DEE UNIT #: [id number] ROOM/BED: [facility]-A : 44 AGE: 78 SEX: M ATTEND: Malou Luo MD ADM AUTHOR: Vincenzo Vega MD * ALL edits or amendments must be made on the electronic/computer document * General Information Date of admission: Observation Start Date: 03/27/24 Date of admission: 03/28/24 Discharge date: 03/30/24 Discharge diagnosis: Afib RVR Hospital course: 78-year-old male with PMH of paroxysmal AFib, hypertension, hypothyroidism presented to emergency department as a transfer from [facility]. he had an appointment with a new doctor for a generalized checkup and was found to be in AFib with a rapid ventricular rate. He did report having a history of AFib, although it had been many years. Not on a thinner. He was started on a diltiazem drip and transferred to this facility for a higher level of care and telemetry services. Echo revealed normal left ventricular systolic function with a left ventricular ejection fraction of 60-65%, biatrial enlargement, trace aortic insufficiency, mild mitral regurgitation, mild tricuspid regurgitation with a pulmonary artery pressure estimated at 25 mm of mercury. Patient now s/p ezra guided cardioversion. Initial rhythm post cardioversion was sinus pause followed by escape rhythm followed by sinus bradycardia and eventual atrial rhythm with intermittent junctional beats. Hemodynamically stable at present. per Cardiology, DC diltiazem Continue anticoagulation Eliquis for at least 1 month.Discharged to home. Consultants: cardiology Pt. condition on discharge: improved, stable Free Text DxA P Notes Free text DxA P notes: AFib with RVR * Admit to PCU * Continuous telemetry * Diltiazem drip, titrate per protocol * Consult cardiology, recs greatly appreciated. Status post cardioversion today * Daily labs, trend WBCs, monitor * Replace electrolytes as needed * Echocardiogram * Lipids, A1c, TSH * Encourage incentive spirometry Chronic medical conditions: Hypothyroidism Resumed home meds VTE ppx: SCDs, heparin SQ Code status: Full code Dispo: Pending clinical course This note was composed using [employer] fluency dictation software and every effort was made to correct any grammatical and/or spelling errors though some may still persist. Med Rec Med Rec Discharge meds: Continue taking these medications: METOPROLOL TARTRATE (LOPRESSOR) 25 MG TAB 25 MILLIGRAM ORAL TWICE A DAY Comments: TAKE 1 TABLET BY MOUTH TWICE DAILY; 90 Days #180 EA - SIG Obtained From [employer] lisinopriL (ZESTRIL) 10 MG TAB 10 MILLIGRAM ORAL DAILY AT 0900 Comments: TAKE 1 TABLET BY MOUTH EVERY DAY; 90 Days #90 EA - SIG Obtained From [employer] THYROID,PORCINE (ARMOUR THYROID) 30 MG TAB 30 MILLIGRAM ORAL DAILY AT 0900 Comments: TAKE 1 TABLET BY MOUTH EVERY DAY; 90 Days #90 EA - SIG Obtained From [employer] amLODIPine (NORVASC) 5 MG TAB 5 MILLIGRAM ORAL DAILY AT 0900 Comments: TAKE 1 TABLET BY MOUTH DAILY; 60 Days #60 EA - SIG Obtained From [employer] ASPIRIN EC (BRYANT EC) 81 MG TAB.EC 81 MILLIGRAM ORAL DAILY AT 0900 Comments: TAKE 1 TABLET BY MOUTH DAILY; 90 Days #90 EA - SIG Obtained From [employer] ATORVASTATIN (LIPITOR) 40 MG TAB 40 MILLIGRAM ORAL AT BEDTIME Comments: TAKE 1 TABLET BY MOUTH AT BEDTIME; 90 Days #90 EA - SIG Obtained From [employer] APIXABAN (ELIQUIS STARTER PACK) 5 MG TAB 5 MILLIGRAM ORAL TWICE A DAY Qty = 60 Instructions: Starter pack qty = 74 tablets/pack Comments: 30 Days #60 EA - SIG Obtained From [employer] Objective VS/I O Last Documented: Result Date Time Temp 98.1 03/30 1106 Pulse Ox 99 03/30 0401 B/P 153/74 03/30 0401 B/P Mean 106 03/30 0401 Pulse 46 03/30 0401 Resp 18 03/30 0400 O2 Delivery Room air 03/29 1145 24 hour I O ending at 0700: 03/29 1900 03/30 0700 Intake Total 1220.00 Output Total 450 400 Balance 770.00 -400 Intake, IV 500.00 Intake, Oral 720 Number Voids 1 Output, 0 Estimated Blood Loss Output, Urine 450 400 Patient 149 lb Weight Weight Bed scale Measurement Method Results Findings/Data: Laboratory Tests: 03/30 243 Chemistry Sodium (135 - 146 [...] (%) 58 Lymph % (Auto) (%) 26 [place] % (Auto) (%) 12 Eos % (Auto) [...] (auto) (0.0 - 0.1 x10 3/uL) 0.0 Laboratory Tests Test Result Date Time Chemistry Sodium (135 - 146 MMOL/L) 140 02/08 0244 Potassium (3.6 - 5.2 MMOL/L) 4.2 03/304 Chloride (100 - 108 MMOL/L) 105 02/ 0244 Carbon Dioxide (21 - 32 MMOL/L) 27 03/30 0244 Anion Gap (12 - 21) 12 03/30 0244 BUN (6 - 22 MG/DL) 32 H 03/30 0244 Creatinine (0.5 - 1.3 MG/DL) 1.8 H 03/30 243 GFR Calculation (>60) 37.8 L 03/304 Random Glucose (70 - 99 MG/DL) 118 H 03/30 0244 Estimat Average Glucose (68 - 114 MG/DL) 103 02 0326 Glycated Hemoglobin (4.0 - 5.6 %) 5.2 03/286 Calcium (8.5 - 10.1 MG/DL) 8.5 03/304 Corrected Calcium (8.5 - 10.1 MG/DL) 9.5 03/304 Magnesium (1.6 - 2.3 MG/DL) 1.9 03/304 Total Bilirubin (0.0 - 1.0 MG/DL) 0.3 03/30 0244 AST (10 - 45 UNITS/L) 27 02 0244 ALT (12 - 78 UNITS/L) 25 02 0244 Total Alk Phosphatase (45 - 132 UNITS/L) 76 03/30 0244 Total Protein (6.5 - 8.2 GM/DL) 5.7 L 03/30 243 Albumin (3.5 - 4.8 GM/DL) 2.8 L 03/30 243 Triglycerides (0 - 149 MG/DL) 34 03/28 0326 Cholesterol (0 - 199 MG/DL) 166 026 LDL Cholesterol (0 - 129 MG/DL) 83 03/28 0326 HDL Cholesterol (40 - 60 MG/DL) [...] Lymph % (Auto) (%) 26 03/30 243 [place] % (Auto) (%) 12 03/30 243 Eos [...] (0.0 - 0.1 x10 3/uL) 0.0 03/30 243 Free Text Obj Notes Free Text Obj Notes: General appearance: alert, awake, no acute distress, conversational Head/Eyes: atraumatic, normocephalic ENT: moist mucosal membranes, normal dentition Neck: full range of motion, supple Cardiovascular: Atrial fibrillation on monitor, Irregular rate and rhythm, no murmur, normal s1, s2 Respiratory: clear to auscultation bilateral, symmetric expansion, no distress Abdomen: non-tender, normal bowel sounds, soft, no distention Extremities: moves all, no edema Musculoskeletal: normal inspection, painless range of motion, no CVA tenderness Neuro/NURSING HOME DIRECTOR: alert, oriented X 3, normal speech Skin: dry, no rash, no erythema Psychiatry: normal affect, normal mood Discharge Instructions PCP Discharge to: Home/Self Care Additional Discharge Routines: PCP Follow-Up Diet: Cardiac Follow-up Appointments PCP follow-up: PCP: Moses Chavez MD PCP follow up timeframe: In 1-2 weeks Quality: Discharge Advanced Care Plan 65 or Older Discussed with: patient Current Medications Current medication review: I attest that the foregoing medication list in the medical record is true, accurate, and complete to the best of my knowledge. BMI Screening > 25 or < 18.5 BMI status/follow-up: nml BMI,no debt and budget counselor needed Tobacco Use/Counseling Tobacco use/counseling: non tobacco user, no counseling needed HTN Screening/Follow-up B/P assess/follow-up: pre-existing hx of HTN at 1830 RPT #: [id number] END OF REPORT [facility] 03-30-2024 Hospitalist Discharge Summary [facility] ([facility]) Hospitalist Discharge Summary REPORT#:[id number] REPORT STATUS: Draft DATE:03/30/24 TIME: 1226 PATIENT: MARK DEE UNIT #: [id number] ROOM/BED: [address] : 44 AGE: 78 SEX: M ATTEND: Malou Luo MD ADM AUTHOR: Vincenzo Vega MD * ALL edits or amendments must be made on the electronic/computer document * General Information Date of admission: Observation Start Date: 03/27/24 Date of admission: 03/28/24 Discharge date: 03/30/24 Consultants: cardiology Pt. condition on discharge: improved, stable Free Text DxA P Notes Free text DxA P notes: AFib with RVR * Admit to PCU * Continuous telemetry * Diltiazem drip, titrate per protocol * Consult cardiology, recs greatly appreciated. Status post cardioversion today * Daily labs, trend WBCs, monitor * Replace electrolytes as needed * Echocardiogram * Lipids, A1c, TSH * Encourage incentive spirometry Chronic medical conditions: Hypothyroidism Resumed home meds VTE ppx: SCDs, heparin SQ Code status: Full code Dispo: Pending clinical course This note was composed using [employer] dictation software and every effort was made to correct any grammatical and/or spelling errors though some may still persist. Med Rec Med Rec Discharge meds: Continue taking these medications: METOPROLOL TARTRATE (LOPRESSOR) 25 MG TAB 25 MILLIGRAM ORAL TWICE A DAY Comments: TAKE 1 TABLET BY MOUTH TWICE DAILY; 90 Days #180 EA - SIG Obtained From [employer] lisinopriL (ZESTRIL) 10 MG TAB 10 MILLIGRAM ORAL DAILY AT 0900 Comments: TAKE 1 TABLET BY MOUTH EVERY DAY; 90 Days #90 EA - SIG Obtained From [employer] THYROID,PORCINE (ARMOUR THYROID) 30 MG TAB 30 MILLIGRAM ORAL DAILY AT 0900 Comments: TAKE 1 TABLET BY MOUTH EVERY DAY; 90 Days #90 EA - SIG Obtained From [employer] amLODIPine (NORVASC) 5 MG TAB 5 MILLIGRAM ORAL DAILY AT 0900 Comments: TAKE 1 TABLET BY MOUTH DAILY; 60 Days #60 EA - SIG Obtained From [employer] ASPIRIN EC (BRYANT EC) 81 MG TAB.EC 81 MILLIGRAM ORAL DAILY AT 0900 Comments: TAKE 1 TABLET BY MOUTH DAILY; 90 Days #90 EA - SIG Obtained From [employer] ATORVASTATIN (LIPITOR) 40 MG TAB 40 MILLIGRAM ORAL AT BEDTIME Comments: TAKE 1 TABLET BY MOUTH AT BEDTIME; 90 Days #90 EA - SIG Obtained From [employer] APIXABAN (ELIQUIS STARTER PACK) 5 MG TAB 5 MILLIGRAM ORAL TWICE A DAY Qty = 60 Instructions: Starter pack qty = 74 tablets/pack Comments: 30 Days #60 EA - SIG Obtained From [employer] Objective VS/I O Last Documented: Result Date Time Temp 98.1 02 1106 Pulse Ox 99 03/30 0401 B/P 153/74 03/30 0401 B/P Mean 106 03/30 0401 Pulse 46 03/30 0401 Resp 18 03/30 0400 O2 Delivery Room air 03/29 1145 24 hour I O ending at 0700: 03/29 1900 03/30 0700 Intake Total 1220.00 Output Total 450 400 Balance 770.00 -400 Intake, IV 500.00 Intake, Oral 720 Number Voids 1 Output, 0 Estimated Blood Loss Output, Urine 450 400 Patient 149 lb Weight Weight Bed scale Measurement Method Results Findings/Data: Laboratory Tests: 03/304 Chemistry Sodium (135 - 146 MMOL/L) 140 [...] (%) 58 Lymph % (Auto) (%) 26 [place] % (Auto) (%) 12 Eos % (Auto) [...] (auto) (0.0 - 0.1 x10 3/uL) 0.0 Laboratory Tests Test Result Date Time Chemistry Sodium (135 - 146 MMOL/L) 140 03/30 0244 Potassium (3.6 - 5.2 MMOL/L) 4.2 03/30 0244 Chloride (100 - 108 MMOL/L) 105 03/30 0244 Carbon Dioxide (21 - 32 MMOL/L) 27 03/30 0244 Anion Gap (12 - 21) 12 03/30 0244 BUN (6 - 22 MG/DL) 32 H 03/30 0244 Creatinine (0.5 - 1.3 MG/DL) 1.8 H 03/30 0244 GFR Calculation (>60) 37.8 L 03/30 243 Random Glucose (70 - 99 MG/DL) 118 H 03/30 0244 Estimat Average Glucose (68 - 114 MG/DL) 103 03/28 0326 Glycated Hemoglobin (4.0 - 5.6 %) 5.2 03/28 0326 Calcium (8.5 - 10.1 MG/DL) 8.5 03/304 Corrected Calcium (8.5 - 10.1 MG/DL) 9.5 03/304 Magnesium (1.6 - 2.3 MG/DL) 1.9 03/30 0244 Total Bilirubin (0.0 - 1.0 MG/DL) 0.3 03/30 0244 AST (10 - 45 UNITS/L) 27 03/304 ALT (12 - 78 UNITS/L) 25 03/30 024 Total Alk Phosphatase (45 - 132 UNITS/L) 76 03/30 0244 Total Protein (6.5 - 8.2 GM/DL) 5.7 L 03/304 Albumin (3.5 - 4.8 GM/DL) 2.8 L 03/304 Triglycerides (0 - 149 MG/DL) 34 03/28 0326 Cholesterol (0 - 199 MG/DL) 166 03/286 LDL Cholesterol (0 - 129 MG/DL) 83 03/28 0326 HDL Cholesterol (40 - 60 MG/DL) [...] 243 MCV (81.8 - 97.9 fl) 94.8 03/304 MCH (28.3 - 33.7 pg) 31.2 03/30 [...] Lymph % (Auto) (%) 26 03/30 243 [place] % (Auto) (%) 12 03/30 243 Eos % (Auto) (%) 3 03/30 243 Baso % (Auto) (%) 1 03/30 243 Immature Gran # (Auto) (0.0 - 0.2 x10 3/uL) 0.0 02/08 0244 Absolute Neuts (auto) (2.3 - 7.8 x10 3/uL) 3.5 03/30 0244 Absolute Lymphs (auto) (0.8 - 4.0 x10 3/uL) 1.6 03/30 0244 Absolute Monos (auto) (0.3 - 1.2 x10 3/uL) 0.7 03/30 0244 Absolute Eos (auto) (0.0 - 0.5 x10 3/uL) 0.2 03/30 0244 Absolute Basos (auto) (0.0 - 0.1 x10 3/uL) 0.0 03/30 0244 Free Text Obj Notes Free Text Obj Notes: General appearance: alert, awake, no acute distress, conversational Head/Eyes: atraumatic, normocephalic ENT: moist mucosal membranes, normal dentition Neck: full range of motion, supple Cardiovascular: Atrial fibrillation on monitor, Irregular rate and rhythm, no murmur, normal s1, s2 Respiratory: clear to auscultation bilateral, symmetric expansion, no distress Abdomen: non-tender, normal bowel sounds, soft, no distention Extremities: moves all, no edema Musculoskeletal: normal inspection, painless range of motion, no CVA tenderness Neuro/NURSING HOME DIRECTOR: alert, oriented X 3, normal speech Skin: dry, no rash, no erythema Psychiatry: normal affect, normal mood Discharge Instructions PCP Discharge to: Home/Self Care Additional Discharge Routines: PCP Follow-Up Diet: Cardiac Follow-up Appointments PCP follow-up: PCP: Moses Chavez MD PCP follow up timeframe: In 1-2 weeks Quality: Discharge Advanced Care Plan 65 or Older Discussed with: patient Current Medications Current medication review: I attest that the foregoing medication list in the medical record is true, accurate, and complete to the best of my knowledge. BMI Screening > 25 or < 18.5 BMI status/follow-up: nml BMI,no debt and budget counselor needed Tobacco Use/Counseling Tobacco use/counseling: non tobacco user, no counseling needed HTN Screening/Follow-up B/P assess/follow-up: pre-existing hx of HTN RPT #: [id number] END OF REPORT [facility] 03-29-2024 ECHOCARDIOGRAM [facility] [id number] [place] [address]. [place] [address] PT NAME: MARK DEE LOCATION: [place] : 43 SEX: M ROOM/BED: [place] [address]-A ECHOCARDIOGRAM *[facility]* [address] [facility] [address] TRANSESOPHAGEAL ECHOCARDIOGRAM WITH CARDIOVERSION *Patient: Ángel Dee, *Study date: * 03/29/2024 *ID/URN: * [id number] *MRN: * [id number] *Study Time: :45:17 *FIN#: * [id number] *ACC#: * [id number] *Gender: * M *Patient Loc: * [facility] *: * 1945 *HT/WT: * 69 in 148 lb *Study Status: * Inpatient *Age: * 78 *BSA: * 1.82 m 2 *BP: * *REFERRING PHYSICIAN: * Referred, Self ; Referred, Self *ORDERING PHYSICIAN: * Taras Garcia *READING PHYSICIAN: * Taras Garcia *REAL ESTATE LOAN OFFICER: * Reza Harrison INDICATIONS: Aflutter, cardioversion. HISTORY: Atrial flutter. CONCLUSIONS IMPRESSION: Successful cardioversion. No evidence of a . SUMMARY: 1. Successful cardioversion of atrial flutter. 2. Left ventricle: The cavity size is normal. Wall thickness is normal. Systolic function is normal. The estimated ejection fraction is 55-60%. Wall motion is normal. There are no regional wall motion abnormalities. No thrombi are noted. 3. Right ventricle: Systolic function is normal. 4. Left atrium: The atrium is dilated. No thrombi are seen in the atrial cavity or appendage. No thrombi are seen in the atrial cavity or appendage. The appendage is well visualized. The appendage is dilated. Emptying velocity is moderately reduced. PATIENT NAME: MARK DEE 5. Right atrium: The atrium is dilated. No thrombi are seen in the atrial cavity or appendage. 6. Atrial septum: No defect or patent foramen ovale is identified. 7. Mitral valve: The valve is structurally normal. No vegetations are noted. There is mild to moderate regurgitation. 8. Aortic valve: The valve is structurally normal. The valve is trileaflet. No vegetations are noted. There is no stenosis. There is trivial regurgitation. 9. Tricuspid valve: The valve is structurally normal. No vegetations are noted. There is mild-moderate regurgitation. 10. Pulmonic valve: No vegetations are noted. 11. Pericardium, extracardiac: There is no pericardial effusion. STUDY DATA: Consent: The risks, benefits, and alternatives to the procedure were explained to the patient and informed consent was obtained. Transesophageal echocardiography with cardioversion. 2D and intravenous contrast injection images were obtained per protocol. Study status: Routine. Location: EZRA Room Patient status: Inpatient. The patient arrived at the laboratory in a fasting state. A baseline ECG was recorded. Intravenous access was obtained. Surface ECG leads and pulse oximetric signals were monitored. Self-adhesive anterior-posterior defibrillation pads were applied. BSA: 1.82 m 2. BMI: 21.9 kg/m 2. Study completion: The patient tolerated the procedure well. There were no complications. *PROCEDURES:* - Anesthesia was administered during cardioversion. - A transesophageal echocardiogram was performed. Topical anesthesia was obtained using viscous lidocaine. A transesophageal probe (SN: [id number]) was inserted by the attending adapted physical education aide into the posterior pharynx and the esophagus was then intubated without difficulty. Image quality was excellent. Images were captured in a quad screen format to simplify data comparison. No intracardiac thrombus was identified. - Cardioversion was performed. The patient was initially in atrial flutter. Electrocardiography showed a final rhythm of normal sinus rhythm. FINDINGS LEFT VENTRICLE: The cavity size is normal. Wall thickness is normal. No thrombi are noted. Systolic function is normal. The estimated ejection fraction is 55-60%. Wall motion is normal. There are no regional wall motion abnormalities. RIGHT VENTRICLE: The cavity size is normal. Systolic function is normal. LEFT ATRIUM: Well visualized. The atrium is dilated. No thrombi are seen in the atrial cavity or appendage. No thrombi are seen in the atrial cavity or appendage. No spontaneous echo contrast is observed. Appendage: The appendage is well visualized. The appendage is dilated. Emptying velocity is moderately reduced. RIGHT ATRIUM: Well visualized. The atrium is dilated. No thrombi are seen in the atrial cavity or appendage. ATRIAL SEPTUM: No defect or patent foramen ovale is identified. PATIENT NAME: MARK DEE MITRAL VALVE: The valve is structurally normal. Leaflet separation is normal. No vegetations are noted. There is mild to moderate regurgitation. AORTIC VALVE: The valve is structurally normal. The valve is trileaflet. Cusp separation is normal. No vegetations are noted. There is no stenosis. There is trivial regurgitation. TRICUSPID VALVE: The valve is structurally normal. Leaflet separation is normal. No vegetations are noted. There is mild-moderate regurgitation. PULMONIC VALVE: The valve is structurally normal. Cusp separation is normal. No vegetations are noted. AORTA: The aortic root and ascending aorta were mildly dilated with [id number] diffuse aortic atherosclerosis noted. PERICARDIUM: There is no pericardial effusion. Measurements Ascending aorta Value 03/28/2024 Ascending aorta ID, A-P, S 3.9 cm 4.0 Ascending aorta ID/bsa, A-P, S 2.2 cm/m 2 2.1 Legend: (L) and (H) phong values outside specified reference range. Electronically signed by: Taras Garcia 03/29/2024 5 :15 PM at 1715 PATIENT NAME: MARK DEE [facility] 03-29-2024 Hospitalist Progress Note [facility] ([facility] Hospitalist Progress Note REPORT#:[id number] REPORT STATUS: Signed DATE:03/29/24 TIME: 1325 PATIENT: MARK DEE UNIT #: [id number] ROOM/BED: [address] : 44 AGE: 78 SEX: M ATTEND: Malou Luo MD ADM AUTHOR: Patricia Conn DO * ALL edits or amendments must be made on the electronic/computer document * Subjective Chief complaint: AFib with RVR HPI: Today patient was seen and examined at bedside. No chest pain no shortness a breath no new or worsening symptoms. Review of Systems All systems rev neg: except as noted Free Text ROS Notes Free Text ROS Notes: 12-point system reviewed and negative except as noted in the HPI. Objective General VS/I O: Vital Signs: Date Time Temp Pulse Resp B/P B/P Pulse O2 O2 Flow FiO2 Mean Ox Delivery Rate 02/ 1246 44 17 148/70 101 92 02/07 1231 37 30 152/73 105 100 02/07 1215 40 24 128/73 96 100 02/07 [...] 2100 64 18 121/74 93 97 02/06 2029 68 18 102/58 75 97 02/06 1999 36.7 02/06 1999 63 17 123/77 94 [...] 02/06 1600 65 17 127/79 98 97 24 hour I O ending at 0700: 02/07 0700 02/06 1900 Intake Total 23.40 522.00 Output Total 900 600 Balance -876.60 -78.00 Intake, IV 23.40 22.00 Intake, Oral 500 Output, Urine 900 600 Patient 66.6 kg Weight Weight Bed scale Measurement Method PATIENT WEIGHT: Weight (lb): 146 Weight (oz): 13.25 Weight (kg): 66.600 Medications: Active Meds + DC'd Last 24 Hrs Ephedrine Sulfate (ePHEDrine sulfate) 0 .STK-MED ONE .ROUTE (DC) Glycopyrrolate (Glycopyrrolate) 0 .STK-MED ONE .ROUTE (DC) Propofol (DIPRIVAN) 0 .STK-MED ONE .ROUTE (DC) Lisinopril (PRINIVIL) 10 MG DAILY PO Lidocaine HCl (LIDOCAINE HCL) 0 .STK-MED ONE .ROUTE (DC) Propofol (DIPRIVAN) 0 .STK-MED ONE .ROUTE (DC) Atorvastatin Calcium (LIPITOR) 40 MG BEDTIME PO Thyroid (THYROID) 30 MG DAILY PO Pantoprazole Sodium (PROTONIX) 40 MG AC BK PO Mupirocin (BACTROBAN) 1 APPLIC BID NASAL Acetaminophen (TYLENOL) 650 MG Q4HR PRN PRN PO Calcium Carbonate (CHEWABLE ANTACID) 1,000 MG Q6HR PRN PRN PO (CKD) Diltiazem HCl (carDIZEM INJ) 125 MG ASDIR IV Sodium Chloride (SODIUM CHLORIDE) 100 ML Docusate Sodium (COLACE) 100 MG BID PRN PRN PO Heparin Sodium (Porcine) (Heparin Sodium) 5,000 UNIT Q8H SUBQ Melatonin (MELATONIN) 3 MG BEDTIME PRN PRN PO Ondansetron HCl (ZOFRAN 4 MG/2 ML VIAL) 4 MG Q4HR PRN PRN IV Results Findings/Data: Laboratory Tests 03/29 303 Chemistry Sodium (135 - 146 MMOL/L) 141 [...] Albumin (3.5 - 4.8 GM/DL) 3.0 L Laboratory Tests 03/29 303 Hematology WBC (4.1 - [...] (%) 54 Lymph % (Auto) (%) 30 [place] % (Auto) (%) 11 Eos % (Auto) [...] (auto) (0.0 - 0.1 x10 3/uL) 0.0 Free Text Obj Notes Free Text Obj Notes: General appearance: alert, awake, no acute distress, conversational Head/Eyes: atraumatic, normocephalic ENT: moist mucosal membranes, normal dentition Neck: full range of motion, supple Cardiovascular: Atrial fibrillation on monitor, Irregular rate and rhythm, no murmur, normal s1, s2 Respiratory: clear to auscultation bilateral, symmetric expansion, no distress Abdomen: non-tender, normal bowel sounds, soft, no distention Extremities: moves all, no edema Musculoskeletal: normal inspection, painless range of motion, no CVA tenderness Neuro/NURSING HOME DIRECTOR: alert, oriented X 3, normal speech Skin: dry, no rash, no erythema Psychiatry: normal affect, normal mood Diagnosis, Assessment Plan Consultants: cardiology Free Text DxA P Notes Free text DxA P notes: AFib with RVR * Admit to PCU * Continuous telemetry * Diltiazem drip, titrate per protocol * Consult cardiology, recs greatly appreciated. Status post cardioversion today * Daily labs, trend WBCs, monitor * Replace electrolytes as needed * Echocardiogram * Lipids, A1c, TSH * Encourage incentive spirometry Chronic medical conditions: Hypothyroidism Resumed home meds VTE ppx: SCDs, heparin SQ Code status: Full code Dispo: Pending clinical course This note was composed using [employer] fluency dictation software and every effort was made to correct any grammatical and/or spelling errors though some may still persist. Quality: Gen Med Crit Care VTE Prophylaxis VTE prophylaxis initiated: yes Current Medications Current medication review: I attest that the foregoing medication list in the medical record is true, accurate, and complete to the best of my knowledge. Advanced Care Plan 65 or Older Discussed with: patient Discussion included: code status BMI Screening > 25 or < 18.5 BMI status/follow-up: nml BMI,no debt and budget counselor needed Tobacco Use/Counseling Tobacco use/counseling: non tobacco user, no counseling needed HTN Screening/Follow-up B/P assess/follow-up: pre-existing hx of HTN at 1327 RPT #: [id number] END OF REPORT [facility] 03-29-2024 Cardioversion Procedure Note [facility] Cardioversion Procedure Note REPORT#:[id number] REPORT STATUS: Signed DATE:03/29/24 TIME: 1108 PATIENT: MARK DEE UNIT #: [id number] ROOM/BED: [address] : 44 AGE: 78 SEX: M ATTEND: Malou Luo MD ADM AUTHOR: Taras Garcia MD * ALL edits or amendments must be made on the electronic/computer document * Procedure Cardioversion Procedure Indication: atrial flutter Informed consent: Yes Plan for sedation: Provided by anesthesia Mod. sedation provided by me: no Observer name: Name of independent trained observer: ASA classification: III Mallampati Class: III Airway assessment: adequate Focused physical exam: Physical exam; General-thin male in no acute distress Cardiovascular-irregularly irregular Chest-clear to auscultation Abdomen-soft, normoactive bowel sounds Extremities-no clubbing, cyanosis, edema Post-procedure diagnosis: Atrial flutter status post cardioversion, initial rhythm sinus pause, followed by sinus bradycardia, followed by atrial rhythm with junctional beats. Procedure performed: After informed consent was obtained, the patient received sedation via the anesthesia department. A EZRA was performed initially, it revealed normal left ventricular systolic function with a left ventricular ejection fraction range of 60%, there was biatrial enlargement, zoly-oy-lvjsicyq MR, qwtg-ao-idakeyju TR, trivial aortic insufficiency. The left atrium and left atrial appendage were scanned and found to be free of thrombus. After completion of the EZRA the patient underwent a synchronized direct current cardioversion. Received a single 200 joule shock with termination of atrial flutter. The initial rhythm was sinus pause with escape beats followed by sinus bradycardia followed by an atrial rhythm with junctional beats. Anticipate mosque of sinus rhythm once patient wakes up and IV diltiazem wears off. Performed by: MD Eli Lawrence OMS-III Movie Theater Usher(s): Eli Herbert OMS-III Findings: Ezra cardioversion with termination of atrial flutter. At the end of the procedure the patient was in an atrial rhythm with junctional beats. Anticipate mosque of sinus rhythm as patient wakes up and IV diltiazem wears off. Estimated blood loss in ml's: none Specimens removed/altered: none Complications: none at 1114 RPT #: [id number] END OF REPORT [facility] 03-29-2024 Cardiology Progre ss Note [facility] ([facility]) Cardiology Progress Note REPORT#:[id number] REPORT STATUS: Draft DATE:03/29/24 TIME: 956 PATIENT: MARK DEE UNIT #: [id number] ROOM/BED: [facility]-A : 44 AGE: 78 SEX: M ATTEND: Malou Luo MD ADM AUTHOR: Taras Garcia MD * ALL edits or amendments must be made on the electronic/computer document * Subjective Chief complaint: AFib Objective General VS/I O: 24 hour I O ending at 0700: 03/29 0700 03/28 1900 Intake Total 23.40 522.00 Output Total 900 600 Balance -876.60 -78.00 Intake, IV 23.40 22.00 Intake, Oral 500 Output, Urine 900 600 Patient 66.6 kg Weight Weight Bed scale Measurement Method Vital Signs: Date Time Temp Pulse Resp B/P [...] 2100 64 18 121/74 93 97 02/06 2029 68 18 102/58 75 97 02/06 2000 [...] 02/06 1200 107 22 132/84 103 93 03/28 1130 106 11 139/103 117 97 03/28 1107 114 24 147/77 106 98 03/28 1101 121 31 164/105 129 97 03/28 1030 82 10 125/91 104 97 03/28 1000 82 14 122/75 94 95 PATIENT WEIGHT: Weight (lb): 146 Weight (oz): 13.25 Weight (kg): 66.600 Medications: Active Meds + DC'd Last 24 Hrs Propofol (DIPRIVAN) 0 .STK-MED ONE .ROUTE (DC) Lisinopril (PRINIVIL) 10 MG DAILY PO Lidocaine HCl (LIDOCAINE HCL) 0 .STK-MED ONE .ROUTE (DC) Propofol (DIPRIVAN) 0 .STK-MED ONE .ROUTE (DC) Atorvastatin Calcium (LIPITOR) 40 MG BEDTIME PO Thyroid (THYROID) 30 MG DAILY PO Pantoprazole Sodium (PROTONIX) 40 MG AC BK PO Mupirocin (BACTROBAN) 1 APPLIC BID NASAL Acetaminophen (TYLENOL) 650 MG Q4HR PRN PRN PO Calcium Carbonate (CHEWABLE ANTACID) 1,000 MG Q6HR PRN PRN PO (CKD) Diltiazem HCl (carDIZEM INJ) 125 MG ASDIR IV Sodium Chloride (SODIUM CHLORIDE) 100 ML Docusate Sodium (COLACE) 100 MG BID PRN PRN PO Heparin Sodium (Porcine) (Heparin Sodium) 5,000 UNIT Q8H SUBQ Melatonin (MELATONIN) 3 MG BEDTIME PRN PRN PO Ondansetron HCl (ZOFRAN 4 MG/2 ML VIAL) 4 MG Q4HR PRN PRN IV Physical Exam Head/Eyes: EOMI, PERRLA Neck: no bruit/NL carotids, no JVD Cardiovascular: CV assessment: irregular rhythm, Soft systolic murmur, PMI laterally displaced Respiratory: decreased breath sounds, no distress Abdomen: soft, non-tender, normal bowel sounds, no distention, no guarding Lower extremity: LE assessment: no clubbing, no cyanosis, no edema Neuro/NURSING HOME DIRECTOR: alert, oriented X 3 Psychiatry: normal affect Diagnosis, Assessment Plan Free Text DxA P Notes Free Text DxA P Notes: Impression; Atrial flutter with rapid rate of unknown duration Hypertension Plan; Echo revealed normal left ventricular systolic function with a left ventricular ejection fraction of 60-65%, biatrial enlargement, trace aortic insufficiency, mild mitral regurgitation, mild tricuspid regurgitation with a pulmonary artery pressure estimated at 25 mm of mercury. For now continue IV diltiazem as required. We will follow RPT #: [id number] END OF REPORT [facility] 03-29-2024 Cardiology Progre ss Note [facility] ([facility]) Cardiology Progress Note REPORT#:[id number] REPORT STATUS: Signed DATE:03/29/24 TIME: 956 PATIENT: MARK DEE UNIT #: [id number] ROOM/BED: [address] : 44 AGE: 78 SEX: M ATTEND: Malou Luo MD ADM AUTHOR: Taras Garcia MD * ALL edits or amendments must be made on the electronic/computer document * Subjective Chief complaint: AFib Patient reports: No: abdominal pain, chest pain, confused, cough, dizziness, fatigue, fever, headache, nausea, palpitations, shortness of breath, swelling. Comments: Anxious to go home Objective General VS/I O: 24 hour I O ending at 0700: 03/29 0700 03/28 1900 Intake Total 23.40 522.00 Output Total 900 600 Balance -876.60 -78.00 Intake, IV 23.40 22.00 Intake, Oral 500 Output, Urine 900 600 Patient 66.6 kg Weight Weight Bed scale Measurement Method Vital Signs: Date Time Temp Pulse Resp B/P B/P Pulse O2 O2 Flow FiO2 Mean Ox Delivery Rate 03/29 699 63 15 119/70 89 97 03/29 0630 60 14 140/83 106 96 03/29 0600 60 15 154/93 119 96 / 0530 61 18 140/92 113 97 / 0501 62 24 142/83 105 95 02/ 0430 60 14 131/79 99 96 02/ 0425 36.5 / 0400 60 16 135/85 105 95 02/ 0330 62 16 119/63 86 96 02/ 0300 63 17 114/77 92 96 / 0230 62 19 131/80 100 99 03/29 0200 61 25 131/76 98 96 02/07 [...] 2100 64 18 121/74 93 97 02/06 2029 68 18 102/58 75 97 02/06 1999 36.7 02/06 1999 63 17 123/77 94 [...] 02/06 1101 121 31 164/105 129 97 02/06 1030 82 10 125/91 104 97 02/06 1000 82 14 122/75 94 95 PATIENT WEIGHT: Weight (lb): 146 Weight (oz): 13.25 Weight (kg): 66.600 Medications: Active Meds + DC'd Last 24 Hrs Propofol (DIPRIVAN) 0 .STK-MED ONE .ROUTE (DC) Lisinopril (PRINIVIL) 10 MG DAILY PO Lidocaine HCl (LIDOCAINE HCL) 0 .STK-MED ONE .ROUTE (DC) Propofol (DIPRIVAN) 0 .STK-MED ONE .ROUTE (DC) Atorvastatin Calcium (LIPITOR) 40 MG BEDTIME PO Thyroid (THYROID) 30 MG DAILY PO Pantoprazole Sodium (PROTONIX) 40 MG AC BK PO Mupirocin (BACTROBAN) 1 APPLIC BID NASAL Acetaminophen (TYLENOL) 650 MG Q4HR PRN PRN PO Calcium Carbonate (CHEWABLE ANTACID) 1,000 MG Q6HR PRN PRN PO (CKD) Diltiazem HCl (carDIZEM INJ) 125 MG ASDIR IV Sodium Chloride (SODIUM CHLORIDE) 100 ML Docusate Sodium (COLACE) 100 MG BID PRN PRN PO Heparin Sodium (Porcine) (Heparin Sodium) 5,000 UNIT Q8H SUBQ Melatonin (MELATONIN) 3 MG BEDTIME PRN PRN PO Ondansetron HCl (ZOFRAN 4 MG/2 ML VIAL) 4 MG Q4HR PRN PRN IV Physical Exam General appearance: alert, awake, oriented Head/Eyes: EOMI, PERRLA Neck: no bruit/NL carotids, no JVD Cardiovascular: CV assessment: irregular rhythm, Soft systolic murmur, PMI laterally displaced Respiratory: decreased breath sounds, no distress Abdomen: soft, non-tender, normal bowel sounds, no distention, no guarding Lower extremity: LE assessment: no clubbing, no cyanosis, no edema Neuro/NURSING HOME DIRECTOR: alert, oriented X 3 Psychiatry: normal affect Diagnosis, Assessment Plan Free Text DxA P Notes Free Text DxA P Notes: Impression; Atrial flutter with rapid rate of unknown duration Hypertension Plan; Echo revealed normal left ventricular systolic function with a left ventricular ejection fraction of 60-65%, biatrial enlargement, trace aortic insufficiency, mild mitral regurgitation, mild tricuspid regurgitation with a pulmonary artery pressure estimated at 25 mm of mercury. Patient now status post ezra guided cardioversion. Initial rhythm post cardioversion was sinus pause followed by escape rhythm followed by sinus bradycardia and eventual atrial rhythm with intermittent junctional beats. Hemodynamically stable at present. DC diltiazem Continue anticoagulation for at least 1 month. Anticipate discharge home later today. He will follow up with his primary adapted physical education aide. at 1107 RPT #: [id number] END OF REPORT [facility] 03-28-2024 Hospitalist Progress Note [facility] ([facility]) Hospitalist Progress Note REPORT#:[id number] REPORT STATUS: Signed DATE:03/28/24 TIME: 1646 PATIENT: MARK DEE UNIT #: [id number] ROOM/BED: ICU04-A : 43 AGE: 78 SEX: M ATTEND: Malou Luo MD ADM AUTHOR: Patricia Conn DO * ALL edits or amendments must be made on the electronic/computer document * Subjective Chief complaint: AFib with RVR HPI: Today patient was seen and examined at bedside. No chest pain no shortness a breath no new or worsening symptoms. Review of Systems Free Text ROS Notes Free Text ROS Notes: 12-point system reviewed and negative except as noted in the HPI. Objective General VS/I O: Vital Signs: Date Time Temp Pulse Resp B/P B/P Pulse O2 O2 Flow FiO2 Mean Ox Delivery Rate 02/ 1200 36.6 02/06 1200 107 22 132/84 103 93 02/06 1130 106 11 139/103 117 97 02/06 1107 114 24 147/77 106 98 02/06 1101 121 31 164/105 129 97 02/06 1030 82 10 125/91 104 97 02/06 1000 82 14 122/75 94 95 02/06 0930 83 15 139/94 112 97 02/06 0900 87 16 133/92 108 94 02/06 0830 36.6 02/06 0830 117 19 141/99 113 97 02/06 [...] 02/ 1916 63 28 175/115 137 98 02/ 1846 85 23 168/105 131 90 / 1714 36.7 116 20 192/129 98 Room air 03/27 1712 192/129 153 03/27 1710 108 34 24 hour I O ending at 0700: 03/28 0700 03/27 1900 Intake Total 634.80 Output Total 1300 Balance -665.20 Intake, IV 34.80 Intake, Oral 600 Output, Urine 1300 Patient 67.4 kg 71.364 kg Weight Weight Bed scale Stated/Reported Measurement Method PATIENT WEIGHT: Weight (lb): 148 Weight (oz): 9.47 Weight (kg): 67.400 Medications: Active Meds + DC'd Last 24 Hrs Pantoprazole Sodium (PROTONIX) 40 MG AC BK PO Mupirocin (BACTROBAN) 1 APPLIC BID NASAL Acetaminophen (TYLENOL) 650 MG Q4HR PRN PRN PO Calcium Carbonate (CHEWABLE ANTACID) 1,000 MG Q6HR PRN PRN PO (CKD) Diltiazem HCl (carDIZEM INJ) 125 MG ASDIR IV Sodium Chloride (SODIUM CHLORIDE) 100 ML Docusate Sodium (COLACE) 100 MG BID PRN PRN PO Heparin Sodium (Porcine) (Heparin Sodium) 5,000 UNIT Q8H SUBQ Melatonin (MELATONIN) 3 MG BEDTIME PRN PRN PO Ondansetron HCl (ZOFRAN 4 MG/2 ML VIAL) 4 MG Q4HR PRN PRN IV Free Text Obj Notes Free Text Obj Notes: General appearance: alert, awake, no acute distress, conversational Head/Eyes: atraumatic, normocephalic ENT: moist mucosal membranes, normal dentition Neck: full range of motion, supple Cardiovascular: Atrial fibrillation on monitor, Irregular rate and rhythm, no murmur, normal s1, s2 Respiratory: clear to auscultation bilateral, symmetric expansion, no distress Abdomen: non-tender, normal bowel sounds, soft, no distention Extremities: moves all, no edema Musculoskeletal: normal inspection, painless range of motion, no CVA tenderness Neuro/NURSING HOME DIRECTOR: alert, oriented X 3, normal speech Skin: dry, no rash, no erythema Psychiatry: normal affect, normal mood Diagnosis, Assessment Plan Consultants: cardiology Free Text DxA P Notes Free text DxA P notes: AFib with RVR * Admit to PCU * Continuous telemetry * Diltiazem drip, titrate per protocol * Consult cardiology, recs greatly appreciated. Planning cardioversion tomorrow * Daily labs, trend WBCs, monitor * Replace electrolytes as needed * Echocardiogram * Lipids, A1c, TSH * Encourage incentive spirometry Chronic medical conditions: Hypothyroidism- ? Unclear if on meds, results pending Resumed home meds VTE ppx: SCDs, heparin SQ Code status: Full code Dispo: Pending clinical course This note was composed using [employer] fluency dictation software and every effort was made to correct any grammatical and/or spelling errors though some may still persist. Quality: Gen Med Crit Care VTE Prophylaxis VTE prophylaxis initiated: yes Current Medications Current medication review: I attest that the foregoing medication list in the medical record is true, accurate, and complete to the best of my knowledge. Advanced Care Plan 65 or Older Discussed with: patient Discussion included: code status BMI Screening > 25 or < 18.5 BMI status/follow-up: nml BMI,no debt and budget counselor needed Tobacco Use/Counseling Tobacco use/counseling: non tobacco user, no counseling needed HTN Screening/Follow-up B/P assess/follow-up: pre-existing hx of HTN at 1652 RPT #: [id number] END OF REPORT [facility] 03-28-[address] [place]. [address] PT NAME: MARK DEE LOCATION: [facility] : 43 SEX: M ROOM/BED: [place] [address]-A ECHOCARDIOGRAM *[facility]* [address] [place] [address] TRANSTHORACIC ECHOCARDIOGRAM *Patient: Ángel Dee, *Study date: * 03/28/2024 *ID/URN: * [id number] Mark *MRN: * [id number] *Study Time: 07:11:52 *FIN#: * [id number] *ACC#: * [id number] *Gender: * M *Patient Loc: [facility] *: * 1945 *HT/WT: * 69 in 157 lb *Study Status: * Inpatient *Age: * 78 *BSA: * 1.86 m 2 *BP: * 146 / 92 *REFERRING PHYSICIAN: * Referred, Self ; Referred, Self *ORDERING PHYSICIAN: * Love Walker *READING PHYSICIAN: * Taras Garcia *REAL ESTATE LOAN OFFICER: Praveen Pardo INDICATIONS: Atrial Fibrillation. HISTORY: PMH: Cerebrovascular accident. Atrial fibrillation. Risk factors: The patient is a former tobacco user. Hypertension. CONCLUSIONS SUMMARY: 1. Left ventricle: The cavity size is normal. Wall thickness is normal. Systolic function is normal. The estimated ejection fraction is 60-65%. Wall motion is normal. There are no regional wall motion abnormalities. The study is not technically sufficient to allow evaluation of LV diastolic function. 2. Right ventricle: Systolic function is normal. 3. Left atrium: The atrium is moderately dilated. 4. Right atrium: The atrium is mildly to moderately dilated. 5. Mitral valve: The valve is structurally normal. There is no stenosis. There is mild regurgitation. PATIENT NAME: MARK DEE 6. Aortic valve: The valve is structurally normal. The valve is trileaflet. There is no stenosis. There is trivial regurgitation. 7. Tricuspid valve: The valve is structurally normal. There is mild regurgitation. 8. Pulmonic valve: There is mild to moderate regurgitation. 9. Pericardium, extracardiac: A trivial pericardial effusion is noted. 10. Pulmonary arteries: Systolic pressure is within the normal range, estimated to be 25 mm Hg. STUDY DATA: Transthoracic echocardiography. M-mode, complete 2D, complete spectral Doppler, and color Doppler images were obtained per protocol. Study status: Routine. Location: ICU Patient status: Inpatient. Heart rate: 84 bpm. Blood pressure: 146/92 mmHg BSA: 1.86 m 2. BMI: 23.2 kg/m 2. *PROCEDURES:* A transthoracic echocardiogram was performed. Image quality was adequate. Scanning was performed from the parasternal, apical, subcostal, and suprasternal notch acoustic windows. FINDINGS LEFT VENTRICLE: The cavity size is normal. Wall thickness is normal. Systolic function is normal. The estimated ejection fraction is 60-65%. Wall motion is normal. There are no regional wall motion abnormalities. The study is not technically sufficient to allow evaluation of LV diastolic function. RIGHT VENTRICLE: The cavity size is normal. Systolic function is normal. LEFT ATRIUM: The atrium is moderately dilated. RIGHT ATRIUM: The atrium is mildly to moderately dilated. MITRAL VALVE: The valve is structurally normal. Leaflet separation is normal. There is no stenosis. There is mild regurgitation. AORTIC VALVE: The valve is structurally normal. The valve is trileaflet. There is no stenosis. There is trivial regurgitation. The mean systolic gradient is 2 mm Hg. The peak systolic gradient is 3.44 mm Hg. The valve area by the velocity-time integral method is 2.61 cm 2. Doppler: The peak systolic velocity is 0.9 m/sec. TRICUSPID VALVE: The valve is structurally normal. Leaflet separation is normal. There is mild regurgitation. PULMONIC VALVE: Not well visualized. There is mild to moderate regurgitation. The peak systolic gradient is 2 mm Hg. AORTA: Aortic root: The root is dilated. Measuring 4.1 cm at the sinus of Valsalva. Ascending aorta: The vessel is dilated. Measuring 4.4 cm in the visualized ascending aorta. PULMONARY ARTERIES: Systolic pressure is within the normal range, estimated to be 25 mm Hg. PERICARDIUM: A trivial pericardial effusion is noted. SYSTEMIC VEINS: Inferior vena cava: The IVC is normal in size. Respirophasic diameter changes are in the normal range (>=50%). PATIENT NAME: MARK DEE Measurements Left ventricle Value Ref LV ID, ED, PLAX chordal 5.1 cm 4.2 - 5.8 LV ID, ES, PLAX chordal 3.4 cm 2.5 - 4.0 LV ID/bsa, ED, PLAX chordal 2.7 cm/m 2 2.2 - 3.0 LV ID/bsa, ES, PLAX chordal 1.8 cm/m 2 1.3 - 2.1 LV ID, major axis, ES, A4C 6.3 cm --------- LV ID/bsa, major axis, ES, A4C 3.4 cm/m 2 --------- LV ID, major axis, ED, A2C 7.1 cm --------- LV ID, major axis, ES, A2C 6.0 cm --------- LV ID/bsa, major axis, ED, A2C 3.8 cm/m 2 --------- LV ID/bsa, major axis, ES, A2C 3.2 cm/m 2 --------- IVS thickness, ED (H) 1.2 cm 0.6 - 1.0 LV PW thickness, ED 1.0 cm 0.6 - 1.0 LV ejection fraction 62 % 52 - 72 LV end-diastolic volume, 1-p A2C (L) 23 ml 59 - 175 LV end-systolic volume, 1-p A2C (L) 12 ml 15 - 75 LV ejection fraction, 1-p A2C 49 % 48 - 76 Stroke volume, 1-p A2C 11 ml --------- LV end-diastolic volume/bsa, 1-p A2C (L) 12 ml/m 2 31 - 87 LV end-systolic volume/bsa, 1-p A2C (L) 6 ml/m 2 9 - 37 Stroke volume/bsa, 1-p A2C 6.1 ml/m 2 --------- LV end-diastolic volume, 1-p A4C (L) 54 ml 69 - 185 LV end-systolic volume, 1-p A4C 23 ml 22 - 78 LV ejection fraction, 1-p A4C 57 % 46 - 74 Stroke volume, 1-p A4C 31 ml --------- LV end-diastolic volume/bsa, 1-p A4C (L) 29 ml/m 2 37 - 93 LV end-systolic volume/bsa, 1-p A4C 13 ml/m 2 12 - 40 Stroke volume/bsa, 1-p A4C 17 ml/m 2 --------- LV end-diastolic volume, 2-p (L) 36 ml 62 - 150 LV end-systolic volume, 2-p (L) 17 ml 21 - 61 LV ejection fraction, 2-p 53 % 52 - 72 LV end-diastolic volume/bsa, 2-p (L) 19 ml/m 2 34 - 74 LV end-systolic volume/bsa, 2-p (L) 9 ml/m 2 11 - 31 LV e', lateral 13.5 cm/sec >=10.0 LV E/e', lateral 6 LV e', medial 9.5 cm/sec >=7.0 LV E/e', medial 8 --------- LVOT Value Ref LVOT ID, A-P 2.3 cm --------- LVOT area 4.2 cm 2 --------- LVOT peak velocity, S 0.59 m/sec --------- LVOT mean velocity, S 0.45 m/sec --------- LVOT VTI, S 12.9 cm --------- LVOT peak gradient, S 1 mm Hg --------- LVOT mean gradient, S 1 mm Hg --------- Stroke volume (SV), LVOT DP 55 ml --------- Stroke index (SV/bsa), LVOT DP 29 ml/m 2 --------- Right ventricle Value Ref RV ID, major axis, ED, A4C (L) 5.6 cm 5.9 - 8.3 PATIENT NAME: MARK DEE RV s', lateral 13.7 cm/sec >=9.5 Left atrium Value Ref LA ID, A-P, ES (H) 4.2 cm 3.0 - 4.0 LA volume/bsa, ES, 2-p (H) 35 ml/m 2 16 - 34 Right atrium Value Ref RA area, ES (H) 21 cm 2 10 - 18 RA volume, ES, 1-p A4C 59 ml --------- RA volume/bsa, ES, 1-p A4C 32 ml/m 2 11 - 39 Aortic valve Value Ref Aortic valve peak velocity, S 0.9 m/sec Aortic valve VTI, S 18.87 cm --------- Aortic mean gradient, S 2 mm Hg --------- Aortic peak gradient, S 3.44 mm Hg --------- VTI, DI 0.68 --------- Aortic valve area, VTI 2.61 cm 2 --------- Aortic valve area/bsa, VTI 1.4 cm 2/m 2 --------- Aortic valve area, peak velocity 2.7 cm 2 --------- Aortic valve area/bsa, peak velocity 1.45 cm 2/m 2 --------- Mitral valve Value Ref E-wave peak velocity 0.75 m/sec --------- E-wave peak gradient 2 mm Hg --------- A-wave peak velocity 0.35 m/sec --------- E/A ratio, peak 2.16 --------- Pulmonic valve Value Ref Pulmonic valve peak velocity, S 0.8 m/sec --------- Pulmonic peak gradient, S 2 mm Hg --------- Tricuspid valve Value Ref Tricuspid annulus diameter, ES 3.3 cm --------- Tricuspid regurg peak velocity 2.3 m/sec Tricuspid peak RV-RA gradient 21.80 mm Hg --------- Aortic root Value Ref Aortic root ID, ED 4.0 cm 2.6 - 4.0 Ascending aorta Value Ref Ascending aorta ID, A-P, S 4.0 cm --------- Ascending aorta ID/bsa, A-P, S 2.1 cm/m 2 --------- Systemic veins Value Ref RA systolic pressure 3 mm Hg --------- Inferior vena cava Value Ref ID 2.0 cm Legend: (L) and (H) phong values outside specified reference range. Electronically signed by: PATIENT NAME: MARK DEE Taras Garcia 03/28/2024 4 :01 PM at 1601 PATIENT NAME: MARK DEE [facility] 03-28-2024 Pharmacy Prog.Note-Med Rec [facility] ([facility]) Pharmacy Prog.Note-Med Rec REPORT#:[id number] REPORT STATUS: Draft DATE:03/28/24 TIME: 1257 PATIENT: MARK DEE UNIT #: [id number] ROOM/BED: [address] : [address] AGE: 78 SEX: M ATTEND: Malou Luo MD ADM AUTHOR: ES FLOREZ PharmD * ALL edits or amendments must be made on the electronic/computer document * Pharmacy Med History Review Primary Care Provider PCP: PCP: Moses Chavez MD Pharmacy Med History Review Source of information: reviewed med claims data Med Rec report: yes Admission Med Rec: Scheduled Medications amLODIPine (NORVASC) 5 MG PO DAILY (Reported) APIXABAN (ELIQUIS STARTER PACK) 5 MG PO BID (Reported) ASPIRIN EC (BRYANT EC) 81 MG PO DAILY (Reported) ATORVASTATIN (LIPITOR) 40 MG PO BEDTIME (Reported) lisinopriL (ZESTRIL) 10 MG PO DAILY (Reported) METOPROLOL TARTRATE (LOPRESSOR) 25 MG PO BID (Reported) THYROID,PORCINE (ARMOUR THYROID) 30 MG PO DAILY (Reported) Allergies: Coded Allergies: No Known Allergies (03/27/24) Med Rec actions: Med Rec actions: home med list reviewed Comments: Based on information I was able to find in the medication claims database and the Health Information Exchange, I was able to find prescribers that the patient has visited in the past year including primary patient care secretary Dr. Moses Chavez of [facility], primary patient care secretary Dr. Calderon Harrell MD of [facility], and hospitalist Dr. Matthew Spencer MD of [facility]. When interviewed, patient reports that Dr. Moses Chavez is his PCP. According to [facility], the patient's documented home medication list includes the following: * Amlodipine 5mg tablet - take one tablet by mouth once daily * Apixaban 5mg tablet - take one tablet by mouth twice daily * Aspiring 81mg tablet - take one tablet by mouth once daily * Atorvastatin 40mg tablet - take one tablet by mouth once daily at bedtime * Fish oil 1000mg capsule - take one capsule by mouth twice daily * Lisinopril 10mg tablet - take one tablet by mouth once daily * Metoprolol tartrate 25mg tablet - take one tablet by mouth twice daily * Witherbee thyroid 30mg tablet - take one tablet by mouth once daily However, the patient communicated that he has not taken prescription medication for months. This decision was prompted when he started seeing naturopathic practitioner Yaa Ji, Ph.D. of [facility] in [place], [place]. When I called the store, the extractions technician communicated that patient mostly purchased vitamins, minerals, glandular extract, and herbal digestive. They were aware that patient was prescribed Eliquis and a thyroid supplement, but were unaware of other meds and were not aware if patient decided to continue or stop his prescription meds. Please call [phone] with questions regarding the medication reconciliation for this patient. Thank you! RPT #: [id number] END OF REPORT [facility] 03-28-2024 Pharmacy Prog.Note-Med Rec [facility] ([facility]) Pharmacy Prog.Note-Med Rec REPORT#:[id number] REPORT STATUS: Draft DATE:03/28/24 TIME: 1257 PATIENT: MARK DEE UNIT #: [id number] ROOM/BED: [address] : [address] AGE: 78 SEX: M ATTEND: Malou Luo MD ADM AUTHOR: ES FLOREZ PharmD * ALL edits or amendments must be made on the electronic/computer document * Pharmacy Med History Review Primary Care Provider PCP: PCP: Moses Chavez MD Pharmacy Med History Review Source of information: reviewed med claims data Med Rec report: yes Admission Med Rec: Scheduled Medications amLODIPine (NORVASC) 5 MG PO DAILY (Reported) APIXABAN (ELIQUIS STARTER PACK) 5 MG PO BID (Reported) ASPIRIN EC (BRYANT EC) 81 MG PO DAILY (Reported) ATORVASTATIN (LIPITOR) 40 MG PO BEDTIME (Reported) lisinopriL (ZESTRIL) 10 MG PO DAILY (Reported) METOPROLOL TARTRATE (LOPRESSOR) 25 MG PO BID (Reported) THYROID,PORCINE (ARMOUR THYROID) 30 MG PO DAILY (Reported) Allergies: Coded Allergies: No Known Allergies (03/27/24) Med Rec actions: Med Rec actions: home med list reviewed Comments: Based on information I was able to find in the medication claims database and the Health Information Exchange, I was able to find prescribers that the patient has visited in the past year including primary patient care secretary Dr. Moses Chavez of [facility], primary patient care secretary Dr. Calderon Harrell MD of [facility], and hospitalist Dr. Matthew Spencer MD of [facility]. When interviewed, patient communicated that Dr. Moses Cahvez is his PCP. According to [facility], the patient's documented home medication list includes the following: * Amlodipine 5mg tablet - take one tablet by mouth once daily * Apixaban 5mg tablet - take one tablet by mouth twice daily * Aspiring 81mg tablet - take one tablet by mouth once daily * Atorvastatin 40mg tablet - take one tablet by mouth once daily at bedtime * Fish oil 1000mg capsule - take one capsule by mouth twice daily * Lisinopril 10mg tablet - take one tablet by mouth once daily * Metoprolol tartrate 25mg tablet - take one tablet by mouth twice daily * Witherbee thyroid 30mg tablet - take one tablet by mouth once daily However, the patient communicated that he has not taken prescription medication for months. This decision was prompted when he started seeing naturopathic practitioner Yaa Ji, Ph.D. of [facility] in [place], [place]. When I called the store, the extractions technician communicated that patient mostly purchased vitamins, minerals, glandular extract, and herbal digestive. They were aware that patient was prescribed Eliquis and a thyroid supplement, but were unaware of other meds and were not aware if patient decided to continue or stop his prescription meds. Please call [phone] with questions regarding the medication reconciliation for this patient. Thank you! RPT #: [id number] END OF REPORT [facility] 03-28-2024 Pharmacy Prog.Note-Med Rec [facility] ([facility]) Pharmacy Prog.Note-Med Rec REPORT#:[id number] REPORT STATUS: Draft DATE:03/28/24 TIME: 1257 PATIENT: MARK DEE UNIT #: [id number] ROOM/BED: [address] : [address] AGE: 78 SEX: M ATTEND: Malou Luo MD ADM AUTHOR: ES FLOREZ PharmD * ALL edits or amendments must be made on the electronic/computer document * Pharmacy Med History Review Primary Care Provider PCP: PCP: Moses Chavez MD Pharmacy Med History Review Source of information: reviewed med claims data Med Rec report: yes Admission Med Rec: Scheduled Medications amLODIPine (NORVASC) 5 MG PO DAILY (Reported) APIXABAN (ELIQUIS STARTER PACK) 5 MG PO BID (Reported) ASPIRIN EC (BRYANT EC) 81 MG PO DAILY (Reported) ATORVASTATIN (LIPITOR) 40 MG PO BEDTIME (Reported) lisinopriL (ZESTRIL) 10 MG PO DAILY (Reported) METOPROLOL TARTRATE (LOPRESSOR) 25 MG PO BID (Reported) THYROID,PORCINE (ARMOUR THYROID) 30 MG PO DAILY (Reported) Allergies: Coded Allergies: No Known Allergies (03/27/24) Med Rec actions: Med Rec actions: home med list reviewed Comments: Based on information I was able to find in the medication claims database and the Health Information Exchange, I was able to find prescribers that the patient has visited in the past year including primary patient care secretary Dr. Moses Chavez of [facility], primary patient care secretary Dr. Calderon Harrell MD of [facility], and hospitalist Dr. Matthew Spencer MD of [facility]. When interviewed, patient communicated that Dr. Moses Chavez is his PCP. According to [facility], the patient's documented home medication list includes the following: * Amlodipine 5mg tablet - take one tablet by mouth once daily * Apixaban 5mg tablet - take one tablet by mouth twice daily * Aspiring 81mg tablet - take one tablet by mouth once daily * Atorvastatin 40mg tablet - take one tablet by mouth once daily at bedtime * Fish oil 1000mg capsule - take one capsule by mouth twice daily * Lisinopril 10mg tablet - take one tablet by mouth once daily * Metoprolol tartrate 25mg tablet - take one tablet by mouth twice daily * Witherbee thyroid 30mg tablet - take one tablet by mouth once daily However, the patient communicated that he has not taken prescription medication for months. The patient has only been taking supplements. I contacted one of the supplement stores that the patient mentioned, [facility] in [place], [place]. When I called the store, the employee communicated that patient mostly purchased vitamins, minerals, glandular extract, and herbal digestive. They were aware that patient was prescribed Eliquis and a thyroid supplement, but were unaware of other meds and were not aware if patient decided to continue or stop his prescription meds. Please call [phone] with questions regarding the medication reconciliation for this patient. Thank you! RPT #: [id number] END OF REPORT [facility] 03-28-2024 Pharmacy Prog.Note-Med Rec [facility] ([facility]) Pharmacy Prog.Note-Med Rec REPORT#:[id number] REPORT STATUS: Signed DATE:03/28/24 TIME: 1257 PATIENT: MARK DEE UNIT #: [id number] ROOM/BED: [place] [address] : 44 AGE: 78 SEX: M ATTEND: Malou Luo MD ADM AUTHOR: ES FLOREZ PharmD * ALL edits or amendments must be made on the electronic/computer document * Pharmacy Med History Review Primary Care Provider PCP: PCP: Moses Chavez MD Pharmacy Med History Review Source of information: reviewed med claims data Med Rec report: yes Admission Med Rec: Scheduled Medications amLODIPine (NORVASC) 5 MG PO DAILY (Reported) APIXABAN (ELIQUIS STARTER PACK) 5 MG PO BID (Reported) ASPIRIN EC (BRYANT EC) 81 MG PO DAILY (Reported) ATORVASTATIN (LIPITOR) 40 MG PO BEDTIME (Reported) lisinopriL (ZESTRIL) 10 MG PO DAILY (Reported) METOPROLOL TARTRATE (LOPRESSOR) 25 MG PO BID (Reported) THYROID,PORCINE (ARMOUR THYROID) 30 MG PO DAILY (Reported) Allergies: Coded Allergies: No Known Allergies (03/27/24) Med Rec actions: Med Rec actions: home med list reviewed Comments: Based on information I was able to find in the medication claims database and the Health Information Exchange, I was able to find prescribers that the patient has visited in the past year including primary patient care secretary Dr. Moses Chavez of [facility], primary patient care secretary Dr. Calderon Harrell MD of [facility], and hospitalist Dr. Matthew Spencer MD of [facility]. When interviewed, patient communicated that Dr. Moses Chavez is his PCP. According to [facility], the patient's documented home medication list includes the following: * Amlodipine 5mg tablet - take one tablet by mouth once daily * Apixaban 5mg tablet - take one tablet by mouth twice daily * Aspiring 81mg tablet - take one tablet by mouth once daily * Atorvastatin 40mg tablet - take one tablet by mouth once daily at bedtime * Fish oil 1000mg capsule - take one capsule by mouth twice daily * Lisinopril 10mg tablet - take one tablet by mouth once daily * Metoprolol tartrate 25mg tablet - take one tablet by mouth twice daily * Witherbee thyroid 30mg tablet - take one tablet by mouth once daily However, the patient communicated that he has not taken prescription medication for months. The patient has only been taking supplements. I contacted one of the supplement stores that the patient mentioned, [facility] in [place], [place]. When I called the store, the employee communicated that patient mostly purchased vitamins, minerals, glandular extract, and herbal digestive. They were aware that patient was prescribed Eliquis and a thyroid supplement, but were unaware of other meds and were not aware if patient decided to continue or stop his prescription meds. Please call [phone] with questions regarding the medication reconciliation for this patient. Thank you! at 2003 RPT #: [id number] END OF REPORT [facility] 03-28-2024 Cardiology Consultation [facility] ([facility]) Cardiology Consultation REPORT#:[id number] REPORT STATUS: Draft DATE:03/28/24 TIME: 703 PATIENT: MARK DEE UNIT #: [id number] ROOM/BED: [place] [address] : 44 AGE: 78 SEX: M ATTEND: Malou Luo MD ADM AUTHOR: Taras Garcia MD * ALL edits or amendments must be made on the electronic/computer document * History of Present Illness HPI Requesting Clinician: Malou Luo MD Reason for consult: AFib Chief complaint: AFib HPI: 78-year-old male with PMH of paroxysmal AFib, hypertension, hypothyroidism presented to emergency department as a transfer from [facility] with atrial fibrillation. Patient reported for a scheduled office visit and was incidentally noted to be in atrial fibrillation with rapid rate, duration of his atrial fibrillation was unknown. Was transferred to [facility] for further evaluation and management of his atrial fibrillation. History - Adult longitudinal Additional medical history: Paroxysmal AFib, tobacco abuse, HTN, hypothyroidism Additional family history: Noncontributory Alcohol use: Denies EtOH use Drug use: Marijuana Smoking status for patients 13 years old or older: Former Smoker Home medications: Home Medications: No Known Home Medications Allergies: Coded Allergies: No Known Allergies (03/27/24) Diagnosis, Assessment Plan Free Text DxA P Notes Free Text DxA P Notes: Impression; Atrial fibrillation with rapid rate of unknown duration Hypertension Plan; RPT #: [id number] END OF REPORT [facility] 03-28-2024 [facility]iology [facility] Cardiology Consultation REPORT#:[id number] REPORT STATUS: Signed DATE:03/28/24 TIME: 703 PATIENT: MARK DEE UNIT #: [id number] ROOM/BED: J.ICU04-A : 44 AGE: 78 SEX: M ATTEND: Malou Luo MD ADM AUTHOR: Taras Garcia MD * ALL edits or amendments must be made on the electronic/computer document * History of Present Illness HPI Requesting Clinician: Malou Luo MD Reason for consult: AFib Chief complaint: AFib HPI: 78-year-old male with PMH of paroxysmal AFib/flutter, hypertension, hypothyroidism presented to emergency department as a transfer from [facility] with atrial fibrillation/flutter. Patient reported for a scheduled office visit and was incidentally noted to be in atrial fibrillation/ flutter with rapid rate, duration of his atrial arrhythmia was unknown. Was transferred to [facility] for further evaluation and management of his atrial fibrillation. Patient reports that he is reluctant to take any medications. He desires to go home. Uncertain if he wishes to proceed with EZRA guided cardioversion. No current complaints of chest pain, shortness breath nor edema. Duration of his atrial arrhythmia unknown, currently in atrial flutter with variable AV conduction. Intermittently on IV diltiazem for rate control. History - Adult longitudinal Additional medical history: Paroxysmal AFib/flutter, tobacco abuse, HTN, hypothyroidism Additional surgical history: denies Additional family history: Noncontributory Alcohol use: Denies EtOH use Drug use: Marijuana Smoking status for patients 13 years old or older: Former Smoker Home medications: Home Medications: No Known Home Medications Allergies: Coded Allergies: No Known Allergies (03/27/24) Review of Systems Constitutional: fatigue. Denies: chills, fever, generalized weakness, lethargy, malaise, recent wt loss. Skin: bruising. Denies: abrasion, contusion, diaphoresis, ecchymosis, itching, laceration, rash, swelling. Allergy/Immun: Denies: allergic reaction, anaphylaxis, hives, itching, rhinorrhea, sneezing. Eyes: Denies: redness, discharge, visual loss/blurred, itching, diplopia, eye pain, photophobia, swelling. ENT: Denies: ear drainage, ear ringing, earache, hearing loss, mouth pain, nasal congestion, nose bleeding, sinus problem, sore throat, throat pain, throat swelling, tongue pain, tongue swelling, toothache, voice change. Respiratory: Denies: ALICEA (dyspnea on exertion), hemoptysis, non productive cough, parox nocturnal dyspnea, pleurisy, pleuritic pain, pneumonia, productive cough (sputum ), SOB, wheezing. Cardiovascular: Denies: chest pain, dyspnea on exertion, edema, orthopnea, palpitations, parox noctural dyspnea, unstable angina. GI: Denies: abdominal pain, anorexia, constipation, diarrhea, dysphagia, GERD, hematemesis, hematochezia, hiatal hernia, melena, nausea, rectal pain, vomiting. : Denies: dysuria, flank pain, frequency, hematuria, nocturia, penile discharge, penile lesion, testicular pain, testicular swelling, urgency, urinary retention. Musculoskeletal: arthritis. Denies: extremity pain, extremity swelling, joint pain, joint swelling, lumbar pain, myalgias, neck pain, thoracic pain. Heme: bruising. Denies: adenopathy, bleeding, petechiae. Endocrine: Denies: cold intolerance, heat intolerance, polydipsia, polyphagia, polyuria, weight gain, weight loss. Neuro: Denies: bladder dysfunction, bowel dysfunction, change in LOC, confusion, dizziness, focal weakness, gait problem, headache, lightheaded, numbness, seizure, slurred speech, spinning sensation, syncope, unable to speak, vision change, weakness. Psych: Denies: agitation, anxiety, auditory hallucination, change in mental status, confusion, delusional, depression, homicidal ideation, hostile, insomnia, stress , suicidal ideation, visual hallucination. All systems rev neg: except as marked Objective General VS/I O: Vital Signs: Date Time Temp Pulse Resp B/P B/P Pulse O2 O2 Flow FiO2 Mean Ox Delivery Rate 03/28 0515 63 17 146/92 112 97 03/28 0500 61 16 152/91 115 97 03/28 0445 61 14 140/87 108 96 03/28 0430 61 14 146/93 115 96 02/06 [...] Room air 03/27 1712 192/129 153 / 1710 108 34 24 hour I O ending at 0700: 02/06 0700 02/05 1900 Intake Total 634.80 Output Total 1300 Balance -665.20 Intake, IV 34.80 Intake, Oral 600 Output, Urine 1300 Patient 67.4 kg 71.364 kg Weight Weight Bed scale Stated/Reported Measurement Method PATIENT WEIGHT: Weight (lb): 148 Weight (oz): 9.47 Weight (kg): 67.400 Medications: Active Meds + DC'd Last 24 Hrs Pantoprazole Sodium (PROTONIX) 40 MG AC BK PO Mupirocin (BACTROBAN) 1 APPLIC BID NASAL Acetaminophen (TYLENOL) 650 MG Q4HR PRN PRN PO Calcium Carbonate (CHEWABLE ANTACID) 1,000 MG Q6HR PRN PRN PO (CKD) Diltiazem HCl (carDIZEM INJ) 125 MG ASDIR IV Sodium Chloride (SODIUM CHLORIDE) 100 ML Docusate Sodium (COLACE) 100 MG BID PRN PRN PO Heparin Sodium (Porcine) (Heparin Sodium) 5,000 UNIT Q8H SUBQ Melatonin (MELATONIN) 3 MG BEDTIME PRN PRN PO Ondansetron HCl (ZOFRAN 4 MG/2 ML VIAL) 4 MG Q4HR PRN PRN IV Physical Exam General appearance: alert, awake, oriented Head/Eyes: EOMI, PERRLA Neck: no bruit/NL carotids, no JVD Cardiovascular: CV assessment: irregular rhythm, Soft systolic murmur, PMI laterally displaced Respiratory: decreased breath sounds, no distress Abdomen: soft, non-tender, normal bowel sounds, no distention, no guarding Lower extremity: LE assessment: no clubbing, no cyanosis, no edema Neuro/NURSING HOME DIRECTOR: alert, oriented X 3 Psychiatry: normal affect Results Findings/Data: Laboratory Tests 03/287 0326 Chemistry Sodium (135 - 146 MMOL/L) [...] Generation (0.40 - 4.00 uIU/mL) 9.61 H Laboratory Tests 03/28 0326 Hematology WBC (4.1 - [...] (%) 56 Lymph % (Auto) (%) 28 [place] % (Auto) (%) 12 Eos % (Auto) [...] Basos (auto) (0.0 - 0.1 x10 3/uL) 0.1 Laboratory Tests 03/28 0326 Chemistry Magnesium (1.6 - 2.3 MG/DL) 1.9 EKG Interpretation: right atrial flutter Telemetry Interpretation: Personally reviewed and reveals atrial flutter with variable AV conduction Diagnosis, Assessment Plan Free Text DxA P Notes Free Text DxA P Notes: Impression; Atrial flutter with rapid rate of unknown duration Hypertension Plan; Patient currently in atrial flutter of unknown duration. Intermittently associated with rapid rate. I would recommend proceeding with EZRA guided cardioversion with a at least 1 month of anticoagulation. Ideally should be on anticoagulation long-term. For now continue IV diltiazem as required. Patient uncertain if he wishes to take any medications. If he is willing we will proceed with EZRA guided cardioversion tomorrow. He would need to commit to at least 1 month of anticoagulation to allow cardioversion. Echocardiogram has been ordered, we will review when able We will follow at 0818 RPT #: [id number] END OF REPORT [facility] 03-27-2024 History Physical - Adult [facility] History Physical - Adult REPORT#:[id number] REPORT STATUS: Draft DATE:03/27/24 TIME: 1853 PATIENT: MARK DEE UNIT #: [id number] ROOM/BED: [address] : [address] AGE: 78 SEX: M ATTEND: Malou Luo MD ADM AUTHOR: Love Walker ROTOPRINTER * ALL edits or amendments must be made on the electronic/computer document * History Past Medical Surgical Hx Additional medical history: AFib with RVR, tobacco abuse Family History Additional family history: Noncontributory Social History Smoking status for patients 13 years old or older: Current every day smoker Medication/Allergy-Vaccine Hx Allergies: Coded Allergies: No Known Allergies (03/27/24) Review of Systems Free Text ROS Notes Free Text ROS Notes: 12-point system reviewed and negative except as noted in the HPI. Diagnosis, Assessment Plan Free Text A P: AFib with RVR * Admit to PCU * Continuous telemetry * Diltiazem drip, titrate per protocol * Consult cardiology, recs greatly appreciated * Daily labs, trend WBCs, monitor fever curve * Replace electrolytes as neede * Encourage incentive spirometry Chronic medical conditions: *May resume appropriate home medications pending completion of medication reconciliation and review* VTE ppx: SCDs, heparin SQ Code status: Full code Dispo: Pending clinical course This note was composed using [employer] fluency dictation software and every effort was made to correct any grammatical and/or spelling errors though some may still persist. Consultants: cardiology Plan discussed with: patient Time spent: Time spent on patient care (minutes): 45 >50% spent on counseling/coordination of care: yes Resuscitation discussion: Discussed with: patient Code status: full code Quality: [facility] Crit Care VTE Prophylaxis VTE prophylaxis initiated: yes Current Medications Current medication review: I attest that the foregoing medication list in the medical record is true, accurate, and complete to the best of my knowledge. Advanced Care Plan 65 or Older Discussed with: patient BMI Screening > 25 or < 18.5 Patient's BMI: Current BMI: 23.2 BMI status/follow-up: nml BMI,no debt and budget counselor needed HTN Screening/Follow-up Last documented vitals: Last Documented: Result Date Time Pulse Ox 98 03/27 1713 B/P 192/129 03/27 1713 O2 Delivery Room air 03/27 1713 Temp 36.7 03/27 1713 Pulse 116 03/27 1713 Resp 20 03/27 1713 B/P Mean 153 03/27 1711 B/P assess/follow-up: pre-existing hx of HTN Blood pressure ranges/guide: Screening for Hypertension and follow up measure #317 Blood pressure parameters Normal B/P SBP Pre-hypertensive SBP 120-139 DBP 80-89 Hypertensive SBP >/= 140 DBP >/= 90 Attestations Attestation needed: supervising physician RPT #: [id number] END OF REPORT [facility] 03-27-2024 History Physical - Adult [facility] Physical - Adult REPORT#:[id number] REPORT STATUS: Signed DATE:03/27/24 TIME: 1853 PATIENT: MARK DEE UNIT #: [id number] ROOM/BED: [address] : [address] AGE: 78 SEX: M ATTEND: Malou Luo MD ADM AUTHOR: Love Walker NP * ALL edits or amendments must be made on the electronic/computer document * History of Present Illness HPI Chief complaint: AFib with RVR PCP: PCP: No Primary or Family Physician HPI: 78-year-old male with PMH of paroxysmal AFib, hypertension, hypothyroidism presented to emergency department as a transfer from [facility]. Patient reports he has been feeling well, no acute complaints and today he had an appointment with a new doctor for a generalized checkup. While being examined he was found to be in AFib with a rapid ventricular rate. He does report having a history of AFib, although it has been many years. Not on a thinner. He was started on a diltiazem drip and transferred to this facility for a higher level of care and telemetry services. Currently he is in no distress. Patient denies chest pain, shortness of breath, fever, chills, nausea or vomiting. Hx Obtained From Patient, Prior medical records History Past Medical Surgical Hx Additional medical history: Paroxysmal AFib, tobacco abuse, HTN, hypothyroidism Family History Additional family history: Noncontributory Social History Alcohol use: Denies EtOH use Drug use: Marijuana Smoking status for patients 13 years old or older: Former Smoker Medication/Allergy-Vaccine Hx Medications: Home Medications: No Known Home Medications Allergies: Coded Allergies: No Known Allergies (03/27/24) Review of Systems Free Text ROS Notes Free Text ROS Notes: 12-point system reviewed and negative except as noted in the HPI. OBJECTIVE VS/I O: Vital Signs Date Temp Pulse Resp B/P B/P Mean Pulse Ox FiO2 03/27-03/28 36.5-36.7 41-116 8-42 120-192/70-129 92-153 90-98 Last Documented: Result Date Time Temp 36.6 02/ 0030 Resp 17 02/ 0030 Pulse Ox 97 02/06 0000 B/P 125/70 02/06 0000 B/P Mean 93 02/06 0000 Pulse 41 02/06 0000 O2 Delivery Room air / 1714 24 hour I O ending at 0700: / 0700 / 1900 Intake Total 600 Output Total 650 Balance -50 Intake, Oral 600 Output, Urine 650 Patient 67.4 kg 71.364 kg Weight Weight Bed scale Stated/Reported Measurement Method Patient Weight and BMI Weight (kg): 67.400 BMI: 21.9 Medications: Active Meds + DC'd Last 24 Hrs Pantoprazole Sodium (PROTONIX) 40 MG AC BK PO Mupirocin (BACTROBAN) 1 APPLIC BID NASAL Acetaminophen (TYLENOL) 650 MG Q4HR PRN PRN PO Calcium Carbonate (CHEWABLE ANTACID) 1,000 MG Q6HR PRN PRN PO (CKD) Diltiazem HCl (carDIZEM INJ) 125 MG ASDIR IV Sodium Chloride (SODIUM CHLORIDE) 100 ML Docusate Sodium (COLACE) 100 MG BID PRN PRN PO Heparin Sodium (Porcine) (Heparin Sodium) 5,000 UNIT Q8H SUBQ Melatonin (MELATONIN) 3 MG BEDTIME PRN PRN PO Ondansetron HCl (ZOFRAN 4 MG/2 ML VIAL) 4 MG Q4HR PRN PRN IV Results Findings/Data: Laboratory Tests: 03/28 03/28 0327 0326 Chemistry Sodium [...] Generation (0.40 - 4.00 uIU/mL) 9.61 H Laboratory Tests 03/28/24 0326: [Embedded Image Not Available] Free Text PE Notes Free Text PE Notes: General appearance: alert, awake, no acute distress, conversational Head/Eyes: atraumatic, normocephalic ENT: moist mucosal membranes, normal dentition Neck: full range of motion, supple Cardiovascular: Atrial fibrillation on monitor, Irregular rate and rhythm, no murmur, normal s1, s2 Respiratory: clear to auscultation bilateral, symmetric expansion, no distress Abdomen: non-tender, normal bowel sounds, soft, no distention Extremities: moves all, no edema Musculoskeletal: normal inspection, painless range of motion, no CVA tenderness Neuro/NURSING HOME DIRECTOR: alert, oriented X 3, normal speech Skin: dry, no rash, no erythema Psychiatry: normal affect, normal mood Diagnosis, Assessment Plan Free Text A P: AFib with RVR * Admit to PCU * Continuous telemetry * Diltiazem drip, titrate per protocol * Consult cardiology, recs greatly appreciated * Daily labs, trend WBCs, monitor * Replace electrolytes as needed * Echocardiogram in a.m., none on file * Lipids, A1c, TSH pending * Encourage incentive spirometry Chronic medical conditions: Hypothyroidism- ? Unclear if on meds, TSH pending *May resume appropriate home medications pending completion of medication reconciliation and review* VTE ppx: SCDs, heparin SQ Code status: Full code Dispo: Pending clinical course This note was composed using [employer] fluency dictation software and every effort was made to correct any grammatical and/or spelling errors though some may still persist. Consultants: cardiology Plan discussed with: patient Time spent: Time spent on patient care (minutes): 45 >50% spent on counseling/coordination of care: yes Resuscitation discussion: Discussed with: patient Code status: full code Quality: Gen Med Crit Care VTE Prophylaxis VTE prophylaxis initiated: yes Current Medications Current medication review: I attest that the foregoing medication list in the medical record is true, accurate, and complete to the best of my knowledge. Advanced Care Plan 65 or Older Discussed with: patient Discussion included: code status BMI Screening > 25 or < 18.5 Patient's BMI: Current BMI: 23.2 BMI status/follow-up: nml BMI,no debt and budget counselor needed Tobacco Use/Counseling Tobacco use/counseling: non tobacco user, no counseling needed HTN Screening/Follow-up Last documented vitals: Last Documented: Result Date Time Pulse Ox 98 03/27 1713 B/P 192/129 03/27 1713 O2 Delivery Room air 03/27 1713 Temp 36.7 03/27 1713 Pulse 116 03/27 171 Resp 20 03/27 1713 B/P Mean 153 03/27 171 B/P assess/follow-up: pre-existing hx of HTN Blood pressure ranges/guide: Screening for Hypertension and follow up measure #317 Blood pressure parameters Normal B/P SBP Pre-hypertensive SBP 120-139 DBP 80-89 Hypertensive SBP >/= 140 DBP >/= 90 Attestations Attestation needed: supervising physician at 0441 RPT #: [id number] END OF REPORT [facility] 03-27-2024 History Physical - Adult [facility] History Physical - Adult REPORT#:[id number] REPORT STATUS: Signed DATE:03/27/24 TIME: 1853 PATIENT: MARK DEE UNIT #: [id number] ROOM/BED: [address] : [address] AGE: 78 SEX: M ATTEND: Malou Luo MD ADM AUTHOR: Love Walker NP * ALL edits or amendments must be made on the electronic/computer document * LOVE WALKER 03/27/241853: History of Present Illness HPI Chief complaint: AFib with RVR PCP: PCP: No Primary or Family Physician HPI: 78-year-old male with PMH of paroxysmal AFib, hypertension, hypothyroidism presented to emergency department as a transfer from [facility]. Patient reports he has been feeling well, no acute complaints and today he had an appointment with a new doctor for a generalized checkup. While being examined he was found to be in AFib with a rapid ventricular rate. He does report having a history of AFib, although it has been many years. Not on a thinner. He was started on a diltiazem drip and transferred to this facility for a higher level of care and telemetry services. Currently he is in no distress. Patient denies chest pain, shortness of breath, fever, chills, nausea or vomiting. Hx Obtained From Patient, Prior medical records History Past Medical Surgical Hx Additional medical history: Paroxysmal AFib, tobacco abuse, HTN, hypothyroidism Family History Additional family history: Noncontributory Social History Alcohol use: Denies EtOH use Drug use: Marijuana Smoking status for patients 13 years old or older: Former Smoker Medication/Allergy-Vaccine Hx Medications: Home Medications: No Known Home Medications Allergies: Coded Allergies: No Known Allergies (03/27/24) Review of Systems Free Text ROS Notes Free Text ROS Notes: 12-point system reviewed and negative except as noted in the HPI. OBJECTIVE VS/I O: Vital Signs Date Temp Pulse Resp B/P B/P Mean Pulse Ox FiO2 02/-03/28 36.5-36.7 41-116 8-42 120-192/70-129 92-153 90-98 Last Documented: Result Date Time Temp 36.6 03/28 0030 Resp 17 03/28 0030 Pulse Ox 97 / 0000 B/P 125/70 02/ 0000 B/P Mean 93 02/ 0000 Pulse 41 / 0000 O2 Delivery Room air 03/27 1714 24 hour I O ending at 0700: 03/28 0700 03/27 1900 Intake Total 600 Output Total 650 Balance -50 Intake, Oral 600 Output, Urine 650 Patient 67.4 kg 71.364 kg Weight Weight Bed scale Stated/Reported Measurement Method Patient Weight and BMI Weight (kg): 67.400 BMI: 21.9 Medications: Active Meds + DC'd Last 24 Hrs Pantoprazole Sodium (PROTONIX) 40 MG AC BK PO Mupirocin (BACTROBAN) 1 APPLIC BID NASAL Acetaminophen (TYLENOL) 650 MG Q4HR PRN PRN PO Calcium Carbonate (CHEWABLE ANTACID) 1,000 MG Q6HR PRN PRN PO (CKD) Diltiazem HCl (carDIZEM INJ) 125 MG ASDIR IV Sodium Chloride (SODIUM CHLORIDE) 100 ML Docusate Sodium (COLACE) 100 MG BID PRN PRN PO Heparin Sodium (Porcine) (Heparin Sodium) 5,000 UNIT Q8H SUBQ Melatonin (MELATONIN) 3 MG BEDTIME PRN PRN PO Ondansetron HCl (ZOFRAN 4 MG/2 ML VIAL) 4 MG Q4HR PRN PRN IV Results Findings/Data: Laboratory Tests: 03/28 03/28 0327 0326 Chemistry Sodium [...] Generation (0.40 - 4.00 uIU/mL) 9.61 H Laboratory Tests 03/28/24 0326: [Embedded Image Not Available] Free Text PE Notes Free Text PE Notes: General appearance: alert, awake, no acute distress, conversational Head/Eyes: atraumatic, normocephalic ENT: moist mucosal membranes, normal dentition Neck: full range of motion, supple Cardiovascular: Atrial fibrillation on monitor, Irregular rate and rhythm, no murmur, normal s1, s2 Respiratory: clear to auscultation bilateral, symmetric expansion, no distress Abdomen: non-tender, normal bowel sounds, soft, no distention Extremities: moves all, no edema Musculoskeletal: normal inspection, painless range of motion, no CVA tenderness Neuro/NURSING HOME DIRECTOR: alert, oriented X 3, normal speech Skin: dry, no rash, no erythema Psychiatry: normal affect, normal mood Diagnosis, Assessment Plan Free Text A P: AFib with RVR * Admit to PCU * Continuous telemetry * Diltiazem drip, titrate per protocol * Consult cardiology, recs greatly appreciated * Daily labs, trend WBCs, monitor * Replace electrolytes as needed * Echocardiogram in a.m., none on file * Lipids, A1c, TSH pending * Encourage incentive spirometry Chronic medical conditions: Hypothyroidism- ? Unclear if on meds, TSH pending *May resume appropriate home medications pending completion of medication reconciliation and review* VTE ppx: SCDs, heparin SQ Code status: Full code Dispo: Pending clinical course This note was composed using [employer] dictation software and every effort was made to correct any grammatical and/or spelling errors though some may still persist. Consultants: cardiology Plan discussed with: patient Time spent: Time spent on patient care (minutes): 45 >50% spent on counseling/coordination of care: yes Resuscitation discussion: Discussed with: patient Code status: full code Quality: Gen Med Crit Care VTE Prophylaxis VTE prophylaxis initiated: yes Current Medications Current medication review: I attest that the foregoing medication list in the medical record is true, accurate, and complete to the best of my knowledge. Advanced Care Plan 65 or Older Discussed with: patient Discussion included: code status BMI Screening > 25 or < 18.5 Patient's BMI: Current BMI: 23.2 BMI status/follow-up: nml BMI,no debt and budget counselor needed Tobacco Use/Counseling Tobacco use/counseling: non tobacco user, no counseling needed HTN Screening/Follow-up Last documented vitals: Last Documented: Result Date Time Pulse Ox 98 03/27 171 B/P 192/129 03/27 1714 O2 Delivery Room air 03/27 171 Temp 36.7 03/27 171 Pulse 116 03/27 1714 Resp 20 03/27 171 B/P Mean 153 03/27 171 B/P assess/follow-up: pre-existing hx of HTN Blood pressure ranges/guide: Screening for Hypertension and follow up measure #317 Blood pressure parameters Normal B/P SBP Pre-hypertensive SBP 120-139 DBP 80-89 Hypertensive SBP >/= 140 DBP >/= 90 Attestations Attestation needed: supervising physician at 0441 at 1250 RPT #: [id number] END OF REPORT [facility] 03-27-2024 ED Provider Report [facility] EMERGENCY PROVIDER REPORT REPORT#:[id number] REPORT STATUS: Draft DATE:03/27/24 TIME: 1741 PATIENT: MARK DEE UNIT #: [id number] ROOM/BED: : 44 AGE: 78 SEX: M PCP PHYS: SERVICE DT: AUTHOR: LondonIsaiah Sue DO REP SRV REP SRV TM: 1741 * ALL edits or amendments must be made on the electronic/computer document * HPI-General Illness Free Text HPI Notes Free Text HPI Notes 78-year-old male presents via EMS in transfer from [facility] for AFib with RVR on a diltiazem drip. Patient was seen and an outpatient clinic today with his adapted physical education aide in his heart rate was in the 1 70s. He denied any chest pain or shortness of air was seen in the ER treated with diltiazem and started on a drip with improved heart rate Arrives in stable condition heart rate irregular AFib at 107. and blood pressure 1 80s over 1 teens General Initial Greet Date/Time 03/27/241717 Presentation Chief Complaint __ (Transfer from [place]) Review of Systems ROS Statements All systems rev neg except as marked. Past Medical History - Adult Stated Complaint PALPITATIONS FROM [facility] Allergies Coded Allergies: No Known Allergies (03/27/24) Calculated Suicide Risk (nurs) No risk Smoking status for patients 13 years old or older: Current some day smoker Physical Exam Vital Signs Vital Signs First Documented: Result Date Time Pulse 108 02/ 1710 Resp 34 03/27 1710 B/P 192/129 / 1712 B/P Mean 153 / 1712 Pulse Ox 98 02/ 1714 O2 Delivery Room air 03/27 1713 Temp 36.7 03/27 1714 Last Documented: Result Date Time Pulse Ox 98 03/27 1714 B/P 192/129 / 1714 O2 Delivery Room air 03/27 1713 Temp 36.7 03/27 171 Pulse 116 02/ 1714 Resp 20 03/27 1714 B/P Mean 153 / 1712 Review of Vital Signs Reviewed Free Text PE Notes Free Text PE Notes Gen: Alert and oriented, no apparent distress Head- AT/NC, Eyes: EOMI, PERRL ENT- within normal limits CV: Rapid rate and irregular rhythm, without murmur Pulmonary: Clear to auscultation bilaterally. No wheezes, rales or rhonchi Abdomen: soft, nontender, nondistended. No rebound or guarding MsSk /Extremities: NVI. No edema. Functional range of motion all extremities Skin: Warm, dry, no rash Neuro: Intact without focal neurologic deficit. Normal Speech Psych: Appropriate mood and affect present Re-Evaluation MDM Free Text MDM Notes Free Text MDM Notes Reviewed medical records from [facility] from today. Patient currently on a diltiazem drip 5 mg an hour Patient with normal CBC, white count 5.8, hemoglobin 13, hematocrit 38 and platelets 128 Normal chemistry and creatinine 1.0 BNP of 2059, troponin 0.016 1746- called and spoke to Love who accepts admit to Dr Luo Patient Discharge Departure Vital Signs/Condition Vital Signs First Documented: Result Date Time Pulse 108 03/27 1710 Resp 34 03/27 1710 B/P 192/129 03/27 1712 B/P Mean 153 03/27 1712 Pulse Ox 98 / 1714 O2 Delivery Room air 03/27 1714 Temp 36.7 03/27 1714 Last Documented: Result Date Time Pulse Ox 98 03/27 1714 B/P 192/129 03/27 1714 O2 Delivery Room air 03/27 1714 Temp 36.7 03/27 1714 Pulse 116 02 1714 Resp 20 / 1714 B/P Mean 153 03/27 1712 All vital signs available at the time of this entry have been reviewed. Condition Stable Clinical Impression Clinical Impression Primary Impression: Atrial fibrillation with RVR Disposition Decision Hospitalize Request Date 03/27/24 )( Accepts Hospitalization Yes Discharge/Care Plan Counseled Regarding Diagnosis, Need for admission Departure Forms Additional Information/Notices [facility] RPT #: [id number] END OF REPORT [facility] 03-27-2024 ED Provider Report [facility] EM[facility]GENCY PROVIDER REPORT REPORT#:[id number] REPORT STATUS: Signed DATE:03/27/24 TIME: 1740 PATIENT: MARK DEE UNIT #: [id number] ROOM/BED: ICU04-A : 44 AGE: 78 SEX: M PCP PHYS: No Primary or Family Physician SERVICE AUTHOR: Isaiah Callahan DO REP SRV REP SRV TM: 1741 * ALL edits or amendments must be made on the electronic/computer document * HPI-General Illness Free Text HPI Notes Free Text HPI Notes 78-year-old male presents via EMS in transfer from [facility] for AFib with RVR on a diltiazem drip. Patient was seen and an outpatient clinic today with his adapted physical education aide in his heart rate was in the 1 70s. He denied any chest pain or shortness of air was seen in the ER treated with diltiazem and started on a drip with improved heart rate Arrives in stable condition heart rate irregular AFib at 107. and blood pressure 1 80s over 1 teens General Initial Greet Date/Time 03/27/241717 Presentation Chief Complaint __ (Transfer from [place]) Review of Systems ROS Statements All systems rev neg except as marked. Past Medical History - Adult Stated Complaint PALPITATIONS FROM [facility] Allergies Coded Allergies: No Known Allergies (03/27/24) Home Medications Reported Medications No Known Home Medications Calculated Suicide Risk (nurs) No risk Smoking status for patients 13 years old or older: Current some day smoker Physical Exam Vital Signs Vital Signs First Documented: Result Date Time Pulse 108 03/27 1710 Resp 34 03/27 1710 B/P 192/129 / 1712 B/P Mean 153 03/27 1712 Pulse Ox 98 / 1714 O2 Delivery Room air 03/27 1713 Temp 36.7 03/27 1714 Last Documented: Result Date Time Pulse Ox 98 / 1714 B/P 192/129 03/27 1714 O2 Delivery Room air 03/27 1713 Temp 36.7 03/27 171 Pulse 116 03/27 1714 Resp 20 03/27 1714 B/P Mean 153 03/27 1712 Review of Vital Signs Reviewed Free Text PE Notes Free Text PE Notes Gen: Alert and oriented, no apparent distress Head- AT/NC, Eyes: EOMI, PERRL ENT- within normal limits CV: Rapid rate and irregular rhythm, without murmur Pulmonary: Clear to auscultation bilaterally. No wheezes, rales or rhonchi Abdomen: soft, nontender, nondistended. No rebound or guarding MsSk /Extremities: NVI. No edema. Functional range of motion all extremities Skin: Warm, dry, no rash Neuro: Intact without focal neurologic deficit. Normal Speech Psych: Appropriate mood and affect present Re-Evaluation MDM Free Text MDM Notes Free Text MDM Notes Reviewed medical records from [facility] from today. Patient currently on a diltiazem drip 5 mg an hour Patient with normal CBC, white count 5.8, hemoglobin 13, hematocrit 38 and platelets 128 Normal chemistry and creatinine 1.0 BNP of 0, troponin 0.016 1747- called and spoke to Love who accepts admit to Dr Luo Patient Discharge Departure Vital Signs/Condition Vital Signs First Documented: Result Date Time Pulse 108 03/27 1710 Resp 34 03/27 1710 B/P 192/129 03/27 1712 B/P Mean 153 03/27 1712 Pulse Ox 98 03/27 1714 O2 Delivery Room air 03/27 1713 Temp 36.7 03/27 1714 Last Documented: Result Date Time Pulse Ox 98 03/27 1714 B/P 192/129 03/27 1714 O2 Delivery Room air 03/27 1713 Temp 36.7 03/27 1714 Pulse 116 03/27 1714 Resp 20 03/27 171 B/P Mean 153 03/27 1712 All vital signs available at the time of this entry have been reviewed. Condition Stable Clinical Impression Clinical Impression Primary Impression: Atrial fibrillation with RVR Disposition Decision Hospitalize Request Date 03/27/24 )( Accepts Hospitalization Yes Discharge/Care Plan Counseled Regarding Diagnosis, Need for admission (Auto) Prescriptions Current Visit Scripts No Known Home Medications Referrals Provider Referral: No Primary or Family Physician Departure Forms Additional Information/Notices [facility]336 RPT #: [id number] END OF REPORT [facility] 03-27-2024 CASE MANAGEMENT REPORT [facility] [address] [place] [address] CASE MANAGEMENT REPORT -- CONFIDENTIAL DATA ENCOUNTER DATA PATIENT NAME: MARK DEE : [birth year] AGE: 78 Admit Date: 03/27/24 Attending Ph: Malou Luo MD HCM SUPPORT SERVICES HCM Support Services User Loo: -------- Date Entered: 03/28/2024 Service Type: *Case Management Funeral Service Licensee: Safia Riggs Worklist Date: 03/28/2024 Payer: [employer] CHOICE [facility] Comments: --- 03/28/2024 01:52 PM by Safia Riggs --- Pt is not considered a high readmit risk to [facility]. Pt is a/o x 4 Demographics and insurance reviewed. PCP is Dr. Calderon Harrell and pt has Medicare and [employer] for insurance. Pt lives at home w/his Son and is INDP w/ADLs - uses no assistive devices for mobility. Pt admitted to [facility] for A-Fib, Cardiology consulted, pending recs. Pt to DC home once medically stable. At this time, no CM interventions anticipated, but UTILITY SYSTEM REPAIRER will follow pt s progress and follow up if there is any indication pt will need any resources or services upon DC. HCM DISCHARGE PLANNING No HCM Discharge Planning data on file for this encounter in [facility] Updated by: Safia Riggs () - 03/28/2024 12:52 PM PATIENT NAME: MARK DEE [facility] 03-27-2024 CASE MANAGEMENT REPORT [facility] [address] [address] CASE MANAGEMENT REPORT -- CONFIDENTIAL DATA ENCOUNTER DATA PATIENT NAME: MARK DEE : [birth year] AGE: 78 Admit Date: 03/27/24 Attending Ph: Malou Luo MD HCM SUPPORT SERVICES HCM Support Services User Loo: -------- Date Entered: 03/28/2024 Service Type: *Case Management Funeral Service Licensee: Safia Riggs Worklist Date: 03/28/2024 Payer: [employer] [facility] Comments: --- 03/28/2024 01:52 PM by Safia Riggs --- Pt is not considered a high readmit risk to [facility]. Pt is a/o x 4 Demographics and insurance reviewed. PCP is Dr. Calderon Harrell and pt has Medicare and [employer] for insurance. Pt lives at home w/his Son and is INDP w/ADLs - uses no assistive devices for mobility. Pt admitted to [facility] for A-Fib, Cardiology consulted, pending recs. Pt to DC home once medically stable. At this time, no CM interventions anticipated, but UTILITY SYSTEM REPAIRER will follow pt s progress and follow up if there is any indication pt will need any resources or services upon DC. HCM DISCHARGE PLANNING HCM Discharge Planning Comments: [facility] DISCHARGE PLANNING EVALUATION Case Workers: Safia Riggs Living Status: Family Setting: Home-residence ADL Limits: None or n/a DME: None [facility] Discharge Planning User Loo: Community Services Prior to Admission: None or NA Current Mental Status/Cognition: Alert and Oriented PATIENT NAME: MARK DEE Information obtained from: Patient Discharge Barriers, select all that apply: None or NA None or NA Readmission (unplanned) in the last 30 days: No Patient goals and preferences after discharge: DC home Based on information gathered, is it likely that the patient's care needs can be met in the environment from which he/she entered the hospital?: Not Applicable Proposed Discharge Plan, select one: Home Home Services needed: None or NA If a caregiver is needed, is there a caregiver available, willing and capable to provide care?: Not Needed Community services needed: None New DME required at discharge: None or NA If new DME is required, is patient able to obtain DME?: Not Applicable Home Modifications required: None or NA If home modifications are required, is patient able to obtain them?: Not Applicable Patient concerns about obtaining medications on day of discharge?: None Transportation needs at discharge: family Discharge Plan Discussed with: Patient Have you discussed with the patient how his/her care needs may sales and service change leader time?: Not Applicable Patient/front office representative agrees with discharge plan: Yes Discussed expected insurance coverage and/or out of pocket expenses: Not Applicable Date / Time: 03/28/2024 1:54 PM Evaluated by: Safia Riggs Updated by: Safia Riggs () - 03/28/2024 12:57 PM PATIENT NAME: MARK DEE [facility] Additional Source Comments FOR RECORDS PERTAINING TO PATIENTS WHO ARE OR HAVE BEEN ENROLLED IN A CHEMICAL DEPENDENCY/SUBSTANCEABUSE PROGRAM, SOME INFORMATION MAY BE OMITTED. This clinical summary was aggregated from multiple sources. Caution should be exercised in using it in the provision of clinical care. This summary normalizes information from multiple sources, and as a consequence, information in this document may materially change the coding, format and clinical context of patient data. In addition, data may be omitted in some cases. CLINICAL DECISIONS SHOULD BE BASED ON THE PRIMARY CLINICAL RECORDS. [employer] provides no warranty or guarantee of the accuracy or completeness of information in this document.The following information is based on time limited clinical information
--- NOTE | 2024-08-18 09:48 | CTR_ITS ---
PROCEDURE INFORMATION: Exam: CT Head Without Contrast Exam date and time: 08/18/2024 9:47 AM Age: 78 years old Clinical indication: Stroke-like symptoms; Other: Left side weakness; Additional info: Symptoms of acute stroke TECHNIQUE: Imaging protocol: Computed tomography of the head without contrast. Radiation optimization: All CT scans at this facility use at least one of these dose optimization techniques: automated exposure control; mA and/or kV adjustment per patient size (includes targeted exams where dose is matched to clinical indication); or iterative reconstruction. Other technique: STROKE PROTOCOL was implemented. COMPARISON: MR head wo con* [id number] 08/04/2024 8:26 AM RADIATION DOSE METRICS: Total DLP (mGy-cm): 1137.98 FINDINGS: Brain: No acute intracranial hemorrhage is identified. There is hyperdense distal right M1 and M2 segment suggestive of thrombus, representing a change from 08/03/2024 exam. In addition to evolving infarct of the right frontal operculum, there is new decreased attenuation involving the right putamen, body of caudate nucleus, and blue radiata, compatible with new infarct. No new intracranial hemorrhage is identified. At this time, there is no significant mass effect. Cerebral ventricles: Ventricles are stable size and position compared to previous exam. No midline shift. Small mass near the foramina of Monro is isodense to cuevas matter and does not appear significantly changed from prior study. Paranasal sinuses: Visualized portions of paranasal sinuses are well aerated. Mastoid air cells: Visualized portions of mastoid sinuses are not opacified. Bones: Unremarkable. No acute fracture. Soft tissues: No acute abnormality unless otherwise stated above. CT/CT head thrombolytic [id number] IMPRESSION: 1. Acute ischemia/infarct involving right basal ganglia and blue radiata as reported above, without significant mass effect or acute hemorrhage. 2. Late subacute infarct right frontal operculum. 3. 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 ASSESSMENT: ASPECTS (Taylor Stroke Program Early CT Score) is 7. THIS REPORT CONTAINS FINDINGS THAT MAY BE CRITICAL TO PATIENT CARE. The findings were verbally communicated via telephone conference with Dr. Valdez at 10:02 AM CDT on 08/18/2024. The findings were acknowledged and understood.
[2024-08-18 09:52] VITALS: BP 170/110
--- OUTSIDE RECORDS SUMMARY | 2024-08-18 09:53 | XMS_ITS | Clinical Summary ---
Author Organization [employer] [facility] Address [address] Syed: [place] [address] Care Team Providers Care Major Gifts Manager Name Role Phone Unavailable Primary Care Provider Unavailabl e Medications amLODIPine (NORVASC) 5 mg tablet Take 5 mg by mouth daily. Active aspirin (ECOTRIN EC) 81 mg Tablet, Delayed Release (E.C.) Take 81 mg by mouth daily. Active atorvastatin (LIPITOR) 40 mg tablet Take 40 mg by mouth daily. Active apixaban (Eliquis) 5 mg tablet Take by mouth 2 times daily. Active HAWTHORN VASQUEZ ORAL Take by mouth. Active lisinopriL (PRINIVIL) 10 mg tablet Take 10 mg by mouth daily. Active metoprolol tartrate (LOPRESSOR) 25 mg tablet Take 25 mg by mouth 2 times daily. Active thyroid, pork, (HEAVY DUTY PRESS OPERATOR Thyroid) 30 mg tablet Take 30 mg by mouth daily. Active Active Problems Problem Noted Date Diagnosed Date Ascending aorta dilatation 09/27/2023 Stroke 07/18/2023 A-fib 07/18/2023 Carotid artery stenosis 07/18/2023 Thoracic aortic aneurysm 07/18/2023 Hypertension 07/18/2023 Tendinitis of both knees 07/18/2023 Mild aortic valve regurgitation 07/18/2023 CHF (congestive heart failure) 07/18/2023 Encounters Date Type Department Care Team Description 08/07/2024 External Device Data [facility] ABSTRACTION Provider, Abstract 08/06/2024 External Device Data ST[facility] ABSTRACTION Provider, Abstract 07/11/2024 External Device Data [facility] ABSTRACTION Provider, Abstract 07/10/2024 External Device Data [facility] ABSTRACTION Provider, Abstract 07/09/2024 External Device Data [facility] ABSTRACTION Provider, Abstract from Last 3 Months Social History Tobacco Use Types Packs/Day Years Used Date Smoking Tobacco: Former Cigarettes Q uit: 04/13/1969 Tobacco Cessation:Counseling Given: Not Answered Sex and Gender Information Value Date Recorded Sex Assigned at Not on file 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 Gender Identity Not on file Sexual Orientation Not on file Last Filed Vital Signs Vital Sign Reading Time Taken Comments Blood Pressure 162/108 09/27/2023 1:24 PM CDT Pulse 52 09/27/2023 1:24 PM CDT Temperature 36.3 C (97.3 F) 06/30/2023 10:07 AM CDT Respiratory Rate 18 04/13/2016 1:38 PM SILVER CHASER Oxygen Saturation 97% 06/30/2023 10:07 AM CDT Inhaled Oxygen Concentration - - Weight 72.1 kg (159 lb) 09/27/2023 1:24 PM CDT Height 175.3 cm (5' 9 ) 09/27/2023 1:24 PM CDT Body Mass Index 23.48 09/27/2023 1:24 PM CDT Plan of Treatment Upcoming Encounters Date Type Department Care Team (Late st Contact Info) Description 10/09/2024 1:00 PM CDT Office Visit [facility] Cardiothoracic Surgery [address] [address] Health Maintenance Due Date Last Done Comments DTAP/TDAP/TD VACCINES (1 - Tdap) 09/29/1963 PNEUMOCOCCAL VACCINE 50+ YEARS (1 of 1 - PCV) 09/28/18 95 ZOSTER VACCINE (1 of 2) 1994 RSV VACCINE (60+ or ) (1 - 1-dose 75+ series) 09/29/2019 INFLUENZA VACCINE (#1) 2023 Insurance [facility] [place] [address]
--- OUTSIDE RECORDS SUMMARY | 2024-08-18 09:53 | XMS_ITS | Clinical Summary ---
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 Gender Identity Not on file Sexual Orientation Not on file Last Filed Vital Signs Vital Sign Reading Time Taken Comments Blood Pressure 161/82 04/13/2016 1:38 PM MEDICAL STAFF MANAGER Pulse 60 04/13/2016 1:38 PM MEDICAL STAFF MANAGER Temperature 36.6 C (97.9 F) 04/13/2016 1:38 PM MEDICAL STAFF MANAGER Respiratory Rate 18 04/13/2016 1:38 PM MEDICAL STAFF MANAGER Oxygen Saturation 96% 04/13/2016 1:38 PM MEDICAL STAFF MANAGER Inhaled Oxygen Concentration - - Weight 83.9 kg (185 lb) 04/13/2016 1:38 PM MEDICAL STAFF MANAGER Height 175.3 cm (5' 9 ) 04/13/2016 1:38 PM MEDICAL STAFF MANAGER Body Mass Index 27.32 04/13/2016 1:38 PM MEDICAL STAFF MANAGER Plan of Treatment Health Maintenance Due Date Last Done Comments DTAP/TDAP/TD VACCINES (1 - Tdap) 09/29/1963 PNEUMOCOCCAL VACCINE 50+ YEARS (1 of 1 - PCV) 09/28/18 95 ZOSTER VACCINE (1 of 2) 1994 RSV VACCINE (60+ or ) (1 - 1-dose 75+ series) 09/29/2019 INFLUENZA VACCINE (#1) [address]23 [place] [address] [employer] [id number] HMO
--- OUTSIDE RECORDS SUMMARY | 2024-08-18 09:53 | XMS_ITS | Data Portability ---
Author Organization [facility], [facility] Address [address] [address] Assessment Encounter Date Assessment Date Assessment LastModified by Organization Details LastModified Time 06/18/2024 06/18/2024 low plts with normal liver function. i requested we repeat the cbc with anemia studies and peripheral smear to identify cause. hopefully it is simply plt clumping. i have had another discussion regarding recommended medical treatment for his atrial fibrillation to prevent stroke. he will not take a prescription blood thinner of any kind. nor will he take prescription tx to help his heart failure. he will not take a statin for stroke prevention. he is going to continue with naturopathic tx. he is happy with that and understands the risks of these decisions. we discussed his positive cologuard. [facility]/u colonoscopy to assess for colon cancer. he is going to do this when he gets back. he promised me he would set up the date for after his upcoming large vacation. see below for external reinforcement of the above from his visit in [place]. Patient presents with last appt July 2023 History very difficult Notes had 2 cva's in June 2023 Syncopal episode x 2 within 1 week Spent 4 days in hospital Unsteady on feet but no further deficits Neurologist: Dr. 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 last cardiology visit september. feels he sees cardiology yearly Notes bp normally 140/85-90 although very elevated today Denies cp, soa, edema, palp Notes stools normalized a month ago Cologuard positive 10/24/23 - notes he has not had follow up Notes seeing Dr. Harrell, PCP on routine basis Notes was to see [facility] on [facility] but missed appt - notes seeing several times recently regarding hearing and heart Has seen dermatology recently - following for skin lesions/ ? cancer macular degeneration (right) notes injection therapy q 2 months sleep apnea: has sleep apnea documented, snoring according to prior to her has declined testing sleeping 6-8 hrs well Patient is seen forensic document examiner and is following their supplement protocol. Unsure our place in his health care and I spoke with him about this. It seems he is seeing PCP, [facility], cardiology, as well as the forensic document examiner/luc Chavez MD [address], [place], [address], [facility] Medicine 04/06/2024 15:06:48 Demographics he has cut way back on carbs. he has meat protein at every meal. he eats a good variety. he eats avocado toast every a.m. he continues to see dental, derm, [facility]. [email or web address] Not available 06/18/2024 10:28:18 Plan of Treatment Reminders Order Date Submit Date Provider Last Modified By Organization Details Last Modified Time Details Appointments OFFICE VISIT 15 2024 11:30A M Calderon Harrell MD Not available Not available Not available Lab CBC 2024 025 [facility], [address], [facility], [place], [address], 06/18/2024 10:57:56 retic count, blood 2024 025 [employer] [facility], [address] , [place], [address], 06/22/2024 05:07:52 iron + TIBC + ferritin, serum 2024 025 [employer] [facility], [address] [facility] [address], [address] [place], [address], 06/22/2024 05:07:49 vitamin B12 + folate, serum or blood 2024 025 [facility], [address] [place] [address] [address], [address], [place], [address], 06/22/2024 05:07:54 mma (methylma lonic acid), serum 2024 025 [facility], [address] [place] [address] [address], [address], [place], [address], 06/22/2024 05:07:51 homocyste ine, serum or plasma 2024 025 [facility], [address] [place] [address] [address], [address], [place], [address], 06/22/2024 05:07:53 periphera l blood smear 2024 025 [facility], [address] [place] [address] 248, [address], [place], [address], 06/25/2024 09:23:45 CMP, serum or plasma 2024 025 [facility], [address], [address], [place], [address], 06/11/2024 10:10:25 lipid panel, blood 2024 025 [facility], [address], [address], [place], [address], 06/11/2024 10:10:27 CBC 2024 025 [facility], [address], [place], [address], 06/11/2024 09:32:47 Referral cardiolog ist referral 2024 025 [place] [address] [facility], [address] [place] [address], [address], [place], [address], 08/15/2024 17:30:[address] referral 2024 025 [email or web address] Guera Mcdonald MD, [address], [place], [address], 08/15/2024 17:39:52 Procedures colonosco py, with removal of tumor, polyp or lesion (PROC) 2024 025 [email or web address] [facility], [address], [place], [address], 08/08/2024 13:57:52 Surgeries None recorded. Imaging None recorded. Medication Orders None recorded. Patient TargetsNo targets recorded. Patient InstructionsNo instructions recorded. Reason for Referral Prism Inspector Referral for Is chemic stroke Referring Physician: Calderon Harrell [facility] Medicine, Encounter Date: 08/12/2024 Neurologist Referral for Isc hemic stroke Referring Physician: Calderon Harrell [facility], Encounter Date: 08/12/2024 Results Created Date Observation Date Name Description Value Unit Range Abnormal Flag Note LastModifiedBy Organization Detail LastModifiedTime 06/12/1906/11/2024 CBC WBC 4.7 x10 4.5-10 .5 Not Available [facility] [address], [place], [address], 06/11/2024 09:32:47 06/12/1906/11/2024 CBC RBC 3.97 x10 4.30-5 .90 low Not Available [facility] [address], [place], [address], 06/11/2024 09:32:47 06/12/19 25 06/11/2024 CBC HGB 12.7 g/dL 13.5-1 8.0 low Not Available [facility] [address] [facility] 1, [place], [address], 06/11/2024 09:32:47 06/12/19 25 06/11/2024 CBC HCT 38.2 % 35.0-6 0.0 Not Available [facility] [address] [facility] 1, [place], [address], 06/11/2024 09:32:47 06/12/19 25 06/11/2024 CBC MCV 96.2 fL 80.0-9 9.9 Not Available [facility] [address] [facility] [address] [facility] 1, [place], [address], 06/11/2024 09:32:47 06/12/19 25 06/11/2024 CBC MCH 31.9 pg 27.0-3 2.0 Not Available [facility] [address] [facility] [address] [facility] 1, [place], [address], 06/11/2024 09:32:47 06/12/19 25 06/11/2024 CBC MCHC 33.2 g/dL 32.0-3 6.0 Not Available [facility] [address] [facility] 1, [place], [address], 06/11/2024 09:32:47 06/12/19 25 06/11/2024 CBC RDW 14.2 % 11.5-1 4.5 Not Available [facility] [address] [facility] [address] [facility] 1, [place], [address], 06/11/2024 09:32:47 06/12/19 25 06/11/2024 CBC plt 119.3 x10 150.0- 451.0 low Not Available [facility] [address] [facility] [address] [facility] 1, [place], [address], 06/11/2024 09:32:47 06/12/19 25 06/11/2024 CBC lymphocytes % 37.9 % 20.0-5 0.0 Not Available [facility] [address] [facility], [place], [address], 06/11/2024 09:32:47 06/12/19 25 06/11/2024 CBC granulcytes % 46.5 % 30.0-7 0.0 Not Available [facility] [address] [facility] [address] [facility] 1, [place], [address], 06/11/2024 09:32:47 06/12/19 25 06/11/2024 CBC monocytes % 10.0 % 2.0-16 .0 Not Available [facility] [address] [facility], [place], [address], 06/11/2024 09:32:47 06/12/19 25 06/11/2024 CBC granulcytes# 2.2 x10 Not Crystal ilable [facility] [address] [facility], [place], [address], 06/11/2024 09:32:47 06/12/19 25 06/11/2024 CBC lymphocytes # 1.8 x10 Not Available [facility] [address] [facility], [place], [address], 06/11/2024 09:32:47 06/12/19 25 06/11/2024 CBC monocytes # 0.5 x10 Not Avai lable [facility] [address] [facility], [place], [address], 06/11/2024 09:32:47 06/12/19 25 06/11/2024 CMP (MALE ) glucose 84.0 mg/dL 60.0-9 9.0 Not Available [facility] [address] [facility], [place], [address], 06/11/2024 10:10:25 06/12/19 25 06/11/2024 CMP (MALE ) BUN (blood urea nitrogen) 22.0 mg/dL 10.0-2 6.0 Not Available [facility] [address] [facility], [place], [address], 06/11/2024 10:10:25 06/12/19 25 06/11/2024 CMP (MALE ) creatinine (serum) 1.1 mg/dL 0.4-1. 5 Not Available [facility] [address] [facility], [place], [address], 06/11/2024 10:10:25 06/12/19 25 06/11/2024 CMP (MALE ) BUN/creatini ne ratio 20.00 ratio Not Available [facility] [address] [facility] [address], [place], [address], 06/11/2024 10:10:25 06/12/19 25 06/11/2024 CMP (MALE ) eGFR calculated 68.[address] [facility] [address] [facility] [address], [place], [address], 06/11/2024 10:10:25 06/12/19 25 06/11/2024 CMP (MALE ) total protein 6.9 g/dL 6.0-8. 5 Not Available [facility] [address] [facility], [place], [address], 06/11/2024 10:10:25 06/12/19 25 06/11/2024 CMP (MALE ) total bilirubin 0.9 mg/dL 0.2-1. 3 Not Available [facility] [address] [facility] [address], [place], [address], 06/11/2024 10:10:25 06/12/19 25 06/11/2024 CMP (MALE ) albumin 3.9 g/dL 3.5-5. 5 Not Available [facility] [address] [facility] [address], [place], [address], 06/11/2024 10:10:25 06/12/19 25 06/11/2024 CMP (MALE ) globulin 3.0 calc Not Available [facility] [address] [facility] [address], [place], [address], 06/11/2024 10:10:25 06/12/19 25 06/11/2024 CMP (MALE ) AST (SGOT) 36.0 U/L 0.0-46 .0 Not Available [facility] [address] [facility] [address], [place], [address], 06/11/2024 10:10:25 06/12/19 25 06/11/2024 CMP (MALE ) altv (SGPT) 25.0 U/L 13.0-6 9.0 normal Not Available [facility] [address] [address], [place], [address], 06/11/2024 10:10:25 06/12/19 25 06/11/2024 CMP (MALE ) A/G ratio 1.3 ratio Not Available [facility] [address] [address], [place], [address], 06/11/2024 10:10:25 06/12/19 25 06/11/2024 CMP (MALE ) ALP phos 86.0 U/L 30.0-1 40.0 normal Not Available [facility] [address] [address], [place], [address], 06/11/2024 10:10:25 06/12/19 25 06/11/2024 CMP (MALE ) calcium 8.7 mg/dL 8.4-10 .5 Not Available [facility] [address] [address], [place], [address], 06/11/2024 10:10:25 06/12/19 25 06/11/2024 CMP (MALE ) sodium 139.0 mmol/ L 136.0- 145.0 Not Available [facility] [address] [facility] [address], [place], [address], 06/11/2024 10:10:25 06/12/19 25 06/11/2024 CMP (MALE ) potassium 4.3 mmol/ L 3.5-5. 1 Not Available [facility] [address] [facility] [address], [place], [address], 06/11/2024 10:10:25 06/12/19 25 06/11/2024 CMP (MALE ) chloride 106.0 mmol/ L 98.0-1 10.0 normal Not Available [facility] [address] [facility] [address], [place], [address], 06/11/2024 10:10:25 06/12/19 25 06/11/2024 CMP (MALE ) C02 28.0 mmol/ L 22.0-3 1.0 Not Available [facility] [address] [facility] [address], [place], [address], 06/11/2024 10:10:25 06/12/19 25 06/11/2024 CMP (MALE ) anion gap 5.0 calc Not Available [facility] [address] [facility] [address], [place], [address], 06/11/2024 10:10:25 06/12/1906/11/2024 CMP (MALE ) osmolality 289.5 calc Not Available [facility] [address] [facility] [address], [place], [address], 06/11/2024 10:10:25 06/12/19 25 06/11/2024 LIPID PROFI LE (MALE ) cholesterol 190.0 mg/dL 0.0-20 0.0 Not Available [facility] [address] [facility], [place], [address], 06/11/2024 10:10:27 06/12/19 06/11/2024 LIPID PROFI LE (MALE ) trig 54.0 mg/dL 0.0-15 0.0 Not Available [facility] [address] [facility] [address], [place], [address], 06/11/2024 10:10:27 06/12/19 25 06/11/2024 LIPID PROFI LE (MALE ) HDL - direct 79.0 mg/dL >40.0 Not Available [facility] [address] [facility] [address], [place], [address], 06/11/2024 10:10:27 06/12/19 25 06/11/2024 LIPID PROFI LE (MALE ) VLDL - direct 10.8 mg/dL Not Available [facility] [address] [facility] 1, [place], [address], 06/11/2024 10:10:27 06/12/19 25 06/11/2024 LIPID PROFI LE (MALE ) LDL - direct 100.2 mg/dL 0.0-13 0.0 Not Available [facility] [address] [facility] [address], [place], [address], 06/11/2024 10:10:27 06/19/19 25 06/18/2024 CBC WBC 5.4 x10 4.5-10 .5 Not Available [facility] [address] [facility] [address], [place], [address], 06/18/2024 10:57:56 06/19/19 25 06/18/2024 CBC RBC 3.94 x10 4.30-5 .90 low Not Available [facility] [address] [facility] [address], [place], [address], 06/18/2024 10:57:56 06/19/19 25 06/18/2024 CBC HGB 12.3 g/dL 13.5-1 8.0 low Not Available [facility] [address] [facility] 1, [place], [address], 06/18/2024 10:57:56 06/19/1906/18/2024 CBC HCT 38.1 % 35.0-6 0.0 Not Available [facility] [address] [facility] 1, [place], [address], 06/18/2024 10:57:56 06/19/1906/18/2024 CBC MCV 96.7 fL 80.0-9 9.9 Not Available [facility] [address] [facility] 1, [place], [address], 06/18/2024 10:57:56 06/19/1906/18/2024 CBC MCH 31.2 pg 27.0-3 2.0 Not Available [facility] [address] [facility], [place], [address], 06/18/2024 10:57:56 06/19/19 25 06/18/2024 CBC MCHC 32.3 g/dL 32.0-3 6.0 Not Available [facility] [address] [facility] 1, [place], [address], 06/18/2024 10:57:56 06/19/1906/18/2024 CBC RDW 14.4 % 11.5-1 4.5 Not Available [facility] [address] [facility] 1, [place], [address], 06/18/2024 10:57:56 06/19/1906/18/2024 CBC plt 105.7 x10 150.0- 451.0 low Not Available [facility] [address] [facility] [address] [facility] 1, [place], [address], 06/18/2024 10:57:56 06/19/1906/18/2024 CBC lymphocytes % 27.7 % 20.0-5 0.0 Not Available [facility] [address] [address], [place], [address], 06/18/2024 10:57:56 06/19/19 25 06/18/2024 CBC granulcytes % 60.6 % 30.0-7 0.0 Not Available [place] [address] [address], [place], [address], 06/18/2024 10:57:56 06/19/19 25 06/18/2024 CBC monocytes % 8.0 % 2.0-16 .0 Not Available [place] [address] [address], [place], [address], 06/18/2024 10:57:56 06/19/19 25 06/18/2024 CBC granulcytes# 3.3 x10 Not Crystal ilable [place] [address] [address], [place], [address], 06/18/2024 10:57:56 06/19/19 25 06/18/2024 CBC lymphocytes # 1.5 x10 Not Available [place] [address] [address], [place], [address], 06/18/2024 10:57:56 06/19/19 25 06/18/2024 CBC monocytes # 0.4 x10 Not Avai lable [place] [address] [address], [place], [address], 06/18/2024 10:57:56 06/19/19 25 06/19/2024 PERIP HERAL BLOOD SMEAR REVIE W peripheral blood smear review Revie w of perip heral smear confi katalina autom ated resul ts. Revie w of the perip heral smear revea ls decre ased numbe rs of plate lets. LARGE AND/O R GIANT PLATE LETS Ovalo cytes 1 + Not Available [address], [address], 06/19/2024 13:39:52 06/19/1906/22/2024 IRON, TIBC AND BLAYNE TIN PANEL iron, total 81 mcg/d L 50-180 normal Not Available [facility] [address], [address], 06/22/2024 05:07:49 06/19/19 25 06/22/2024 IRON, TIBC AND BLAYNE TIN PANEL iron binding capacity 282 mcg/d L_(ca lc) 250-42 5 normal Not Available [facility] [address], [address], 06/22/2024 05:07:49 06/19/19 25 06/22/2024 IRON, TIBC AND BLAYNE TIN PANEL % saturation 29 %_(ca lc) 20-48 normal Not Available [facility] [address], [address], 06/22/2024 05:07:49 06/19/19 25 06/22/2024 IRON, TIBC AND BLAYNE TIN PANEL ferritin 102 NG/mL 24-380 normal Not Available [address], [address], 06/22/2024 05:07:49 06/19/19 25 06/22/2024 METHY LMALO JASON ACID methylmaloni c acid 196 nmol/ L 69-390 Serum methy lmalo jason acid (MMA) level s are used to diagn ose and monit or sever al rare inbor n error s of metab olism , inclu ding methy lmalo jason acidu betsy. The enzym atic conve rsion of MMA to succi jason acid requi res vitam in B12 (leroy osyl- cobal ramos) as a cofac tor. Serum MMA level s are also used for asses sing funct ional vitam in B12 defic iency . Vitam in B12 is essen tial for neuro devel opmen t, parti cular ly early in pregn hal. Undia gnose d mater nal vitam in B12 defic iency may be assoc iated with adver se /neon atal outco mes, such as neura l tube defec ts and intra uteri ne growt h restr ictio n. [facility] utili zed Multi -Moda l Decom posit ion (MMD) rick sis to estab geoffrey first and secon d trime ster- speci fic MMA refer ence inter vals in pregn hal, as given below : MMA, First trime ster (<13 wks gesta tion) : 58-16 7 nmol/ L MMA, Secon d trime ster (13-2 3 wks gesta tion) : 63-24 1 nmol/ L This test was devel oped and its rick tical perfo rmanc e jay cteri stics have been deter mined by [facility]. It has not been clear ed or appro frantz by the FDA. This assay has been valid ated pursu ant to the CLIA regul ation s and is used for clini ben purpo ses. Not Available [facility] [address] [address] [place], [address], 06/22/2024 05:07:51 06/19/19 25 06/22/2024 RETIC ULOCY TE COUNT reticulocyte count, automated 1.2 % normal Not Available [facility] [address] [address] [place], [address], 06/22/2024 05:07:52 06/19/19 25 06/22/2024 RETIC ULOCY TE COUNT reticulocyte , absolute 24851 cells /uL [address] normal Not Available [facility] [address] [address] [place], [address], 06/22/2024 05:07:52 06/19/19 25 06/22/2024 HOMOC YSTEI NE homocysteine 16.3 umol/ L <11.4 high Homoc ystei ne is incre ased by funct ional defic iency of folat e or vitam in B12. Testi ng for methy lmalo jason acid diffe renti ates betwe en these defic ienci es. Other cause s of incre ased homoc ystei ne inclu de renal failu re, folat e antag onist s such as metho trexa te and pheny toin, and expos ure to nitro us oxide . Aminata Ramos et al., Yaa Inter n Med. 1999; 131(5 ):331 -9. Not Available [facility] [address] [address] [place], [address], 06/22/2024 05:07:53 06/19/19 25 06/22/2024 VITAM IN B12/F OLATE , SERUM PANEL vitamin B12 456 pg/mL 200-11 00 normal Not Available [facility] [address] [address] [place], [address], 06/22/2024 05:07:54 06/19/1906/22/2024 VITAM IN B12/F OLATE , SERUM PANEL folate, serum >24.0 NG/mL normal Refer ence Range Low: <3.4 Borde rline : 3.4-5 .4 Shelbie l: >5.4 Not Available [facility] [address] [address] [place], [address], 06/22/2024 05:07:54 Result Notes None recorded. Problems Name Problem SNOMED Code Status Onset Date Resolution Date Notes Provider Name and Address Organization Details Recorded Time Tendinitis of knee 529368343 Active [address] [facility] 09:56:17 Aneurysm of thoracic aorta 331153490 Active [address] [facility] 09:56:17 Cerebrovasc ular accident 462527405 Active 2023 ischemic right MCA stroke NITISH salazar [facility] 14:28:56 Atrial fibrillatio n 02492760 Active 2023 NITISH salazar, [facility] 4 10:27:53 Mild aortic valve regurgitati on 212713881 Active 2023 NITISH DIANA null, [facility] 5 09:56:17 Heart failure with reduced ejection fraction 802277213 Active 2023 NITISH DIANA null, [facility] 5 09:56:17 Melanoma in situ 288303239 Active 2023 NITISH salazar, [facility] 4 16:40:22 Essential hypertensio n 37801369 Active 2023 NITISH salazar, [facility] 4 10:45:00 Hypothyroid ism 63099464 Active 2023 NITISH salazar, [facility] 4 10:31:45 Cerebrovasc ular disease 93929486 Active 2024 NITISH salazar, [facility] 5 09:56:31 Colorectal cancer detected by DNA-based stool screening 305109604 Active 2024 Calderon Harrell MD [address] [place] [address], [phone], [facility] 5 10:28:29 Platelet count below reference range 053310786 Active 2024 Izabel Puentes null, [facility] 5 12:18:06 Screening for malignant neoplasm of colon Active 2024 Jeffy Goodrich DO [address] [place] [address], [phone], [facility] 5 11:23:55 Ischemic stroke 013264985 Active 2024 Calderon Harrell MD [address] [place] [address], [phone], [facility] 5 14:03:18 Problem Notes None recorded. Medical Equipment None Reported. Allergies Allergen ID Allergen Name Allergen Category Reaction Reaction Severity Criticality Documentation Date Start Date Code Code System Note Provider Name and Address Organization Details Recorded Time 53895 azithromy evaristo medicatio n abdominal pain Not available Not available 09/17/2022 00964 RxNorm NITISH ADALGISA salazar [facility] 5 09:09:52 30284 Medicinal product containin g quinolone and acting as antibacte rial agent (product) medicatio n Not available Not available Not available 06/30/2023 16907 008 SNOMED AAA Izabel Dhaval salazar [facility] 4 12:16:18 Medications Name Sig Start Date Stop Date Status Note LastModified by Organization Details LastModified Time atorvasta tin 40 mg tablet TAKE 1 TABLET BY MOUTH AT BEDTIME 03/06 completed Not Available Not Available Not Available meloxicam 15 mg tablet TAKE 1 TABLET BY MOUTH EVERY DAY FOR 14 DAYS 06/18 completed Not Available Not Available Not Available amlodipin e 5 mg tablet TAKE 1 TABLET BY MOUTH DAILY 10/09 completed Not Available Not Available Not Available aspirin 81 mg tablet,de layed release TAKE 1 TABLET BY MOUTH DAILY 03/06 completed Not Available Not Available Not Available garlic 1,000 mg capsule Take 1 capsule every day by oral route. active Not Available Not Available No t Available imiquimod 5 % topical cream packet active Not Available Not Available Not Available lisinopri l 10 mg tablet Take 1 tablet every day by oral route. 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 5 09:16:55 Date Recorded Body height Body mass index (BMI) Body weight Body temperature Heart rate Systolic blood pressure Diastolic blood pressure Provider Name and Address Organization Details Last Updated DateTime 5 175.26 cm 22.9 kg/m2 03376.8 2 g 97.9 [degF] 60 /min 104 mm[Hg] 62 mm[Hg] [facility] 5 10:05:13 Date Recorded Body height Body mass index (BMI) Body weight Heart rate Respiratory rate Systolic blood pressure Diastolic blood pressure Provider Name and Address Organization Details Last Updated DateTime 5 175.26 cm 22.7 kg/m2 41639.2 2 g 64 /min 18 /min 126 mm[Hg] 80 mm[Hg] CORNELIA PROCTOR [facility] 5 10:50:58 Date Recorded Body height Body mass index (BMI) Body weight Body temperature Systolic blood pressure Diastolic blood pressure Provider Name and Address Organization Details Last Updated DateTime 5 175.26 cm 21.3 kg/m2 27163.3 g 97.3 [degF] 140 mm[Hg] 80 mm[Hg] Izabel Hernandesoch [facility] 5 13:50:38 Social History Question Answer Notes LastModified by [employer] Details LastModified Time Tobacco Smoking Status Former Smoker NITISH salazar [facility] 07/18/2023 10:30:40 Which Illicit Or Recreational Drugs Have You Used? Marijuana [email or web address] Information not available 07/18/2023 When Did You Quit Smoking? 16+yearssincel astcigarette [email or web address] Information not available 07/18/2023 How Much Tobacco Do You Smoke? No Information not available 08/12/2024 Sex: Unknown Functional Status Question Answer Note LastModified by [employer] Details LastModified Time How many times per week do you consume alcohol? Less than 1 time per week Information not available 08/12/2024 Do you use any illicit or recreational drugs? Yes [email or web address] Information not available 07/18/2023 Do you or have you ever used any other forms of tobacco or nicotine? No Information not available 08/12/2024 What is your level of alcohol consumption? Occasional [email or web address] Information not available 07/18/2023 Mental Status None recorded. Family History Relationship Description Onset Age of this Age Resolved Age Notes LastModified by Organization Details LastModified Time Father Diabetes mellitus [email or web address] Not available 07/17 10:29:59 Sister Malignant tumor of breast [email or web address] Not available 07/17 10:30:09 Medical History No medical history recorded. Immunizations Vaccine Type Date Status Note Provider Nam e and Address Organization Details Recorded Time Tdap 07/02/[address] [facility] 07/18/2023 10:27:34 Past Encounters Encounter ID Performer Location Encounter Start Date Encounter Closed Date Diagnosis/Indication Diagnosis SNOMED-CT Code Diagnosis ICD10 Code Diagnosis Note [id number] Teo Rothman MD [facility] ([facility]) [address] [place] [address] [phone] 5 11/24/2022 14:02:02 11/24/2022 16:11:36 Tendinitis of knee 688023275 M67.869 Patient likely has tendinitis of his knee. Discussed restrictio ns and recommend rest. To the affected area. Start meloxicam. Follow-up with PCP if it does not get better. [id number] Calderon Harrell MD [facility] ([facility]) [address] [place] [address] [id number] 5 06/19/2023 08:51:05 06/19/2023 09:43:45 Aneurysm of ascending aorta 344142880 I71.21 we have discussed medication s to help reduce risk of rupture. Essential hypertension 11640156 I10 declines medical interventi on even if stroke/mi/ aneurysm rupture risks reduction would be the potential benefits. he understand the risks of not doing so. we discussed low sodium diet. he is averse to anything that is not from the [employer] food store. he is eating less meat and more plant based diet. no to all vaccines despite potential benefits. Muscle spa sm of cervical muscle of neck 9173166913 04 M62.838 Actinic keratosis 504051 007 L57.0 significan t actinic damage arms/face discussed prevention . neecks widespread skin eval [id number] Calderon Harrell MD [facility] ([facility]) [address] [place] [address] [phone] 5 06/30/2023 11:11:06 06/30/2023 13:01:24 Aneurysm of ascending aorta 560429479 I71.21 Mild aorti c valve regurgitation 251498905 I35.1 Atrial fibrillation 4943 6004 I48.91 Cerebrovas cular accident 324121586 I63.9 Heart fail ure with reduced ejection fraction 418575180 I50.9 [id number] Calderon Harrell MD [facility] ([facility]) [address] [place] [address] [id number] 5 07/18/2023 10:20:56 07/18/2023 12:21:31 Atrial fibrillation 22547184 I48.91 Syncope 964577061 R55 Hypothyroidism 90622178 E03.9 [id number] Calderon Harrell MD [facility] ([facility]) [address] [place] [address] [id number] 5 10/10/2023 11:51:50 10/10/2023 13:08:57 Hematoma of lower leg 746393513 S80.12XS [id number] Calderon Harrell MD [facility] ([facility]) [address] [place] [address] [phone] 5 10/11/2023 09:43:24 10/12/2023 14:51:24 [id number] Caldreon Harrell MD [facility] ([facility]) [address] [place] [address] [phone] 5 10/11/2023 09:57:24 10/12/2023 13:45:49 New medication added 071154809 Z76.89 [id number] Calderon Harrell MD [facility] ([facility]) [address] [place] [address] [id number] 5 10/18/2023 10:26:09 10/18/2023 10:59:55 Atrial fibrillation 84433816 I48.91 Aneurysm o f thoracic aorta 610445924 I71.20 Cerebrovas cular accident 306959735 I63.9 Heart fail ure with reduced ejection fraction 502249184 I50.9 Essential hypertension 93845022 I10 keep f/u in may [id number] SARAH SIFUENTES [facility] ([facility]) [address] [place] [address] [phone] 5 12/22/2023 12:53:44 12/22/2023 13:14:29 [id number] Calderon Harrell MD [facility] ([facility]) [address] [place] [address] [id number] 5 03/06/2024 09:02:16 03/06/2024 10:06:20 Atrial fibrillation 74862125 I48.91 Essential hypertension 90171400 I10 keep f/u in may Hypothyroidism 99135732 E03.9 Aneurysm o f thoracic aorta 537741694 I71.20 Heart fail ure with reduced ejection fraction 157910594 I50.9 Muscle spa sm of cervical muscle of neck 1446692822 04 M62.838 he has hep from PT and wishes to follow that rather than referral.h eat stretching and massage as demonstrat ed. f/u if not improving [id number] Calderon Harrell MD [facility] ([facility]) [address] [place] [address] [phone] 5 06/11/2024 09:21:39 06/12/2024 11:48:52 Essential hypertension 36353287 I10 keep f/u in may [id number] Calderon Harrell MD [facility] ([facility]) [address] [place] [address] [id number] 5 06/18/2024 09:45:05 06/18/2024 14:47:48 Normocytic anemia 495088776 D64.9 Platelet c ount below reference range 320768083 D69.6 Colorectal cancer detected by DNA-based stool screening 124841384 R19.5 he promises he will set up a colonoscop y and understand s very well the risk of not doing so and potential benefits of colonoscop y. we discussed risks of colonoscop y but with the pos cologuard in my opinion potential benefit outweighs the risk t this time. he has formed soft stools normal caliber and no blood. if this changes he will let me know. [id number] Jeffy Goodrich DO [facility] ([facility]) [address] [place] [address] [id number] 5 08/01/2024 10:27:44 08/02/2024 11:23:57 Screening for malignant neoplasm of colon 168806134 Z12.11 + cologuard. I have reviewed and discussed colon cancer screening options, including colonoscop y. Discussed risks vs benefits including risk of infection and bleeding, perforatio n, possible need for surgery, reaction to medication s, and sever injury or We discussed his increased risk with age and cardiac issues. We discussed pt requiring sedation and possible general anesthesia . Pt agrees to proceed with Colonoscop y at [facility]. Preliminar y procedure date will be 08/08/24 Atrial fibrillation 4943 6004 I48.91 curerntly not on any anticoagul ants. pt to stop his herbal meds 5 days before Aneurysm o f thoracic aorta 745060076 I71.20 stable and small per pt. [id number] Calderon Harrell MD [facility] ([facility]) [address] [place] [address] 08/12/2024 12:42:01 08/13/2024 17:07:43 Atrial fibrillation 16671066 I48.91 Heart fail ure with reduced ejection fraction 259780176 I50.9 Mild aorti c valve regurgitation 949824435 I35.1 Ischemic stroke 44238358 2 I63.511 with hemorrhagi c conversion . thought to be embolic had a SHARLA. he has been averse to anticoagul ation and anticoagul ation is not indicated yet due to his recent hemorrhage .. will request neurology and cardiology input to consider watchman and timing of re institutin g anticoagul ation. Health Concerns Section Related Observation LastModified by Organization Detai ls LastModified Time None Recorded Concern Status LastModified by Organization Details LastModified Time None Recorded Advance Directives Directive None Recorded Payers Insurance Date Sequence Insurance Name Policy Number Policy Dhillon Covered Member ID Dhillon Member ID Guarantor Name 08/11/2024 1 [employer] (MEDICARE REPLACEMENT/ ADVANTAGE - PPO) Will Bowling [id number] Will Bowling Notes Date Note Type Note Provider Name and Address Organization Details Recorded Time 03/06/2024 text/html Joint PainReport ed bypatient.Location:lef t neck Severity:improving Duration:present <1 month (1 week) Timing:constant Aggravating factors:movement/posit ioning Associated Symptoms:no weak limbs; no tingling otherwise he feels normal just like things used to be. Calderon Harrell MD [address] [place] [address], [phone], [facility], LJuan 03/06/2024 09:46:22 06/18/2024 text/html Hypertension IM/FMReported bypatient.Quality:here for check-up Severity:105-120 systolic Duration:HTN present for years Onset/Timing:gradual onset Alleviating Factors:medication Self Care:non-smoker Associated Symptoms:no shortness of breath; no chest pain;palpitations(a. fib.)HypothyroidReport ed bypatient.Reason for Visit:TSH check/labs Duration:>12 months Associated Symptoms:no fatigue; no cold intolerance;palpitatio ns Treatment:taking medication as prescribed Calderon Harrell MD [address] [place], [phone], [facility], Sandra. 06/18/2024 10:33:04 08/01/2024 text/html Colonoscopy ScreeningReported bypatient.GI Symptoms:no abdominal pain; no diarrhea; no constipation; no change in the stool; no color change in stool; no rectal bleeding Associated Symptoms:normal appetite; no fever; no chills; no nausea; no vomiting Context:prior examination Family History:no polyps; no colon cancer The patient presents today at the request of Dr. Harrell for evaluation and discussion of colonoscopy for colon cancer screening. The patient denies any recent abdominal pain, persistent diarrhea, persistent constipation, bloody or dark tarry stools, or mucusy stools.He endorses unexplained weight loss of 25 lbs in the last year or so. Last Colon Cancer screening: before 2005, done in [place], normal per pt. Problems with anesthesia in the past: NONE Family History of Colon cancers: NONE Blood Thinners: NONE Co-morbidities: Afib ( taking herbal=Natokanese and occasional Aspirin), Aortic aneurysm-thoracic (small and monitored by cardiovasc surgeon) POSITIVE COLOGUARD on 10/24/23, done with [facility] medicine Jeffy Goodrich DO [address] [place], [phone], [facility], [place] 08/01/2024 11:25:23 08/12/2024 text/html Hospitalization Contact RecordReported bypatient.Notes:Pt is here today for a hospital f/u. He had an ischemic stroke and was hospitalized at [facility]. Monday he was working in his garden and felt like he might fall down, so he laid on the ground. His son found him there and brought him to the hospital. After finding his stroke they transferred him to [facility]. Pt was referred to Neurology, but states he is not going back to [place]. Pt states they recommended starting Xarelto or a similar blood thinner in at least 2 weeks, after seeing a neurologist or van helper. he reports he will see the follow ups as above understands the risks of the above. he has no new neurologic issues and has improved. we once again fairly frankly but empathetically discussed his aversion to Calderon Harrell MD [address] [place] [address], [phone], [facility], [place] 08/12/2024 14:08:35
--- OUTSIDE RECORDS SUMMARY | 2024-08-18 09:54 | XMS_ITS | Data Portability ---
Author Organization [facility], [employer] Address [address] [place] [address] Care Team Providers Care Pest Control Operator Name Role Phone [facility] DERMATOLOG[facility] Carrier Driver [facility] Director Of Mechanical Engineering WILLIE HARRELL Primary Care Provider [phone] Assessment Encounter Date Assessment Date Assessment LastModified by Organization Details LastModified Time 08/10/2023 08/10/2023 Mail order pharmacy: [facility] -please request records from dermatology (in care team)- case sent -please request records from [facility] (in care team)- case sent *order labs to Paul Boykin in [place], [place] agibbens Not available 08/13/2023 14:21:51 08/10/2023 08/10/2023 Patient presented to office today for their Medicare Annual Wellness Visit. Not available 08/10/2023 15:38:00 07/10/2024 07/10/2024 We will request labs done by Dr. Harrell -Paul Borrego within the last 2 weeks [email or web address] Not available 07/10/2024 12:25:27 Plan of Treatment Reminders Order Date Submit Date Provider Last Modified By Organization Details Last Modified Time Details Appointments None recorded. Lab noninvasiv e colorectal cancer DNA + occult blood screening, QL, stool 2023 024 [email or web address] (Cologuard Orders Only), [address], [address], [place], [address], 04:44:10 additional order codes - f/t testostero ne, cbc, tsh 361070,500 9,4259 DX: E03.9, R53.83 2022 023 [email or web address] [facility] (Centralized Electronic Ordering - All Locations), Patient Can Go To The Location Of Their Choice, [address] 3 15:01:[address] referral 2023 024 [facility], [address], [address], [place], [address], 4 17:21:19 Procedures None recorded. Surgeries None recorded. Imaging electrocar diogram 2023 024 [email or web address] 2 [facility], [address] , [address], [place], [address], 4 16:48:31 Medication Orders Eliquis 5 mg tablet 2023 024 [email or web address], [address], [place], [place], [id number], 5 11:57:43 metoprolol tartrate 25 mg tablet 2023 024 [email or web address] 1 Not available 5 11:57:55 apixaban 5 mg tablet 2023 024 [email or web address] 1 [facility], [address], [place], [place], [id number], 5 11:57:43 Fish Oil 1,000 mg (120 mg-180 mg) capsule 2023 024 [email or web address] 1 [facility] #13651, [address], [place], [place], [id number], 5 11:58:59 Co Q-10 100 mg capsule 2023 024 [facility] #85140, [address], [place], [place], [id number], 15:01:13 lisinopril 10 mg tablet 2023 024 ric 1 Not available 11:57:51 MAMMALOGY TEACHER Thyroid 30 mg tablet 2022 023 [email or web address] 1 [facility] #90306, [address], [place], [place], [id number], 11:57:58 Patient TargetsNo targets recorded. Patient Instructions Encounter Date Encounter Id Patient Instructions Last Modified By Organization Details Last Modified Time 09/16/2022 [id number] Change B-complex to Methylguard Plus 3 daily Start Creatine 5gm daily Restart baby aspirin daily Increase MAMMALOGY TEACHER thyroid to 30mg daily, #30 + 2 Add DHEA 25mg daily Start fish oil 3,000mg daily Lab: f/t testosterone, cbc, tsh Reminder to look into sleep study See Zoie in 6 wks and in 3 months [email or web address] Not available 09/16/2022 14:20:47 08/10/2023 [id number] 1) supplements t o resume: Garlic Oil Extract 5mg daily Reservatrol 200mg daily DHEA 25mg daily Creatine 5gram powder: 1 daily Methylguard Plus: 2 caps daily with food 2) supplements to stop for now: motherworth extract christopher amy gibbons ginkgo extract davian & turmeric mixture 3) Schedule lab appt approx. 2 weeks prior to next appointment (schedule office visit with Dr. Chavez or Zoie in approx. 2 months) *Before 10:00 a.m. *Fasting for at least 8-10 hours *Take your thyroid medication 5 hours prior to lab draw (TSH, freeT4, FreeT3, CBC w/ diff, CMP, lipid panel, lipoprotein A, CRP-hs (cardiac), homocysteine, omega check) agibbens Not available 08/13/2023 14:25:58 08/10/2023 [id number] Pt agrees to Cologuard; declines PSA agibbens Not available 08/10/2023 19:13:40 03/27/2024 [id number] [facility] [place] - dx: + cologuard Patient taken to ER for elevated heart rate and blood pressure [email or web address] Not available 04/06/2024 15:03:42 07/10/2024 [id number] 1) Schedule your next appointment in July or August -schedule body composition as well agibbens Not available 07/10/2024 12:39:43 Reason for Referral Automation Specialist Referral for Be nign essential hypertension Referring Physician: Zoie Sahni, Family Medicine, Encounter Date: 08/10/2023 Results Created Date Observation Date Name Description Value Unit Range Abnormal Flag Note LastModifiedBy Organization Detail LastModifiedTime 10/03/1910/03/2023 COLOG UARD cologuard result reportable Sample Could Not Be Proces sed n/a The requi red label ing infor matio n was kartik mann and could not be resol frantz. The patie nt will be conta cted to initi ate a new sampl e colle ction . Not Available [facility] (Cologuard Orders Only) [address], [place], [address], 10/03/2023 04:44:10 09/17/19 23 09/17/2022 CBC WITH DIFFE RENTI AL/PL ATELE T WBC 6.7 x10e3 /uL 3.4-10 .8 Not Available [facility] ([facility]) [address] [facility], [place], [address], 09/24/2022 20:06:57 09/17/19 23 09/17/2022 CBC WITH DIFFE RENTI AL/PL ATELE T RBC 4.63 x10e6 /uL 4.14-5 .80 Not Available [facility] ([facility]) [address] [facility], [place], [address], 09/24/2022 20:06:57 09/17/19 23 09/17/2022 CBC WITH DIFFE RENTI AL/PL ATELE T hemoglobin 14.5 g/dL 13.0-1 7.7 Not Available [facility] ([facility]) [address] [facility], [place], [address], 09/24/2022 20:06:57 09/17/19 23 09/17/2022 CBC WITH DIFFE RENTI AL/PL ATELE T hematocrit 42.8 % 37.5-5 1.0 Not Available [facility] ([facility]) [address] [place], [address], 09/24/2022 20:06:57 09/17/19 23 09/17/2022 CBC WITH DIFFE RENTI AL/PL ATELE T MCV 92 fL 79-97 Not Available [facility] ([facility]) [address] [place], [address], 09/24/2022 20:06:57 09/17/19 23 09/17/2022 CBC WITH DIFFE RENTI AL/PL ATELE T MCH 31.3 pg 26.6-3 3.0 Not Available [facility] ([facility]) [address] [place], [address], 09/24/2022 20:06:57 09/17/19 23 09/17/2022 CBC WITH DIFFE RENTI AL/PL ATELE T MCHC 33.9 g/dL 31.5-3 5.7 Not Available [facility] ([facility]) [address] [place], [address], 09/24/2022 20:06:57 09/17/1909/17/2022 CBC WITH DIFFE RENTI AL/PL ATELE T RDW 12.4 % 11.6-1 5.4 Not Available [facility] ([facility]) [address] [place], [address], 09/24/2022 20:06:57 09/17/19 23 09/17/2022 CBC WITH DIFFE RENTI AL/PL ATELE T platelets 131 x10e3 /uL 150-45 0 below low normal Not Available [facility] ([facility]) [address] [place], [address], 09/24/2022 20:06:57 09/17/19 23 09/17/2022 CBC WITH DIFFE RENTI AL/PL ATELE T neutrophils 70 % not estab. Not Available [facility] ([facility]) [address] [facility], [place], [address], 09/24/2022 20:06:57 09/17/19 23 09/17/2022 CBC WITH DIFFE RENTI AL/PL ATELE T lymphs 19 % not estab. Not Available [facility] ([facility]) [address] [facility], [place], [address], 09/24/2022 20:06:57 09/17/19 23 09/17/2022 CBC WITH DIFFE RENTI AL/PL ATELE T monocytes 8 % not estab. Not Available [facility] ([facility]) [address] [facility], [place], [address], 09/24/2022 20:06:57 09/17/19 23 09/17/2022 CBC WITH DIFFE RENTI AL/PL ATELE T eos 2 % not estab. Not Available [facility] ([facility]) [address] [facility], [place], [address], 09/24/2022 20:06:57 09/17/19 23 09/17/2022 CBC WITH DIFFE RENTI AL/PL ATELE T basos 1 % not estab. Not Available [facility] ([facility]) [address] [facility], [place], [address], 09/24/2022 20:06:57 09/17/19 23 09/17/2022 CBC WITH DIFFE RENTI AL/PL ATELE T immature cells MAMMALOGY TEACHER Not Available [facility] ([facility]) [address] [facility], [place], [address], 09/24/2022 20:06:57 09/17/19 23 09/17/2022 CBC WITH DIFFE RENTI AL/PL ATELE T neutrophils (absolute) 4.6 x10e3 /uL 1.4-7. 0 Not Available [facility] ([facility]) [address] [place], [address], 09/24/2022 20:06:57 09/17/19 23 09/17/2022 CBC WITH DIFFE RENTI AL/PL ATELE T lymphs (absolute) 1.3 x10e3 /uL 0.7-3. 1 Not Available [facility] ([facility]) [address] [facility], [place], [address], 09/24/2022 20:06:57 09/17/19 23 09/17/2022 CBC WITH DIFFE RENTI AL/PL ATELE T monocytes(ab solute) 0.6 x10e3 /uL 0.1-0. 9 Not Available [facility] ([facility]) [address] [facility], [place], [address], 09/24/2022 20:06:57 09/17/19 23 09/17/2022 CBC WITH DIFFE RENTI AL/PL ATELE T eos (absolute) 0.1 x10e3 /uL 0.0-0. 4 Not Available [facility] ([facility]) [address] [facility], [place], [address], 09/24/2022 20:06:57 09/17/19 23 09/17/2022 CBC WITH DIFFE RENTI AL/PL ATELE T baso (absolute) 0.1 x10e3 /uL 0.0-0. 2 Not Available [facility] ([facility]) [address] [place], [address], 09/24/2022 20:06:57 09/17/19 23 09/17/2022 CBC WITH DIFFE RENTI AL/PL ATELE T immature granulocytes 0 % not estab. Not Available [facility] ([facility]) [address] [place], [address], 09/24/2022 20:06:57 09/17/19 23 09/17/2022 CBC WITH DIFFE RENTI AL/PL ATELE T immature grans (abs) 0.0 x10e3 /uL 0.0-0. 1 Not Available [facility] ([facility]) [address] [facility], [place], [address], 09/24/2022 20:06:57 09/17/19 23 09/17/2022 CBC WITH DIFFE RENTI AL/PL ATELE T NRBC MAMMALOGY TEACHER Not Available [facility] ([facility]) [address] [facility], [place], [address], 09/24/2022 20:06:57 09/17/19 23 09/17/2022 CBC WITH DIFFE RENTI AL/PL ATELE T hematology comments: MAMMALOGY TEACHER Not Available [facility] ([facility]) [address] [facility], [place], [address], 09/24/2022 20:06:57 09/17/19 23 09/17/2022 TESTO STERO NE,FR EE AND TOTAL testosterone >1500 NG/dL 264-91 6 above high normal Adult male refer ence inter alfredo is based on a popul ation of healt hy nonob debbie males (BMI <30) betwe en 19 and 39 years old. Norma irizarry, et.al . JCEM 2017, 102;1 161-1 173. PMID: 79933 103. Not Available [facility] ([facility]) [address] [facility], [place], [address], 09/24/2022 20:06:58 09/17/19 23 09/24/2022 TESTO STERO NE,FR EE AND TOTAL free testosterone (direct) 22.1 pg/mL 6.6-18 .1 above high normal Not Available [facility] ([facility]) [address] [place], [address], 09/24/2022 20:06:58 09/17/19 23 09/17/2022 TSH TSH 2.630 uIU/m L 0.450- 4.500 Not Available [facility] ([facility]) [address] [place], [address], 09/24/2022 20:06:59 10/27/1910/27/2022 CBC WITH DIFFE RENTI AL/PL ATELE T WBC 6.9 x10e3 /uL 3.4-10 .8 Not Available [facility] ([facility]) [address] [place], [address], 10/27/2022 02:06:50 10/27/19 23 10/27/2022 CBC WITH DIFFE RENTI AL/PL ATELE T RBC 4.90 x10e6 /uL 4.14-5 .80 Not Available [facility] ([facility]) [address] [place], [address], 10/27/2022 02:06:50 10/27/1910/27/2022 CBC WITH DIFFE RENTI AL/PL ATELE T hemoglobin 15.5 g/dL 13.0-1 7.7 Not Available [facility] ([facility]) [address] [place], [address], 10/27/2022 02:06:50 10/27/1910/27/2022 CBC WITH DIFFE RENTI AL/PL ATELE T hematocrit 45.5 % 37.5-5 1.0 Not Available [facility] ([facility]) [address] [place], [address], 10/27/2022 02:06:50 10/27/1910/27/2022 CBC WITH DIFFE RENTI AL/PL ATELE T MCV 93 fL 79-97 Not Available [facility] ([facility]) [address] [place], [address], 10/27/2022 02:06:50 10/27/19 23 10/27/2022 CBC WITH DIFFE RENTI AL/PL ATELE T MCH 31.6 pg 26.6-3 3.0 Not Available [facility] ([facility]) [address] [facility], [place], [address], 10/27/2022 02:06:50 10/27/19 23 10/27/2022 CBC WITH DIFFE RENTI AL/PL ATELE T MCHC 34.1 g/dL 31.5-3 5.7 Not Available [facility] ([facility]) [address] [facility], [place], [address], 10/27/2022 02:06:50 10/27/19 23 10/27/2022 CBC WITH DIFFE RENTI AL/PL ATELE T RDW 13.0 % 11.6-1 5.4 Not Available [facility] ([facility]) [address] [facility], [place], [address], 10/27/2022 02:06:50 10/27/19 23 10/27/2022 CBC WITH DIFFE RENTI AL/PL ATELE T platelets 148 x10e3 /uL 150-45 0 below low normal Not Available [facility] ([facility]) [address] [facility], [place], [address], 10/27/2022 02:06:50 10/27/19 23 10/27/2022 CBC WITH DIFFE RENTI AL/PL ATELE T neutrophils 56 % not estab. Not Available [facility] ([facility]) [address] [facility], [place], [address], 10/27/2022 02:06:50 10/27/19 23 10/27/2022 CBC WITH DIFFE RENTI AL/PL ATELE T lymphs 28 % not estab. Not Available [facility] ([facility]) [address] [place], [address], 10/27/2022 02:06:50 10/27/19 23 10/27/2022 CBC WITH DIFFE RENTI AL/PL ATELE T monocytes 12 % not estab. Not Available [facility] ([facility]) [address] [facility], [place], [address], 10/27/2022 02:06:50 10/27/1910/27/2022 CBC WITH DIFFE RENTI AL/PL ATELE T eos 3 % not estab. Not Available [facility] ([facility]) [address] [place], [address], 10/27/2022 02:06:50 10/27/19 23 10/27/2022 CBC WITH DIFFE RENTI AL/PL ATELE T basos 1 % not estab. Not Available [facility] ([facility]) [address] [facility], [place], [address], 10/27/2022 02:06:50 10/27/19 23 10/27/2022 CBC WITH DIFFE RENTI AL/PL ATELE T immature cells MAMMALOGY TEACHER Not Available [facility] ([facility]) [address] [place], [address], 10/27/2022 02:06:50 10/27/1910/27/2022 CBC WITH DIFFE RENTI AL/PL ATELE T neutrophils (absolute) 3.9 x10e3 /uL 1.4-7. 0 Not Available [facility] ([facility]) [address] [place], [address], 10/27/2022 02:06:50 10/27/1910/27/2022 CBC WITH DIFFE RENTI AL/PL ATELE T lymphs (absolute) 2.0 x10e3 /uL 0.7-3. 1 Not Available [facility] ([facility]) [address] [place], [address], 10/27/2022 02:06:50 10/27/19 23 10/27/2022 CBC WITH DIFFE RENTI AL/PL ATELE T monocytes(ab solute) 0.8 x10e3 /uL 0.1-0. 9 Not Available [facility] ([facility]) [address] [facility], [place], [address], 10/27/2022 02:06:50 10/27/1910/27/2022 CBC WITH DIFFE RENTI AL/PL ATELE T eos (absolute) 0.2 x10e3 /uL 0.0-0. 4 Not Available [facility] ([facility]) [address] [facility], [place], [address], 10/27/2022 02:06:50 10/27/1910/27/2022 CBC WITH DIFFE RENTI AL/PL ATELE T baso (absolute) 0.1 x10e3 /uL 0.0-0. 2 Not Available [facility] ([facility]) [address] [facility], [place], [address], 10/27/2022 02:06:50 10/27/1910/27/2022 CBC WITH DIFFE RENTI AL/PL ATELE T immature granulocytes 0 % not estab. Not Available [facility] ([facility]) [address] [facility], [place], [address], 10/27/2022 02:06:50 10/27/1910/27/2022 CBC WITH DIFFE RENTI AL/PL ATELE T immature grans (abs) 0.0 x10e3 /uL 0.0-0. 1 Not Available [facility] ([facility]) [address] [place], [address], 10/27/2022 02:06:50 10/27/1910/27/2022 CBC WITH DIFFE RENTI AL/PL ATELE T NRBC MAMMALOGY TEACHER Not Available [facility] ([facility]) [address] [facility], [place], [address], 10/27/2022 02:06:50 10/27/19 23 10/27/2022 CBC WITH DIFFE RENTI AL/PL ATELE T hematology comments: MAMMALOGY TEACHER Not Available [facility] ([facility]) [address] [facility], [place], [address], 10/27/2022 02:06:50 10/24/19 24 10/24/2023 COLOG UARD cologuard result reportable Positi ve negati ve abnormal POSIT MYRON TEST RESUL T. A posit myron Colog uard resul t shoul d be follo wed with a colon oscop y or visua l exami natio n of the colon . The sophia l value (refe rence range ) for this assay is negat myron. TEST DESCR IPTIO N: Rendon site algor ithmi c rick sis of stool DNA-b iomar kers with hemog lobin immun oassa y. Quant itati ve value s of indiv idual bioma rkers are not repor table and are not assoc iated with indiv idual bioma rker resul t refer ence range s. Colog uard is inten ded for color ectal cance r scree ligia of adult s of eithe r sex, 45 years or older , who are at [facility] for color ectal cance r (CRC) . Colog uard has been appro frantz for use by the U.[place]. FDA. The perfo rmanc e of Colog uard was estab lishe d in a cross secti onal study of [facility] adult s aged 50-84 . Colog uard perfo rmanc e in patie nts ages 45 to 49 years was estim ated by sub-g roup rick sis of near- age group s. Colon oscop ies perfo rmed for a posit myron resul t may find as the most clini minerva signi ficwill t mahamedio n: color ectal cance r [4.0% ], advan jericho adeno ma (incl uding sessi le juan everett polyp s great er than or equal to 1cm diame ter) [20%] or non- advan jericho adeno ma [31%] ; or no color ectal neopl natasha [45%] . These estim ates are deriv ed from a prosp ectiv e cross -sect ional scree ligia study of 10,00 0 indiv idual s at avera ge risk for color ectal cance r who were scree melodie with both Colog uard and colon oscop y. (Jason Beal. et al, N Engl J Med 2014; 370(1 4):12 86-12 97.) Colog uard may produ ce a false negat myron or false posit myron resul t (no color ectal cance r or preca ncero us polyp prese nt at colon oscop y follo w up). A negat myron Colog uard test resul t does not guara ntee the absen ce of CRC or advan jericho adeno ma (pre- cance r). The curre nt Colog uard scree ligia inter alfredo is every 3 years . (Amer ican Cance r Socie ty and U.S. Multi -Soci ety Task Force ). Colog uard perfo rmanc e data in a 10,00 0 patie nt pivot al study using colon oscop y as the refer ence metho d can be acces sed at the follo wing locat ion: www.e xactl abs.c om/re sultrina . Addit ional descr iptio n of the Colog uard test proce ss, warni ngs and preca ution s can be found at www.c naderu colt.c om. Not Available [facility] (Cologuard Orders Only) [address], [place], [address], 11/02/2023 17:39:50 08/10/19 24 08/10/2023 elect chelo ying am No observ ation record ed. ANGELIQUE [facility] [address], [place], [address], 08/10/2023 17:03:50 08/17/19 24 08/10/2023 body compo sitio n rick sis (PROC ) No observ ation record ed. [email or web address] Not Available 2023 15:50:34 08/21/19 24 08/10/2023 rhyth m strip , EKG* No observ ation record ed. [email or web address] Not Available 2023 12:19:32 03/27/19 25 03/27/2024 oneal ying am No observ ation record ed. [email or web address] [facility] [address], [place], [address], 03/28/2024 19:07:31 03/27/19 25 03/27/2024 XR, chest No observ ation record ed. [email or web address] [facility] [address], [place], [address], 03/27/2024 17:38:01 Result Notes None recorded. Problems Name Problem SNOMED Code Status Onset Date Resolution Date Notes Provider Name and Address Organization Details Recorded Time Benign essential hypertensi on 3607208 Active 2022 ZOIE SAHNI NP [address], [place], [address], [facility] 17:21:08 Atrial fibrillati on 73321917 Active 2022 ZOIE SAHNI NP [address], [place], [address], [facility] 17:20:58 Abdominal aortic aneurysm 576661318 Active 2022 ZOIE SAHNI NP [address], [place], [address], [facility] 3 17:20:55 Obstructiv e sleep apnea of adult 8398185604887 Active 2022 ZOIE SAHNI NP [address], [place], [address], [place] [facility] 17:21:01 History of cerebrovas cular accident 100223099 Active 2022 ZOIE SAHNI NP [address], [place], [address], [place] 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 Procedures Surgical History Date Name Laterality Status Provider Name and Address Organization Details Recorded Time Cataract Surgery [facility] 09:01:55 Imaging Results None recorded. Procedure Notes None recorded. Medical Equipment None Reported. Allergies No known drug allergies Medications Name Sig Start Date Stop Date Status Note LastModified by Organization Details LastModified Time compounded medication 1 click (1/2gram ) to upper inner thigh or scrotum daily for 6 weeks, then 2 clicks (1 gram) thereaft er. avoid contact for 4 hrs after applying . 01/25 completed Not Available Not Available Not Available compounded medication 2 pumps (1gram) to upper inner thigh or scrotum daily. avoid contact for 4 hrs after applying . 08/09 completed Not Available Not Available Not Available atorvastatin 40 mg tablet TAKE 1 TABLET BY MOUTH AT BEDTIME 04/04 completed Not Available Not Available Not Available doxycycline hyclate 100 mg capsule TAKE 1 CAPSULE BY MOUTH TWICE DAILY 06/01 completed Not Available Not Available Not Available meloxicam 15 mg tablet TAKE 1 TABLET BY MOUTH EVERY DAY FOR 14 DAYS 08/09 completed Not Available Not Available Not Available amlodipine 5 mg tablet TAKE 1 TABLET BY MOUTH DAILY 04/04 completed Not Available Not Available Not Available aspirin 81 mg tablet,delay ed release TAKE 1 TABLET BY MOUTH DAILY 04/04 completed Not Available Not Available Not Available imiquimod 5 % topical cream packet active Not Available Not Available Not Available lisinopril 10 mg tablet Take by oral route for 90 days. 04/04 completed Not Available Not Available Not Available Co Q-10 100 mg capsule Take 1 capsule every day by oral route for 90 days. 03/27 completed Not Available Not Available Not Available metoprolol tartrate 25 mg tablet TAKE 1 TABLET BY MOUTH TWICE DAILY 04/04 completed Not Available Not Available Not Available Davian Daily 08/10 completed Not Available Not Available Not Available Co Q-10 100mg daily 08/10 completed Not Available Not Available Not Available DHEA 25mg daily 03/27 completed Not Available Not Available Not Available Mohawk-3 2,000mg daily 08/10 completed Not Available Not Available Not Available Amino Acid Take 1 cap daily active Not Available Not Available No t Available taurine Take 1000mg 3 times daily active Not Available Not Available No t Available Brewers Yeast daily active Not Available Not Available Not Available Fiber Powder daily active Not Available Not Available Not Available compounded medication Take once daily active Not Available Not Available No t Available compounded medication 5mg daily 03/27 completed Not Available Not Available Not Available compounded medication 1 dropper 5-7 times daily active Not Available Not Available No t Available compounded medication daily 03/27 completed Not Available Not Available Not Available compounded medication 1 three times daily active Not Available Not Available No t Available compounded medication Take 1 dropper daily active Not Available Not Available No t Available compounded medication 40 drops daily 08/10 completed Not Available Not Available Not Available compounded medication 40 drops daily 08/10 completed Not Available Not Available Not Available compounded medication Daily (powder) 03/27 completed Not Available Not Available Not Available compounded medication 1 cap daily 03/27 completed Not Available Not Available Not Available compounded medication 2 three times daily active Not Available Not Available No t Available compounded medication 3 before food in morning active Not Available Not Available No t Available compounded medication 1/2 tsp daily 08/10 completed Not Available Not Available Not Available compounded medication 1 daily active Not Available Not Available N ot Available compounded medication 2 daily with food 03/27 completed Not Available Not Available Not Available compounded medication 1 three times daily active Not Available Not Available No t Available compounded medication 1 dropper full daily 08/10 completed Not Available Not Available Not Available MAMMALOGY TEACHER Thyroid 30 mg tablet TAKE 1 TABLET BY MOUTH EVERY DAY 04/04 completed Not Available Not Available Not Available apixaban 5 mg tablet Take 1 tablet twice a day by oral route for 90 days. 04/04 completed Not Available Not Available Not Available MAMMALOGY TEACHER Thyroid 15 mg tablet TAKE 1 TABLET BY MOUTH ONCE DAILY ON AN EMPTY STOMACH 09/26 completed Not Available Not Available Not Available Fish Oil 1,000 mg (120 mg-180 mg) capsule Take 1 capsule twice a day by oral route for 90 days. 04/04 completed Not Available Not Available Not Available turmeric daily 08/10 completed Not Available Not Available Not Available Nattokinase daily active Not Available Not A vailable Not Available Vitals Date Recorded Body height Heart rate Body temperature Body mass index (BMI) Body weight Heart rate Systolic blood pressure Diastolic blood pressure Systolic blood pressure Diastolic blood pressure Provider Name and Address Organization Details Last Updated DateTime 172.72 cm 132 /min 99.1 [degF] 24.1 kg/m2 18838.4 7 g 130 /min 190 mm[Hg] 143 mm[Hg] 161 mm[Hg] 124 mm[Hg] Jacqueline Machado [facility] 14:59:39 Date Recorded Systolic blood pressure Diastolic blood pressure Provider Name and Address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
--- OUTSIDE RECORDS SUMMARY | 2024-08-18 09:54 | XMS_ITS | Continuity of Care Document ---
Author Organization [facility] Stacie, L.LNickolas, [facility] Address [address] [place] [address] Assessment No assessment recorded. Plan of Treatment Reminders Order Date Submit Date Provider Last Modified By Organization Details Last Modified Time Details Appointments OFFICE VISIT 15 2024 11:30A M Calderon Harrell MD Not available Not available Not available Lab None recorded. Referral cardiolog ist referral 2024 025 [email or web address] [facility], [address] [facility], [facility] [address], [address], 08/15/2024 17:30:[address] referral 2024 025 [place] [address] Guera Mcdonald MD, [address] [place], [address], 08/15/2024 17:39:52 Procedures None recorded. Surgeries None recorded. Imaging None recorded. Medication Orders None recorded. Patient TargetsNo targets recorded. Patient InstructionsNo instructions recorded. 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 5 09:56:17 Cerebrovasc ular accident 073057831 Active 2023 ischemic right MCA stroke NITISH salazar, [facility], [facility] 5 14:28:56 Atrial fibrillatio n 95603443 Active 2023 NITISH salazar, [facility], [facility] 4 10:27:53 Mild aortic valve regurgitati on 914570113 Active 2023 NITISH salazar, [facility], [facility] 5 09:56:17 Heart failure with reduced ejection fraction 144632714 Active 2023 NITISH salazar, [facility], [facility] 5 09:56:17 Melanoma in situ 991291210 Active 2023 NITISH salazar, [facility], [facility] 4 16:40:22 Essential hypertensio n 96443564 Active 2023 NITISH salazar, [facility], [facility] 4 10:45:00 Hypothyroid ism 93909724 Active 2023 NITISH salazar, [facility], [facility] 4 10:31:45 Cerebrovasc ular disease 78728026 Active 2024 NITISH salazar, [facility], [facility] 5 09:56:31 Colorectal cancer detected by DNA-based stool screening 187544043 Active 2024 Calderon Harrell MD [address] [place] [address], [phone] [place] [address], L.L.C. 5 10:28:29 Platelet count below reference range 053898243 Active 2024 Izabel salazar [facility], [place] 5 12:18:06 Screening for malignant neoplasm of colon Active 2024 Jeffy Goodrich DO [address] [place], [address], [facility] 5 11:23:55 Ischemic stroke 345146611 Active 2024 Calderon Harrell MD [address] [place], [address], [facility] 5 14:03:18 Problem Notes None recorded. Medical Equipment None Reported. Allergies Allergen ID Allergen Name Allergen Category Reaction Reaction Severity Criticality Documentation Date Start Date Code Code System Note Provider Name and Address Organization Details Recorded Time 41891 azithromy evaristo medicatio n abdominal pain Not available Not available 09/17/2022 50733 RxNorm [facility]ISH [facility]azar [facility] 5 09:09:52 84318 Medicinal product containin g quinolone and acting as antibacte rial agent (product) medicatio n Not available Not available Not available 06/30/2023 17508 008 SNOMED AAA Izabel Dhaval [facility]azar [facility] 4 12:16:18 Medications Name Sig Start Date [...] Not Available Not Avail able Not Available Candace Lopez 1 daily active Not Available Not Available Not Available Vitamins and Minerals 07/17 completed 0; Recorded 07/06/19 2:25PM by Izabel Shrestha RN, Office Visit; Not Available Not Available Not Available Cinnamon 1 daily active Not Available Not Crystal ilable Not Available 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 13:50:38 Social History Question Answer Notes LastModified by Organizat ion Details LastModified Time Tobacco Smoking Status Former Smoker NITISH DIANA [facility] 07/18/2023 10:30:40 Which Illicit Or Recreational Drugs Have You Used? Marijuana rajeev Information not available 07/18/2023 When Did You Quit Smoking? 15+yearssincel astcijuliocesar boo Information not available 07/18/2023 How Much Tobacco Do You Smoke? No Information not available 08/12/2024 Sex: Unknown Functional Status Question Answer Note LastModified by Organizat ion Details LastModified Time How many times per week do you consume alcohol? Less than 1 time per week Information not available 08/12/2024 Do you use any illicit or recreational drugs? Yes [email or web address] Information not available 07/18/2023 Do you or have you ever used any other forms of tobacco or nicotine? No Information not available 08/12/2024 What is your level of alcohol consumption? Occasional [email or web address] Information not available 07/18/2023 Mental Status None recorded. Family History Relationship Description Onset Age of this Age Resolved Age Notes LastModified by Organization Details LastModified Time Father Diabetes mellitus [email or web address] Not available 07/17 10:29:59 Sister Malignant tumor of breast [email or web address] Not available 07/17 10:30:09 Medical History No medical history recorded. Immunizations Vaccine Type Date Status Note Provider Nam e and Address Organization Details Recorded Time Tdap 07/02/2019 completed NITISH DIANA [facility], L.L.CJuan 07/18/2023 10:27:34 Past Encounters Encounter ID Performer Location Encounter Start Date Encounter Closed Date Diagnosis/Indication Diagnosis SNOMED-CT Code Diagnosis ICD10 Code Diagnosis Note [id number] Jeffy Goodrich DO [facility] [address] [place] [address] 08/01/2024 10:27:44 08/02/2024 11:23:57 Screening for malignant neoplasm of colon 729494646 Z12.11 + cologuard. I have reviewed and [...] agrees to proceed with Colonoscop y at [facility]. Preliminar y procedure date will be 08/08/24 Atrial fibrillation 4943 6004 I48.91 curerntly not on any anticoagul ants. pt to stop his herbal meds 5 days before Aneurysm o f thoracic aorta 698635844 I71.20 stable and small per pt. [id number] Calderon Harrell MD [facility] [address] [place] [address] 08/12/2024 12:42:01 08/13/2024 17:07:43 Atrial fibrillation 27221047 I48.91 Heart fail ure with reduced ejection fraction 673352134 I50.9 Mild aorti c valve regurgitation 720717192 I35.1 Ischemic stroke 25115712 2 I63.511 with hemorrhagi c conversion . [...] by Organization Details LastModified Time None Recorded Payers Encounter Date Sequence Insurance Name Policy Number Policy Dhillon Covered Member ID Dhillon Member ID Guarantor Name 08/12/2024 1 [employer] (MEDICARE REPLACEMENT/ ADVANTAGE - PPO) Will Bowling [id number] Will Bowling Notes Date Note Type Note Provider Name and Address Organization Details Recorded Time 08/12/2024 text/html Hospitalization Contact RecordReported bypatient.Notes:Pt is here today for a hospital f/u. He had an ischemic stroke and was hospitalized at [place]. Monday he was working in his garden and felt like he might fall down, so he laid on the ground. His son found him there and brought him to the hospital. After finding his stroke they transferred him to [place]. Pt was referred to Neurology, but states he is not going back to [place]. Pt states they recommended starting Xarelto or a similar blood thinner in at least 2 weeks, after seeing a neurologist or director adult. he reports he will see the follow ups as above understands the risks of the above. he has no new neurologic issues and has improved. we once again fairly frankly but empathetically discussed his aversion to Calderon Harrell MD [address] [place] [address], [phone], [place] [facility]reg[facility], [place] 08/12/2024 14:08:35
--- NOTE | 2024-08-18 09:57 | ECG_ITS ---
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 Measurements Intervals [place] Rate: 96 P: 0 MS: 0 QRS: 50 QRSD: 94 T: -62 QT: 344 QTc: 435 Interpretive Statements ATRIAL FIBRILLATION NONSPECIFIC ST & T-WAVE ABNORMALITY Compared to ECG 08/03/2024 22:17:49 Ventricular premature complex(es) no longer present Aberrant conduction of supraventricular beat(s) no longer present Incomplete right bundle-branch block no longer present T-wave abnormality still present Electronically Signed On 08-22-2024 09:12:33 CDT by Codey Vaca M.D. [email or web address]
--- NOTE | 2024-08-18 10:01 | CTR_ITS ---
PROCEDURE INFORMATION: Exam: CT Cervical Spine Without Contrast Exam date and time: 08/18/2024 10:26 AM Age: 78 years old Clinical indication: Injury or trauma; Fall; Blunt trauma; Additional info: Trauma, fall TECHNIQUE: Imaging protocol: Computed tomography of the cervical spine without contrast. Radiation optimization: All CT scans at this facility use at least one of these dose optimization techniques: automated exposure control; mA and/or kV adjustment per patient size (includes targeted exams where dose is matched to clinical indication); or iterative reconstruction. COMPARISON: CT cervical spin wo con* [id number] 10/02/2017 1:19 PM RADIATION DOSE METRICS: Total DLP (mGy-cm): 178.1 FINDINGS: No acute fracture of the cervical spine is detected. There is posterior rotation of the right C1 lateral mass relative to C2, possibly positional, but without obvious corresponding anterior rotation of the left C1 lateral mass. However, it is stated above, there is no obvious fracture. Chronic multilevel cervical degenerative disc disease and facet arthropathy are present. These findings produce variable degrees of chronic bony narrowing of the cervical spinal canal and foramina. Chronic dystrophic ossifications are noted in the ligamentum nuchae. There is no prevertebral soft tissue swelling. CT/CT cervical spin wo con* [id number] IMPRESSION: 1. No acute cervical spine fracture. 2. Advanced chronic cervical spondylosis. 3. Rotation of C1 relative to C2; given patient position as evident on desktop publishing operator image, this finding could be positional. Consider repeat study with more optimal positioning when feasible.
--- NOTE | 2024-08-18 10:01 | XRR_ITS ---
PROCEDURE INFORMATION: Exam: XR Chest Exam date and time: 08/18/2024 10:15 AM Age: 78 years old Clinical indication: Injury or trauma; Fall; Blunt trauma (contusions or hematomas); Additional info: Trauma fall. No specific clinical signs or symptoms provided. TECHNIQUE: Imaging protocol: Radiologic exam of the chest. Views: 1 view. COMPARISON: CT angio chest 01/05/2024 1:35 PM FINDINGS: Lungs: No acute infiltrate identified. Pleural spaces: No obvious pneumothorax detected on this portable exam. Heart/Mediastinum: Heart size is stable compared to CT senior planning manager image from 01/05/2024. There is no pulmonary vascular congestion. Bones/joints: No obvious acute abnormality. XR/XR chest 1V [id number] IMPRESSION: No acute cardiopulmonary abnormality detected on AP portable chest radiograph.
[2024-08-18 10:02] LABS: Basophils % 0.3 %; Eosinophils % 0.1 %; Hematocrit 43.8 % (37-53); Lymphocytes # 0.4 10^3/uL (0.8-4.8); Lymphocytes % 3.1 %; Mean Corpuscular HGB Conc 34.5 g/dL (30-55); Mean Corpuscular Hemoglobin 31.9 pg (27-33); Mean Corpuscular Volume 92.4 fl (82-101); Mean Platelet Volume 11.9 fL (7.4-10.4); Monocytes # 0.5 10^3/uL (0.2-0.9); Monocytes % 3.8 %; Neutrophils # 13.07 10^3/uL (1.8-7.7); Neutrophils % 92.3 %; Nucleated Red Blood Cells % 0 %; Platelet Count 157 10^3/cmm (157-399); Red Blood Count 4.74 10^6/uL (3.85-5.65); Red Cell Distribution Width 13.2 % (12.1-15.1); White Blood Count 14.15 10^3/uL (3.29-11.43)
--- NOTE | 2024-08-18 10:03 | CTR_ITS ---
PROCEDURE INFORMATION: Exam: CTA Head With Contrast, Arteriography Exam date and time: 08/18/2024 10:26 AM Age: 78 years old Clinical indication: Cognitive deficit; Altered mental status; Additional info: Stroke TECHNIQUE: Imaging protocol: Computed tomographic angiography of the head with contrast. Exam focused on the arteries. 3D rendering (Not supervised by radiologist): MIP and/or 3D reconstructed images were created by the technologist. Radiation optimization: All CT scans at this facility use at least one of these dose optimization techniques: automated exposure control; mA and/or kV adjustment per patient size (includes targeted exams where dose is matched to clinical indication); or iterative reconstruction. Contrast material: OMNIPAQUE 350; Contrast volume: 100 ml; Contrast route: INTRAVENOUS (IV); COMPARISON: CT angio headneck* [id number] 08/03/2024 10:05 PM RADIATION DOSE METRICS: Total DLP (mGy-cm): 354.1 FINDINGS: RIGHT INTERNAL CAROTID: A focus of nonocclusive thrombus is present in the distal clinoid/proximal supraclinoid segment of the right ICA, a new finding compared to 08/03/2024. Chronic atherosclerosis associated with the partially 40% stenosis of the precavernous segment. RIGHT MIDDLE CEREBRAL: Distal half of the right M1 segment and the proximal M2 segments are occluded. There is reconstitution of branch vessels within the right sylvian fissure. Left internal carotid: No flow-limiting stenosis. Left middle cerebral: No flow-limiting stenosis. Anterior cerebral: Proximal anterior cerebral arteries bilaterally are patent without evidence of flow-limiting stenosis. Anterior communicating artery is present. Posterior cerebral: Bilateral proximal posterior cerebral arteries are patent without flow-limiting stenosis or occlusion. . Vertebrobasilar: Basilar artery is patent without flow-limiting stenosis. Intracranial segments of both vertebral arteries are patent without flow-limiting stenosis. Venous sinuses: Major dural venous sinuses are patent without evidence of thrombus. KEVEN at 11:08 AM CDT on 08/18/2024. The findings were acknowledged and understood. PROCEDURE INFORMATION: Exam: CTA Neck With Contrast Exam date and time: 08/18/2024 10:26 AM Age: 78 years old Clinical indication: Cognitive deficit; Altered mental status; Additional info: Stroke TECHNIQUE: Imaging protocol: Computed tomographic angiography of the neck with contrast. Exam focused on the cervical segments of the vasculature. 3D rendering (Not supervised by radiologist): MIP and/or 3D reconstructed images were created by the technologist. Radiation optimization: All CT scans at this facility use at least one of these dose optimization techniques: automated exposure control; mA and/or kV adjustment per patient size (includes targeted exams where dose is matched to clinical indication); or iterative reconstruction. Contrast material: OMNIPAQUE 350; Contrast volume: 100 ml; Contrast route: INTRAVENOUS (IV); COMPARISON: CT angio headneck* [id number] 08/03/2024 10:05 PM RADIATION DOSE METRICS: Total DLP (mGy-cm): 354.1 FINDINGS: Aortic arch: No significant stenosis of the great vessels at their origins from the aortic arch. Right carotid: Right common, internal, and external carotid arteries in the neck show no flow-limiting stenosis or occlusion or evidence of dissection. Mild atherosclerosis at the bifurcation. The appearance is similar to 08/03/2024. Left carotid: Left common, internal, and external carotid arteries in the neck are patent without flow-limiting stenosis or evidence of dissection. Mild atherosclerosis at the bifurcation and proximal left ICA without significant stenosis. Appearance is similar to 08/03/2024. Left vertebral: Left vertebral artery is patent without flow-limiting stenosis or dissection. Right vertebral: Right vertebral artery is patent without evidence of flow-limiting stenosis or dissection. Minimal narrowing of the proximal 5 mm of the right vertebral artery. Soft tissues: No acute abnormality of the neck soft tissues is seen. Calcified granuloma posterior left upper lobe. Bones: Chronic multilevel cervical degenerative disc disease and facet DJD produce variable degrees of chronic narrowing of the cervical canal and foramina. Please see cervical spine CT report for additional details. CT/CT angio headne* [id number] IMPRESSION: 1. Small focus of nonocclusive thrombus in the right ICA is new compared to 08/03/2024. 2. There is occlusive thrombus within the distal right M1 segment and proximal M2 segments. THIS REPORT CONTAINS FINDINGS THAT MAY BE CRITICAL TO PATIENT CARE. The findings were verbally communicated via telephone conference with DR. DAVIDSON IMPRESSION: CTA Neck shows no occlusion or severe stenosis of the extracranial cerebrovascular circulation. REFERENCES: NASCET CRITERIA. The degree of stenosis in the cervical segment of the internal carotid artery is based on NASCET criteria. Normal is no stenosis. Mild is less than 50% stenosis. Moderate is 50-69% stenosis. Severe is 70% to 99% stenosis. Total occlusion is no detectable patent lumen.
--- NOTE | 2024-08-18 10:08 | W.ED.NEUROSD ---
HPI - Neuro Symptoms/Deficit General: Chief Complaint: Neuro Symptoms/Deficit Stated Complaint: left side weakness Time Seen by Provider: 08/18/24 09:53 History of Present Illness: Chief complaint is left-sided weakness. History is obtained from EMS and the patient. Limited history from the patient due to his condition. EMS reports that the family last saw him well at 1030 last night. They found him on the floor this morning. Patient states he remembers trying to go to the bathroom in the week could not get his pants down and he does not remember falling but woke up on the floor this morning. He does not know what time he fell or how long he was on the ground. He denies any pain or injury. Denies headache chest pain shortness of breath cough fever. Denies back pain or abdominal pain. He is unaware of his left-sided weakness. He denies any black or bloody stools. Related Data Home Medications ?Medication ?Instructions ?Recorded ?Confirmed alpha lipoic acid 600 mg tablet 600 mg PO DAILY 06/25/23 08/13/24 ascorbic acid (vitamin C) 1,000 mg 3,000 mg PO DAILY 06/25/23 08/13/24 tablet (Vitamin C) cholecalciferol (vitamin D3) 125 125 mcg PO DAILY 06/25/23 08/13/24 mcg (5,000 unit) tablet (Vitamin D3) coenzyme Q10 100 mg capsule 100 mg PO DAILY 06/25/23 08/13/24 (CoQ-10) folic acid 1 mg tablet 1 mg PO DAILY 06/25/23 08/13/24 melatonin 3 mg tablet 3 mg PO BEDTIME 06/25/23 08/13/24 omega-3 fatty acids 1,000 mg 3,000 mg PO DAILY 06/25/23 08/13/24 capsule resveratrol 100 mg capsule 100 mg PO DAILY 06/25/23 08/13/24 thyroid (pork) 30 mg tablet (CONSTRUCTION SCHEDULER 30 mg PO DAILY 06/25/23 08/13/24 Thyroid) turmeric 400 mg capsule 400 mg PO DAILY 06/25/23 08/13/24 vitamin E 670 mg (1,000 unit) 1 cap PO DAILY 06/25/23 08/13/24 capsule zinc acetate 50 mg (zinc) capsule 50 mg PO DAILY 06/25/23 08/13/24 aspirin 81 mg tablet,delayed 81 mg PO DAILY 08/04/24 08/13/24 release (Adult Low Dose Aspirin) Allergies Allergy/AdvReac Type Severity Reaction Status Date / Time No Known Allergies Allergy Verified 08/13/24 10:24 PFSH ED PFSH: Medical History Afib CVA (cerebral vascular accident) Stroke determined by clinical assessment Carotid stenosis Thoracic aortic aneurysm Hypertension Erectile dysfunction Surgical History H/O left knee surgery History of cataract surgery Family History Brother Cancer prostate Mother , IN HER 90'S No problems noted. Father No problems noted. 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 NIH stroke score NIHSS: Level Of Consciousness - 1a: 0 Level Of Consciousness Questions - 1b: One Correct Level Of Consciousness Commands - 1c: Both Correct Best Gaze - 2: Partial Gaze Palsy Visual Loo - 3: Complete Hemianopia Facial Palsy - 4: Complete Paralysis Motor Arm Right - 5: No Drift Motor Arm Left - 5: No Effort Against [place] Motor Leg Right - 6: No Drift Motor Leg Left - 6: No Effort Against [place] Limb Ataxia - 7: Present In Two Limbs Sensory - 8: Severe To Total Loss Best Language - 9: No Aphasia Dysarthia - 10: Mild/Moderate Dysarthia Extinction And Inattention - 11: 2 Score: Total Score: 20 Physical Exam Narrative: EXAM NARRATIVE: Patient is awake and alert. He falls asleep when left alone. No visible signs of trauma to his head. He has what appears to be a pressure sore on his upper left back and his buttock. No vertebral tenderness on his neck or back. No chest or abdominal tenderness. Lung sounds are clear. Heart is irregularly irregular rhythm. Extremities appear warm well-perfused. No calf tenderness. No pitting edema. Patient has dense left-sided deficit. He has left-sided neglect and he is looking to the right side. He will follow my finger to the left. He denies any sensation with palpation on the left. He will have very subtle movement of the left leg but no effort against gravity. No apparent movement of the left arm. No rash on exposed areas other than as above. Normal conjunctive up. He has moist mucous membranes. Course Vital Signs: Vital signs: Vital Signs Pulse Rate 93 08/18/24 12:21 Respiratory Rate 13 08/18/24 11:15 Blood Pressure 144/100 08/18/24 12:21 Pulse Oximetry 99 08/18/24 12:21 MDM - Neuro Symptoms/Deficit Medical Decision Making Patient presents with history from EMS and later the son arrived and confirmed history from EMS. The son states he was acting normal and walking and talking normal yesterday and he was last seen 1030 last night and then found on the floor this morning. The son states the left-sided deficits are new. Patient was recently in the hospital for stroke according to EMS and the family. Patient has a history of A-fib and is always in A-fib according to family. Patient reportedly was on blood thinners in the past for his A-fib. On review of the records the patient was admitted here for stroke and then subsequently found to have hemorrhage and thought to have hemorrhagic conversion of his stroke. He was on anticoagulation at that time for his A-fib. Patient was transferred to [facility] and I do not have the records at this time. Patient apparently had significant improvement and was doing well yesterday. Differential would include syncope, seizure, stroke, traumatic injury from his fall, among many others. Will get a CT of his head and cervical spine. Presentation consistent with a severe stroke affecting his right brain. Patient did have dense distal M1 on his CT. I called and spoke to neurologist immediately at [facility] regarding this and discussed transfer for consideration for thrombectomy. Patient not TNK candidate for multiple reasons including last known well more than 4 and half hours as well as recent brain hemorrhage and stroke. The neurologist wants to see the CT angio and talk to interventional radiology. CT angio was performed and patient was given aspirin rectally. CBC CMP EKG and chest x-ray and CT cervical spine were obtained. CT cervical spine did not show evident fracture. EKG shows A-fib with nonspecific ST segment changes and a rate of 96 bpm to my interpretation. Chest x-ray negative for acute process per radiology. White count is elevated. Urinalysis not suggestive of infection. CK mildly elevated. Creatinine within normal limits. Patient accepted to [facility] for emergent transfer. Helicopters have been contacted and are not flying at this time so patient will be sent by ground. I advised son and patient patient's poor prognosis with his severe deficit. Patient had signs of ischemia on CT concerning for more remote time onset. Lab Data 08/18/24 09:30 08/18/24 09:[address] 08/18/24 09:48 IMPRESSION: 1. Acute ischemia/infarct involving right basal ganglia and blue radiata as reported above, without significant mass effect or acute hemorrhage. 2. Late subacute infarct right frontal operculum. 3. 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 ASSESSMENT: ASPECTS (Taylor Stroke Program Early CT Score) is 7. THIS REPORT CONTAINS FINDINGS THAT MAY BE CRITICAL TO PATIENT CARE. The findings were verbally communicated via telephone conference with Dr. Valdez at 10:02 AM CDT on 08/18/2024. The findings were acknowledged and understood. ADDENDUM: 08/18/24 1042 Addendum: Although not mentioned in the Impression, the finding suspicious for distal right M1 thrombus, as described in the body of the report, was discussed with Dr. Valdez during the telephone call at 1002 hours CDT on 08/18/2024. Cervical Spine CT 08/18/24 10:01 IMPRESSION: 1. No acute cervical spine fracture. 2. Advanced chronic cervical spondylosis. 3. Rotation of C1 relative to C2; given patient position as evident on solar sales assessor image, this finding could be positional. Consider repeat study with more optimal positioning when feasible. Chest X-Ray 08/18/24 10:01 IMPRESSION: No acute cardiopulmonary abnormality detected on AP portable chest radiograph. Head/Neck CTA 08/18/24 10:03 IMPRESSION: 1. Small focus of nonocclusive thrombus in the right ICA is new compared to 08/03/2024. 2. There is occlusive thrombus within the distal right M1 segment and proximal M2 segments. THIS REPORT CONTAINS FINDINGS THAT MAY BE CRITICAL TO PATIENT CARE. The findings were verbally communicated via telephone conference with DR. DAVIDSON IMPRESSION: CTA Neck shows no occlusion or severe stenosis of the extracranial cerebrovascular circulation. REFERENCES: NASCET CRITERIA. The degree of stenosis in the cervical segment of the internal carotid artery is based on NASCET criteria. Normal is no stenosis. Mild is less than 50% stenosis. Moderate is 50-69% stenosis. Severe is 70% to 99% stenosis. Total occlusion is no detectable patent lumen. Laboratory Results WBC 14.15 10^3/uL (3.29-11.43) H 08/18/24 09:30 RBC 4.74 10^6/uL (3.85-5.65) 08/18/24 09:30 Hgb 15.10 g/dL (11.27-16.99) 08/18/24 09:30 Hct 43.8 % (37-53) 08/18/24 09:30 MCV 92.4 fl (82-101) 08/18/24 09:30 MCH 31.9 pg (27-33) 08/18/24 09:30 MCHC 34.5 g/dL (30-55) 08/18/24 09:30 RDW 13.2 % (12.1-15.1) 08/18/24 09:30 Plt Count 157 10^3/cmm (157-399) 08/18/24 09:30 MPV 11.9 fL (7.4-10.4) H 08/18/24 09:30 Neut % (Auto) 92.3 % 08/18/24 09:30 Lymph % (Auto) 3.1 % 08/18/24 09:30 [place] % (Auto) 3.8 % 08/18/24 09:30 Eos % (Auto) 0.1 % 08/18/24 09:30 Baso % (Auto) 0.3 % 08/18/24 09:30 Neut # (Auto) 13.07 10^3/uL (1.8-7.7) H 08/18/24 09:30 Lymph # (Auto) 0.4 10^3/uL (0.8-4.8) L 08/18/24 09:30 [place] # (Auto) 0.5 10^3/uL (0.2-0.9) 08/18/24 09:30 Eos # (Auto) 0.0 10^3/uL (0.0-0.8) 08/18/24 09:30 Baso # (Auto) 0.0 10^3/uL (0.0-0.1) 08/18/24 09:30 Nucleated RBC % (auto) 0 % 08/18/24 09:30 Nucleated RBCs # 0.0 /100WBC 08/18/24 09:30 PT 14.00 SECONDS (12.1-14.9) 08/18/24 09:30 INR 1.01 (0.8-1.2) 08/18/24 09:30 APTT 27.6 SECONDS (23.9-36.7) 08/18/24 09:30 Sodium 138 mmol/L (136-145) 08/18/24 09:30 Potassium 3.5 mmol/L (3.5-5.1) 08/18/24 09:30 Chloride 99 mmol/L (98-107) 08/18/24 09:30 Carbon Dioxide 24 mmol/L (22-29) 08/18/24 09:30 Anion Gap 18.5 (5-19) 08/18/24 09:30 BUN 21 mg/dL (8-23) 08/18/24 09:30 Creatinine 0.8 mg/dL (0.7-1.2) 08/18/24 09:30 GFR Calculation Not Reportable 08/18/24 09: Glucose 140 mg/dL (65-115) H 08/18/24 09:30 Calculated Osmolality 291 mOsm/kg (285-295) 08/18/24 09:30 Calcium 9.1 mg/dL (8.5-10.5) 08/18/24 09:30 Total Bilirubin 0.8 mg/dL (0.15-1.2) 08/18/24 09:30 AST 43 U/L (0-40) H 08/18/24 09:30 ALT 34 U/L (0-41) 08/18/24 09:30 Alkaline Phosphatase 114 U/L (40-130) 08/18/24 09:30 Creatine Kinase 362 U/L (39-308) H* 08/18/24 09:30 Total Protein 7.7 g/dL (6.6-8.7) 08/18/24 09:30 Albumin 4.4 g/dL (3.5-5.2) 08/18/24 09:30 Globulin 3.3 g/dL (1.3-4.6) 08/18/24 09:30 Urine Color Yellow (Yellow) 08/18/24 11:08 Urine Appearance Clear (CLEAR) 08/18/24 11:08 Urine pH 8.0 (5-7) A 08/18/24 11:08 Ur Specific [place] 1.022 (1.005-1.030) 08/18/24 11:08 Urine Protein Trace (Negative) A 08/18/24 11:08 Urine Glucose (UA) Trace (Normal) H 08/18/24 11:08 Urine Ketones Trace (Negative) 08/18/24 11:08 Urine Blood 1+ (Negative) A 08/18/24 11:08 Urine Nitrate Negative (Negative) 08/18/24 11:08 Urine Bilirubin Negative (Negative) 08/18/24 11:08 Urine Urobilinogen 1.0 mg/dL (Negative) 08/18/24 11:08 Ur Leukocyte Esterase Negative (Negative) 08/18/24 11:08 Urine RBC 0-2 /hpf (0-2) 08/18/24 11:08 Urine WBC 0-5 /hpf (0-5) 08/18/24 11:08 Ur Squamous Epith Cells 0-5 /hpf (0-5) 08/18/24 11:08 Amorphous Sediment Not Reportable 08/18/24 11:08 Urine Bacteria None seen /hpf (NONE) 08/18/24 11:08 Hyaline Casts 0-4 /lpf H 08/18/24 11:08 Urine Opiates Screen Negative ng/mL (Negative) 08/18/24 11:08 Ur Barbiturates Screen Negative ng/mL (Negative) 08/18/24 11:08 Ur Phencyclidine Scrn Negative ng/mL (Negative) 08/18/24 11:08 Ur Amphetamines Screen Negative ng/mL (Negative) 08/18/24 11:08 U Benzodiazepines Scrn Negative ng/mL (Negative) 08/18/24 11:08 Urine Cocaine Screen Negative ng/mL (Negative) 08/18/24 11:08 U Marijuana (THC) Screen Negative ng/mL (Negative) 08/18/24 11:08 All radiology interpretation(s) finalized by discharge Critical Care Time Critical Care Time: Attestation: 45 minutes of critical care time performed. This is supervising care, consulting with specialist, obtaining history from EMS and from family and discussing plan, ordering and reviewing labs and ordering imaging studies and reassessing patient. Patient has hypertension, A-fib, acute stroke and possibility of trauma as well all complicating his care. Discharge Plan Discharge Patient Disposition: Xfer Short-Term Hosp Clinical Impression: Cerebrovascular accident Qualifiers: CVA mechanism: thrombosis Condition: Serious Print Language: Polish Coding Level of Care Code ED Slip Maker for Lisa Lilly
[2024-08-18 10:13] LABS: INR 1.01 (0.8-1.2)
[2024-08-18 10:14] LABS: Partial Thromboplastin Time 27.6 SECONDS (23.9-36.7)
[2024-08-18 10:19] LABS: Alanine Aminotransferase 34 U/L (0-41); Albumin Level 4.4 g/dL (3.5-5.2); Alkaline Phosphatase 114 U/L (40-130); Anion Gap 18.5 (5-19); Aspartate Amino Transferase 43 U/L (0-40); Blood Urea Nitrogen 21 mg/dL (8-23); Calcium 9.1 mg/dL (8.5-10.5); Carbon Dioxide 24 mmol/L (22-29); Chloride 99 mmol/L (98-107); Globulin 3.3 g/dL (1.3-4.6); Glucose 140 mg/dL (65-115); Osmolality Calculated 291 mOsm/kg (285-295); Potassium 3.5 mmol/L (3.5-5.1); Sodium 138 mmol/L (136-145); Total Bilirubin 0.8 mg/dL (0.15-1.2); Total Protein 7.7 g/dL (6.6-8.7)
[2024-08-18] MEDS: iohexol 350 mg/mL 500 mL Btl (per mL) IV (10:22)
[2024-08-18 10:38] LABS: Creatine Phosphokinase 362 U/L (39-308)
[2024-08-18] MEDS: aspirin 300 mg Supp PR (11:02)
[2024-08-18 11:15] VITALS: BP 156/109; PULSE 109; RESP 13
[2024-08-18 11:22] LABS: Bilirubin Urine Negative (Negative); Blood Urine 1+ (Negative); Glucose Urine UA Trace (Normal); Ketones Urine Trace (Negative); Leukocyte Esterase Urine Negative (Negative); Nitrate Urine Negative (Negative); Protein Urine Trace (Negative); Specific Gravity, Urine 1.022 (1.005-1.030); Urine Appearance Clear (CLEAR); Urine Color Yellow (Yellow)
[2024-08-18 11:24] LABS: Add Urine Microscopic? YES; Bacteria Urine None Seen /hpf; Hyaline Casts Urine 0-4 /lpf; RBC Urine 0-2 /hpf (0-2); Squamous Epithelial Cell Urine 0-5 /hpf (0-5); WBC Urine 0-5 /hpf (0-5)
[2024-08-18 11:28] LABS: Amphetamines Screen Urine Negative (Negative); Barbiturates Screen Urine Negative (Negative); Benzodiazepines Screen Urine Negative (Negative); Cocaine Screen Urine Negative (Negative); Opiate Screen Urine Negative (Negative); PCP Screen Urine Negative (Negative); THC Screen Urine Negative (Negative)
[2024-08-18 11:30] VITALS: BP 147/100; PULSE 115
[2024-08-18 11:45] VITALS: BP 144/100; PULSE 93; O2SAT 98
[2024-08-18 12:21] VITALS: BP 144/100; PULSE 93; O2SAT 99
[2024-08-21 12:55] LABS: Glucose Point of Care 121 mg/dL (70-110)
== END 2024-08-18 12:22 | disposition short-term general hospital (02) ==
PROVIDERS: Emergency Medicine; Emergency Provider Emergency Medicine; PCP Family Medicine
DX: I63.031 Cerebral infarction due to thrombosis of right carotid artery (principal); Z87.891 Personal history of nicotine dependence; I10 Essential (primary) hypertension; Z86.73 Personal history of transient ischemic attack (TIA), and cerebral infarction without residual deficits
CPT/HCPCS: 36416; 70450; 70496; 70498; 71045; 72125; 80053; 80306; 81001; 82550; 82962; 85025; 85610; 85730; 93005; 99285; J9999